=== PATIENT | male | born 1980 | race Caucasian/White ===

== ENCOUNTER 2023-05-06 22:25 | Emergency (ER) | payer MEDICARE, SELFPAY ==
[2023-05-06] VITALS (12 sets, daily range): BP systolic 159–179; BP diastolic 100–115; PULSE 75–89; RESP 16–22; TEMP 36.8; O2SAT 95–98
--- NOTE | 2023-05-06 23:06 | ED.RECABL1 ---
HPI - Recheck/Abnormal Lab/Rx General Chief Complaint: Recheck/Abnormal Lab/Rx Stated Complaint: ABNORMAL LAB Time Seen by Provider: 05/06/23 22:50 Source: patient Mode of arrival: walk-in Limitations: no limitations History of Present Illness HPI narrative: past history of bipolar. Is on several mental health medications including lithium 1800mg per day. For the past month has been experiencing tremors and feeling off balance. also blurred vision. blurred vision for 2 weeeks. no headache, near syncope, abdominal pain or vomiting. Has had diarrhea Related Data Home Medications Medication Instructions Recorded Confirmed clonazepam 1 mg tablet mg 05/06/23 clonidine HCl 0.2 mg tablet mg 05/06/23 gabapentin 600 mg tablet mg 05/06/23 hydroxyzine pamoate 50 mg capsule mg 05/06/23 lamotrigine 150 mg tablet mg 05/06/23 lithium carbonate 450 mg mg PO 05/06/23 tablet,extended release mirtazapine 15 mg tablet mg 05/06/23 risperidone 2 mg tablet mg 05/06/23 venlafaxine 150 mg mg PO 05/06/23 capsule,extended release 24 hr Allergies Allergy/AdvReac Type Severity Reaction Status Date / Time No Known Drug Allergies Allergy Verified 05/06/23 22:45 Review of Systems ROS Status of ROS 10 or more systems reviewed and unremarkable except as noted in history and below [facility] Social History Smoking status: Never smoker Exam Constitutional Vital Signs, click to edit/add: Last Vital Signs Temp 98.2 F 05/06/23 22:36 Pulse 71 05/07/23 02:11 Resp 14 05/07/23 01:05 BP 156/106 H 05/07/23 02:10 Pulse Ox 96 05/07/23 02:11 Common normals: no apparent distress, average body habitus, oriented x3, no limitations, healthy appearing, alert and well nourished Eye Common normals: EOMs intact bilaterally and conjunctivae normal Respiratory Common normals: normal respiratory effort, no retractions, no use of accessory muscles and clear to auscultation bilaterally Cardio Common normals: regular rate, regular rhythm, S1 normal heart sound and S2 normal heart sound GI Common normals: Normal to inspection, nondistended, normoactive bowel sounds present, soft to palpation and non-tender Extremity Common normals: normal to inspection and full ROM Neuro Common normals: oriented x3, CN's II-XII intact bilaterally and moves all extremities Other: fine tremor of his hands Psych Appearance: grossly normal Course Vital Signs Vital signs: Vital Signs Temperature 98.2 F 05/06/23 22:36 Pulse Rate 89 05/06/23 22:36 Respiratory Rate 16 05/06/23 22:36 Blood Pressure 170/104 H 05/06/23 22:36 Pulse Oximetry 96 05/06/23 22:36 Temperature 98.2 F 05/06/23 22:36 Pulse Rate 71 05/07/23 02:11 Respiratory Rate 14 05/07/23 01:05 Blood Pressure 156/106 H 05/07/23 02:10 Pulse Oximetry 96 05/07/23 02:11 MDM - Recheck/Abnormal Lab/Rx MDM Narrative Medical decision making narrative: patient presents with lithium toxicity . tremor and sensation of off balance for past month. blurred vision for past 2 weeks. Labs tonight returned with lithium toxicity. He takes 1800 mg once per day and did take his dose last night. . Advised to come to the ER tonight. has fine tremor of both hands. States he feels off balance when walking but is able to walk. vision is blurry and he has diarrhea. discussed with poison who recommends q4 hr monitoring of his lithium level. [facility] is a send out here and we are not able to monitor his levels. Discussed with hospitalist at [facility] and patient accepted for admission Lab Data Labs: Lab Results 05/06/23 Range/Units 22:43 WBC 9.4 (4.0-11.0) 10^3/uL RBC 4.91 (4.70-6.10) 10^6/uL Hgb 14.7 (14.0-18.0) g/dL Hct 43.6 (42.0-54.0) % MCV 88.8 (80.0-94.0) fL MCH 29.9 (25.9-34.0) pg MCHC 33.7 (29.9-35.2) g/dL RDW 12.5 (11.0-15.0) % Plt Count 224 (150-450) 10^3/uL MPV 11.4 (9.5-13.5) fL Neut % (Auto) 73.3 (43.0-75.0) % Lymph % (Auto) 15.4 L (20.5-60.0) % [place] % (Auto) 7.5 (1.7-12.0) % Eos % (Auto) 3.0 (0.9-7.0) % Baso % (Auto) 0.6 (0.2-2.0) % Neut # (Auto) 6.9 H (1.4-6.5) 10^3/uL Lymph # (Auto) 1.5 (1.2-3.8) 10^3/uL [place] # (Auto) 0.7 (0.3-0.8) 10^3/uL Eos # (Auto) 0.3 (0.0-0.7) 10^3/uL Baso # (Auto) 0.1 (0.0-0.1) 10^3/uL Abs Immat Gran (auto) 0.02 (0.00-0.03) 10^3/uL Imm/Tot Granulo (auto) 0.2 (0.0-0.5) % Sodium 138 (136-145) mmol/L Potassium 3.0 L (3.5-5.1) mmol/L Chloride 101 (98-107) mmol/L Carbon Dioxide 25.6 (21.0-32.0) mmol/L Anion Gap 14.4 BUN 3.0 L (7.0-18.0) mg/dL Creatinine 0.88 (0.70-1.30) mg/dL Est GFR ( Amer) >60 (>=60) Est GFR (Non-Af Amer) >60 (>=60) BUN/Creatinine Ratio 3.4 Glucose 134 H (74-106) mg/dL Calcium 9.0 (8.5-10.1) mg/dL Discharge Plan Discharge Chief Complaint: Recheck/Abnormal Lab/Rx Clinical Impression: [facility] toxicity Patient Disposition: Xfer Acute Care Hospital Prescriptions / Home Meds: No Action lamotrigine 150 mg tablet gabapentin 600 mg tablet clonazepam 1 mg tablet venlafaxine 150 mg capsule,extended release 24hr PO hydroxyzine pamoate 50 mg capsule lithium carbonate 450 mg tablet extended release PO risperidone 2 mg tablet clonidine HCl 0.2 mg tablet mirtazapine 15 mg tablet Referrals: Rizwan Bautista DO [Primary Care Provider] - 1 week
[2023-05-06] MEDS: 0.9 % SODIUM CHLORIDE 1,000 ML 999 ML IV (23:15)
[2023-05-06 23:18] LABS: Basophils Absolute Auto 0.1 10^3/uL (0.0-0.1); Basophils Percent Auto 0.6 % (0.2-2.0); Eosinophils Absolute Auto 0.3 10^3/uL (0.0-0.7); Hematocrit 43.6 % (42.0-54.0); Hemoglobin 14.7 g/dL (14.0-18.0); Immature Granulocytes Abs Auto 0.02 10^3/uL (0.00-0.03); Immature Granulocytes Pct Auto 0.2 % (0.0-0.5); Lymphocytes Absolute Auto 1.5 10^3/uL (1.2-3.8); Lymphocytes Percent Auto 15.4 % (20.5-60.0); Mean Corpuscular HGB Conc 33.7 g/dL (29.9-35.2); Mean Corpuscular Hemoglobin 29.9 pg (25.9-34.0); Mean Corpuscular Volume 88.8 fL (80.0-94.0); Mean Platelet Volume 11.4 fL (9.5-13.5); Monocytes Absolute Auto 0.7 10^3/uL (0.3-0.8); Monocytes Percent Auto 7.5 % (1.7-12.0); Neutrophils Absolute Auto 6.9 10^3/uL (1.4-6.5); Neutrophils Percent Auto 73.3 % (43.0-75.0); Platelet Count 224 10^3/uL (150-450); Red Blood Count 4.91 10^6/uL (4.70-6.10); Red Cell Distribution Width 12.5 % (11.0-15.0); White Blood Count 9.4 10^3/uL (4.0-11.0)
[2023-05-06 23:30] LABS: Anion Gap 14.4; BUN Creatinine Ratio 3.4; Carbon Dioxide 25.6 mmol/L (21.0-32.0); Chloride 101 mmol/L (98-107); Estimated GFR (African America >60 (>=60); Estimated GFR (Non-African Ame >60 (>=60); Glucose 134 mg/dL (74-106); Sodium 138 mmol/L (136-145)
[2023-05-06] MEDS: LABETALOL HCL 20 MG/4 ML SYRINGE 10 MG IVP (23:58)
[2023-05-07] VITALS (37 sets, daily range): BP systolic 140–178; BP diastolic 97–117; PULSE 68–77; RESP 14–24; O2SAT 95–98
[2023-05-07] MEDS: 0.9 % SODIUM CHLORIDE 1,000 ML 999 ML IV (00:53)
[2023-05-07] MEDS: POTASSIUM CHLORIDE IN WATER 10 MEQ/100 ML PIGGYBACK 100 MEQ IV (01:04)
--- NOTE | 2023-05-07 01:53 | ECG_ITS ---
[facility] Test Date: 2023-05-06 Pat Name: DALJIT NAPOLES Department: Room: - Gender: Male [employer]: : [id number] Requested By: [id number] Order Number: [id number] Reading MD: MELCHOR POWERS Measurements Intervals [place] Rate: 81 P: 30 UT: 178 QRS: 93 QRSD: 126 T: 43 QT: 392 QTc: 430 Interpretive Statements 1100 Sinus rhythm 2320 Nonspecific intraventricular conduction delay 7102 Moderate right axis deviation 9130 borderline ECG Compared to ECG 03/07/2020 16:44:04 No significant changes Electronically Signed On 05-07-2023 6:55:41 EST by MELCHOR POWERS
[2023-05-07] MEDS: POTASSIUM CHLORIDE 10 MEQ ER TABLET PO (02:51)
--- NOTE | 2023-05-07 08:06 | PC.NURSE ---
Update provided to Poison control that patient was transferred to [facility].
[2023-05-19 14:40] LABS: Lithium (Eskalith(R)), Serum 1.9 mmol/L (0.5-1.2)
== END 2023-05-07 03:03 | disposition short-term general hospital (02) ==
PROVIDERS: Emergency Provider Internal Medicine; PCP Internal Medicine
DX: R25.1 Tremor, unspecified (principal); H53.8 Other visual disturbances; R26.89 Other abnormalities of gait and mobility; T43.595A Adverse effect of other antipsychotics and neuroleptics, initial encounter; F31.9 Bipolar disorder, unspecified; Z79.899 Other long term (current) drug therapy
CPT/HCPCS: 36415; 80048; 80178; 85025; 93005; 96361; 96365; 96375; 99284; J1290; J3480

== ENCOUNTER 2024-01-01 15:04 | Outpatient (OUT) | payer MEDICARE, SELFPAY ==
--- OUTSIDE RECORDS SUMMARY | 2024-01-01 15:14 | XMS_ITS | CCD ---
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 Name Role Phone Unavailable Primary Care Provider Unavailabl e Unknown, Unknown Unavailable Unavailable Unavailable Unavailable Unavailable Primary Care Provider Unavailsylwia e RIZWAN POWERS Primary Care Physician Coleman CARMICHAEL Attending Unavailable CARMICHAEL, Coleman Simons Attending Unavailable CARMICHAEL, Coleman Simons Attending Unavailable CARMICHAEL, Coleman Simons Referring Unavailable AMOL, Coleman Simons Admitting Unavailable BALL, DR ROCHE Admitting Unavailable BALL, DR ROCHE Attending Unavailable BALL, DR ROCHE Consulting Unavailable BALL, DR ROCHE Primary Care Unavailable BALL, DR ROCHE Admitting Unavailable BALL, DR ROCHE Attending Unavailable BALL, DR ROCHE Consulting Unavailable BALL, DR ROCHE Primary Care Unavailable BALL, DR ROCHE Admitting Unavailable BALL, DR ROCHE Attending Unavailable BALL, DR ROCHE Consulting Unavailable BALL, DR ROCHE Primary Care Unavailable CARLENE, DR GUSTAVO Monge Consulting Unavailable BALL, DR ROCHE Admitting Unavailable BALL, DR ROCHE Attending Unavailable BALL, DR ROCHE Consulting Unavailable BALL, DR ROCHE Primary Care Unavailable ZiJesi alston Consulting Unavailable BALL, DR ROCHE Admitting Unavailable BALL, DR ROCHE Primary Care Unavailable BALL, DR ROCHE Attending Unavailable BALL, DR ROCHE Consulting Unavailable BALL, DR ROCHE Admitting Unavailable BALL, DR ROCHE Attending Unavailable BALL, DR ROCHE Primary Care Unavailable ANNAMARIA ., DR KALEIGH Mohan Admitting Unavailable YIN ., DR KALEIGH Mohan Attending Unavailable YIN ., DR KALEIGH Mohan Consulting Unavailable PRIYA, DR ROCHE Primary Care Unavailable PRIYA, DR ROCHE Primary Care Unavailable LAKSHMIPATHY ., NARENDMUKESH Admitting Lauren vailable LISBET .SUNNI Consulting Unavailable ALLI ., NIKI Attending Lauern vailable Mora Hendrickson Unavailable Riz[place] [id number], Number Primary Care Provide r Unavailable Bill 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-RN 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, 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 MACHINE TENDER-VARIOUS EXCEPTIONALITIES TEACHERShireen Unavailable Rizwan Powers Primary [facility] Unavailable rSinivas Botello Admitting Unavailab Srinivas Cervantes Attending Unavailab Jeremías Lugo Admitting Unavailable Zoya Castro Attending Unavailable Rizwan Powers Primary Care Unavailable Srinivas Botello Consulting Unavailab SHIREEN Mills Attending Unavailable SHIREEN KHAN Referring Unavailable SHIREEN KHAN Attending Unavailable SHIREEN KHAN Referring Unavailable SHIREEN KAHN Attending Unavailable SHIREEN KHAN Referring Unavailable SHIREEN KHAN Attending Unavailable SHIREEN KHAN Attending Unavailable SHIREEN KHAN Attending Unavailable SHIREEN KHAN Referring Unavailable SHIREEN KHAN Attending Unavailable SHIREEN KHAN Referring Unavailable SHIREEN KHAN Attending Unavailable SHIREEN KHAN Attending Unavailable SHIREEN KHAN Referring Unavailable CHANCE BRAVO Primary Care Unavailable SHIREEN KHAN Attending Unavailable CHANCE BRAVO Primary Care Unavailable Allergies Allergy Classification Reported Allergen(s) Allergy Type Date of Onset Reaction(s) Facility (1 source) No Known Medication Allergies; Translations: [No Known Medication Allergies] Propensity to adverse reactions (disorder) [facility] Repository (7 sources) Other; Translations: [OTHER] Propensity to adverse reactions 7 Other [facility] Work Phone: Medications Current Medications Medication Drug Class(es) Dates Sig (Normalized) Sig (Original) 24 hr alfuzosin hydrochloride 10 mg extended release oral tablet (20 sources) alpha-Adrenergic Daren Start: 03-31-2022 End: 06-22-2023 alfuzosin 10mg alfuzosin( 10mg oral 1 daily ) Active -Hx Entry oral daily for 0 *Reorder from [facility] for eRx and Interaction Alerts* Mar, Active amLODIPine (14 sources) Dihydropyridine Calcium Channel Daren Start: 11-11-2023 take 1 tablet by mouth once daily Amlodipine Active 0 .ROUTE .COMPLEX November 11, 2023 5:56pm TAKE ONE TABLET BY MOUTH ONCE DAILY Start: 06-02-2023 End: 11-11-2023 take 10 mg by mouth once daily Amlodipine Discontinued 10 MG PO Daily June 02, 2023 5:50pm November 11, 2023 5:56pm Start: 06-02-2023 End: 06-02-2023 take 20 mg by mouth once daily Amlodipine Discontinued 20 MG PO Daily June 02, 2023 1:00am June 02, 2023 5:44pm Start: 05-14-2023 take 1 tablet by beth th once daily amLODIPine (Norvasc) 5 mg tablet Take 1 tablet (5 mg) by mouth once daily. 05/14/2023 Active benazepril hydrochloride 10 mg oral tablet (12 sources) Angiotensin Converting Enzyme Inhibitor take 1 tablet by mouth every twenty-four hours Benazepril HCl 10 MG 1 tablet Orally Once a day for 30 days Active End: 05-18-2023 take 1 tablet by mouth once daily benazepril (Lotensin) 5 mg tablet Take 1 tablet (5 mg) by mouth once daily. 0 05/18/2023 Discontinued (Med List Cleanup) carvedilol 6.25 mg oral tablet (14 sources) alpha-Adrenergic Daren, beta-Adrenergic Daren Start: 11-11-2023 take 1 tablet by mouth twice daily at mealtime Carvedilol Active 0 .ROUTE .COMPLEX 60 November 11, 2023 5:55pm TAKE ONE TABLET BY MOUTH TWICE A DAY WITH FOOD Start: 05-26-2023 End: 11-11-2023 take 6.25 mg by mouth twice daily Carvedilol Discontinued 6.25 MG PO Twice daily June 02, 2023 1:00am November 11, 2023 5:56pm Start: 10-07-2017 End: 05-18-2023 take 1 tablet by mouth every twelve hours carvedilol (Coreg) 12.5 mg tablet Take 1 tablet (12.5 mg) by mouth every 12 hours. 0 10/07/2017 05/18/2023 Discontinued (Med List Cleanup) celecoxib 200 mg oral capsule (2 sources) Nonsteroidal Anti-inflammatory Drug take 1 capsule by mouth every twenty-four hours CeleBREX 200 MG 1 capsule with food Orally Once a day Active clonazePAM 1 mg oral tablet (20 sources) Benzodiazepine Start: End: take 1 mg by mouth twice daily Clonazepam Active 1 MG PO Twice daily May 07, 2023 1:00am take 1 tablet by beth every twenty-four hours KlonoPIN 1 MG 1 tablet Orally Once a day Active Comment on above: Take 1 tablet by beth twice daily as needed for up to 30 days. TAKE 1 TABLET BY BETH TWICE DAILY NEEDED UP TO 30 DAYS cloNIDine hydrochloride 0.2 mg oral tablet (20 sources) Central alpha-2 Adrenergic Agonist Start: 07-28-2023 take 0.2 mg by mouth twice daily Clonidine Hcl Active 0.2 MG PO Twice daily July 28, 2023 5:29pm Start: 05-07-2023 End: 07-28-2023 take 1 tablet by mouth three times daily as needed for anxiety Clonidine Hcl Discontinued 0.2 MG PO Daily at bedtime June 05, 2023 10:39am July 28, 2023 5:29pm 1 tab p.o. TID PRN anxiety Start: 05-05-2023 End: 08-24-2023 take 1 tablet by mouth once daily at bedtime cloNIDine (Catapres) 0.2 mg tablet Indications: Generalized anxiety disorder Take 1 tablet (0.2 mg) by mouth once daily at bedtime. 30 tablet 2 05/05/2023 08/24/2023 Discontinued (Reorder) Start: 02-03-2022 take 1 tablet by beth once daily at bedtime cloNIDine (Catapres) 0.2 mg tablet Take 1 tablet (0.2 mg) by mouth once daily at bedtime. 0 02/03/2022 Active Start: 02-03-2022 take 1 tablet by beth three times daily as needed for anxiety cloNIDine HCl - 0.2 MG Oral Tablet Take 1 tablet up to 3 times daily as needed for anxiety. Quantity: 90 Refills: 2 Ordered: 07-Aug-2022 Shireen Higuera Start : 03-Feb-2022 Active Start: 01-31-2022 take 0.1 tablet by out three times daily as needed cloNIDine HCl - 0.2 MG Oral Tablet Take 1 tablet up to 3 times daily as needed for anxiety. Quantity: 90 Refills: 0 Ordered: 31-Jan-2022 Shireen Higuera Start : 31-Jan-2022 Active Increasing dose from 0.1--> 0.2 mg Start: 01-07-2022 take 1 tablet by beth th three times daily as needed for anxiety cloNIDine HCl - 0.1 MG Oral Tablet TAKE 1 TABLET 3 times daily PRN anxiety/panic attacks Quantity: 90 Refills: 0 Ordered: 07-Jan-2022 Shireen Higuera Start : 07-Jan-2022 Active gabapentin 600 mg oral tablet (20 sources) Anti-epileptic Agent Start: 06-05-2023 take 1200 mg by mouth three times daily Gabapentin Active 1200 MG PO Three times daily June 05, 2023 10:13am Start: 05-07-2023 End: 06-05-2023 take 1200 mg by mouth every eight hours Gabapentin Discontinued 1200 MG PO Q8H May 07, 2023 1:00am June 05, 2023 10:17am Start: 05-05-2023 End: 08-24-2023 take 2 tablets by mouth three times daily gabapentin (Neurontin) 600 mg tablet Indications: Generalized anxiety disorder , Other bipolar disorder (Multi) Take 2 tablets (1,200 mg) by mouth 3 times a day. 180 tablet 1 06/22/2023 08/24/2023 Discontinued (Reorder) Start: 03-03-2023 End: 05-02-2023 take 2 tablets by mouth three times daily gabapentin (Neurontin) 600 mg tablet Indications: Generalized anxiety disorder , Other bipolar disorder (CMS/HCC) Take 2 tablets (1,200 mg) by mouth 3 times a day. 180 tablet 1 03/03/2023 05/02/2023 Active Start: 12-24-2022 take 1 capsule by mouth once G abapentin 300 MG Oral Capsule Take 1 capsule by mouth in the afternoon. (Take with 600 mg for a total of 900 mg in the afternoon). Quantity: 30 Refills: 0 Ordered: 24-Dec-2022 Shireen Higuera Start : 24-Dec-2022 Active Increasing mid-day dose from 600--> 900 mg. Start: 12-08-2022 End: 04-17-2023 take 1 tablet by mouth three times daily gabapentin (Neurontin) 600 mg tablet Indications: Generalized anxiety disorder , Other bipolar disorder (CMS/HCC) Take 1 tablet (600 mg) by mouth 3 times a day. Take with 300 mg for a total of 900mg 90 tablet 1 02/16/2023 04/17/2023 Active Start: 11-20-2022 Gabapentin 300 MG Oral Capsule take 1 capsule in the morning, 1 capsule in the afternoon, and 2 capsules at bedtime. Quantity: 120 Refills: 1 Ordered: 20-Nov-2022 Bill LORA Shireen Start : 20-Nov-2022 Active Increasing total daily dose from 600--> 1200 mg Start: 08-28-2021 End: 04-17-2023 take 1 capsule by mouth three times daily gabapentin (Neurontin) 300 mg capsule Indications: Generalized anxiety disorder , Other bipolar disorder (CMS/HCC) Take 1 capsule (300 mg) by mouth 3 times a day. Take with 600 mg for a total of 900 mg by mouth 3 times a day. 90 capsule 1 02/16/2023 04/17/2023 Active Start: 02-14-2020 End: 09-04-2021 take 1 capsule by mouth twice daily Gabapentin 300MG Gabapentin 300MG, 1 (one) Capsule Capsule Capsule two times daily # 180, 02/14/2020, Ref. x1. Active Oral two times daily for 0 *Pick strength-form from [facility] for eRX* Jan, Active Start: 04-04-2019 take 1 capsule by [facility] once daily gabapentin 400 mg Cap 400 mg = 1 cap(s), Oral, Daily, Refills(s) 0 Start Date: 04/04/19 Status: Ordered Comment on above: Take 1 capsule by [facility] twice daily for 30 days. hydrALAZINE hydrochloride 10 mg oral tablet (1 source) Arteriolar Vasodilator Start: 07-29-19 24 take 10 mg by mouth three times daily Hydralazine Active 10 MG PO Three times daily 90 30 July 29, 2023 12:00am hydrOXYzine pamoate 50 mg oral capsule (20 sources) Antihistamine Start: 05-07-19 End: 07-20-19 24 take 1-2 capsules by mouth once daily as needed for anxiety Hydroxyzine Pamoate Active 50 MG PO Daily June 05, 2023 10:14am TAKE 1-2 CAPSULE BY MOUTH ONCE DAILY NEEDED FOR ANXIETY Start: 04-15-2022 hydrOXYzine HC l 50MG hydrOXYzine HCl( 50MG Oral 2 three times daily as needed ) Active -Hx Entry Oral three times daily as needed for 0 *Pick strength-form from [facility] for eRX* Mar, Active Start: 12-02-2021 End: 02-16-2023 hydrOXYzine HCL (Atarax) 50 mg tablet TAKE 1.5-2 TABLETS UP TO 3 TIMES DAILY NEEDED FOR ANXIETY. 0 12/02/2021 02/16/2023 Discontinued (Med List Cleanup) Start: 11-22-2021 take 1 tablet by beth th three times daily as needed for anxiety hydrOXYzine HCl - 50 MG Oral Tablet TAKE 1 TABLET BY MOUTH 3 TIMES A DAY NEEDED FOR ANXIETY Quantity: 90 Refills: 1 Ordered: 22-Nov-2021 Shireen Higuera Start : 22-Nov-2021 Active Increasing from 25--> 50 mg PRN Start: 11-18-2021 take 0.5-1 tablets b y mouth three times daily as needed for anxiety hydrOXYzine HCl - 25 MG Oral Tablet Take 0.5-1 tablet by mouth up to 3 times daily as needed for anxiety. Quantity: 90 Refills: 1 Ordered: 18-Nov-2021 Shireen Higuera Start : 18-Nov-2021 Active mirtazapine 15 mg oral tablet (20 sources) Start: 05-05-2023 End: 08-10-2023 take 1 tablet by mouth once daily at bedtime Mirtazapine Active 15 MG PO Daily at bedtime May 07, 2023 1:00am 1 tab PO daily at bedtime with 30mg dose to total 45mg Start: 05-05-2023 End: 08-10-2023 take 30 mg by mouth once daily at bedtime Mirtazapine Active 30 MG PO Daily at bedtime May 07, 2023 1:00am Start: 09-18-2022 End: 04-17-2023 take 1 tablet by mouth once daily at bedtime mirtazapine (Remeron) 30 mg tablet Indications: Severe episode of recurrent major depressive disorder, without psychotic features (CMS/HCC) , Generalized anxiety disorder Take 1 tablet (30 mg) by mouth once daily at bedtime. 30 tablet 1 02/16/2023 04/17/2023 Active Start: 03-18-2022 End: 04-17-2023 take 1 tablet by mouth once daily at bedtime mirtazapine (Remeron) 15 mg tablet Indications: Severe episode of recurrent major depressive disorder, without psychotic features (CMS/HCC) , Generalized anxiety disorder Take 1 tablet (15 mg) by mouth once daily at bedtime. 30 tablet 1 02/16/2023 04/17/2023 Active Start: 09-25-2021 End: 02-16-2023 take 1 tablet by mouth at bedtime Mirtazapine 7.5 MG Oral Tablet TAKE 1 TABLET AT BEDTIME WITH 15 MG FOR A TOTAL OF 22.5 MG. Quantity: 30 Refills: 0 Ordered: 10-Sep-2022 Shireen Higuera Start : 10-Sep-2022 Active Increasing dose from 15 mg--> 22.5 mg One Touch Glucometer (6 sources) Start: 05-26-2023 One Touch Glucometer to test blood sugar daily for 365 days May, Active QUEtiapine 50 mg oral tablet (1 source) Atypical Antipsychotic Start: 12-02-2023 take 1 tablet by mouth three times daily Quetiapine (Seroquel) 50 mg tablet Active 50 MG PO Three times daily December 02, 2023 12:00am tadalafil 10 mg oral tablet (4 sources) Phosphodiesterase 5 Inhibitor Start: 02-12-2022 Cialis 10mg Cialis 10mg, 1 (one) Tablet Tablet PRN ED # 6, 02/12/2022, Ref. x2. Active oral PRN ED for 0 *Pick strength-form from [facility] for eRX* Jan, Active True Metrix Meter w/Device (2 sources) Start: 05-27-2023 True Metrix Meter w/Device as directed to test blood sugar for 365 days Test Strips as well - dispense 100 strips with 5 refills May, Active 24 hr venlafaxine 150 mg extended release oral capsule (20 sources) Serotonin and Norepinephrine Reuptake Inhibitor Start: 05-07-2023 take 300 mg by mouth once daily at bedtime Venlafaxine Active 300 MG PO Daily at bedtime May 07, 2023 1:00am Start: 04-15-2022 Venlafaxine HC l ER 150MG Venlafaxine HCl ER( 150MG Oral 1 two times daily ) Active -Hx Entry Oral two times daily *Pick strength-form from [employer] for eRX* Mar, Active Start: 08-28-2021 End: 09-12-2023 take 2 capsules by mouth once daily venlafaxine XR (Effexor-XR) 150 mg 24 hr capsule Indications: Severe episode of recurrent major depressive disorder, without psychotic features (Multi) , Generalized anxiety disorder , Other bipolar disorder (Multi) Take 2 capsules (300 mg) by mouth once daily. 180 capsule 1 03/16/2023 08/24/2023 Discontinued (Reorder) Start: 08-28-2021 take 2 capsules by m outh once daily Venlafaxine HCl ER 150 MG Oral Capsule Extended Release 24 Hour TAKE 2 CAPSULES DAILY. Quantity: 60 Refills: 2 Ordered: 16-Oct-2022 Shireen Higuera Start : 28-Aug-2021 Active Start: 08-28-2021 take 1 capsule by mo uth at bedtime Venlafaxine HCl ER 75 MG Oral Capsule Extended Release 24 Hour TAKE 1 CAPSULE Bedtime Take with 37.5 mg for a total of 112.5 mg Quantity: 30 Refills: 0 Ordered: 28-Aug-2021 Shireen Higuera Start : 28-Aug-2021 Active Start: 08-28-2021 take 1 capsule by mo uth at bedtime Venlafaxine HCl ER 37.5 MG Oral Capsule Extended Release 24 Hour TAKE 1 CAPSULE Bedtime Take with 75 mg for a total of 112.5 mg Quantity: 30 Refills: 0 Ordered: 28-Aug-2021 Shireen Higuera Start : 28-Aug-2021 Active Start: 2021 take 2 capsules by m outh once daily venlafaxine ER (EFFEXOR XR) 37.5 mg 24 hr capsule Take 2 pills po daily. 120 capsule 0 2021 Active Start: 04-15-2021 take 1 capsule by mo uth twice daily venlafaxine ER (EFFEXOR XR) 150 mg 24 hr capsule Take one po bid. 60 capsule 5 04/15/2021 Active Start: 03-08-2021 End: 09-04-2021 take 1 capsule by mouth once daily venlafaxine ER (EFFEXOR XR) 75 mg 24 hr capsule Take 1 capsule by mouth once daily. 30 capsule 5 03/08/2021 Active Start: 04-04-2019 Effexor XR 150 mg Cap-ER Refills(s) 0 Start Date: 04/04/19 Status: Ordered Start: 01-22-2009 take 1 capsule by mo uth once daily Effexor XR 150 MG take 1 capsule (150MG) by ORAL route every day Oral *please review for potential _update for e-prescription and drug interaction check* (Juve-) Jan, Active Comment on above: Take 1 capsule by mo ut once daily. Take one po bid. Take 2 pills po myrna y. Completed/Discontinued Medications Medication Drug Class(es) Dates Sig (Normalized) Sig (Original) allopurinol 100 mg oral tablet (4 sources) Xanthine Oxidase Inhibitor Start: 10-07-2017 End: 06-22-2023 take 1 tablet by mouth once daily allopurinol (Zyloprim) 100 mg tablet Take 1 tablet (100 mg) by mouth once daily. 0 10/07/2017 06/22/2023 Discontinued (Med List Cleanup) amoxicillin 875 mg oral tablet (5 sources) Penicillin-class Antibacterial Start: 11-10-2022 End: 11-17-2022 take 1 tablet by mouth twice daily amoxicillin (Amoxil) 875 mg tablet Take 1 tablet (875 mg) by mouth 2 times a day. 0 11/10/2022 11/17/2022 Start: 11-03-2021 Amoxicillin 87 5 MG Oral Tablet Quantity: 20 Refills: 0 Ordered: 03-Nov-2021 DO Start : 03-Nov-2021 Complete Start: 10-16-2021 Amoxicillin 50 0 MG Oral Capsule Quantity: 21 Refills: 0 Ordered: 16-Oct-2021 DO Start : 16-Oct-2021 Complete atenolol 50 mg oral tablet (6 sources) beta-Adrenergic Daren Start: 12-30-2018 End: 05-18-2023 atenolol (Tenormin) 50 mg tablet End: 05-18-2023 ATENOLOL ORAL Take by mouth once daily. 0 05/18/2023 Discontinued (Med List Cleanup) ATENOLOL ORAL Ta ke by mouth once daily. 0 Active baclofen 20 mg oral tablet (20 sources) gamma-Aminobutyric Acid-ergic Agonist Start: 02-20-2022 Baclofen 20 MG Oral Tablet Quantity: 30 Refills: 0 Ordered: 20-Feb-2022 DO Start : 20-Feb-2022 Active baclofen (Liores al) 20 mg tablet Active benztropine mesylate 0.5 mg oral tablet (7 sources) Anticholinergic, Antihistamine Start: 08-01-2022 take 1 tablet by mouth twice daily as needed Benztropine Mesylate 0.5 MG Oral Tablet TAKE 1 TABLET BY MOUTH TWICE A DAY NEEDED FOR SIDE EFFECTS Quantity: 60 Refills: 0 Ordered: 01-Aug-2022 Shireen Ruiz Start : 01-Aug-2022 Active BinaxNOW COVID-19 Ag Self Test kit (4 sources) Start: 04-12-2022 End: 06-22-2023 BinaxNOW COVID-19 Ag Self Test kit Use as Directed on the Package 0 04/12/2022 06/22/2023 Discontinued (Med List Cleanup) Start: 04-12-2022 BinaxNOW COVID -19 Ag Self Test kit Use as Directed on the Package 0 04/12/2022 Active busPIRone hydrochloride 10 m g oral tablet (20 sources) Start: 11-18-2021 End: 02-16-2023 busPIRone (Buspar) 10 mg tab let TAKE 2 TABLET 3 times daily 0 11/18/2021 02/16/2023 Discontinued (Med List Cleanup) Start: 11-18-2021 busPIRone HCl - 15 MG Oral Tablet Quantity: 90 Refills: 0 Ordered: 18-Nov-2021 DO Start : 18-Nov-2021 Complete Start: 10-29-2021 take 1 tablet by beth once daily, then take 1 tablet by mouth twice daily, then take 1 tablet by mouth three times daily busPIRone HCl - 10 MG Oral Tablet Take 1 tablet by mouth daily x 1 week, then increase to 1 tablet by mouth twice daily x 1 week, then increase to 1 tablet by mouth three times daily. Quantity: 90 Refills: 1 Ordered: 29-Oct-2021 Shireen Higuera Start : 29-Oct-2021 Active Start: 03-03-2021 End: 09-19-2021 take 1 tablet by mouth twice daily busPIRone (BUSPAR) 10 mg tablet Take 1 tablet by mouth twice daily 60 tablet 0 09/19/2021 Active Comment on above: Take one tab po bid. Take 1 tablet by beth th twice daily cefdinir 300 mg oral capsule (2 sources) Cephalosporin Antibacterial Start: 11-21-19 Cefdinir 300 MG Oral Capsule Quantity: 42 Refills: 0 Ordered: 20-Nov-2021 DO Start : 20-Nov-2021 Complete diclofenac sodium 75 mg delayed release oral tablet (2 sources) Nonsteroidal Anti-inflammatory Drug Start: 10-06-19 19 End: 05-18-19 24 take 1 tablet by mouth twice daily at mealtime diclofenac (Voltaren) 75 mg EC tablet Take 1 tablet (75 mg) by mouth 2 times a day with meals. 0 10/05/2018 05/18/2023 Discontinued (Med List Cleanup) doxepin hydrochloride 10 mg oral capsule (1 source) Tricyclic Antidepressant Start: 09-06-19 take 1 capsule by mouth at bedtime as needed for sleep Doxepin HCl - 10 MG Oral Capsule TAKE 1 CAPSULE BY MOUTH AT BEDTIME NEEDED FOR SLEEP Quantity: 30 Refills: 1 Ordered: 05-Sep-2021 Shireen Higuera Start : 05-Sep-2021 Active etodolac 400 mg oral tablet (6 sources) Nonsteroidal Anti-inflammatory Drug Start: 05-13-19 23 End: 05-18-19 24 etodolac (Lodine) 400 mg tablet Start: 04-08-2022 take 1 tablet by beth th twice daily Etodolac 400mg etodolac 400mg, 1 (one) tablet two times daily # 30, 04/08/2022, Ref. x1. Active oral two times daily for 15 *Pick strength-form from [facility] for eRX* 20 Mar, 2022 Active lamoTRIgine 100 mg oral tablet (20 sources) Mood Stabilizer, Anti-epileptic Agent Start: 06-11-2023 End: 08-24-2023 take 1 tablet by mouth twice daily lamoTRIgine (LaMICtal) 100 mg tablet Indications: Other bipolar disorder (Multi) , Severe episode of recurrent major depressive disorder, without psychotic features (Multi) Take 1 tablet (100 mg) by mouth 2 times a day. 60 tablet 1 06/11/2023 08/24/2023 Discontinued (Reorder) Start: 10-29-2021 End: 09-12-2023 take 1 tablet by mouth once daily at bedtime Lamotrigine Active 150 MG PO Daily at bedtime May 07, 2023 1:00am TAKE 1 TABLET BY MOUTH AT BEDTIME Start: 08-28-2021 take 1 tablet by beth th twice daily lamoTRIgine 100 MG Oral Tablet TAKE 1 TABLET TWICE DAILY. Quantity: 60 Refills: 0 Ordered: 25-Sep-2021 Shireen Higuera Start : 28-Aug-2021 Active Start: 08-28-2021 take 2 tablets by mo uth at bedtime lamoTRIgine 25 MG Oral Tablet TAKE 2 TABLET Bedtime Take with 100 mg for a total of 150 mg Quantity: 60 Refills: 0 Ordered: 25-Sep-2021 Shireen Higuera Start : 28-Aug-2021 Active Start: 04-15-2021 End: 09-12-2023 take 1 tablet by mouth once daily Lamotrigine Active 100 MG PO Daily May 07, 2023 1:00am TAKE 1 TABLET BY MOUTH ONCE DAILY Start: 04-15-2021 End: 10-15-2021 take 1 tablet by mouth at bedtime lamoTRIgine 150 MG Oral Tablet TAKE 1 TABLET Bedtime Quantity: 30 Refills: 1 Ordered: 12-Feb-2022 Shireen Higuera Start : 29-Oct-2021 Active Comment on above: Take 1 tablet by beth th once daily. In the AM. Take 1 tablet by beth th once daily. At bedtime. lithium carbonate 300 mg extended release oral tablet (20 sources) Start: 07-09-2023 End: 07-20-2023 take 2 tablets by mouth once daily at bedtime lithium ER (Lithobid) 300 mg 12 hr tablet Indications: Other bipolar disorder (Multi) Take 2 tablets (600 mg) by mouth once daily at bedtime. Do not crush, chew, or split. 20 tablet 07/09/2023 07/20/2023 Discontinued (Reorder) Start: 05-07-2023 End: 05-08-2023 take 4 tablets by mouth once daily at bedtime [place] Carbonate Discontinued 450 MG PO Daily at bedtime May 07, 2023 1:00am May 08, 2023 3:54pm TAKE 4 TABLETS BY MOUTH ONCE DAILY AT BEDTIME Start: 05-05-2023 End: 05-18-2023 take 4 tablets by mouth once daily at bedtime lithium ER (Eskalith) 450 mg 12 hr tablet Indications: Other bipolar disorder (CMS/HCC) , Severe episode of recurrent major depressive disorder, without psychotic features (CMS/HCC) Take 4 tablets (1,800 mg) by mouth once daily at bedtime. 120 tablet 1 05/05/2023 05/18/2023 Discontinued (Side effects) Start: 02-13-2023 End: 04-17-2023 take 4 tablets by mouth once daily at bedtime lithium ER (Eskalith) 450 mg 12 hr tablet Indications: Severe episode of recurrent major depressive disorder, without psychotic features (CMS/HCC) , Other bipolar disorder (CMS/HCC) Take 4 tablets (1,800 mg) by mouth once daily at bedtime. 120 tablet 1 02/16/2023 04/17/2023 Active Start: 08-18-2022 take 4 tablets by mo uth at bedtime [place] Carbonate ER 450 MG Oral Tablet Extended Release TAKE 4 TABLET Bedtime Quantity: 120 Refills: 1 Ordered: 20-Nov-2022 Shireen Higuera Start : 18-Aug-2022 Active Start: 04-15-2022 [place] [place] ate 150MG [place] Carbonate( 150MG Oral 1200 daily ) Active -Hx Entry Oral daily for 0 *Pick strength-form from [employer] for eRX* Mar, Active Start: 03-25-2022 lithium carbon ate Oral, TID, Refills(s) 0 Start Date: 03/25/22 Status: Ordered Start: 09-30-2021 End: 02-16-2023 lithium 300 mg tablet TAKE 4 TABLETS AT BEDTIME 0 09/30/2021 02/16/2023 Discontinued (Med List Cleanup) Start: 09-30-2021 take 1 tablet by beth th at bedtime [place] Carbonate 300 MG Oral Tablet TAKE 1 TABLET Bedtime Take with 900 mg for a total of 1200 mg Quantity: 30 Refills: 0 Ordered: 30-Sep-2021 Shireen Higuera Start : 30-Sep-2021 Active Start: 08-28-2021 take 3 tablets by mo uth at bedtime [place] Carbonate 300 MG Oral Tablet TAKE 3 TABLETS AT BEDTIME. Quantity: 90 Refills: 0 Ordered: 25-Sep-2021 Bill WELDONRACHELLEShireen Start : 28-Aug-2021 Active Start: 08-28-2021 take 2 tablets by mo uth at bedtime [place] Carbonate 300 MG Oral Tablet TAKE 2 TABLETS AT BEDTIME. Quantity: 60 Refills: 0 Ordered: 28-Aug-2021 Bill WELDONDenisseShireen IRELAND Start : 28-Aug-2021 Active Start: 03-28-2021 take 2 capsules by m outh in the morning, then take 3 capsules by mouth at bedtime lithium carbonate (ESKALITH) 300 mg capsule Take two capsules po am and 3 capsules po hs. 150 capsule 5 03/28/2021 Active Comment on above: Take two capsules po am and 3 capsules po hs. losartan potassium 25 mg oral tablet (5 sources) Angiotensin 2 Receptor Daren Start: 06-05-19 End: 07-29-19 take 25 mg by mouth once daily Losartan Discontinued 25 MG PO daily June 05, 2023 1:00am July 28, 2023 5:29pm lurasidone hydrochloride 20 mg oral tablet (12 sources) Atypical Antipsychotic Start: 06-22-19 End: 07-22-19 take 1 tablet by mouth once daily at mealtime lurasidone (Latuda) 20 mg tablet Indications: Other bipolar disorder (Multi) Take 1 tablet (20 mg) by mouth once daily in the evening. Take with meals. 30 tablet 06/22/2023 07/15/2023 Discontinued (Side effects) take 1 tablet by beth every twenty-four hours Latuda 80 MG 1 tablet with food Orally Once a day Active methocarbamol 500 mg oral tablet (6 sources) Muscle Relaxant Start: 04-25-2022 End: 05-18-2023 take 1 tablet by mouth every eight hours as needed methocarbamol (Robaxin) 500 mg tablet TAKE 1 TABLET BY MOUTH EVERY 8 HOURS NEEDED FOR 30 DAYS 0 04/26/2022 05/18/2023 Discontinued (Med List Cleanup) nabumetone 500 mg oral tablet (2 sources) Nonsteroidal Anti-inflammatory Drug Start: 11-22-2018 End: 05-18-2023 take 1 tablet by mouth twice daily at mealtime nabumetone (Relafen) 500 mg tablet Take 1 tablet (500 mg) by mouth 2 times a day with meals. 0 11/22/2018 05/18/2023 Discontinued (Med List Cleanup) polyethylene glycol 3350 [id number] mg powder for oral solution (3 sources) Osmotic Laxative Start: 06-05-2023 End: 09-03-2023 polyethylene glycol (Glycolax, Miralax) 17 gram/dose powder Indications: Drug-induced constipation Take 17 g by mouth once daily. 510 g 2 06/05/2023 09/03/2023 polymyxin b 88907 unt/ml / trimethoprim 1 mg/ml ophthalmic solution (15 sources) Dihydrofolate Reductase Inhibitor Antibacterial, Polymyxin-class Antibacterial Start: 01-16-2023 End: 07-20-2023 take 1 drop(s) into the eye(s) four times daily polymyxin B sulf-trimethoprim (Polytrim) ophthalmic solution INSTILL 1 DROP INTO AFFECTED EYE(S) 4 TIMES DAILY FOR 5 DAYS 01/16/2023 07/20/2023 Discontinued (Med List Cleanup) prednisoLONE acetate 10 mg/ml ophthalmic suspension (5 sources) Corticosteroid Start: 02-03-2023 End: 07-20-2023 prednisoLONE acetate (Pred-Forte) 1 % ophthalmic suspension 02/03/2023 07/20/2023 Discontinued (Med List Cleanup) predniSONE 20 mg oral tablet (4 sources) Start: 04-02-2022 End: 05-18-2023 predniSONE (Deltasone) 20 mg tablet Start: 04-02-2022 predniSONE 20 MG Oral Tablet Quantity: 15 Refills: 0 Ordered: 02-Apr-2022 DO Start : 02-Apr-2022 Complete risperiDONE 0.25 mg oral tablet (20 sources) Atypical Antipsychotic Start: 07-15-2023 End: 07-20-2023 take 1-2 tablets by mouth once daily as needed for anxiety risperiDONE (RisperDAL) 0.25 mg tablet Indications: Other bipolar disorder (Multi) Take 1-2 tablets (0.25-0.5 mg) by mouth once daily as needed (anxiety/agitation). 30 tablet 07/15/2023 07/20/2023 Discontinued (Alternate therapy) Start: 06-22-2023 End: 07-22-2023 take 1.5 tablets by mouth once daily risperiDONE (RisperDAL) 1 mg tablet Indications: Other bipolar disorder (CMS/HCC) Take 1.5 tablets (1.5 mg) by mouth once daily. 45 tablet 0 06/22/2023 07/22/2023 Active Start: 05-07-2023 End: 07-20-2023 take 1 mg by mouth once daily at bedtime Risperidone Active 1 MG PO Daily at bedtime June 05, 2023 10:17am Start: 05-05-2023 End: 08-10-2023 take 2 mg by mouth once daily at bedtime Risperidone Active 2 MG PO Daily at bedtime May 07, 2023 1:00am Start: 02-23-2023 End: 04-24-2023 take 1 tablet by mouth once daily risperiDONE (RisperDAL) 2 mg tablet Indications: Other bipolar disorder (CMS/HCC) Take 1 tablet (2 mg) by mouth once daily. 30 tablet 1 02/23/2023 04/24/2023 Active Start: 02-16-2023 End: 03-02-2023 risperiDONE (RisperDAL) 0.5 mg tablet Indications: Severe episode of recurrent major depressive disorder, without psychotic features (CMS/HCC) , Other bipolar disorder (CMS/HCC) Take 1 tablet (0.5 mg) by mouth once daily for 14 days. Then discontinue. 14 tablet 0 02/16/2023 03/02/2023 Active Start: 08-07-2021 End: 02-16-2023 take 1 tablet by mouth once daily at bedtime risperiDONE (RisperDAL) 2 mg tablet Take 1 tablet (2 mg) by mouth once daily at bedtime. 0 08/28/2021 02/16/2023 Discontinued (Med List Cleanup) Start: 08-05-2021 End: 04-17-2023 take 1 tablet by mouth once daily at bedtime risperiDONE (RisperDAL) 1 mg tablet Indications: Severe episode of recurrent major depressive disorder, without psychotic features (CMS/HCC) , Other bipolar disorder (CMS/HCC) Take 1 tablet (1 mg) by mouth once daily at bedtime. 30 tablet 1 02/16/2023 04/17/2023 Active Start: 07-22-2021 End: 08-05-2021 take 1 tablet by mouth in the morning, then take 2 tablets by mouth at bedtime risperiDONE (RISPERDAL) 1 mg tablet Take one po am and 2 at hs 90 tablet 5 08/05/2021 Active Comment on above: Take 1 tablet by beth th twice daily. Take one po am and 2 at hs Take 1 tablet by beth th daily with breakfast. Take 1 tablet by beth th daily at bedtime. sulfamethoxazole 800 mg / trimethoprim 160 mg oral tablet (5 sources) Dihydrofolate Reductase Inhibitor Antibacterial, Sulfonamide Antimicrobial Start: 04-29-19 End: 05-18-19 24 take 1 tablet by mouth twice daily sulfamethoxazole-tr imethoprim (Bactrim DS) 800-160 mg tablet Take 1 tablet by mouth 2 times a day. 0 04/29/2022 05/18/2023 Discontinued (Med List Cleanup) Start: 03-31-2022 take 1 tablet by beth th twice daily Bactrim D.S. 800 mg-160 mg Tab 160 mg, Oral, BID, 60 caplet(s), Refill(s) 1, [facility] [id number], 176, cm, 03/31/22 12:37:00 EST, Height/Length Dosing, 100, kg, 03/31/22 12:37:00 EST, Weight Dosing Start Date: 03/31/22 Status: Ordered Start: 12-21-2021 Sulfamethoxazo le-Trimethoprim 800-160 MG Oral Tablet Quantity: 20 Refills: 0 Ordered: 21-Dec-2021 DO Start : 21-Dec-2021 Complete tamsulosin hydrochloride 0.4 mg oral capsule (2 sources) alpha-Adrenergic Daren Start: 12-13-2021 Tamsulosin HCl - 0.4 MG Oral Capsule Quantity: 30 Refills: 0 Ordered: 13-Dec-2021 DO Start : 13-Dec-2021 Complete 24 hr divalproex sodium 500 mg extended release oral tablet (4 sources) Mood Stabilizer, Anti-epileptic Agent Start: 06-11-2023 End: 08-10-2023 take 1 tablet by mouth once daily divalproex (Depakote ER) 500 mg 24 hr tablet Indications: Other bipolar disorder (CMS/HCC) Take 1 tablet (500 mg) by mouth once daily. Do not crush, chew, or split. 30 tablet 1 06/11/2023 06/22/2023 Discontinued (Side effects) Start: 05-18-2023 End: 07-17-2023 take 1 tablet by mouth once daily at bedtime divalproex (Depakote ER) 250 mg 24 hr tablet Indications: Other bipolar disorder (CMS/HCC) Take 1 tablet (250 mg) by mouth once daily at bedtime. Do not crush, chew, or split. 30 tablet 1 05/18/2023 06/11/2023 Discontinued (Dose adjustment) vortioxetine 20 mg oral tablet (5 sources) Start: 09-19-2021 take 1 tablet by mouth once daily Trintellix 20 MG Oral Tablet Take 1 tablet daily Quantity: 30 Refills: 1 Ordered: 19-Sep-2021 Shireen Higuera Start : 19-Sep-2021 Active Increasing dose from 10--> 20 mg Start: 08-28-2021 take 0.5 tablet by m outh once daily, then take 1 tablet by mouth once daily Trintellix 10 MG Oral Tablet Take 1/2 tablet by mouth daily x 2 weeks, then increase to 1 tablet by mouth daily. Quantity: 30 Refills: 0 Ordered: 28-Aug-2021 Shireen Higuera Start : 28-Aug-2021 Active ziprasidone 20 mg oral capsule (4 sources) Atypical Antipsychotic Start: 12-12-2020 End: 08-05-2021 take 1 capsule by mouth twice daily at mealtime ziprasidone (GEODON) 20 mg capsule Take 1 capsule by mouth twice daily with meals. 60 capsule 4 12/12/2020 08/05/2021 Discontinued Comment on above: Take 1 capsule by mo uth twice daily with meals. Problems Active Problems Problem Classification Problem Date Documented Da te Episodic/Chronic Abdominal pain (10 sources) Abdominal pain; Translations: [Abdominal pain] Episodic Acute bronchitis (20 sources) Acute bronchitis; Translations: [Acute bronchitis due to other specified organisms] Onset: 09-05-2013 Episodic Anxiety disorders (20 sources) Generalized anxiety disorder; Translations: [Generalized anxiety disorder] Onset: 02-15-2023 Chronic Cardiac dysrhythmias (12 sources) Palpitations; Translations: [Palpitations] 06-05-2023 Episodic Diabetes mellitus without complication (20 sources) Impaired fasting glycemia; Translations: [Impaired fasting glucose] Episodic Disorders of lipid metabolism (11 sources) Familial hypercholesterolemia ; Translations: [Familial hypercholesterolemia ] 12-02-2023 Chronic Disorders of teeth and jaw (10 sources) Periapical abscess without sinus tract; Translations: [Periapical abscess without sinus] Episodic Esophageal disorders (13 sources) Gastro-esophageal reflux disease with esophagitis; Translations: [Gastro-esophageal reflux disease with esophagitis, without bleeding] 06-04-2023 Chronic Essential hypertension (20 sources) Hypertensive disorder; Translations: [Essential hypertension] 04-04-2019 Chronic Fluid and electrolyte disorders (6 sources) Hypokalemia; Translations: [Hypokalemia] Onset: 05-07-2023 05-07-2023 Episodic Gastrointestinal hemorrhage (10 sources) Hemorrhage of rectum and anus; Translations: [Rectal bleed] Episodic Genitourinary symptoms and ill-defined conditions (20 sources) Dysuria; Translations: [Polyuria] Onset: 11-01-2021 03-25-2022 Episodic Gout and other crystal arthropathies (10 sources) Primary gout; Translations: [Idiopathic gout, right ankle and foot] Chronic Hyperplasia of prostate (4 sources) Benign prostatic hypertrophy with outflow obstruction; Translations: [Benign prostatic hyperplasia with lower urinary tract symptoms] Onset: 03-31-2022 Chronic Immunizations and screening for infectious disease (10 sources) Vaccination given; Translations: [Encounter for immunization] Episodic Inflammation; infection of eye (except that caused by tuberculosis or sexually transmitteddisease) (1 source) Other mucopurulent conjunctivitis, bilateral Episodic Inflammatory conditions of male genital organs (4 sources) Chronic prostatitis; Translations: [Chronic prostatitis] Onset: 03-31-2022 Chronic Inflammatory conditions of male genital organs (20 sources) Prostatitis; Translations: [Inflammatory disease of prostate, unspecified] Onset: 01-02-2022 03-25-2022 Episodic Miscellaneous mental health disorders (20 sources) Somatoform disorder; Translations: [Other somatoform disorders] Onset: 12-14-2012 Chronic Mood disorders (20 sources) Bipolar disorder in full remission; Translations: [Bipolar disorder, currently in remission, most recent episode unspecified] Onset: 09-05-2013 Chronic Other aftercare (19 sources) Patient encounter status; Translations: [Long-term (current) use of other medications] Episodic Other aftercare (10 sources) Therapeutic drug level - finding; Translations: [Encounter for therapeutic drug level monitoring] Episodic Other aftercare (10 sources) Long-term current use of drug therapy; 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] Episodic Other circulatory disease (10 sources) Elevated blood-pressure reading without diagnosis of hypertension; Translations: [Elevated blood-pressure reading, without diagnosis of hypertension] Episodic Other connective tissue disease (12 sources) Extrapyramidal sign; Translations: [Other symptoms and signs involving the nervous system] Onset: 02-16-2023 02-16-2023 Episodic Other diseases of kidney and ureters (2 sources) Acquired renal cyst without neoplastic change; Translations: [Cyst of kidney, acquired] Onset: 03-31-2022 Episodic Other diseases of kidney and ureters (2 sources) Cyst of kidney 03-31-2022 Episodic Other ear and sense organ disorders (10 sources) Sensorineural hearing loss; Translations: [Unspecified sensorineural hearing loss] Chronic Other ear and sense organ disorders (10 sources) Sensorineural hearing loss, bilateral; Translations: [Sensorineural hearing loss, bilateral] Chronic Other ear and sense organ disorders (10 sources) Tinnitus; Translations: [Tinnitus, unspecified ear] Episodic Other male genital disorders (4 sources) Male erectile dysfunction, unspecified; Translations: [Erectile dysfunction] Onset: 03-31-2022 Chronic Other nutritional; endocrine; and metabolic disorders (20 sources) Body mass index 30+ - obesity; Translations: [Body mass index 36.0-36.9, adult] Onset: 12-28-2015 Chronic Other nutritional; endocrine; and metabolic disorders (20 sources) Obese class I; Translations: [Body mass index (BMI) 33.0-33.9, adult] Onset: 02-04-2018 Chronic Other nutritional; endocrine; and metabolic disorders (11 sources) Obesity; Translations: [Obesity, unspecified] 06-05-2023 Chronic Other nutritional; endocrine; and metabolic disorders (10 sources) Obese class II; Translations: [Body mass index 35.0-35.9, adult] Onset: 09-05-2013 Chronic Other nutritional; endocrine; and metabolic disorders (10 sources) Morbid obesity; Translations: [Morbid (severe) obesity due to excess calories] Onset: 09-05-2013 Chronic Other nutritional; endocrine; and metabolic disorders (10 sources) Simple obesity ; Translations: [Other obesity due to excess calories] Chronic Other nutritional; endocrine; and metabolic disorders (1 source) Morbid (severe) obesity due to excess calories Chronic Other nutritional; endocrine; and metabolic disorders (1 source) Body mass index (BMI) 37.0-37.9, adult Chronic Other nutritional; endocrine; and metabolic disorders (2 sources) Obesity caused by energy imbalance; Translations: [Morbid (severe) obesity due to excess calories] Onset: 09-05-2013 06-04-2023 Chronic Other nutritional; endocrine; and metabolic disorders (1 source) Obesity, unspecified; Translations: [Obesity, unspecified] 12-02-2023 Chronic Other nutritional; endocrine; and metabolic disorders (10 sources) Excessive thirst; Translations: [Polydipsia] Episodic Other skin disorders (10 sources) Hair follicle disorder; Translations: [Other specified follicular disorders] Episodic Other upper respiratory disease (10 sources) Allergic rhinitis; Translations: [Allergic rhinitis, unspecified] Chronic Poisoning by nonmedicinal substances (5 sources) [place] poisoning; Translations: [Toxic effect of other metals, accidental (unintentional), initial encounter] 05-07-2023 Chronic Residual codes; unclassified (12 sources) Obstructive sleep apnea syndrome; Translations: [Obstructive sleep apnea (adult) (pediatric)] Onset: 05-20-2021 03-25-2022 Chronic Residual codes; unclassified (10 sources) Tobacco user; Translations: [Tobacco use] Episodic Rheumatoid arthritis and related disease (10 sources) Inflammatory polyarthropathy; Translations: [Unspecified inflammatory polyarthropathy] Onset: 12-28-2015 Chronic Spondylosis; intervertebral disc disorders; other back problems (20 sources) Other cervical disc displacement, mid-cervical region, unspecified level; Translations: [Spondylosis without myelopathy or radiculopathy, cervical region] Onset: 02-04-2018 Chronic Spondylosis; intervertebral disc disorders; other back problems (11 sources) Cervicalgia; Translations: [Low back pain] Onset: 05-15-2022 Episodic Substance-related disorders (10 sources) Sedative, hypnotic or anxiolytic use, unspecified with sedative, hypnotic or anxiolytic-induced sexual dysfunction; Translations: [Sedative, hypnotic or anxiolytic use, unspecified with sedative, hypnotic or anxiolytic-induced sexual dysfunction] Episodic Unclassified (1 source) Adverse effect of other antipsychotics and neuroleptics, initial encounter; Translations: [Adverse effect of other antipsychotics and neuroleptics, initial encounter] Onset: 05-07-2023 Viral infection (10 sources) Verruca vulgaris; Translations: [Viral wart, unspecified] Episodic Past or Other Problems Problem Classification Problem Date Documented Date Episodic/Chronic Allergic reactions (10 sources) Inflammatory dermatosis; Translations: [Dermatitis, unspecified] Onset: 3 Episodic Bacterial infection; unspecified site (10 sources) Bacterial infectious disease; Translations: [Bacterial infection, unspecified, in conditions classified elsewhere and of unspecified site] Onset: 8 Episodic Blindness and vision defects (10 sources) Visual disturbance; Translations: [Other visual disturbances] Onset: 6 Episodic Esophageal disorders (1 source) Esophageal disorders Malaise and fatigue (10 sources) Malaise and fatigue; Translations: [Other malaise and fatigue] Onset: 8 Episodic Open wounds of extremities (10 sources) Open wound of finger without complication; Translations: [Open wound of finger(s), without mention of complication] Onset: 3 Episodic Other aftercare (6 sources) 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; Translations: [OTH SNF CURRENT DRUG THERAPY] Onset: 2 Episodic Other aftercare (1 source) Encounter for therapeutic drug level monitoring; Translations: [ENC THERAPEUTC DRUG LEVL MONITORING] Onset: 2 Episodic Other circulatory disease (10 sources) Cardiovascular symptoms; Translations: [Other specified symptoms and signs involving the circulatory and respiratory systems] Onset: 6 Episodic Other connective tissue disease (4 sources) Other muscle spasm; Translations: [OTHER MUSCLE SPASM] Onset: 3 Episodic Other connective tissue disease (10 sources) Pain in limb; Translations: [Pain in unspecified foot] Onset: 6 Episodic Other connective tissue disease (10 sources) Musculoskeletal symptom; Translations: [Other musculoskeletal symptoms referable to limbs] Onset: 8 Episodic Other connective tissue disease (4 sources) Other symptoms and signs involving the nervous system; Translations: [Other symptoms and signs involving the nervous system] Onset: 3 Episodic Other gastrointestinal disorders (10 sources) Pharyngeal dysphagia; Translations: [Dysphagia, pharyngoesophageal phase] Onset: 6 Episodic Other skin disorders (10 sources) Localized superficial swelling of skin; Translations: [Localized superficial swelling, mass, or lump] Onset: 6 Episodic Other upper respiratory disease (10 sources) Pain in throat; Translations: [Pain in throat] Onset: 3 Episodic Other upper respiratory infections (20 sources) Acute pharyngitis; Translations: [Acute pharyngitis due to other specified organisms] Onset: 4 Episodic Residual codes; unclassified (20 sources) Insomnia; Translations: [Insomnia, unspecified] Onset: 3 02-15-2023 Episodic Residual codes; unclassified (10 sources) Requires influenza virus vaccination; Translations: [Need for prophylactic vaccination and inoculation, Influenza] Onset: 8 Episodic Skin and subcutaneous tissue infections (10 sources) Cellulitis and abscess of hand excluding digits; Translations: [Cellulitis and abscess of hand, except fingers and thumb] Onset: 3 Episodic Sprains and strains (10 sources) Neck sprain; Translations: [Strain of muscle, fascia and tendon at neck level, initial encounter] Onset: 8 Episodic Unclassified (10 sources) Long-term current use of drug therapy; Translations: [Long-term (current) use of other medications] Onset: 6 Results Test Name Value Interpretation Reference Range Facility Basic metabolic 2000 panelon 08-03-2023 Anion gap [Moles/Vol] 10 mmol/L Normal - [facility] Comment on above: Performed By: #### 2 4321-2 #### KATARZYNA COLLAZO ([id number]) [facility] ([facility]) [address] [place] [address] Calcium [Mass/Vol] 9.3 mg/dL Normal 8.6-10.3 [facility] Comment on above: Performed By: #### 2 4321-2 #### KATARZYNA COLLAZO ([id number]) [facility] ([facility]) [address] [place] [address] Chloride [Moles/Vol] 106 mmol/L Normal 98-107 [facility] Comment on above: Performed By: #### 2 4321-2 #### KATARZYNA COLLAZO ([id number]) [facility] ([facility]) [address] [place] [address] 41100 CO2 [Moles/Vol] 27 mmol/L Normal 21-32 [facility] Comment on above: Performed By: #### 2 4321-2 #### KATARZYNA COLLAZO ([id number]) [facility] ([facility]) [address] [place] [address] [id number] Creatinine [Mass/Vol] 0.71 mg/dL Normal 0.50-1.30 [facility] Comment on above: Performed By: #### 2 4321-2 #### KATARZYNA COLLAZO ([id number]) [facility] ([facility]) [address] [place] [address] 48024 GFR/1.73 sq M.predicted MDRD (S/P/Bld) [Vol rate/Area] mL/min/{1.73_m2} Normal >60 [facility] Comment on above: Result Comment: Calc ulations of estimated GFR are performed using the 2020 CKD-EPI Study Refit equation without the race variable for the IDMS-Traceable creatinine methods. https://jasn.asnjournals.org/content///ASN.92950996 88 Performed By: #### 2 4321-2 #### KATARZYNA COLLAZO ([id number]) [facility] ([facility]) [address] [place] [address] [id number] Glucose [Mass/Vol] 98 mg/dL Normal 74-99 [facility] Comment on above: Performed By: #### 2 4321-2 #### KATARZYNA COLLAZO ([id number]) [facility] ([facility]) [address] [place] [address] [id number] Potassium [Moles/Vol] 4.0 mmol/L Normal 3.5-5.3 [facility] Comment on above: Performed By: #### 2 4321-2 #### KATARZYNA COLLAZO ([id number]) [facility] ([facility]) [address] [place] [address] 21426 Sodium [Moles/Vol] 139 mmol/L Normal 136-145 [facility] Comment on above: Performed By: #### 2 4321-2 #### KATARZYNA COLLAZO ([id number]) [facility] ([facility]) [address] [place] [address] 13904 Urea nitrogen [Mass/Vol] 10 mg/dL Normal 6- [facility] Comment on above: Performed By: #### 2 4321-2 #### KATARZYNA COLLAZO ([id number]) [facility] ([facility]) [address] [place] [address] [id number] Lithiumon 08-03-2023 [place] [Moles/Vol] 0.64 mmol/L Normal 0.60-1.20 [facility] Comment on above: Performed By: #### 2 4321-2 #### KATARZYNA COLLAZO ([id number]) [facility] ([facility]) [address] [place] [address] 82217 Basic metabolic 2000 panelon 07-10-2023 Anion gap [Moles/Vol] 10 mmol/L Normal 10- [facility] Comment on above: Performed By: #### 2 4321-2 #### KATARZYNA COLLAZO ([id number]) [facility] ([facility]) [address] [place] [address] 77412 Calcium [Mass/Vol] 9.6 mg/dL Normal 8.6-10.3 [facility] Comment on above: Performed By: #### 2 4321-2 #### KATARZYNA COLLAZO ([id number]) [facility] ([facility]) [address] [place] [address] [id number] Chloride [Moles/Vol] 103 mmol/L Normal 98-107 [facility] Comment on above: Performed By: #### 2 4321-2 #### KATARZYNA COLLAZO ([id number]) [facility] [facility] [address] [place] [address] 40289 CO2 [Moles/Vol] 30 mmol/L Normal 21-32 [facility] Comment on above: Performed By: #### 2 4321-2 #### KATARZYNA COLLAZO ([id number]) [facility] ([facility]) [address] [place] [address] Creatinine [Mass/Vol] 0.78 mg/dL Normal 0.50-1.30 [facility] Comment on above: Performed By: #### 2 4321-2 #### KATARZYNA COLLAZO ([id number]) [facility] ([facility]) [address] [place] [address] GFR/1.73 sq M.predicted MDRD (S/P/Bld) [Vol rate/Area] mL/min/{1.73_m2} Normal >60 [facility] Comment on above: Result Comment: Calc ulations of estimated GFR are performed using the 2020 CKD-EPI Study Refit equation without the race variable for the IDMS-Traceable creatinine methods. https://jasn.asnjournals.org/content/early//ASN.41451867 88 Performed By: #### 2 4321-2 #### KATARZYNA COLLAZO ([id number]) [facility] ([facility]) [address] [place] [address] 57310 Glucose [Mass/Vol] 104 mg/dL High 74-99 [facility] Comment on above: Performed By: #### 2 4321-2 #### KATARZYNA COLLAZO ([id number]) [facility] ([facility]) [address] [place] [address] Potassium [Moles/Vol] 4.1 mmol/L Normal 3.5-5.3 [facility] Comment on above: Performed By: #### 2 4321-2 #### KATARZYNA COLLAZO ([id number]) [facility] ([facility]) [address] [place] [address] 38273 Sodium [Moles/Vol] 139 mmol/L Normal 136-145 [facility] Comment on above: Performed By: #### 2 4321-2 #### KATARZYNA COLLAZO ([id number]) [facility] ([facility]) [address] [place] [address] Urea nitrogen [Mass/Vol] 13 mg/dL Normal 6-23 [facility] Comment on above: Performed By: #### 2 4321-2 #### KATARZYNA COLLAZO ([id number]) [facility] ([facility]) [address] [place] [address] Lithiumon 07-10-2023 [place] [Moles/Vol] 0.50 mmol/L Low 0.60-1.20 [facility] Comment on above: Performed By: #### 1 4334-7 #### KATARZYNA COLLAZO ([id number]) [facility] ([facility] [address] [place] [address] TSH WITH REFLEX TO FREE T4 I F ABNORMALon 07-10-2023 TSH Qn 1.17 m[IU]/L Normal 0.44-3.98 [facility] Comment on above: Order Comment: TSH t esting is performed using different testing methodology at [facility] than at other [facility]. Direct result comparisons should only be made within the same method. Performed By: #### 2 4321-2 #### KATARZYNA COLLAZO ([id number]) [facility] ([facility]) [address] [place] [address] CBC W Auto Differential pane l (Bld)on 06-05-2023 Basophils (Bld) [#/Vol] 0.05 x10*3/uL Normal 0.00-0.10 [facility] Comment on above: Performed By: #### 5 7021-8 #### KATARZYNA COLLAZO ([id number]) [facility] ([facility]) [address] [place] [address] Basophils/100 WBC (Bld) 1.0 % Normal 0.0-2.0 [facility] Comment on above: Performed By: #### 5 7021-8 #### KATARZYNA COLLAZO ([id number]) [facility] ([facility]) [address] [place] [address] Eosinophils (Bld) [#/Vol] 0.19 x10*3/uL Normal 0.00-0.70 [facility] Comment on above: Performed By: #### 5 7021-8 #### KATARZYNA COLLAZO ([id number]) [facility] ([facility]) [address] [place] [address] Eosinophils/100 WBC (Bld) 3.9 % Normal 0.0-6.0 [facility] Comment on above: Performed By: #### 5 7021-8 #### KATARZYNA COLLAZO ([id number]) [facility] ([facility]) [address] [place] [address] Erythrocyte distribution width (RBC) [Ratio] 11.9 % Normal 11.5-14.5 [facility] Comment on above: Performed By: #### 5 7021-8 #### KATARZYNA COLLAZO ([id number]) [facility] ([facility]) [address] [place] [address] Hematocrit (Bld) [Volume fraction] 44.9 % Normal 41.0-52.0 [facility] Comment on above: Performed By: #### 5 7021-8 #### KATARZYNA COLLAZO ([id number]) [facility] (C) [address] [place] [address] Hemoglobin (Bld) [Mass/Vol] 15.6 g/dL Normal 13.5-17.5 [facility] Comment on above: Performed By: #### 5 7021-8 #### KATARZYNA COLLAZO ([id number]) [facility] ([facility]) [address] [place] [address] Immature granulocytes (Bld) [#/Vol] 0.01 x10*3/uL Normal 0.00-0.70 [facility] Comment on above: Performed By: #### 5 7021-8 #### KATARZYNA COLLAZO ([id number]) [facility] ([facility]) [address] [place] [address] 42858 Immature granulocytes/100 WBC (Bld) 0.2 % Normal 0.0-0.9 [facility] Comment on above: Result Comment: Monique ture Granulocyte Count (IG) includes promyelocytes, myelocytes and metamyelocytes but does not include bands. Percent differential counts (%) should be interpreted in the context of the absolute cell counts (cells/UL). Performed By: #### 5 7021-8 #### KATARZYNA COLLAZO ([id number]) [facility] ([facility]) [address] [place] [address] 34605 Lymphocytes (Bld) [#/Vol] 1.71 x10*3/uL Normal 1.20-4.80 [facility] Comment on above: Performed By: #### 5 7021-8 #### KATARZYNA COLLAZO ([id number]) [facility] ([facility]) [address] [place] [address] 54347 Lymphocytes/100 WBC (Bld) 35.0 % Normal 13.0-44.0 [facility] Comment on above: Performed By: #### 5 7021-8 #### KATARZYNA COLLAZO ([id number]) [facility] (C) [address] [place] [address] 01798 MCH (RBC) [Entitic mass] 30.4 pg Normal 26.0-34.0 [facility] Comment on above: Performed By: #### 5 7021-8 #### KATARZYNA COLLAZO ([id number]) [facility] ([facility]) [address] [place] [address] 48374 MCHC (RBC) [Mass/Vol] 34.7 g/dL Normal 32.0-36.0 [facility] Comment on above: Performed By: #### 5 7021-8 #### KATARZYNA COLLAZO ([id number]) [facility] ([facility]) [address] [place] [address] 20934 MCV (RBC) [Entitic vol] 87 fL Normal 80-100 [facility] Comment on above: Performed By: #### 5 7021-8 #### KATARZYNA COLLAZO ([id number]) [facility] ([facility]) [address] [place] [address] 86460 Monocytes (Bld) [#/Vol] 0.46 x10*3/uL Normal 0.10-1.00 [facility] Comment on above: Performed By: #### 5 7021-8 #### KATARZYNA COLLAZO ([id number]) [facility] ([facility]) [address] [place] [address] 71358 Monocytes/100 WBC (Bld) 9.4 % Normal 2.0-10.0 [facility] Comment on above: Performed By: #### 5 7021-8 #### KATARZYNA COLLAZO ([id number]) [facility] ([facility]) [address] [place] [address] 74437 Neutrophils (Bld) [#/Vol] 2.46 x10*3/uL Normal 1.20-7.70 [facility] Comment on above: Result Comment: Perc ent differential counts (%) should be interpreted in the context of the absolute cell counts (cells/uL). Performed By: #### 5 7021-8 #### KATARZYNA COLLAZO ([id number]) [facility] ([facility]) [address] [place] [address] 40167 Neutrophils/100 WBC (Bld) 50.5 % Normal 40.0-80.0 [facility] Comment on above: Performed By: #### 5 7021-8 #### KATARZYNA COLLAZO ([id number]) [facility] ([facility]) [address] [place] [address] 56373 Nucleated RBC/100 WBC (Bld) [Ratio] 0.0 /100 WBCs Normal 0.0-0.0 [facility] Comment on above: Performed By: #### 5 7021-8 #### KATARZYNA COLLAZO ([id number]) [facility] ([facility]) [address] [place] [address] 30348 Platelets (Bld) [#/Vol] 213 x10*3/uL Normal 150-450 [facility] Comment on above: Performed By: #### 5 7021-8 #### KATARZYNA COLLAZO ([id number]) [facility] ([facility]) [address] [place] [address] RBC (Bld) [#/Vol] 5.14 x10*6/uL Normal 4.50-5.90 [facility] Comment on above: Performed By: #### 5 7021-8 #### KATARZYNA COLLAZO ([id number]) [facility] ([facility]) [address] [place] [address] WBC (Bld) [#/Vol] 4.9 x10*3/uL Normal 4.4-11.3 [facility] Comment on above: Performed By: #### 5 7021-8 #### KATARZYNA COLLAZO ([id number]) [facility] ([facility]) [address] [place] [address] Comprehensive metabolic 2000 panelon 06-05-2023 Albumin BCP dye [Mass/Vol] 4.5 g/dL Normal 3.4-5.0 [facility] Comment on above: Performed By: #### 2 4323-8 #### KATARZYNA COLLAZO ([id number]) [facility] ([facility]) [address] [place] [address] ALP [Catalytic activity/Vol] 69 U/L Normal 33-120 [facility] Comment on above: Performed By: #### 2 4323-8 #### KATARZYNA COLLAZO ([id number]) [facility] ([facility]) [address] [place] [address] 94744 ALT With P-5'-P [Catalytic activity/Vol] 29 U/L Normal 10-52 [facility] Comment on above: Result Comment: Viola ents treated with Sulfasalazine may generate falsely decreased results for ALT. Performed By: #### 2 4323-8 #### KATARZYNA COLLAZO ([id number]) [facility] ([facility]) [address] [place] [address] 72313 Anion gap [Moles/Vol] 13 mmol/L Normal 10-20 [facility] Comment on above: Performed By: #### 2 4323-8 #### KATARZYNA COLLAZO ([id number]) [facility] ([facility]) [address] [place] [address] 89361 AST With P-5'-P [Catalytic activity/Vol] 21 U/L Normal 9-39 [facility] Comment on above: Performed By: #### 2 4323-8 #### KATARZYNA COLLAZO ([id number]) [facility] ([facility]) [address] [place] [address] 64291 Bilirubin [Mass/Vol] 0.6 mg/dL Normal 0.0-1.2 [facility] Comment on above: Performed By: #### 2 4323-8 #### KATARZYNA COLLAZO ([id number]) [facility] ([facility]) [address] [place] [address] 30014 Calcium [Mass/Vol] 9.5 mg/dL Normal 8.6-10.3 [facility] Comment on above: Performed By: #### 2 4323-8 #### KATARZYNA COLLAZO ([id number]) [facility] ([facility]) [address] [place] [address] 55179 Chloride [Moles/Vol] 105 mmol/L Normal 98-107 [facility] Comment on above: Performed By: #### 2 4323-8 #### KATARZYNA COLLAZO ([id number]) [facility] ([facility]) [address] [place] [address] 63237 CO2 [Moles/Vol] 28 mmol/L Normal 21-32 [facility] Comment on above: Performed By: #### 2 4323-8 #### KATARZYNA COLLAZO ([id number]) [facility] ([facility]) [address] [place] [address] 50442 Creatinine [Mass/Vol] 0.67 mg/dL Normal 0.50-1.30 [facility] Comment on above: Performed By: #### 2 4323-8 #### KATARZYNA COLLAZO ([id number]) [facility] ([facility]) [address] [place] [address] 55941 GFR/1.73 sq M.predicted MDRD (S/P/Bld) [Vol rate/Area] mL/min/{1.73_m2} Normal >60 [facility] Comment on above: Result Comment: Calc ulations of estimated GFR are performed using the 2020 CKD-EPI Study Refit equation without the race variable for the IDMS-Traceable creatinine methods. https://jasn.asnjournals.org/content/early/ASN.96415336 88 Performed By: #### 2 4323-8 #### KATARZYNA COLLAZO ([id number]) [facility] ([facility]) [address] [place] [address] 33963 Glucose [Mass/Vol] 104 mg/dL High 74-99 [facility] Comment on above: Performed By: #### 2 4323-8 #### KATARZYNA COLLAZO ([id number]) [facility] ([facility]) [address] [place] [address] 27183 Potassium [Moles/Vol] 3.7 mmol/L Normal 3.5-5.3 [facility] Comment on above: Performed By: #### 2 4323-8 #### KATARZYNA COLLAZO ([id number]) [facility] ([facility]) [address] [place] [address] 52216 Protein [Mass/Vol] 7.1 g/dL Normal 6.4-8.2 [facility] Comment on above: Performed By: #### 2 4323-8 #### KATARZYNA COLLAZO ([id number]) [facility] ([facility]) [address] [place] [address] 58350 Sodium [Moles/Vol] 142 mmol/L Normal 136-145 [facility] Comment on above: Performed By: #### 2 4323-8 #### KATARZYNA COLLAZO ([id number]) [facility] ([facility]) [address] [place] [address] Urea nitrogen [Mass/Vol] 9 mg/dL Normal 6-23 [facility] Comment on above: Performed By: #### 2 4323-8 #### KATARZYNA COLLAZO ([id number]) [facility] ([facility]) [address] [place] [address] 78234 HbA1c (Bld) [Mass fraction]o n 06-05-2023 Average glucose Estimated from glycated hemoglobin (Bld) [Mass/Vol] 97 mg/dL Normal Not Established [facility] Comment on above: Order Comment: Diagn osis of Diabetes-Adults Non-Diabetic: < or = 5.6% Increased risk for developing diabetes: 5.7-6.4% Diagnostic of diabetes: > or = 6.5% Monitoring of Diabetes Age (y)....................... Therapeutic Goal (%) Adults: >18.........................<7.0 Pediatrics: 13-18...................<7.5 Pediatrics: 7-12....................<8.0 Pediatrics: 0-6..................... 7.5-8.5 [place] [employer]. Diabetes Care 33(S1)Apr 2009 Performed By: #### 4 548-4 #### MALLY Jeronimo ([id number]) [facility] ([facility]) [id number] [place] [address] 89473 Hemoglobin A1c/Hemoglobin.to venita 06-05-2023 HbA1c (Bld) [Mass fraction] 5.0 % Normal see below [facility] Comment on above: Order Comment: Diagn osis of Diabetes-Adults Non-Diabetic: < or = 5.6% Increased risk for developing diabetes: 5.7-6.4% Diagnostic of diabetes: > or = 6.5% Monitoring of Diabetes Age (y)....................... Therapeutic Goal (%) Adults: >18.........................<7.0 Pediatrics: 13-18...................<7.5 Pediatrics: 7-12....................<8.0 Pediatrics: 0-6..................... 7.5-8.5 [place] [employer]. Diabetes Care 33(S1), Apr 2009 Performed By: #### 4 548-4 #### MALLY Jeronimo ([id number]) [facility] ([facility]) [id number] [place], [place] [id number] Lipid 1996 panelon 4 Cholesterol [Mass/Vol] 239 mg/dL High 0-199 [facility] Comment on above: Result Comment: Age Desirable Borderline High High 0-19 Y 0 - 169 170 - 199 >/= 200 20-24 Y 0 - 189 190 - 224 >/= 225 >24 Y 0 - 199 200 - 239 >/= 240 All ranges are based on fasting samples. Specific therapeutic targets will vary based on patient-specific cardiac risk. Pediatric guidelines reference:Pediatrics 2011, 128(S5).Adult guidelines reference: NCEP ATPIII Guidelines,LACI 2001, 258:2486-97 Venipuncture immediately after or during the administration of Metamizole may lead to falsely low results. Testing should be performed immediately prior to Metamizole dosing. Performed By: #### 2 4331-1 #### KATARZYNA COLLAZO ([id number]) [facility] ([facility]) [address] [place] [address] Cholesterol in HDL [Mass/Vol] 38.4 mg/dL Normal [facility] Comment on above: Result Comment: Age Very Low Low Normal High 0-19 Y < 35 < 40 40-45 ---- 20-24 Y ---- < 40 >45 ---- >24 Y ---- < 40 40-60 >60 Performed By: #### 2 4331-1 #### KATARZYNA COLLAZO ([id number]) [facility] ([facility]) [address] [place] [address] 74223 Cholesterol in LDL [Mass/Vol] [facility] Comment on above: Result Comment: The calculation of LDL and VLDL are inaccurate when the Triglycerides are greater than 400 mg/dL or when the patient is non-fasting. If LDL measurement is necessary contact the testing laboratory for an alternative LDL assay. Near Borderline AGE Desirable Optimal High High Very High 0-19 Y 0 - 109 --- 110-129 >/= 130 ---- 20-24 Y 0 - 119 --- 120-159 >/= 160 ---- >24 Y 0 - 99 100-129 130-159 160-189 >/=190 Performed By: #### 2 4331-1 #### KATARZYNA COLLAZO ([id number]) [facility] ([facility]) [address] [place] [address] 60681 CHOLESTEROL/HDL RATIO 6.2 [facility] Comment on above: Result Comment: Ref Values Desirable < 3.4 High Risk > 5.0 Performed By: #### 2 4331-1 #### KATARZYNA COLLAZO ([id number]) [facility] ([facility]) [address] [place] [address] 38882 NON HDL CHOLESTEROL 201 mg/dL High 0-149 [facility] Comment on above: Result Comment: Age Desirable Borderline High High Very High 0-19 Y 0 - 119 120 - 144 >/= 145 >/= 160 20-24 Y 0 - 149 150 - 189 >/= 190 ---- >24 Y 30 mg/dL above LDL Cholesterol goal Performed By: #### 2 4331-1 #### KATARZYNA COLLAZO ([id number]) [facility] ([facility]) [address] [place] [address] 78893 Triglyceride [Mass/Vol] 404 mg/dL High 0-149 [facility] Comment on above: Result Comment: Age Desirable Borderline High High Very High 0 D-90 D 19 - 174 ---- ---- ---- 91 D- 9 Y 0 - 74 75 - 99 >/= 100 ---- 10-19 Y 0 - 89 90 - 129 >/= 130 ---- 20-24 Y 0 - 114 115 - 149 >/= 150 ---- >24 Y 0 - 149 150 - 199 200- 499 >/= 500 Venipuncture immediately after or during the administration of Metamizole may lead to falsely low results. Testing should be performed immediately prior to Metamizole dosing. Performed By: #### 2 4331-1 #### KATARZYNA COLLAZO ([id number]) [facility] ([facility]) [address] [place] [address] 95512 VLDL Normal [facility] Comment on above: Result Comment: Unab le to calculate VLDL. Performed By: #### 2 4331-1 #### KATARZYNA COLLAZO ([id number]) [facility] ([facility]) [address] [place] [address] 19032 Valproateon 06-05-2023 Valproate [Mass/Vol] 17 ug/mL Low 50-100 [facility] Comment on above: Performed By: #### 4 086-5 #### KATARZYNA COLLAZO ([id number]) [facility] ([facility]) [address] [place] [address] 91037 lamoTRIgineon 06-05-2023 lamoTRIgine [Mass/Vol] 7.6 ug/mL Normal 2.5-15.0 [facility] Comment on above: Performed By: #### 6 948-4 #### MALLY Jeronimo ([id number]) [facility] ([facility]) [id number] [place] [address] 39474 Basic Metabolic Panelon 04-20 Anion gap [Moles/Vol] 12.9 mmol/L Normal 6.0-15.0 [facility] Comment on above: Performed By: #### C BC, MG, PHOS, CMP #### [facility] [address] [place] [address] [facility] CO2 [Moles/Vol] 23.7 mmol/L Normal 21.0-31.0 [facility] Comment on above: Performed By: #### C BC, MG, PHOS, CMP #### [facility] [address] Creatinine [Mass/Vol] 0.68 mg/dL Low 0.70-1.30 [facility] Comment on above: Performed By: #### C BC, MG, PHOS, CMP #### [facility] [address] [place] [address] [place] Creatinine Clr Calc Pharmacy 174.23 [facility] Comment on above: Performed By: #### C BC, MG, PHOS, CMP #### [facility] [address] Glucose [Mass/Vol] 107 mg/dL High 70-100 [facility] Comment on above: Result Comment: [place] Glucose Reference Range is dependent on time and content of last meal. Glucose of more than 200 mg/dL in a nonstressed, ambulatory subject supports the diagnosis of Diabetes Mellitus. ADA recommended reference range Performed By: #### C BC, MG, PHOS, CMP #### [facility] [address] Urea nitrogen [Mass/Vol] 5 mg/dL Low 7-25 [facility] Comment on above: Performed By: #### C BC, MG, PHOS, CMP #### [facility] [address] Comprehensive Metabolic Pane elli 05-08-2023 Albumin [Mass/Vol] 4.3 g/dL Normal 3.5-5.7 [facility] Comment on above: Performed By: #### C MP #### [facility] [address] Albumin/Globulin [Mass ratio] 1.5 {ratio} [facility] Comment on above: Performed By: #### C MP #### [facility] [address] ALP [Catalytic activity/Vol] 122 U/L High 34-104 [facility] Comment on above: Performed By: #### C MP #### [facility] [address] ALT [Catalytic activity/Vol] 19 U/L Normal 7-52 [facility] Comment on above: Performed By: #### C MP #### [address] Anion gap [Moles/Vol] 13.3 mmol/L Normal 6.0-15.0 [facility] Comment on above: Performed By: #### C MP #### [address] AST [Catalytic activity/Vol] 15 U/L Normal 13-39 [facility] Comment on above: Performed By: #### C MP #### [facility] [address] [place] [address] Bilirubin [Mass/Vol] 0.8 mg/dL Normal 0.3-1.0 [facility] Comment on above: Performed By: #### C MP #### [address] Calcium [Mass/Vol] 9.3 mg/dL Normal 8.6-10.3 [facility] Comment on above: Performed By: #### C MP #### [facility] [address] [place] [address] Performed By: #### C BC, MG, PHOS, CMP #### [address] Chloride [Moles/Vol] 107 mmol/L Normal 98-107 [facility] Comment on above: Performed By: #### C MP #### [address] Performed By: #### C BC, MG, PHOS, CMP #### [address] CO2 [Moles/Vol] 23.3 mmol/L Normal 21.0-31.0 [facility] Comment on above: Performed By: #### C MP #### [facility] [address] [place] [address] Creatinine [Mass/Vol] 0.65 mg/dL Low 0.70-1.30 [facility] Comment on above: Performed By: #### C MP #### [address] Creatinine Clr Calc Pharmacy 182.27 [facility] Comment on above: Result Comment: PERF ORMED BY: [place] [address] PATHOLOGIST NUCLEAR CONTROL ROOM OPERATOR EDMOND LUND M.D. Performed By: #### C MP #### [address] GFR/1.73 sq M.predicted MDRD (S/P/Bld) [Vol rate/Area] mL/min/{1.73_m2} [facility] Comment on above: Performed By: #### C MP #### [address] Performed By: #### C BC, MG, PHOS, CMP #### [address] Globulin (S) [Mass/Vol] 2.8 g/dL [facility] Comment on above: Performed By: #### C MP #### [address] Glucose [Mass/Vol] 108 mg/dL High 70-100 [facility] Comment on above: Result Comment: [place] Glucose Reference Range is dependent on time and content of last meal. Glucose of more than 200 mg/dL in a nonstressed, ambulatory subject supports the diagnosis of Diabetes Mellitus. ADA recommended reference range Performed By: #### C MP #### [address] Potassium [Moles/Vol] 3.6 mmol/L Normal 3.5-5.1 [facility] Comment on above: Performed By: #### C MP #### [address] Performed By: #### C BC, MG, PHOS, CMP #### [address] Protein [Mass/Vol] 7.1 g/dL Normal 6.4-8.9 [facility] Comment on above: Performed By: #### C MP #### [address] Sodium [Moles/Vol] 140 mmol/L Normal 136-145 [facility] [facility] Comment on above: Performed By: #### C MP #### [address] Performed By: #### C BC, MG, PHOS, CMP #### [address] Urea nitrogen [Mass/Vol] 6 mg/dL Low 7-25 [facility] Comment on above: Performed By: #### C MP #### [address] Magnesiumon 05-08-2023 Magnesium [Mass/Vol] 1.9 mg/dL Normal 1.9-2.7 [facility] Comment on above: Result Comment: PERF ORMED BY: [place] [address] PATHOLOGIST NUCLEAR CONTROL ROOM OPERATOR EDMOND LUND M.D. Performed By: #### C BC, MG, PHOS, CMP #### [address] Complete Blood Count Auto Di ffon 05-07-2023 Basophils (Bld) [#/Vol] 0.1 10*3/uL Normal 0.0-0.2 [facility] Comment on above: Result Comment: PERF ORMED BY: [place] [address] PATHOLOGIST NUCLEAR CONTROL ROOM OPERATOR EDMOND LUND M.D. Performed By: #### C BC, MG, PHOS, CMP #### [address] Basophils/100 WBC (Bld) 0.9 % Normal . [facility] Comment on above: Performed By: #### C BC, MG, PHOS, CMP #### [address] [place] [address] [place] Eosinophils (Bld) [#/Vol] 0.3 10*3/uL Normal 0.0-0.45 [facility] Comment on above: Performed By: #### C BC, MG, PHOS, CMP #### [address] Eosinophils/100 WBC (Bld) 3.1 % Normal . [facility] Comment on above: Performed By: #### C BC, MG, PHOS, CMP #### [address] Erythrocyte distribution width (RBC) [Ratio] 12.9 % Normal 12.0-14.8 [facility] Comment on above: Performed By: #### C BC, MG, PHOS, CMP #### [address] Hematocrit (Bld) [Volume fraction] 37.9 % Low 38.8-50.0 [facility] Comment on above: Performed By: #### C BC, MG, PHOS, CMP #### [address] Hemoglobin (Bld) [Mass/Vol] 13.4 g/dL Normal 13.0-17.0 [facility] Comment on above: Performed By: #### C BC, MG, PHOS, CMP #### [address] Lymphocytes (Bld) [#/Vol] 2.1 10*3/uL Normal 1.00-4.8 [facility] Comment on above: Performed By: #### C BC, MG, PHOS, CMP #### [place] [address] [place] Lymphocytes/100 WBC (Bld) 24.8 % Normal . [facility] Comment on above: Performed By: #### C BC, MG, PHOS, CMP #### [address] MCH (RBC) [Entitic mass] 30.4 pg Normal 27.5-35.2 [facility] Comment on above: Performed By: #### C BC, MG, PHOS, CMP #### [address] MCV (RBC) [Entitic vol] 86.1 fL Normal 83.5-101 [facility] Comment on above: Performed By: #### C BC, MG, PHOS, CMP #### [address] Mean Corpuscular HGB Conc 35.3 g/dL Normal 32.5-35.6 [facility] Comment on above: Performed By: #### C BC, MG, PHOS, CMP #### [address] Monocytes (Bld) [#/Vol] 0.8 10*3/uL Normal 0.0-0.8 [facility] Comment on above: Performed By: #### C BC, MG, PHOS, CMP #### [address] Monocytes/100 WBC (Bld) 9.4 % Normal . [facility] Comment on above: Performed By: #### C BC, MG, PHOS, CMP #### [address] Neutrophils (Bld) [#/Vol] 5.1 10*3/uL Normal 1.8-7.7 [facility] Comment on above: Performed By: #### C BC, MG, PHOS, CMP #### [address] Neutrophils/100 WBC (Bld) 61.8 % Normal . [facility] Comment on above: Performed By: #### C BC, MG, PHOS, CMP #### [address] NRBC% 0.0 /100{WBC} Normal 0-0.5 [facility] Comment on above: Performed By: #### C BC, MG, PHOS, CMP #### [address] [place] [address] [place] Platelet mean volume (Bld) [Entitic vol] 10.1 fL Normal 6.6-10.1 [facility] Comment on above: Performed By: #### C BC, MG, PHOS, CMP #### [address] Platelets (Bld) [#/Vol] 203 10*3/uL Normal 150-450 [facility] Comment on above: Performed By: #### C BC, MG, PHOS, CMP #### [address] RBC (Bld) [#/Vol] 4.40 10*6/uL Normal 3.90-5.60 [facility] Comment on above: Performed By: #### C BC, MG, PHOS, CMP #### [address] WBC (Bld) [#/Vol] 8.3 10*3/uL Normal 4.1-10.5 [facility] Comment on above: Performed By: #### C BC, MG, PHOS, CMP #### [address] Comprehensive Metabolic Pane elli 05-07-2023 Albumin [Mass/Vol] 4.0 g/dL Normal 3.5-5.7 [facility] Comment on above: Performed By: #### C BC, MG, PHOS, CMP #### [address] Albumin/Globulin [Mass ratio] 1.8 {ratio} Normal [facility] Comment on above: Performed By: #### C BC, MG, PHOS, CMP #### [address] ALP [Catalytic activity/Vol] 116 U/L High 34-104 [facility] Comment on above: Performed By: #### C BC, MG, PHOS, CMP #### [address] ALT [Catalytic activity/Vol] 19 U/L Normal 7-52 [facility] Comment on above: Performed By: #### C BC, MG, PHOS, CMP #### [address] Anion gap [Moles/Vol] 7.0 mmol/L Normal 6.0-15.0 [facility] Comment on above: Performed By: #### C BC, MG, PHOS, CMP #### [address] AST [Catalytic activity/Vol] 15 U/L Normal 13-39 [facility] Comment on above: Performed By: #### C BC, MG, PHOS, CMP #### [address] Bilirubin [Mass/Vol] 0.6 mg/dL Normal 0.3-1.0 [facility] Comment on above: Performed By: #### C BC, MG, PHOS, CMP #### [address] Calcium [Mass/Vol] 9.0 mg/dL Normal 8.6-10.3 [facility] Comment on above: Performed By: #### C BC, MG, PHOS, CMP #### [address] Chloride [Moles/Vol] 110 mmol/L High 98-107 [facility] Comment on above: Performed By: #### C BC, MG, PHOS, CMP #### [address] CO2 [Moles/Vol] 29.1 mmol/L Normal 21.0-31.0 [facility] Comment on above: Performed By: #### C BC, MG, PHOS, CMP #### [address] Creatinine [Mass/Vol] 0.98 mg/dL Normal 0.70-1.30 [facility] Comment on above: Performed By: #### C BC, MG, PHOS, CMP #### [address] Creatinine Clr Calc Pharmacy 120.89 [facility] Comment on above: Result Comment: PERF ORMED BY: [place] [address] PATHOLOGIST NUCLEAR CONTROL ROOM OPERATOR EDMOND LUND M.D. Performed By: #### C BC, MG, PHOS, CMP #### [address] GFR/1.73 sq M.predicted MDRD (S/P/Bld) [Vol rate/Area] mL/min/{1.73_m2} [facility] Comment on above: Performed By: #### C BC, MG, PHOS, CMP #### [address] Globulin (S) [Mass/Vol] 2.2 g/dL Normal [facility] Comment on above: Performed By: #### C BC, MG, PHOS, CMP #### [address] Glucose [Mass/Vol] 114 mg/dL High 70-100 [facility] Comment on above: Result Comment: [place] Glucose Reference Range is dependent on time and content of last meal. Glucose of more than 200 mg/dL in a nonstressed, ambulatory subject supports the diagnosis of Diabetes Mellitus. ADA recommended reference range Performed By: #### C BC, MG, PHOS, CMP #### [address] Potassium [Moles/Vol] 4.1 mmol/L Normal 3.5-5.1 [facility] Comment on above: Performed By: #### C BC, MG, PHOS, CMP #### [address] Protein [Mass/Vol] 6.2 g/dL Low 6.4-8.9 [facility] Comment on above: Performed By: #### C BC, MG, PHOS, CMP #### [place] [address] [place] Sodium [Moles/Vol] 142 mmol/L Normal 136-145 [facility] Comment on above: Performed By: #### C BC, MG, PHOS, CMP #### [address] Urea nitrogen [Mass/Vol] 4 mg/dL Low 7-25 [facility] Comment on above: Performed By: #### C BC, MG, PHOS, CMP #### [address] Albumin [Mass/Vol] 3.8 g/dL Normal 3.5-5.7 [facility] Comment on above: Performed By: #### C BC, MG, PHOS, CMP #### [address] Albumin/Globulin [Mass ratio] 1.6 {ratio} Normal [facility] Comment on above: Performed By: #### C BC, MG, PHOS, CMP #### [address] ALP [Catalytic activity/Vol] 107 U/L High 34-104 [facility] Comment on above: Performed By: #### C BC, MG, PHOS, CMP #### [address] ALT [Catalytic activity/Vol] 17 U/L Normal 7-52 [facility] Comment on above: Performed By: #### C BC, MG, PHOS, CMP #### [address] Anion gap [Moles/Vol] 7.7 mmol/L Normal 6.0-15.0 [facility] Comment on above: Performed By: #### C BC, MG, PHOS, CMP #### [address] AST [Catalytic activity/Vol] 12 U/L Low 13-39 [facility] Comment on above: Performed By: #### C BC, MG, PHOS, CMP #### [address] Bilirubin [Mass/Vol] 0.4 mg/dL Normal 0.3-1.0 [facility] Comment on above: Performed By: #### C BC, MG, PHOS, CMP #### [address] Calcium [Mass/Vol] 8.4 mg/dL Low 8.6-10.3 [facility] Comment on above: Performed By: #### C BC, MG, PHOS, CMP #### [address] Chloride [Moles/Vol] 107 mmol/L Normal 98-107 [facility] Comment on above: Performed By: #### C BC, MG, PHOS, CMP #### [address] CO2 [Moles/Vol] 26.5 mmol/L Normal 21.0-31.0 [facility] Comment on above: Performed By: #### C BC, MG, PHOS, CMP #### [address] Creatinine [Mass/Vol] 0.72 mg/dL Normal 0.70-1.30 [facility] Comment on above: Performed By: #### C BC, MG, PHOS, CMP #### [address] Creatinine Clr Calc Pharmacy 164.55 [facility] Comment on above: Performed By: #### C BC, MG, PHOS, CMP #### [place] [address] [place] GFR/1.73 sq M.predicted MDRD (S/P/Bld) [Vol rate/Area] mL/min/{1.73_m2} [facility] Comment on above: Performed By: #### C BC, MG, PHOS, CMP #### [address] Globulin (S) [Mass/Vol] 2.4 g/dL [facility] Comment on above: Performed By: #### C BC, MG, PHOS, CMP #### [address] Glucose [Mass/Vol] 91 mg/dL Normal 70-100 [facility] Comment on above: Result Comment: [place] Glucose Reference Range is dependent on time and content of last meal. Glucose of more than 200 mg/dL in a nonstressed, ambulatory subject supports the diagnosis of Diabetes Mellitus. ADA recommended reference range Performed By: #### C BC, MG, PHOS, CMP #### [address] Potassium [Moles/Vol] 3.2 mmol/L Low 3.5-5.1 [facility] Comment on above: Performed By: #### C BC, MG, PHOS, CMP #### [address] Protein [Mass/Vol] 6.2 g/dL Low 6.4-8.9 [facility] Comment on above: Performed By: #### C BC, MG, PHOS, CMP #### [address] Sodium [Moles/Vol] 138 mmol/L Normal 136-145 [facility] Comment on above: Performed By: #### C BC, MG, PHOS, CMP #### [address] Urea nitrogen [Mass/Vol] 4 mg/dL Low 7-25 [facility] Comment on above: Performed By: #### C BC, MG, PHOS, CMP #### [place] [address] [place] Dipstick and Microscopicon 0 05-07-2023 Appearance (U) Slightly Cloudy Critically abnormal Clear [facility] Comment on above: Order Comment: Name Collection Type:: Clean-Voided Midstream Performed By: #### C BC, MG, PHOS, CMP #### [place] [address] [place] Bacteria,Urine None Seen Normal None Seen [facility] Comment on above: Order Comment: Name Collection Type:: Clean-Voided Midstream Performed By: #### C BC, MG, PHOS, CMP #### [address] Bilirubin,Urine Negative Normal Negative [facility] Comment on above: Order Comment: Name Collection Type:: Clean-Voided Midstream Performed By: #### C BC, MG, PHOS, CMP #### [address] Color (U) Yellow Normal Yellow [facility] Comment on above: Order Comment: Name Collection Type:: Clean-Voided Midstream Performed By: #### C BC, MG, PHOS, CMP #### [address] Glucose Ql (U) Normal Normal Normal [facility] Comment on above: Order Comment: Name Collection Type:: Clean-Voided Midstream Performed By: #### C BC, MG, PHOS, CMP #### [address] Hyaline Casts,Urine None Seen Normal 0-8 [facility] Comment on above: Order Comment: Name Collection Type:: Clean-Voided Midstream Result Comment: PERF ORMED BY: [place] [address] PATHOLOGIST NUCLEAR CONTROL ROOM OPERATOR EDMOND LUND M.D. Performed By: #### C BC, MG, PHOS, CMP #### [facility] [address] [place] [address] Ketones Ql (U) Negative Normal Negative [facility] Comment on above: Order Comment: Name Collection Type:: Clean-Voided Midstream Performed By: #### C BC, MG, PHOS, CMP #### [address] Leukocyte esterase Test strip Ql (U) 4+ High Negative [facility] Comment on above: Order Comment: Name Collection Type:: Clean-Voided Midstream Performed By: #### C BC, MG, PHOS, CMP #### [place] [address] [place] Nitrite,Urine Negative Normal Negative [facility] Comment on above: Order Comment: Name Collection Type:: Clean-Voided Midstream Performed By: #### C BC, MG, PHOS, CMP #### [address] Occult Blood,Urine Trace High Negative [facility] Comment on above: Order Comment: Name Collection Type:: Clean-Voided Midstream Result Comment: PERF ORMED BY: [place] [address] PATHOLOGIST NUCLEAR CONTROL ROOM OPERATOR EDMOND LUND M.D. Performed By: #### C BC, MG, PHOS, CMP #### [address] pH (U) 7.0 [pH] Normal 5.0-9.0 [facility] Comment on above: Order Comment: Name Collection Type:: Clean-Voided Midstream Performed By: #### C BC, MG, PHOS, CMP #### [facility] [address] [place] [address] Protein,Urine Negative Normal Negative [facility] Comment on above: Order Comment: Name Collection Type:: Clean-Voided Midstream Performed By: #### C BC, MG, PHOS, CMP #### [address] RBC,Urine 1-2 Normal 0-4 [facility] Comment on above: Order Comment: Name Collection Type:: Clean-Voided Midstream Performed By: #### C BC, MG, PHOS, CMP #### [facility] [address] [place] [address] Specificy [place],Urine 1.005 Normal 1.001-1.030 [facility] Comment on above: Order Comment: Name Collection Type:: Clean-Voided Midstream Performed By: #### C BC, MG, PHOS, CMP #### [facility] [address] [place] [address] Squamous Epithelial Cell,Urine None Seen Normal 0-2 [facility] Comment on above: Order Comment: Name Collection Type:: Clean-Voided Midstream Performed By: #### C BC, MG, PHOS, CMP #### [address] Urobilinogen,Urine Normal Normal Normal [facility] Comment on above: Order Comment: Name Collection Type:: Clean-Voided Midstream Performed By: #### C BC, MG, PHOS, CMP #### [address] WBC,Urine 50-100 High 0-4 [facility] Comment on above: Order Comment: Name Collection Type:: Clean-Voided Midstream Performed By: #### C BC, MG, PHOS, CMP #### [address] Drug Screen,Urineon 05-07-19 24 Amphetamine Screen,Urine Negative Normal Negative [facility] Comment on above: Performed By: #### C BC, MG, PHOS, CMP #### [address] Barbiturate Screen,Urine Negative Normal Negative [facility] Comment on above: Performed By: #### C BC, MG, PHOS, CMP #### [address] Benzodiazepines Screen,Urine Negative Normal Negative [facility] Comment on above: Performed By: #### C BC, MG, PHOS, CMP #### [address] Cannabinoid Screen,Urine Negative Normal Negative [facility] Comment on above: Result Comment: Thes e are unconfirmed results and should not be used for legal purposes. Drug Cut-Off Concentration: AMPH 1000 ng/mL JESSICA 200 ng/mL PAPI 200 ng/mL COCM 300 ng/mL OP 300 ng/mL PCP 25 ng/mL THC 20 ng/mL PERFORMED BY: [place] [address] PATHOLOGIST NUCLEAR CONTROL ROOM OPERATOR EDMOND LUND M.D. Performed By: #### C BC, MG, PHOS, CMP #### [address] [place] [address] [place] Cocaine Screen,Urine Negative Normal Negative [facility] Comment on above: Performed By: #### C BC, MG, PHOS, CMP #### [facility] [address] Opiate Screen,Urine Negative Normal Negative [facility] Comment on above: Performed By: #### C BC, MG, PHOS, CMP #### [facility] [address] Phencyclidine Screen,Urine Negative Normal Negative [facility] Comment on above: Performed By: #### C BC, MG, PHOS, CMP #### [facility] [address] [place] [address] ECG 12 lead ECGon 05-07-2023 ECG 12 lead ECG [facility] [place] [address] [place] [address] Electrocardiograph Report Signed Patient: Daljit Napoles MR#: [id number] : 1980 Acct:[id number] Age/Sex: 42 / M ADM Date: 05/07/23 Loc: Room: [address] [place] [address] Type: ADM IN Attending Dr: Zoya Castro DO Ordering Provider: Jeremías Ocampo MD Date of Service: 05/07/23 ECG/ECG 12 lead ECG: lithium toxicity Copies to: Test Reason : Blood Pressure : / mmHG Vent. Rate : 072 BPM Atrial Rate : 535 BPM P-R Int : 000 ms QRS Dur : 112 ms QT Int : 438 ms P-R-T Axes : 000 081 066 degrees QTc Int : 479 ms Atrial fibrillation with a competing junctional pacemaker Cannot rule out Anterior infarct (Unconfirmed) Atrial fibrillation has replaced Junctional rhythm Confirmed by KYA BYERS MD ([id number]) on 05/07/2023 10:56:40 AM Referred By: Electronically Signed By:KYA BYERS MD Transcribed By: MUS Signed By Kya Byers MD 0 05/07/23 1056 Normal [facility] Lithiumon 05-07-2023 [place] [Moles/Vol] 1.20 mmol/L Normal 0.60-1.20 [facility] Comment on above: Order Comment: Date of last dose?: 20230506 Time of last dose?: 2199 Result Comment: PERF ORMED BY: [place] [address] PATHOLOGIST NUCLEAR CONTROL ROOM OPERATOR EDMOND LUND M.D. Performed By: #### L ITH #### [facility] [address] [place] [address] [place] [Moles/Vol] 1.30 mmol/L High 0.60-1.20 [facility] Comment on above: Order Comment: Date of last dose?: 20230506 Time of last dose?: 2199 Result Comment: PERF ORMED BY: [place] [address] PATHOLOGIST NUCLEAR CONTROL ROOM OPERATOR EDMOND LUND M.D. Performed By: #### L ITH #### [address] [place] [Moles/Vol] 1.60 mmol/L High 0.60-1.20 [facility] Comment on above: Order Comment: Date of last dose?: 20230506 Time of last dose?: 2199 Result Comment: PERF ORMED BY: [place] [address] PATHOLOGIST NUCLEAR CONTROL ROOM OPERATOR EDMOND LUND M.D. Performed By: #### C BC, MG, PHOS, CMP #### [address] [place] [Moles/Vol] 1.70 mmol/L High 0.60-1.20 [facility] Comment on above: Order Comment: Date of last dose?: 20230506 Time of last dose?: 2199 Result Comment: PERF ORMED BY: [place] [address] PATHOLOGIST NUCLEAR CONTROL ROOM OPERATOR EDMOND LUND M.D. Performed By: #### L ITH #### [facility] [address] [place] [address] [place] [Moles/Vol] 1.90 mmol/L High 0.60-1.20 [facility] Comment on above: Result Comment: PERF ORMED BY: [facility] [address] [place] [address] PATHOLOGIST NUCLEAR CONTROL ROOM OPERATOR EDMOND LUND M.D. Performed By: #### L ITH #### [facility] [address] [place] [address] Magnesiumon 05-07-2023 Magnesium [Mass/Vol] 2.0 mg/dL Normal 1.9-2.7 [facility] Comment on above: Result Comment: PERF ORMED BY: [place] [address] PATHOLOGIST NUCLEAR CONTROL ROOM OPERATOR EDMOND LUND M.D. Performed By: #### C BC, MG, PHOS, CMP #### [facility] [address] [place] [address] Phosphoruson 05-07-2023 Phosphate [Mass/Vol] 2.8 mg/dL Normal 2.5-4.5 [facility] Comment on above: Performed By: #### C BC, MG, PHOS, CMP #### [facility] [address] [place] [address] Urine Cultureon 05-07-2023 Bacteria identified Cx Nom (U) <9,000 colonies/ml mixed bacterial skin contaminants 2 Days PERFORMED BY: [place] [address] PATHOLOGIST NUCLEAR CONTROL ROOM OPERATOR EDMOND LUND M.D. Normal [facility] Comment on above: Performed By: #### C BC, MG, PHOS, CMP #### [facility] [address] [place] [address] Basic metabolic 2000 panelon 05-06-2023 Anion gap [Moles/Vol] 14 mmol/L Normal 10-20 [facility] Comment on above: Performed By: #### 2 4321-2 #### KATARZYNA COLLAZO ([id number]) [facility] ([facility]) [address] [place] [address] Calcium [Mass/Vol] 9.2 mg/dL Normal 8.6-10.3 [facility] Comment on above: Performed By: #### 2 4321-2 #### KATARZYNA COLLAZO ([id number]) [facility] ([facility]) [address] [place] [address] Chloride [Moles/Vol] 100 mmol/L Normal 98-107 [facility] Comment on above: Performed By: #### 2 4321-2 #### KATARZYNA COLLAZO ([id number]) [facility] ([facility]) [address] [place] [address] CO2 [Moles/Vol] 27 mmol/L Normal 21-32 [facility] Comment on above: Performed By: #### 2 4321-2 #### KATARZYNA COLLAZO ([id number]) [facility] ([facility]) [address] [place] [address] Creatinine [Mass/Vol] 0.82 mg/dL Normal 0.50-1.30 [facility] Comment on above: Performed By: #### 2 4321-2 #### KATARZYNA COLLAZO ([id number]) [facility] ([facility]) [address] [place] [address] GFR/1.73 sq M.predicted MDRD (S/P/Bld) [Vol rate/Area] mL/min/{1.73_m2} Normal >60 [facility] Comment on above: Result Comment: Calc ulations of estimated GFR are performed using the 2020 CKD-EPI Study Refit equation without the race variable for the IDMS-Traceable creatinine methods. https://jasn.asnjournals.org/content//ASN.34936513 88 Performed By: #### 2 4321-2 #### KATARZYNA COLLAZO ([id number]) [facility] ([facility]) [address] [place] [address] Glucose [Mass/Vol] 98 mg/dL Normal 74-99 [facility] Comment on above: Performed By: #### 2 4321-2 #### KATARZYNA COLLAZO ([id number]) [facility] ([facility]) [address] [place] [address] Potassium [Moles/Vol] 3.3 mmol/L Low 3.5-5.3 [facility] Comment on above: Performed By: #### 2 4321-2 #### KATARZYNA COLLAZO ([id number]) [facility] ([facility]) [address] [place] [address] Sodium [Moles/Vol] 138 mmol/L Normal 136-145 [facility] Comment on above: Performed By: #### 2 4321-2 #### KATARZYNA COLLAZO ([id number]) [facility] ([facility]) [address] [place] [address] Urea nitrogen [Mass/Vol] 5 mg/dL Low 6-23 [facility] Comment on above: Performed By: #### 2 4321-2 #### KATARZYNA COLLAZO ([id number]) [facility]) [address] [place] [address] Lithiumon 05-06-2023 [place] [Moles/Vol] 2.03 mmol/L Critically high 0.60-1.20 [facility] Comment on above: Performed By: #### 1 4334-7 #### KATARZYNA COLLAZO ([id number]) [facility]) [address] [place] [address] TSH WITH REFLEX TO FREE T4 I F ABNORMALon 05-06-2023 TSH Qn 1.17 m[IU]/L Normal 0.44-3.98 [facility] Comment on above: Order Comment: TSH t esting is performed using different testing methodology at [facility] than at other [facility]. Direct result comparisons should only be made within the same method. Performed By: #### T HYDS #### KATARZYNA COLLAZO ([id number]) [facility] ([facility]) [address] [place] [address] Psychiatry Adulton 3 Psychiatry Adult No report was sent Normal Codacy Chart Updateon 12-08-2022 Chart Update Diagnoses/Problems Generalized anxiety disorder (300.02) (F41.1) Orders Generalized anxiety disorder Start: Gabapentin 600 MG Oral Tablet; TAKE 1 TABLET 3 TIMES DAILY NEEDED FOR ANXIETY Rx By: Shireen Holly; Dispense: 30 Days ; #:90 Tablet; Refill: 0;For: Generalized anxiety disorder; MONAE = N; Sent To: [facility]; Msg to Pharmacy: cross covering for Shireen Khan CNP. please discontinue any other gabapentin rx. this is an increase Chart Update Cross covering for Shireen Khan CNP. Patient messaged requesting an increased dose of gabapentin as he reports taking 2-300mg caps of gabapentin TID. Per Shireen Khan's chart update on 11/28/22 patient was supposed to take 1 cap gabapentin 300mg in the am, 2 caps in the afternoon and 2 caps at bedtime. Patient's next appointment with Shireen Khan noted on 01/01/23. Will temporarily increase dose of gabapentin to 600mg TID #60/30 day supply no refill and patient will be encouraged to not take more than prescribed medication without discussing with his prescriber first. Staff made aware refill sent. OARRS checked, last fill noted below 11/25/2022 Clonazepam 1 Mg Tablet #60/30 11/21/2022 Gabapentin 300 Mg Capsule #120/30 10/25/2022 Clonazepam 1 Mg Tablet #60/30 10/25/2022 Gabapentin 300 Mg Capsule #60/30 Message Recorded as Task Date: 12/08/2022 01:32 PM, Created By: System Task Name: [facility] Patient Message Assigned To: Shireen Holly Regarding Patient: YESIKA DALJIT MohanBrian, Status: Active Comment: System - 08 Dec 2022 1:32 PM Message from patient using iiko. Heather Bermudez - 08 Dec 2022 1:57 PM UNDELEGATED TASK Shruti Rust - 08 Dec 2022 2:27 PM TASK REASSIGNED: Previously Assigned To Shireen Khan Signatures Electronically signed by : LIZZIE Wilson; Dec 08 2022 2:44PM EST (Author) Normal [facility] Chart Updateon 11-28-2022 Chart Update Chart Update Received [facility] message from patient requesting to increase mid-day dose of gabapentin from 300--> 600 mg for anxiety. Advised to proceed with dose increase using current rx of 300 mg caps with change in instructions: take 1 cap in AM, 2 caps mid-day and 2 caps at bedtime and to notify me 1 week prior to finishing out the prescription as he will need a sooner refill based on titration. 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) Bipolar 2 disorder, major depressive episode (296.89) (F31.81) Generalized anxiety disorder (300.02) (F41.1) Insomnia, unspecified type (780.52) (G47.00) Orders Bipolar 2 disorder, major depressive episode, Generalized anxiety disorder Start: Gabapentin 300 MG Oral Capsule; take 1 capsule in the morning, 1 capsule in the afternoon, and 2 capsules at bedtime Generalized anxiety disorder Continue: clonazePAM 1 MG Oral Tablet; Take 1 tablet twice daily Continue: cloNIDine HCl - 0.2 MG Oral Tablet; Take 1 tablet up to 3 times daily as needed for anxiety Continue: Venlafaxine HCl ER 150 MG Oral Capsule Extended Release 24 Hour; TAKE 2 CAPSULES DAILY Other and unspecified bipolar disorders Renew: lamoTRIgine 100 MG Oral Tablet; TAKE 1 TABLET DAILY Renew: [place] Carbonate ER 450 MG Oral Tablet Extended Release; TAKE 4 TABLET Bedtime Renew: risperiDONE 2 MG Oral Tablet; TAKE 1 TABLET AT BEDTIME Continue: hydrOXYzine HCl - 50 MG Oral Tablet; TAKE 1.5-2 TABLETS UP TO 3 TIMES DAILY NEEDED FOR ANXIETY Continue: lamoTRIgine 150 MG Oral Tablet; take 1 tablet by mouth at bedtime Continue: risperiDONE 1 MG Oral Tablet; Take 1 tablet daily Severe episode of recurrent major depressive disorder, without psychotic features Renew: Mirtazapine 15 MG Oral Tablet; TAKE 1 TABLET AT BEDTIME Renew: Mirtazapine 30 MG Oral Tablet; take 1 tablet by mouth daily at bedtime Patient Discussion/Summary -For now, continue risperidone by 1 mg PO daily and 2 mg PO QHS, with plan to re-attempt taper as mood sx stabilize (r/o EPS vs TD)- renewal sent to pharmacy today. -Increase mirtazapine to 45 mg PO QHS. -Continue hydroxyzine PRN for anxiety. - no refill needed today. -Ok to take clonidine 0.2 mg PO QHS PRN for anxiety/sleep- no refills needed today. -Continue venlafaxine ER 300 mg PO daily. -renewal sent to pharmacy today. -Continue lithium ER 1800 mg PO QHS. -renewal sent to pharmacy today. -Continue lamotrigine 100 mg PO daily and 150 mg PO QHS. -no refill needed today. -Continue clonazepam 1 mg PO BID. -no refill needed today. -Continue gabapentin 300 mg PO BID. --no refill needed today. -Provided with referrals for esketamine providers in his area- he does not currently want to pursue this. -Follow-up in 4-6 weeks. Provider Impressions 42 y/o M with bipolar disorder (suspect bipolar 2 disorder) and LIN by history. Since titration of mirtazapine 1 month ago, notes modest improvement in depressive symptoms, and more significant improvement in anxious symptoms. Requesting to further titrate mirtazapine. We have discussed potential synergistic benefit from combination of venlafaxine + mirtazapine at length, and have additionally reviewed potential side effects, including but not limited to activating side effects and serotonin syndrome. Will increase mirtazapine to 45 mg PO QHS. Discussed indication(s), reviewed risks/benefits/alterna tives. Provided with referrals for esketamine providers in his area-- he is not currently interested in pursuing this treatment. Endorsing involuntary dyskinesia of tongue intermittently- has lessened over the past several months. Unclear whether this may reflect EPS or early indication of TD. Partial response to benztropine PRN. Among medications in current regimen, risperidone is most likely offending agent. He was unable to tolerate attempt to taper and discontinue risperidone prior to recent adjustments to antidepressant medications. Will reattempt when mood/anxious symptoms are more stable. Goal remains to reduce polypharmacy over time. Will likely consider taper of gabapentin and/or lamotrigine, given questionable benefit since even prior to my working with him. Will defer any of these changes for now, given worsening mood and anxious symptoms recently. Reviewed [place], no discrepancies or concerns. Discussed risk of motor/cognitive impairment, sedation, dependence, tolerance, abuse, withdrawal sequelae, accidental overdose, life-threatening respiratory depression (especially in combination with alcohol and/or opioids), excess sedation in combination with other sedating medicines. He is not interested in individual psychotherapy. Engagement in IOP is not possible right now d/t co-pay required by his insurance company. Acute risk for suicide is low based on: Male sex Diagnosis of depression/current depressive symptoms Marital status Access to firearms Isolation/lives alone- son lives with him part-time Protective Factors No history of suicide attempt or self harm No current suicidality/plan/inten t No substance use Denies hopelessness Adherent to treatment Child Chief Complaint An interactive audio and video telecommunication system which permits real time communications between the patient (at the originating site) and provider (at the distant site) was (more content not included)... 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) Bipolar 2 disorder, major depressive episode (296.89) (F31.81) Generalized anxiety disorder (300.02) (F41.1) Insomnia, unspecified type (780.52) (G47.00) Orders Generalized anxiety disorder Renew: Venlafaxine HCl ER 150 MG Oral Capsule Extended Release 24 Hour; TAKE 2 CAPSULES DAILY Continue: clonazePAM 1 MG Oral Tablet; Take 1 tablet twice daily Continue: cloNIDine HCl - 0.2 MG Oral Tablet; Take 1 tablet up to 3 times daily as needed for anxiety Generalized anxiety disorder, Other and unspecified bipolar disorders Continue: Gabapentin 300 MG Oral Capsule; TAKE 1 CAPSULE TWICE DAILY Other and unspecified bipolar disorders Renew: [place] Carbonate ER 450 MG Oral Tablet Extended Release; TAKE 4 TABLET Bedtime Renew: risperiDONE 2 MG Oral Tablet; TAKE 1 TABLET AT BEDTIME Continue: hydrOXYzine HCl - 50 MG Oral Tablet; TAKE 1.5-2 TABLETS UP TO 3 TIMES DAILY NEEDED FOR ANXIETY Continue: lamoTRIgine 100 MG Oral Tablet; TAKE 1 TABLET DAILY Continue: lamoTRIgine 150 MG Oral Tablet; TAKE 1 TABLET Bedtime Continue: risperiDONE 1 MG Oral Tablet; Take 1 tablet daily Severe episode of recurrent major depressive disorder, without psychotic features Start: Mirtazapine 15 MG Oral Tablet; TAKE 1 TABLET AT BEDTIME Renew: Mirtazapine 30 MG Oral Tablet; take 1 tablet by mouth daily at bedtime Patient Discussion/Summary -For now, continue risperidone by 1 mg PO daily and 2 mg PO QHS, with plan to re-attempt taper as mood sx stabilize (r/o EPS vs TD)- renewal sent to pharmacy today. -Increase mirtazapine to 45 mg PO QHS. -Continue hydroxyzine PRN for anxiety. - no refill needed today. -Ok to take clonidine 0.2 mg PO QHS PRN for anxiety/sleep- no refills needed today. -Continue venlafaxine ER 300 mg PO daily. -renewal sent to pharmacy today. -Continue lithium ER 1800 mg PO QHS. -renewal sent to pharmacy today. -Continue lamotrigine 100 mg PO daily and 150 mg PO QHS. -no refill needed today. -Continue clonazepam 1 mg PO BID. -no refill needed today. -Continue gabapentin 300 mg PO BID. --no refill needed today. -Provided with referrals for esketamine providers in his area- he does not currently want to pursue this. -Follow-up in 4-6 weeks. Provider Impressions 42 y/o M with bipolar disorder (suspect bipolar 2 disorder) and LIN by history. Since titration of mirtazapine 1 month ago, notes modest improvement in depressive symptoms, and more significant improvement in anxious symptoms. Requesting to further titrate mirtazapine. We have discussed potential synergistic benefit from combination of venlafaxine + mirtazapine at length, and have additionally reviewed potential side effects, including but not limited to activating side effects and serotonin syndrome. Will increase mirtazapine to 45 mg PO QHS. Discussed indication(s), reviewed risks/benefits/alterna tives. Provided with referrals for esketamine providers in his area-- he is not currently interested in pursuing this treatment. Endorsing involuntary dyskinesia of tongue intermittently- has lessened over the past several months. Unclear whether this may reflect EPS or early indication of TD. Partial response to benztropine PRN. Among medications in current regimen, risperidone is most likely offending agent. He was unable to tolerate attempt to taper and discontinue risperidone prior to recent adjustments to antidepressant medications. Will reattempt when mood/anxious symptoms are more stable. Goal remains to reduce polypharmacy over time. Will likely consider taper of gabapentin and/or lamotrigine, given questionable benefit since even prior to my working with him. Will defer any of these changes for now, given worsening mood and anxious symptoms recently. Reviewed [place], no discrepancies or concerns. Discussed risk of motor/cognitive impairment, sedation, dependence, tolerance, abuse, withdrawal sequelae, accidental overdose, life-threatening respiratory depression (especially in combination with alcohol and/or opioids), excess sedation in combination with other sedating medicines. He is not interested in individual psychotherapy. Engagement in IOP is not possible right now d/t co-pay required by his insurance company. Acute risk for suicide is low based on: Male sex Diagnosis of depression/current depressive symptoms Marital status Access to firearms Isolation/lives alone- son lives with him part-time Protective Factors No history of suicide attempt or self harm No current suicidality/plan/inten t No substance use Denies hopelessness Adherent to treatment Child Chief Complaint An interactive audio and video telecommunication system which permits real time communications between the patient (at the originating site) and provider (at the distant site) was utilized to provide this telehealth service. Verbal consent was request (more content not included)... 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) Generalized anxiety disorder (300.02) (F41.1) Insomnia, unspecified type (780.52) (G47.00) Orders Generalized anxiety disorder Renew: clonazePAM 1 MG Oral Tablet; Take 1 tablet twice daily Continue: cloNIDine HCl - 0.2 MG Oral Tablet; Take 1 tablet up to 3 times daily as needed for anxiety Continue: Venlafaxine HCl ER 150 MG Oral Capsule Extended Release 24 Hour; TAKE 2 CAPSULES DAILY Generalized anxiety disorder, Other and unspecified bipolar disorders Continue: Gabapentin 300 MG Oral Capsule; TAKE 1 CAPSULE TWICE DAILY Other and unspecified bipolar disorders Renew: hydrOXYzine HCl - 50 MG Oral Tablet; TAKE 1.5-2 TABLETS UP TO 3 TIMES DAILY NEEDED FOR ANXIETY Renew: lamoTRIgine 150 MG Oral Tablet; TAKE 1 TABLET Bedtime Renew: [place] Carbonate ER 450 MG Oral Tablet Extended Release; TAKE 4 TABLET Bedtime Continue: lamoTRIgine 100 MG Oral Tablet; TAKE 1 TABLET DAILY Continue: risperiDONE 1 MG Oral Tablet; Take 1 tablet daily Continue: risperiDONE 2 MG Oral Tablet; TAKE 1 TABLET AT BEDTIME Severe episode of recurrent major depressive disorder, without psychotic features Start: Mirtazapine 30 MG Oral Tablet; take 1 tablet by mouth daily at bedtime Patient Discussion/Summary -Discontinued benztropine. -For now, continue risperidone by 1 mg PO daily and 2 mg PO QHS, with plan to re-attempt taper as mood sx stabilize (r/o EPS vs TD)- no refills needed today -Increase mirtazapine to 30 mg PO QHS. -Continue hydroxyzine PRN for anxiety. - renewals sent to pharmacy today. -Hold clonidine 0.2 mg PO TID PRN for anxiety d/t sedation- no refills needed today. -Self-discontinued buspirone. -Continue venlafaxine ER 300 mg PO daily. -no refill needed today. -Continue lithium ER 1800 mg PO QHS. -renewal sent to pharmacy today. -Continue lamotrigine 100 mg PO daily and 150 mg PO QHS. -renewal sent to pharmacy today. -Continue clonazepam 1 mg PO BID. -renewal sent to pharmacy today. -Continue gabapentin 300 mg PO BID. --no refill needed today. -Provided with referrals for esketamine providers in his area- he does not currently want to pursue this. -Follow-up in 4-6 weeks. Provider Impressions 42 y/o M with bipolar disorder (suspect bipolar 2 disorder) and LIN by history. Reports worsening depressive and anxious symptoms over the past month. Advised that it would be prudent to check labs prior to making any medication changes- including any consideration for titration of lithium. No labs nearby to him, so requests that he be able to have labs drawn at PCP's office. Will check lithium level, CMP, CBC w/diff and thyroid panel. He will have PCP's office fax results. Provided with referrals for esketamine providers in his area, and he plans to schedule a consultation, given refractory nature of depressive symptoms. Endorsing involuntary dyskinesia of tongue intermittently. Unclear whether this may reflect EPS or early indication of TD. Partial response to benztropine PRN. Among medications in current regimen, risperidone is most likely offending agent, so will taper and discontinue. Goal remains to reduce polypharmacy over time. Will likely consider taper of gabapentin and/or lamotrigine, given questionable benefit since even prior to my working with him. Will defer any of these changes for now, given worsening mood and anxious symptoms recently. Reviewed [place], no discrepancies or concerns. Discussed risk of motor/cognitive impairment, sedation, dependence, tolerance, abuse, withdrawal sequelae, accidental overdose, life-threatening respiratory depression (especially in combination with alcohol and/or opioids), excess sedation in combination with other sedating medicines. He is not interested in individual psychotherapy. Engagement in IOP is not possible right now d/t co-pay required by his insurance company. Acute risk for suicide is low based on: Male sex Diagnosis of depression/current depressive symptoms Marital status Access to firearms Isolation/lives alone- son lives with him part-time Protective Factors No history of suicide attempt or self harm No current suicidality/plan/inten t No substance use Denies hopelessness Adherent to treatment Child Chief Complaint An interactive audio and video telecommunication system which permits real time communications between the patient (at the originating site) and provider (at the distant site) was utilized to provide this telehealth service. Verbal consent was requested and obtained from DALJIT NAPOLES on this date, 09/18/2022 11:00 AM , for a telehealth visit. Bipolar disorder, anxiety History of Present Illness Mr. Napoles is a 42 y/o M, seen in follow-up for bipolar disorder and LIN. See chart updates from 08/14 and 09/10. Since his last appointment, -things seem to have gotten somewhat better with increase i (more content not included)... 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) Bipolar 2 disorder, major depressive episode (296.89) (F31.81) Orders Bipolar 2 disorder, major depressive episode Start: Mirtazapine 7.5 MG Oral Tablet; TAKE 1 TABLET AT BEDTIME WITH 15 MG FOR A TOTAL OF 22.5 MG Rx By: Shireen Khan; Dispense: 30 Days ; #:30 Tablet; Refill: 0;For: Bipolar 2 disorder, major depressive episode; MONAE = N; [id number]; Msg to Pharmacy: Increasing dose from 15 mg--> 22.5 mg Other and unspecified bipolar disorders Stop: [place] Carbonate ER 300 MG Oral Tablet Extended Release Rx By: Shireen Khan; Dispense: 30 Days ; #:60 Tablet; Refill: 1;For: Other and unspecified bipolar disorders; MONAE = N; Transmitted To: [facility] Changed: From [place] Carbonate ER 450 MG Oral Tablet Extended Release TAKE 2 TABLET Bedtime Take with 2 lithium ER 300 mg tabs for a total of 1500 mg To [place] Carbonate ER 450 MG Oral Tablet Extended Release TAKE 4 TABLET Bedtime Rx By: Shireen Khan; Dispense: 30 Days ; #:120 Tablet; Refill: 1;For: Other and unspecified bipolar disorders; MONAE = N; Sent To: [facility]; Msg to Pharmacy: Increasing from 1500--> 1800 mg Chart Update Spoke with Mr. Napoles via phone this afternoon. Clarified that he had unintentionally been taking (3) 300 mg tabs of lithium + (2) 450 mg tabs for a total of 1800 mg PO QHS, and had therefore run out of the 300 mg tabs sooner than expected. [place] level of 1.04 drawn on 09/05 reflects dose of 1800 mg. He's continued to struggle with worsening depressive symptoms. Stopped taking buspirone 6 weeks ago because he felt it was making him more fatigued and for a while after he stopped it he felt a bit better. Has continued risperidone 1 mg PO daily and 2 mg PO QHS. No longer taking benztropine. Still occasionally notes involuntary movement of tongue, but less often. Unclear whether this is an extrapyramidal side effect, though this is my concern. We have an appointment scheduled next week and will assess further at that time. In the meantime, will begin titration of mirtazapine in an effort to achieve synergistic benefit in combination with SNRI. Increase from 15--> 22.5 mg today, and anticipate further titration at follow-up next week if well-tolerated. Target dose between 30- 45 mg based on response. Discussed indication(s), reviewed risks/benefits/alterna tives. Message Recorded as Task Date: 09/09/2022 01:05 PM, Created By: System Task Name: [facility] Patient Message Assigned To: Shireen Khan Regarding Patient: YESIKADALJIT, Status: Active Comment: System - 09 Sep 2022 1:05 PM Message from patient using iiko. Shruti Rust - 09 Sep 2022 1:11 PM UNDELEGATED TASK Signatures Electronically signed by : GUIDO Calabrese; Sep 10 2022 4:48PM EST (Author) Normal [facility] [place] Level, Serumon 09-05 [place] [Moles/Vol] 1.04 mmol/L See Below [place] [id number] [employer] Work Phone: Comment on above: Reference Range: 0.6 0 - 1.20 Chart Updateon 08-14-2022 Chart Update Chart Update Received [facility] message from Mr. Napoles indicating that he was having a difficult time with the plan for tapering risperidone, and that depressive sx were continuing to worsen. We spoke via phone this afternoon. He attempted to taper risperidone and depression seemed to get worse within a few days. Thoughts started to race. Also noted some lightheadedness and fogginess, kind of like a withdrawal. He resumed the full dose. He was willing to have labs drawn at a facility to expedite possibility of titrating lithium dose. CMP, CBC, lipid panel, TSH and lithium level drawn this afternoon. Once results are available, will consider titration of lithium. Signatures Electronically signed by : GUIDO Calabrese; Aug 14 2022 1:25PM EST (Author) Normal [facility] Complete Blood Count + Diffe rentialon 08-14-2022 Basophils/100 WBC (Bld) 0.9 % 0.0 - 2.0 [place] [address] [employer] Work Phone: Erythrocyte distribution width (RBC) [Ratio] 12.2 % See Below [place] [address] [employer] Work Phone: Comment on above: Reference Range: 11. 5 - 14.5 Hematocrit (Bld) [Volume fraction] 46.2 % See Below [place] [address] [employer] Work Phone: Comment on above: Reference Range: 41. 0 - 52.0 Hemoglobin (Bld) [Mass/Vol] 15.4 g/dL See Below [place] [address] [place] Work Phone: Comment on above: Reference Range: 13. 5 - 17.5 Lymphocytes/100 WBC (Bld) 24.2 % See Below [place] [address] [place] Work Phone: [phone] Comment on above: Reference Range: 13. 0 - 44.0 MCHC (RBC) [Mass/Vol] 33.3 g/dL See Below [place] [address] [place] Work Phone: [phone] Comment on above: Reference Range: 32. 0 - 36.0 MCV (RBC) [Entitic vol] 91 fL 80 - 100 [place] [address] [place] Work Phone: [phone] Monocytes/100 WBC (Bld) 7.8 % 2.0 - 10.0 [place] [address] [place] Work Phone: [phone] Neutrophils/100 WBC (Bld) 64.2 % See Below [place] [address] [place] Work Phone: [phone] Comment on above: Reference Range: 40. 0 - 80.0 Platelets (Bld) [#/Vol] 242 10*3/uL 150 - 450 [place] [address] [place] Work Phone: [phone] RBC (Bld) [#/Vol] 5.10 {x10E12/L} See Below [place] [address] [place] Work Phone: [phone] Comment on above: Reference Range: 4.5 0 - 5.90 WBC (Bld) [#/Vol] 6.6 10*3/uL 4.4 - 11.3 [place] [address] [place] Work Phone: [phone] Complete Blood Count + Differential 0.06 {x10E9/L} See Below [place] [address] [place] Work Phone: [phone] Comment on above: Reference Range: 0.0 0 - 0.10 Complete Blood Count + Differential 0.17 {x10E9/L} See Below [place] [address] [place] Work Phone: [phone] Comment on above: Reference Range: 0.0 0 - 0.70 Complete Blood Count + Differential 0.51 {x10E9/L} See Below [place] [address] [employer] Work Phone: Comment on above: Reference Range: 0.1 0 - 1.00 Complete Blood Count + Differential 1.59 {x10E9/L} See Below [place] [address] [employer] Work Phone: Comment on above: Reference Range: 1.2 0 - 4.80 Complete Blood Count + Differential 4.23 {x10E9/L} See Below [place] [address] [employer] Work Phone: Comment on above: Reference Range: 1.2 0 - 7.70 Complete Blood Count + Differential 2.6 % 0.0 - 6.0 [place] [address] [employer] Work Phone: Complete Blood Count + Differential 0.3 % 0.0 - 0.9 [place] [address] [employer] Work Phone: Comment on above: Immature Granulocyte Count (IG) includes promyelocytes, myelocytes and metamyelocytes but does not include bands. Percent differential counts (%) should be interpreted in the context of the absolute cell counts (cells/L). Laboratory - Chemistry and C hemistry - challengeon 08-14-2022 Albumin BCP dye [Mass/Vol] 4.8 g/dL 3.4 - 5.0 [place] [address] [employer] Work Phone: ALP [Catalytic activity/Vol] 52 U/L 33 - [address] Work Phone: ALT With P-5'-P [Catalytic activity/Vol] 26 U/L 10 - 52 [place] [address] [employer] Work Phone: Comment on above: Patients treated wit h Sulfasalazine may generate falsely decreased results for ALT. Anion gap [Moles/Vol] 12 mmol/L 10 - 20 [place] [address] [employer] Work Phone: AST With P-5'-P [Catalytic activity/Vol] 24 U/L 9 - 39 [place] [address] [place] Work Phone: [phone] Bilirubin [Mass/Vol] 1.0 mg/dL 0.0 - 1.2 [place] [address] [place] Work Phone: [phone] Calcium [Mass/Vol] 10.1 mg/dL 8.6 - 10.3 [place] [address] [place] Work Phone: [phone] Chloride [Moles/Vol] 104 mmol/L 98 - 107 [place] [address] [place] Work Phone: [phone] CO2 [Moles/Vol] 25 mmol/L 21 - 32 [place] [address] [place] Work Phone: [phone] Creatinine [Mass/Vol] 0.69 mg/dL See Below [place] [address] [place] Work Phone: [phone] Comment on above: Reference Range: 0.5 0 - 1.30 Glucose [Mass/Vol] 79 mg/dL 74 - 99 [place] [address] [place] Work Phone: Potassium [Moles/Vol] 3.7 mmol/L 3.5 - 5.3 [place] [address] [place] Work Phone: [phone] Protein [Mass/Vol] 7.7 g/dL 6.4 - 8.2 [place] [address] [place] Work Phone: Sodium [Moles/Vol] 137 mmol/L 136 - 145 [place] [address] [place] Work Phone: TSH Qn 1.03 m[IU]/L See Below [place] [address] [place] Work Phone: Comment on above: Reference Range: 0.4 4 - 3.98 TSH testing is performed using different testing methodology at [facility] than at other [facility]. Direct result comparisons should only be made within the same method. Urea nitrogen [Mass/Vol] 13 mg/dL 6 - 23 [place] [address] [employer] Work Phone: Lipid Panelon 08-14-2022 Cholesterol [Mass/Vol] 204 mg/dL above high threshold 0 - 199 [place] [address] [employer] Work Phone: Comment on above: . AGE DESIRABLE BORD ANISA HIGH HIGH 0-19 Y 0 - 169 170 - 199 >/= 200 20-24 Y 0 - 189 190 - 224 >/= 225 >24 Y 0 - 199 200 - 239 >/= 240 All ranges are based on fasting samples. Specific therapeutic targets will vary based on patient-specific cardiac risk.. Pediatric guidelines reference:Pediatrics 2011, 128(S5). Adult guidelines reference: NCEP ATPIII Guidelines, LACI 2001, 258:5376-97. Venipuncture immediately after or during the administration of Metamizole may lead to falsely low results. Testing should be performed immediately prior to Metamizole dosing. Cholesterol in HDL [Mass/Vol] 52.2 mg/dL [place] [address] [employer] Work Phone: Comment on above: . AGE VERY LOW LOW N ORMAL HIGH 0-19 Y < 35 < 40 40-45 ---- 20- 24 Y ---- < 40 >45 ---- >24 Y ---- < 40 40-60 >60. Cholesterol in LDL [Mass/Vol] 125 mg/dL above high threshold 0 - 99 [place] [address] [employer] Work Phone: Comment on above: . NEAR BORD AGE LASHAWN RABLE OPTIMAL HIGH HIGH VERY HIGH 0-19 Y 0 - 109 --- 110-129 >/= 130 ---- 20-24 Y 0 - 119 --- 120-159 >/= 160 ---- >24 Y 0 - 99 100-129 130-159 160-189 >/=190. Cholesterol.total/C holesterol in HDL [Mass ratio] 3.9 {ratio} [place] [address] [employer] Work Phone: Comment on above: REF VALUESDESIRABLE < 3.4HIGH RISK > 5.0 Triglyceride [Mass/Vol] 132 mg/dL 0 - 149 [place] [address] [employer] Work Phone: Comment on above: . AGE DESIRABLE BORD ANISA HIGH HIGH VERY HIGH 0 D-90 D 19 - 174 ---- ---- ----91 D- 9 Y 0 - 74 75 - 99 >/= 100 ---- 10-19 Y 0 - 89 90 - 129 >/= 130 ---- 20-24 Y 0 - 114 115 - 149 >/= 150 ---- >24 Y 0 - 149 150 - 199 200- 499 >/= 500. Venipuncture immediately after or during the administration of Metamizole may lead to falsely low results. Testing should be performed immediately prior to Metamizole dosing. Lipid Panel 26 mg/dL 0 - 40 [place] [address] [employer] Work Phone: [place] Level, Serumon 08-14 [place] [Moles/Vol] 0.59 mmol/L below low threshold See Below [place] [address] [employer] Work Phone: Comment on above: Reference Range: 0.6 0 - 1.20 No Panel Informationon 08-14 >90 >90 [place] [address] [employer] Work Phone: Comment on above: CALCULATIONS OF OMKAR MATED GFR ARE PERFORMED USING THE 2020 CKD-EPI STUDY REFIT EQUATION WITHOUT THE RACE VARIABLE FOR THE IDMS-TRACEABLE CREATININE METHODS.https://jasn.asnjournals.org/content//ASN. 2737677477 Psychiatry Adulton 3 Psychiatry Adult Diagnoses/Problems Assessed Other and unspecified bipolar disorders (296.80) (F31.9) Generalized anxiety disorder (300.02) (F41.1) Insomnia, unspecified type (780.52) (G47.00) Orders Generalized anxiety disorder Continue: busPIRone HCl - 10 MG Oral Tablet; TAKE 2 TABLET 3 times daily Continue: clonazePAM 1 MG Oral Tablet; Take 1 tablet twice daily Continue: cloNIDine HCl - 0.2 MG Oral Tablet; Take 1 tablet up to 3 times daily as needed for anxiety Continue: Venlafaxine HCl ER 150 MG Oral Capsule Extended Release 24 Hour; TAKE 2 CAPSULES DAILY Generalized anxiety disorder, Insomnia, unspecified type, Other and unspecified bipolar disorders Continue: Mirtazapine 15 MG Oral Tablet; TAKE 1 TABLET AT BEDTIME Generalized anxiety disorder, Other and unspecified bipolar disorders Continue: Gabapentin 300 MG Oral Capsule; TAKE 1 CAPSULE TWICE DAILY Other and unspecified bipolar disorders Continue: Benztropine Mesylate 0.5 MG Oral Tablet; TAKE 1 TABLET BY MOUTH TWICE A DAY NEEDED FOR SIDE EFFECTS Continue: lamoTRIgine 100 MG Oral Tablet; TAKE 1 TABLET DAILY Continue: lamoTRIgine 150 MG Oral Tablet; TAKE 1 TABLET Bedtime Continue: [place] Carbonate 300 MG Oral Tablet; TAKE 4 TABLETS AT BEDTIME Patient Discussion/Summary -Hold hydroxyzine for now. -Continue benztropine 0.5 mg PO BID PRN for EPS. -Decrease risperidone by 1 mg Q3 days until discontinued (r/o EPS vs TD) -Continue mirtazapine 15 mg PO QHS. -no refill needed today. -Continue hydroxyzine PRN for breakthrough anxiety. --no refill needed today. -Continue clonidine 0.2 mg PO TID PRN for anxiety. --no refill needed today. -Continue buspirone 20 mg PO TID. -no refill needed today. -Continue venlafaxine ER 300 mg PO daily. -no refill needed today. -Continue lithium 1200 mg PO QHS. -no refill needed today. -Continue lamotrigine 100 mg PO daily and 150 mg PO QHS. -no refill needed today. -Continue clonazepam 1 mg PO BID. -no refill needed today. -Continue gabapentin 300 mg PO BID. --no refill needed today. -Will check CMP, lipid panel, A1c and lithium level prior to next appointment- will have drawn at PCP's office and fax results. -Provided with referrals for esketamine providers in his area. -Follow-up in 4-6 weeks. Provider Impressions 41 y/o M with bipolar disorder (suspect bipolar 2 disorder) and LIN by history. Reports worsening depressive and anxious symptoms over the past month. Advised that it would be prudent to check labs prior to making any medication changes- including any consideration for titration of lithium. No labs nearby to him, so requests that he be able to have labs drawn at PCP's office. Will check lithium level, CMP, CBC w/diff and thyroid panel. He will have PCP's office fax results. Provided with referrals for esketamine providers in his area, and he plans to schedule a consultation, given refractory nature of depressive symptoms. Endorsing involuntary dyskinesia of tongue intermittently. Unclear whether this may reflect EPS or early indication of TD. Partial response to benztropine PRN. Among medications in current regimen, risperidone is most likely offending agent, so will taper and discontinue. Goal remains to reduce polypharmacy over time. Will likely consider taper of gabapentin and/or lamotrigine, given questionable benefit since even prior to my working with him. Will defer any of these changes for now, given worsening mood and anxious symptoms recently. Reviewed OARRS, no discrepancies or concerns. Discussed risk of motor/cognitive impairment, sedation, dependence, tolerance, abuse, withdrawal sequelae, accidental overdose, life-threatening respiratory depression (especially in combination with alcohol and/or opioids), excess sedation in combination with other sedating medicines. He is not interested in individual psychotherapy. Engagement in IOP is not possible right now d/t co-pay required by his insurance company. Acute risk for suicide is low based on: Male sex Diagnosis of depression/current depressive symptoms Marital status Access to firearms Isolation/lives alone- son lives with him part-time Protective Factors No history of suicide attempt or self harm No current suicidality/plan/inten t No substance use Denies hopelessness Adherent to treatment Child Chief Complaint An interactive audio and video telecommunication system which permits real time communications between the patient (at the originating site) and provider (at the distant site) was utilized to provide this telehealth service. Verbal consent was requested and obtained from DALJIT NAPOLES on this date, 08/07/2022 01:30 PM , for a telehealth visit. Bipolar disorder, anxiety History of Present Illness Mr. Napoles is a 41 y/o M, seen in follow-up for bipolar disorder and LIN. See chart update from MEEK Holly 08/01/2022. Since his last appointment, - I keep having a problem with depression. -has moments things seem (more content not included)... Normal [facility] Chart Updateon 08-01-2022 Chart Update Diagnoses/Problems Other and unspecified bipolar disorders (296.80) (F31.9) Orders Other and unspecified bipolar disorders Start: Benztropine Mesylate 0.5 MG Oral Tablet; TAKE 1 TABLET BY MOUTH TWICE A DAY NEEDED FOR SIDE EFFECTS Rx By: Shireen Holly; Dispense: 30 Days ; #:60 Tablet; Refill: 0;For: Other and unspecified bipolar disorders; MONAE = N; Verified Transmission to [facility]; Last Updated By: System, Triblio; 08/01/2022 9:23:42 AM Chart Update Received a task message that the patient is reports abnormal tongue movements that started 3 weeks ago and is not affecting his ability to swallow, but may affect his speech at times. This residential mortgage underwriter is cross covering for his primary provider, Shireen Khan CNP. This residential mortgage underwriter sent in a rx for benztropine 0.5mg 1 tab PO BID PRN side effects that the patient may try. Message returned to patient notifying him of the medication that was sent in, reviewed possible side effects, and he is asked to stop the hydroxyzine if he is using it. He is encouraged to follow up with his provider as previously scheduled on 08/07/22 and if symptoms become worse/affect ability to swallow he is encouraged to follow up at the ER. Message sent to Shireen Khan to make her aware. Signatures Electronically signed by : LIZZIE Wilson; Aug 01 2022 9:31AM EST (Author) Normal [facility] Patient Educationon 07-15-19 Patient Education Urology Benign Prostatic Hyperplasia Benign prostatic hyperplasia (BPH) is an enlarged prostate gland that is caused by the normal aging process and not by cancer. The prostate is a walnut-sized gland that is involved in the production of semen. It is located in front of the rectum and below the bladder. The bladder stores urine and the urethra is the tube that carries the urine out of the body. The prostate may get bigger as a man gets older. An enlarged prostate can press on the urethra. This can make it harder to pass urine. The build-up of urine in the bladder can cause infection. Back pressure and infection may progress to bladder damage and kidney (renal) failure. What are the causes? This condition is part of a normal aging process. However, not all men develop problems from this condition. If the prostate enlarges away from the urethra, urine flow will not be blocked. If it enlarges toward the urethra and compresses it, there will be problems passing urine. What increases the risk? This condition is more likely to develop in men over the age of 50 years. What are the signs or symptoms? Symptoms of this condition include: ? Getting up often during the night to urinate. ? Needing to urinate frequently during the day. ? Difficulty starting urine flow. ? Decrease in size and strength of your urine stream. ? Leaking (dribbling) after urinating. ? Inability to pass urine. This needs immediate treatment. ? Inability to completely empty your bladder. ? Pain when you pass urine. This is more common if there is also an infection. ? Urinary tract infection (UTI). How is this diagnosed? This condition is diagnosed based on your medical history, a physical exam, and your symptoms. Tests will also be done, such as: ? A post-void bladder scan. This measures any amount of urine that may remain in your bladder after you finish urinating. ? A digital rectal exam. In a rectal exam, your health care provider checks your prostate by putting a lubricated, gloved finger into your rectum to feel the back of your prostate gland. This exam detects the size of your gland and any abnormal lumps or growths. ? An exam of your urine (urinalysis). ? A prostate specific antigen (PSA) screening. This is a blood test used to screen for prostate cancer. ? An ultrasound. This test uses sound waves to electronically produce a picture of your prostate gland. Your health care provider may refer you to a specialist in kidney and prostate diseases (urologist). How is this treated? Once symptoms begin, your health care provider will monitor your condition (active surveillance or watchful waiting). Treatment for this condition will depend on the severity of your condition. Treatment may include: ? Observation and yearly exams. This may be the only treatment needed if your condition and symptoms are mild. ? Medicines to relieve your symptoms, including: ? Medicines to shrink the prostate. ? Medicines to relax the muscle of the prostate. ? Surgery in severe cases. Surgery may include: ? Prostatectomy. In this procedure, the prostate tissue is removed completely through an open incision or with a laparoscope or robotics. ? Transurethral resection of the prostate (TURP). In this procedure, a tool is inserted through the opening at the tip of the penis (urethra). It is used to cut away tissue of the inner core of the prostate. The pieces are removed through the same opening of the penis. This removes the blockage. ? Transurethral incision (TUIP). In this procedure, small cuts are made in the prostate. This lessens the prostate's pressure on the urethra. ? Transurethral microwave thermotherapy (TUMT). This procedure uses microwaves to create heat. The heat destroys and removes a small amount of prostate tissue. ? Transurethral needle ablation (TUNA). This procedure uses radio frequencies to destroy and remove a small amount of prostate tissue. ? Interstitial laser coagulation (ILC). This procedure uses a laser to destroy and remove a small amount of prostate tissue. ? Transurethral electrovaporization (TUVP). This procedure uses electrodes to destroy and remove a small amount of prostate tissue. ? Prostatic urethral lift. This procedure inserts an implant to push the lobes of the prostate away from the urethra. Follow these instructions at home: ? Take oqjl-wda-pazsdty and prescription medicines only as told by your health care provider. ? Monitor your symptoms for any changes. Contact your health care provider with any changes. ? Avoid drinking large amounts of liquid before going to bed or out in public. ? Avoid or reduce how much caffeine or alcohol you drink. ? Give yourself time when you urinate. ? Keep all follow-up visits as told by your health care provider. This is important. Contact a health care provider if: ? You have unexplained back pain. ? Your symptoms do not get better with treatment. ? You d (more content not included)... Normal [facility] Psychiatry Adulton 3 Psychiatry Adult No report was sent Normal [facility] Psychiatry Adulton 3 Psychiatry Adult Diagnoses/Problems Health Maintenance/Risks Encounter for preventive health examination (V70.0) (Z00.00) Assessed Other and unspecified bipolar disorders (296.80) (F31.9) Insomnia, unspecified type (780.52) (G47.00) Generalized anxiety disorder (300.02) (F41.1) Medication management (V58.69) (Z79.899) Orders Generalized anxiety disorder Renew: busPIRone HCl - 10 MG Oral Tablet; TAKE 2 TABLET 3 times daily Renew: cloNIDine HCl - 0.2 MG Oral Tablet; Take 1 tablet up to 3 times daily as needed for anxiety Renew: Venlafaxine HCl ER 150 MG Oral Capsule Extended Release 24 Hour; TAKE 2 CAPSULES DAILY Continue: clonazePAM 1 MG Oral Tablet; Take 1 tablet twice daily Generalized anxiety disorder, Insomnia, unspecified type, Other and unspecified bipolar disorders Renew: Mirtazapine 15 MG Oral Tablet; TAKE 1 TABLET AT BEDTIME Generalized anxiety disorder, Other and unspecified bipolar disorders Renew: Gabapentin 300 MG Oral Capsule; TAKE 1 CAPSULE TWICE DAILY Health Maintenance, Generalized anxiety disorder, Medication management Hemoglobin A1C; Status:Hold For - Exact Date; Requested for:Before next appointment; Health Maintenance, Medication management Comprehensive Metabolic Panel; Status:Hold For - Exact Date; Requested for:Before next appointment; Lipid Panel; Status:Hold For - Exact Date; Requested for:Before next appointment; Medication management [place] Level, Serum; Status:Hold For - Exact Date; Requested for:Before next appointment; Other and unspecified bipolar disorders Renew: hydrOXYzine HCl - 50 MG Oral Tablet; TAKE 1.5-2 TABLETS UP TO 3 TIMES DAILY NEEDED FOR ANXIETY Renew: lamoTRIgine 150 MG Oral Tablet; TAKE 1 TABLET Bedtime Renew: [place] Carbonate 300 MG Oral Tablet; TAKE 4 TABLETS AT BEDTIME Renew: risperiDONE 2 MG Oral Tablet; TAKE 1 TABLET AT BEDTIME Continue: lamoTRIgine 100 MG Oral Tablet; TAKE 1 TABLET DAILY Continue: risperiDONE 1 MG Oral Tablet; Take 1 tablet daily Patient Discussion/Summary -Continue mirtazapine 15 mg PO QHS. -renewal sent to pharmacy today. -Continue hydroxyzine PRN for breakthrough anxiety. -renewal sent to pharmacy today. -Continue clonidine 0.2 mg PO TID PRN for anxiety. -renewal sent to pharmacy today. -Continue buspirone 20 mg PO TID. -renewal sent to pharmacy today. -Continue venlafaxine ER 300 mg PO daily. -renewal sent to pharmacy today. -Continue lithium 1200 mg PO QHS. -renewal sent to pharmacy today. -Continue lamotrigine 100 mg PO daily and 150 mg PO QHS. -renewal sent to pharmacy today. -Continue clonazepam 1 mg PO BID. -no refill needed today. -Continue gabapentin 300 mg PO BID. -renewal sent to pharmacy today. -Continue risperidone 1 mg PO daily and 2 mg PO QHS- renewal sent to pharmacy today. -Will check CMP, lipid panel, A1c and lithium level prior to next appointment. Orders placed today. -Follow-up in 4-6 weeks. Provider Impressions 41 y/o M with bipolar disorder (suspect bipolar 2 disorder) and LIN by history. Tolerated titration of mirtazapine from 7.5 mg--> 15 mg with good benefit for depressive symptoms. Anxious symptoms have been manageable. No indication for medication changes today. Goal remains to reduce polypharmacy over time. Will likely consider taper of gabapentin and/or lamotrigine, given questionable benefit since even prior to my working with him. Will defer changes for now, as symptoms have only very recently stabilized. Reviewed OARRS, no discrepancies or concerns. Discussed risk of motor/cognitive impairment, sedation, dependence, tolerance, abuse, withdrawal sequelae, accidental overdose, life-threatening respiratory depression (especially in combination with alcohol and/or opioids), excess sedation in combination with other sedating medicines. He is not interested in individual psychotherapy. Engagement in IOP is not possible right now d/t co-pay required by his insurance company. Need to check lipid panel, CMP, lithium level, and A1c prior to next visit (chronic use of SGA and lithium). Acute risk for suicide is low based on: Male sex Diagnosis of depression/current depressive symptoms Marital status Access to firearms Isolation/lives alone- son lives with him part-time Protective Factors No history of suicide attempt or self harm No current suicidality/plan/inten t No substance use Denies hopelessness Adherent to treatment Child Chief Complaint An interactive audio and video telecommunication system which permits real time communications between the patient (at the originating site) and provider (at the distant site) was utilized to provide this telehealth service. Verbal consent was requested and obtained from DALJIT NAPOLES on this date, 05/27/2022 10:00 AM , for a telehealth visit. Bipolar disorder, anxiety History of Present Illness Mr. Napoles is a 41 y/o M, seen in follow-up for bipolar disorder and LIN. Since our last appointment, he tells me things have been going (more content not included)... Normal [facility] Coding Summary.on 05-01-2022 Coding Summary. [id number] Gh 0bWw+PGhlYWQ+AE4LHENdR 09vwDVgfQ5KI0oGYO3YJGE LBFAKGW3GIF7hiGA9IFknL 2VybiAv BnfjqFLoXI28TVz2JZK9sK knEWoglU8nnZYqJ7h8PlKp JH65zK70XCbkIPDyLqB2Zq ZpbjsgbWFy T8nfGpVylYQtOwy+PHRhYm xlIHdpZHRoPScxMDAlJyBz tYlaEI1yPa6eRTVaBLAszL xhcHNlOiBj o9pfAFQzJLlkZX1lvXczB0 AakCV3XLXtm3j6Os41cJR+ QASoRFT1nKevLPubv837Ot Itu5jwTBM9 tWBrEXziHRH9R83rd1E0RN OyOAVaZOP8uCW7eF9dwKzp dwnoH1KipAVhGgK8USF8nZ LkfC9nlJbf bscalT3yWho+F96SUX1NYV XEBQ7AUjc3M0ViBsomzHG+ FL66GINmUT97jPXisXAet3 zdyYi3NsHr XRXoVQL9eBkxCVtyc1JhWZ EzW45jfJAog1N5BMEfhDoz dMWcScPszDN2mH4qRRyaah uby1jqrfsp Ohywy0qjyk39tO99H96yXE ieDSCkUYH0FQElDDJubZkv iw7rfF0xYc6+LUxti7vet9 wgyPc8MtWz YZVdxuQkrPqlAWY5b0GsSa 71Z7FeiJtgy5AqXuq0np47 cCMps3D1bRY4MBpoQHIwcT 7qYFnmGzA1 TKQcFzTitB06gFHiNQthVl 2grAsttGdsUW0fVBUatcex FCOykT3oFSAycJEctRvoHD 4wNTBpbjtm h520OnLaWMI0RNSbbHHjX4 EgvM3qSvFaWWIaVCXpI4Jo vTKuLFewD951VMbsSkF8ZV WufgWhO6Hg MUShzElpTeD0l2N1Dx5Ro2 NgiqybAVT3LHpwHGOiJdOa ZxNrHnE0F2AuNrl5FAWyvQ ddIO8hO8Sr WPZigdgresnrdKW0UFRySU YydX47sEXgYIywKj8gd6A6 w939ZBEaCPNyeR74Ff0vhK ogMTBwdCBU zY1uamvks0kjnhrvKxJkZT WdDCk6JCp6HCArqTslQrPs DOQ0UcA0DTH7gADppH1caD oojpajfV9t Oyc+O79bpN1rBCV2JCO8kl utMDSjsmFvGE20LW33M7Fi PjwvdGFibGU+PGRpdiBzdH bfZX9sRfAf o9sbw2XkPYycG9TuPBAbMI qaZmr7FOQwRUB2aQH8xD5d HUOwFAgus5R6kFR1F7Oxyp Easp7fe0ng QNJxUSotB34oiCGta9K6BZ HmgFP5JVWvjBzhNmGivW75 Oyc+RVAapZttl5MfEvgro1 spd0izvAh0 DaNvLGOqjfZhsNooZHT0q3 GcMi71D61lOYctUGApNPAz TDIyKFGnaEwizc5zjF8zNq 8+PGNvbCB3 xSR9iC3sAUCyCgP6JEskM7 32GcEasXXuIoagj9efk3mo zHz3WiKhEYKgxyNjzDnoSQ B7o9HbZn29 I74iFXjtOEAyVTRxPCVpFS HwdMmfnk5pvB8lCs6+PC9j q9sovm04dA26xUY+PHRkIH Q6uDlfPGbr PLBjqB6jUGbnOwG2RWYqSk IpdO32nQMyCVhsVc7pwZgz kMbaSK2cDQIcvwdox906Ri Con6usLZBt dSQdMJmlJCG8H30mt5Y4OV CrJLIuHRT2qKT4hF2ldEac bjogbGVmdDsgdmVydGljYW dySNcbH371 IHRvcDsnPlBhdGllbnQgTm PyUNk5A3WtKjb5IXMhoHwh BN9gnEVeYAmhMf1xcGvufK xtXD8yBUQj hrcyo981ThLay2fgMMXxlB SsOBsxUUK2D55yd4P3UAFv LCJzWFS6jYP7qG8knOzxda ogbGVmdDsg zgVfwTbwLYyqOIwsR499TX RvcDsnPkJpcnRoIERhdGU6 ER30TB49pMXsv0V1eFF9Y5 BhZGRpbmct frdqoVM5XVReQWCelC31Hp 3woBxxBw9nXSJiAFF7QSPb zFEwB2ZafW5qGgCnINMzPB MbJ7HteZAm WGwgN849NVsfVrF1RYSqyr MnZ0XiZJOtqOqxYcI6a3A4 Td9WT2Y9KQ26KH23qMGwd8 G5bEF2N0Sa UJVcnuhjosewfMC0WZOlZH LfbJ37Ts4bvMinQk6mITOi ZDZ1KKTsqPQcO2KqwE9pPm AjMDAwMDAw M7LhgKVcACmsJ723IHvyAw A6HPLchsPlV5PeXPBpsHrj CrC6t4I6Ep9VDCx6WV43TE 57tFVak2P6 lJI3I7WnJIUmohadwdoegQ G2NJXaJEWjeH13Ok2kqQon Qp2lZRQpETM4VROdpVMjT7 OciD4uOoYk FEQoSCQiS8JwjSUlIHluJ9 07YYsrEqW8QZUlbvEuL7Vn DGLuuCozKbH2x3C0Wb2UMR HiGA88YKA8 qHJ2GT42ME25S4VdOgkqgK FibGU+PHRhYmxlIHdpZHRo JOqiDIGcSePotNmiXF2dIt 9yZGVyLWNv mWkvnYWnXeMry3trMWYfCQ csNR0wsXsgR6WkwQN8YLAo n9k0Wp47T32lL0DoiRR+PG HgrNL5zYJ8 wY7lAuOtEaK5HKzvW524Bt GkyTFrFkjjz6dgv1rgdQk7 YpI4OJJoisPwjZkcJAZ8r3 VkFr49Y93n IHdpZHRoPSIxNSUiIHZhbG fhse7yoT1jSq8+PGNvbCB3 pVS1dQ5jIgGiPtW7WYpeJ1 49InRvcCIv Tsysg9scx8vmjHm8CsXfGZ XrmoXosFttOQO9o8KdXl46 X8EzfLlpf3LmFwb3wr17fV Tgs9X3oPJ9 C8QcTCEhbutqzUIvuDscRC 0cSEUagehdTSLuwE8jCJYy Y9h2FuKzQwF7TXglP6Cptg S8QLYhtAOh IOhaZQP2L29qr8B2VDBoTA NhVEP0fUH1iC3qmEftovpx bGVmdDsgdmVydGljYWwtYW xbA264XIIl pIrqNBMvqM5bUBVtrMZikC lwJX0dDXSybhpwEnbQJBKL W1VVESuoQdzEDdWLHR16KJ 66iYWqk4H2 aNB7W6YuZHFxeojelyvsnE H3FTNtJIWacW63rLGeBStg Xe0yv9Y1x964TKErQENfxQ 04Nw0qdCya PBIxcVXQeK5fqkjbt2zpok yiVyCsDZKuZDf1KNb4QYMf jQsbYdQjSOJ7StW6GCS2wN FulF8dzZae yoabvK7rCgc+MDQvMjUvMT k1FQcpxJO+GHUyOQC8bDra OHxqDIUcfG2wNKGzG3m7Uq MhVkV9STrb Q0BeELVmnaqeMd53qQ8aIw JcDqM6PHdnR1RcykZ5QERi yCYwZAhmTWH0U56hf9R7GA MwMDAwMDA7 rQV0pG2suVclkveacBCjuN okvgDyqBwlNDkcQFimF787 IHRvcDsnPjQyIFllYXJzPC 33XC62eQKe u8B8jXF9A8EoVWYonuiopq jlfFV2BXSeVQKxdU66kQVy SKjlSp8hv0H9p717URBgBT XkgX22Fp1i sHhnHSXlyXEBqM0jzxtba9 sdkynrJlRmBSMxNGy9QNj1 VCBcgIcbZeScKTB8WxO4DX C8uNCznC6c wFiczwkeiV0zBzo+TWFsZT wvdGQ+QLWqTWA4oVflLWpo FSBelX0oUUOtN6l8SwNyRl Q0ZGzaZ5Ur VXMadcsjXa73eK6sSnQpYe W6ZZnuI8FwxnC9EADgeDBp VBfmGVR7M02gh6P0RXHnJD ObVTN1kYP6 jU0zvMucrnjpfMWfnUpupt OmmBduIOdhJEwmJ694AFZh yTcvTw45aUMyaXjzwdI2K9 RkPjwvdHI+ GX56WANnLX94tFFzoGUsx6 ixeWk3XxPjUZEnYIQ4hNth MTlch7UbPSEdI09krTNyk6 X0RENxcRjb rDPxWqJozPV9mT7uQPlruv uty1jslpuzWatwl3hyec52 xN61C94bHEnvCBVjRJAzIZ UiIHZhbGln af2ehR9vFm8+YHCbdIT2jY X0zS1mRmCjShI5QVjmT350 OpVqqTOcZhacf8vct5wahN h4CgAkUEDl hqQidUjgLNV6r0LiXu76B4 9sIHdpZHRoPSIyMCUiIHZh cNyypt8uxU2qSt9+PC9jb2 nrsc34xE01 dHI+MLZgJQO2vKghECogPP LuhV2pCQhaQmE8ADPoBwTi aB26hEMjUVymKw4muFgcpE uvUG0wHZGj wssml694LmJao2roKMTnvD TqDAdiPJD9Y01vh0R3SNEl VYEcSXL4zTB4nG0vbPkruf ogbGVmdDsg gePekFwmZWdwLVkbH905ME NksAwjEwMjhILbZ4xrhaHF XR7oVflewTO+CXBlGRQ4dX xlPSdwYWRk oD4zNUOxH2o2IxVeCkU7FA vkB7SlcbF8BPEiiXVjUHMw rYEIlB4hhgldg2kojqyaQa AwMDAwMDt0 UEo6WGDyxBvbAqPoASC4Kc W1FSE1lQFivN5loQeznfkm wK2pQfg+RklOOjwvdGQ+PH RvZVO8kWit PBnsOEAybW0xPRQyM8c8Hg GeNlW1ZWehH8KiknN7EKQb gJVyTPXwlUZMnL3mwzxzv0 xvcjogIzAw AESqVGh8HHp2LSZruEepYx AtESH7MjW0MUT6tYJluE9y dRrfogrhnN4hXgb+TVJOOj wvdGQ+PHRk PRJ9mNwtRSejIGMirX4bDF XlO4b2XqLbPiW2HMydS1Sl gzM1FMWncVRqOZFilTLTzK 6mxtdsb1ga efvcZiFcHFGbSJq1UWx2HC XozLfeCbWyKBI9DtH2SSI6 fYIxiT8fwQwheksapW0mZv c+ANS2CMU5 HK83XQ96C9PdSxmhaYHjuC U+PHRhYmxlIHdpZHRoPScx QRTuJlQmhNfcJC6ySi0mTR VyLWNvbGxh cHNl (more content not included)... Normal [facility] Consent for Procedure/Surger yon 04-30-2022 Consent for Procedure/Surgery [id number]. 00CD:[address] [facility] IntraOperative Documentson 0 04-30-2022 IntraOperative Documents [id number]. 00CD:127 [facility] Consent for Treatmenton 04-20 Consent for Treatment [id number] 0CD:127 [facility] Main OR Intraoperative Recor don 04-29-2022 Main OR Intraoperative Record IntraOp Document Type FTURO Summary Primary Physician: Coleman CARMICHAEL MD Finalized Date/Time: 04/29/22 11:38:38 Pt. Name: DALJIT NAPOLES/Sex: 1980 Male Med Rec #: [id number] Physician: Coleman CARMICHAEL MD Financial #: [id number] Pt. Type: O Room/Bed: / Admit/Disch: 04/29/22 10:13:41 - Institution: Case Times FTURO Entry 1 Patient Times In Room 04/29/22 11:30:00 Out Room 04/29/22 11:38:00 Procedure Times Start 04/29/22 11:32:00 Stop 04/29/22 11:36:00 Anesthesia Times Last Modified By: Alea Ramirez RN 04/29/22 11:38:34 Case Attendance FTURO Entry 1 Entry 2 Entry 3 Case Attendee Coleman CARMICHAEL MD SPARERIBS TRIMMER, Alea Haile RN Role Performed Surgeon - Primary Scrub - Primary Check And Transfer Beader - Primary Time In 04/29/22 11:30:00 04/29/22 11:30:00 04/29/22 11:30:00 Time Out 04/29/22 11:38:00 04/29/22 11:38:00 04/29/22 11:38:00 Procedure CYSTOSCOPY LOCAL(.) CYSTOSCOPY LOCAL(.) CYSTOSCOPY LOCAL(.) Comments Last Modified By: Alea Ramirez RN, RN, Alea Rothman RN 04/29/22 11:38:35 04/29/22 11:38:35 04/29/22 11:38:35 Surgical Procedures FTURO Entry 1 Procedure Description Procedure CYSTOSCOPY LOCAL Modifiers . Surgeon Description CYSTOSCOPY LOCAL Primary Procedure Yes Primary Surgeon Coleman CARMICHAEL MD Start 04/29/22 11:32:00 Stop 04/29/22 11:36:00 Anesthesia Type Local Surgical Service Urology Wound Class 2 - Clean-Contaminated Last Modified By: Alea Ramirez RN 04/29/22 11:38:01 General Case Data FTURO Pre-Care Text: Classifies surgical wound, implements aseptic technique, initiates traffic control Entry 1 Case Information OR URO 1 FT Case Level None Wound Class 2 - Clean-Contaminated Specialty Urology Preop Diagnosis BPH W IBSTRUCTION Postop Same As Preop Yes CHRONIC PROSTATITIS Postop Diagnosis BPH W IBSTRUCTION Outcomes Met? Yes CHRONIC PROSTATITIS Last Modified By: Alea Ramirez RN 04/29/22 11:29:14 Post-Care Text: The patient is free from signs and symptoms of infection EU IntraOp - FTURO Pre-Care Text: Implements protective measures prior to operative or invasive procedure, confirms identity before the operative or invasive procedure, verifies operative procedure, surgical site, and laterality Entry 1 EU Perioperative Protocols Procedure(s) CYSTOSCOPY LOCAL(.) Patient Identity Birthday, ID Band Verified (select at Check, Patient least 2): Participation Consents / H and P HandP, Surgery/Procedure Operative Site N/A Verified Consent Marking Verified Surgical Site Yes Laterality Verified Yes Verified Procedure Verified Yes Correct Patient Yes Position Verified Availability Equipment, Medication Time Out Coleman CARMICHAEL MD, Verified (If Participants Alea Zacarias CST Applicable) James Mckeon RN, Kimberly Y Time Out Complete 04/29/22 11:31:00 Allergies Reviewed? Yes Allergies Reviewed Self/Patient With Body Position Supine Prep Area PENIS Prep Agents Betadine Solution Skin. Condition Dry, Warm, Unable to Description UNABLE TO VISUALIZE DUE Visualize TO PATIENT PARTIALLY CLOTHED Additional None Specimens Collected Vitals - EU Blood Pressure Pulse Respirations SPO2 EBL 0 IandO - EU Total Intake 0 Total Output 0 Outcomes Met? Yes Last Modified By: Alea Ramirez RN 04/29/22 11:32:40 Post-Care Text: The patient is free from signs and symptoms of injury caused by extraneous objects Sign Out FTURO Entry 1 Before Patient Leaves OR Nurse verbally Yes Nurse verbally Yes confirms with the confirms with the team the name of team that the procedure(s) instrument, sponge, recorded and needle counts are correct (or N/A) Nurse verbally n/a Nurse verbally Yes confirms with the confirms with the team how the team whether there specimen is labeled are any equipment (including patient problems to be name), if applicable addressed Sign Out Complete 04/29/22 11:36:00 Last Modified By: Alea Ramirez RN 04/29/22 11:36:52 Case Comments Finalized By: Alea Ramirez RN Document Signatures Signed By: Alea Ramirez RN 04/29/22 11:[address] [facility] Main OR Preoperative Recordo n 04-29-2022 Main OR Preoperative Record Holding Area Document Type FTURO Summary Primary Physician: Coleman CARMICHAEL MD Finalized Date/Time: 04/29/22 11:28:39 Pt. Name: YESIKADALJIT/Sex: 1980 Male Med Rec #: [id number] Physician: Coleman CARMICHAEL MD Financial #: [id number] Pt. Type: O Room/Bed: / Admit/Disch: 04/29/22 10:13:41 - Institution: Case Times Holding FTURO Pre-Care Text: Verifies consent for planned procedure, identifies individual values and wishes concerning care, includes family members in perioperative teaching Secures patient's records' belongings, and valuables, maintains patient's dignity and privacy, and maintains patient confidentiality Entry 1 In Holding 04/29/22 10:39:00 Outcomes Met? Yes Last Modified By: Annika Woods LPN 04/29/22 10:39:31 Post-Care Text: The patient participates in decisions affecting his or her perioperative plan of care The patient's right to privacy is maintained Surgery Checklist FTURO Entry 1 Patient Birthday, Patient Procedure History and Physical, Identification: Participation Verification: Surgical Consent, With Patient NPO after Midnight: No Date/Time: 04/29/22 10:39:00 Personal Items: Glasses Personal Items clothes Comment: Limitations: na Complaints of Pain: No Pain Comment: na Skin Integrity Intact, [place], Warm, & Dry Vitals - EU Blood Pressure 114/71 Pulse 81 bpm Respirations 18 br/min SPO2 96 % RN Reviewed Yes Last Modified By: Alea Ramirez RN 04/29/22 11:28:37 General Comments: temp:36.8 Finalized By: Alea Ramirez RN Document Signatures Signed By: Annika Woods LPN 04/29/22 10:40 Alea Ramirez RN 04/29/22 11:[address] [facility] Operative Reporton Operative Report Patient: DALJIT NAPOLES Age: 41 years Sex: Male : 1980 Associated Diagnoses: None Author: Coleman CARMICHAEL MD Procedure Operative Information Details: Date/ Time: 04/29/2022 11:38:00. Pre-Op Dx: BPH w/ LUTS - N40.1, Nocturia - R35.1. Post-Op Dx: Same. Anesthesia Type: Local. Procedure: Local Cystoscopy. Complications: None. Risks/Benefits/Informe d Consent: Surgical risks, benefits, details of the procedure have been explained to the patient, Full informed consent has been obtained. Intraoperative Information Prepped: Patient is brought back to the endoscopy suite, Patient is placed in supine position, Patient prepped in the usual fashion with Betadine solution, 2% Xylocaine Jelly is placed per Urethra, After waiting several minutes the Cystoscope is introduced. The Urethra is: Mild bulbar urethral stricture. The Prostatic Urethra is: Obstructed, Bilobar obstruction.. The Bladder is: Trabeculated (Mild (1), No bladder tumors.). The ureteral orifices: Show efflux of clear urine. Devices Implanted: None. Removal: Cystoscope is removed, The patient tolerated it well. Postoperative Information Discharge: Patient is discharged home with antibiotic coverage, Follow up arranged. Normal [facility] Comment on above: Result Comment: Elec tronically Signed By: AMOL EBRTRAND, Coleman Riley\Date and Time Signed: 04/29/22 11:39 EST MRI [facility] CONon 04-14-20 MRI [facility] CON EXAMINATION: MRI [facility] CON HISTORY: Cervical spondylosis without myelopathy , chronic neck pain COMPARISON: MRI C-spine 02/16/2018 TECHNIQUE: A variety of imaging planes and parameters were utilized for visualization of suspected pathology. FINDINGS: CRANIOCERVICAL AREA: Normal foramen magnum with no Chiari malformation. PARASPINAL AREA: Normal with no visible mass. BONES: Straightening of the normal lordotic curvature. No fracture, spondylolisthesis, bone lesion. CORD: Normal caliber, contour, and signal intensity. CERVICAL DISC LEVELS: C2-C3: No significant disc/facet abnormality, spinal stenosis, or foraminal stenosis. C3-C4: Mild left foramen narrowing secondary to mild uncovertebral joint spurring and mild degenerative facet arthropathy. C4-C5: Mild central canal and right foramen narrowing; moderate left foramen narrowing. Mild diffuse disc bulging, uncovertebral joint spurring, and mild left facet arthropathy. Minimal disc height reduction. C5-C6: Mild central canal and moderate bilateral foramen narrowing. Mild-moderate diffuse disc bulging, moderate disc height reduction, and mild degenerative facet arthropathy bilaterally. C6-C7: Mild/moderate central canal and bilateral foramen narrowing. Moderate diffuse disc bulging and moderate disc height reduction. Mild degenerative facet arthropathy. C7-T1:. No significant disc/facet abnormality, spinal stenosis, or foraminal stenosis. IMPRESSION: 1. Multilevel mild-moderate central canal and foramen narrowing; improved at C5-C6; progressed at C6-C7. Electronically authenticated by: JESI PEREZ Date: 2022-04-14 16:29 Normal [facility] Lab Reportson 04-04-2022 Lab Reports [id number] 0CD:[address] [facility] RAD - Ultrasound Reporton RAD - Ultrasound Report [id number] 0CD:[address] [facility] Physician Referralon 022 Physician Referral [id number] 0CD:[address] [facility] Ambulatory Visit Summaryon 1 06-01-2021 Ambulatory Visit Summary DALJIT NAPOLES :1980 Visit Date:03/31/2022 Ambulatory Visit Instructions Your Diagnosis Polyuria Erectile dysfunction Renal cyst Tests Performed Urnls Dip Stick Auto w/o Microscopy POC 43892 Your Care Team Attending Physician - Coleman CARMICHAEL MD Primary Care Physician - RIZWAN POWERS DO This Is Your Medications List Contact prescribing physician if questions or concerns clonazepam (clonazepam 1 mg Tab) clonidine (cloNIDine 0.2 mg Tab) gabapentin (gabapentin 400 mg Cap) hydrOXYzine (hydrOXYzine hydrochloride 50 mg oral tablet) lamotrigine (lamotrigine 150 mg Tab) lithium (lithium carbonate) mirtazapine (mirtazapine 15 mg Tab) tadalafil (Cialis 10 mg Tab) venlafaxine (Effexor XR 150 mg Cap-ER) Procedures Performed None. Discharge Vitals Height 176 cm Height 69 in Weight 100 kg Weight 220 lb BMI 32.28 What to do next You Need to Schedule the Following Appointments Follow Up with AMOL BERTRAND, Coleman Simons, TERESA When: Where: [facility] [address], [place] [address]- Medications What How Much When Instructions Unchanged clonazepam (clonazepam 1 mg Tab) 60 EA, TAKE 1 TABLET BY MOUTH TWICE DAILY Contact prescribing physician if questions or concerns Unchanged clonidine (cloNIDine 0.2 mg Tab) 90 EA, TAKE 1 TABLET BY MOUTH UP TO THREE TIMES DAILY NEEDED FOR ANXIETY Contact prescribing physician if questions or concerns Unchanged gabapentin (gabapentin 400 mg Cap) 1 Capsules By Mouth Every day Contact prescribing physician if questions or concerns Unchanged hydrOXYzine (hydrOXYzine hydrochloride 50 mg oral tablet) Oral Contact prescribing physician if questions or concerns Unchanged lamotrigine (lamotrigine 150 mg Tab) 30 EA, TAKE 1 TABLET BY MOUTH AT BEDTIME Contact prescribing physician if questions or concerns Unchanged lithium (lithium carbonate) By Mouth 3 times a day Contact prescribing physician if questions or concerns Unchanged mirtazapine (mirtazapine 15 mg Tab) 30 EA, TAKE 1 TABLET BY MOUTH AT BEDTIME Contact prescribing physician if questions or concerns Unchanged tadalafil (Cialis 10 mg Tab) 1 Tablets By Mouth Every day as needed for for erectile dysfunction Contact prescribing physician if questions or concerns Unchanged venlafaxine (Effexor XR 150 mg Cap-ER) Contact prescribing physician if questions or concerns Test Results Urnls Dip Stick Auto w/o Microscopy POC 80430 (03/31/2022) Bilirubin Urine Dipstick - 2+ Moderate Blood Urine Dipstick - Negative Glucose Urine Dipstick - Negative Ketones Urine Dipstick - Negative Leukocytes Urine Dipstick - Trace Nitrite Urine Dipstick - Negative Protein Urine Dipstick - Negative Specific [place] Urine Dipstick - 1.010 Urine Appearance Urine Dipstick - Clear Urine Color Urine Dipstick - Yellow Urobilinogen Urine Dipstick - Normal 0.2-1 EU/dl pH Urine Dipstick - 7 Allergies No Known Medication Allergies Problems Ongoing - Any problem that you are currently receiving treatment for. Bipolar disease, chronic Dysuria Erectile dysfunction Generalized anxiety disorder Hypertension Obstructive sleep apnea Polyuria Prostatitis Renal cyst [employer] Urodynamic Testing What is urodynamic testing? Urodynamic tests are done to determine how well your lower urinary tract is working. The lower urinary tract includes your bladder and the part of your body that drains urine from the bladder (urethra). When your kidneys filter your blood, urine is stored in your bladder until you feel the urge to urinate. Urination requires coordination between the nerves and muscles of your bladder and urethra. When your lower urinary tract is working well, you should be able to: ? Start urinating when your bladder is full. ? Empty your bladder completely. ? Control the flow of your urine. Why do I need urodynamic testing? You may need urodynamic testing to help find the cause of any of these problems: ? Leaking urine (incontinence). ? Problems starting or stopping your urine flow. ? Frequent or painful urination. ? Frequent urinary tract infections. ? Being unable to empty your bladder completely. ? Having strong urges to pass urine (urgency). ? Having a weak flow of urine. How do I prepare for the tests? ? Ask your health care provider about changing or stopping your regular medicines. This is especially important if you are taking diabetes medicines or blood thinners. ? You may be asked to avoid urinating before coming to the test so that you arrive with a full bladder. ? Tell a health care provider about: ? Any allergies you have. ? All medicines you are taking, including vitamins, herbs, eye drops, creams, and dplu-kah-fkqzcpo medicines. ? Whether you are or may be . What are the risks of this testing? Generally, these tests are safe. However (more content not included)... Normal [facility] Patient Educationon 03-31-20 Patient Education Urology Urodynamic Testing What is urodynamic testing? Urodynamic tests are done to determine how well your lower urinary tract is working. The lower urinary tract includes your bladder and the part of your body that drains urine from the bladder (urethra). When your kidneys filter your blood, urine is stored in your bladder until you feel the urge to urinate. Urination requires coordination between the nerves and muscles of your bladder and urethra. When your lower urinary tract is working well, you should be able to: ? Start urinating when your bladder is full. ? Empty your bladder completely. ? Control the flow of your urine. Why do I need urodynamic testing? You may need urodynamic testing to help find the cause of any of these problems: ? Leaking urine (incontinence). ? Problems starting or stopping your urine flow. ? Frequent or painful urination. ? Frequent urinary tract infections. ? Being unable to empty your bladder completely. ? Having strong urges to pass urine (urgency). ? Having a weak flow of urine. How do I prepare for the tests? ? Ask your health care provider about changing or stopping your regular medicines. This is especially important if you are taking diabetes medicines or blood thinners. ? You may be asked to avoid urinating before coming to the test so that you arrive with a full bladder. ? Tell a health care provider about: ? Any allergies you have. ? All medicines you are taking, including vitamins, herbs, eye drops, creams, and oxmn-fla-xfvaikp medicines. ? Whether you are or may be . What are the risks of this testing? Generally, these tests are safe. However, some of the tests have risks, including: ? Discomfort. ? Frequent urge to urinate. ? Bleeding. ? Infection. ? Allergic reactions to medicines or dyes (contrast material). How is urodynamic testing done? You may have various urodynamic tests. The tests may be done separately or may all be done during one testing visit. You may be given an antibiotic medicine before or after testing to help prevent infection. The types of tests that may be done include: Uroflowmetry This test measures how much urine you pass and how long it takes to pass. ? You will urinate into a certain type of toilet or device (flowmeter). ? The device will measure the volume and the time of your urine flow. ? These measurements will be sent to a computer that creates a graph of your urine flow. Postvoid residual measurement This test measures how much urine is left in your bladder after you urinate. ? The test may be done with ultrasound. In this method, sound waves and a computer will be used to create an image of your bladder. ? The test can also be done by inserting a thin, flexible tube (catheter) into your bladder after you urinate. The remaining urine will be removed through the catheter so it can be measured. ? Remaining urine will be measured in milliliters (mL). If you have more than 100 mL left in your bladder after you urinate, your bladder is not emptying as it should. Cystometric testing This test uses a type of bladder catheter that can measure pressure. ? You may be given a medicine to numb the area (local anesthetic). ? The area around the opening of your urethra will be cleaned. ? A urinary catheter will be passed through your urethra into your bladder and used to empty your bladder completely. ? Then a measuring catheter will be placed, and your bladder will be filled with warm, germ-free (sterile) water. ? Pressure measurements will be taken: ? As your bladder fills. ? When you feel the need to urinate. ? As your bladder is emptied. ? You may be asked to cough or bear down to check for leakage. ? In some cases, your bladder may be filled with a material that shows up on X-rays (contrast material) so that X-ray pictures can be taken during the test. Electromyogram This test measures the electrical activity of the nerves and muscles of your bladder and the opening of your urethra. ? Sticky patches (electrodes) will be placed near your rectum and urethra to measure electrical activity. ? The measurements will show how well your nerves are communicating with your muscles. What happens after the testing? ? You should be able to go home right away and do your usual activities. ? You may be told to drink a glass of water every 30 minutes for the first 2 hours after testing. ? Taking a warm bath or using warm, wet cloths (warm compresses) may relieve any discomfort near your urethra. ? Contact your health care provider if you have: ? Pain. ? Blood in your urine. ? Chills. ? Fever. What do the results mean? Talk with your health care provider about what your results mean. Some common causes for abnormal results from urodynamic tests include: ? Enlarged prostate in men. ? Overactive bladder. ? Urinary tract infection. ? Nervous system diseases. (more content not included)... Normal [facility] Psychiatry Adulton 2 Psychiatry Adult Diagnoses/Problems Assessed Generalized anxiety disorder (300.02) (F41.1) Insomnia, unspecified type (780.52) (G47.00) Other and unspecified bipolar disorders (296.80) (F31.9) Orders Generalized anxiety disorder Renew: busPIRone HCl - 10 MG Oral Tablet; TAKE 2 TABLET 3 times daily Renew: clonazePAM 1 MG Oral Tablet; Take 1 tablet twice daily Renew: cloNIDine HCl - 0.2 MG Oral Tablet; Take 1 tablet up to 3 times daily as needed for anxiety Continue: Venlafaxine HCl ER 150 MG Oral Capsule Extended Release 24 Hour; TAKE 2 CAPSULES DAILY Generalized anxiety disorder, Insomnia, unspecified type, Other and unspecified bipolar disorders Start: Mirtazapine 15 MG Oral Tablet; TAKE 1 TABLET AT BEDTIME Generalized anxiety disorder, Other and unspecified bipolar disorders Renew: Gabapentin 300 MG Oral Capsule; TAKE 1 CAPSULE TWICE DAILY Other and unspecified bipolar disorders Renew: hydrOXYzine HCl - 50 MG Oral Tablet; TAKE 1.5-2 TABLETS UP TO 3 TIMES DAILY NEEDED FOR ANXIETY Renew: lamoTRIgine 100 MG Oral Tablet; TAKE 1 TABLET DAILY Renew: lamoTRIgine 150 MG Oral Tablet; TAKE 1 TABLET Bedtime Renew: [place] Carbonate 300 MG Oral Tablet; TAKE 4 TABLETS AT BEDTIME Continue: risperiDONE 1 MG Oral Tablet; Take 1 tablet daily Continue: risperiDONE 2 MG Oral Tablet; TAKE 1 TABLET AT BEDTIME Patient Discussion/Summary -Increase mirtazapine to 15 mg PO QHS. -Ok to continue hydroxyzine PRN for breakthrough anxiety. -renewal sent to pharmacy today. -Continue clonidine 0.2 mg PO TID PRN for anxiety. -renewal sent to pharmacy today. -Continue buspirone 20 mg PO TID. -renewal sent to pharmacy today. -Continue venlafaxine ER 300 mg PO daily. -renewal sent to pharmacy today. -Continue lithium 1200 mg PO QHS. -renewal sent to pharmacy today. -Continue lamotrigine 100 mg PO daily and 150 mg PO QHS. -renewal sent to pharmacy today. -Continue clonazepam 1 mg PO BID. -renewal sent to pharmacy today. -Continue gabapentin 300 mg PO BID. -renewal sent to pharmacy today. -Continue risperidone 1 mg PO daily and 2 mg PO QHS- no refills needed today. -Not currently receptive to engagement in individual psychotherapy or IOP. -Follow-up in 4-6 weeks. Provider Impressions 41 y/o M with bipolar disorder (suspect bipolar 2 disorder) and ILN by history. Discussed avoiding further contribution to polypharmacy by optimizing current regimen to target depressive symptoms. WIll increase mirtazapine to 15 mg PO QHS. There is a potential synergistic benefit with venlafaxine as dose is titration. Discussed indication(s), reviewed risks/benefits/alterna tives, and he is agreeable. Will otherwise continue current regimen without dose changes. Plan will be to gradually taper gabapentin and lamotrigine after assessing benefit/tolerance of medication changes noted above, and as mood and anxious symptoms have stabilized. Overall goal is to mitigate polypharmacy, and regimen is fairly complicated, so will take time to do so. Will continue current dose of clonazepam. Reviewed OARRS, no discrepancies or concerns. Discussed risk of motor/cognitive impairment, sedation, dependence, tolerance, abuse, withdrawal sequelae, accidental overdose, life-threatening respiratory depression (especially in combination with alcohol and/or opioids), excess sedation in combination with other sedating medicines. He is not interested in individual psychotherapy or IOP at this time. Acute risk for suicide is low based on: Male sex Diagnosis of depression/current depressive symptoms Acute stressors- ongoing custody vazquez with son's mother Marital status Access to firearms Isolation/lives alone- son lives with him part-time Protective Factors No history of suicide attempt or self harm No current suicidality/plan/inten t No substance use Denies hopelessness Adherent to treatment Child Chief Complaint An interactive audio and video telecommunication system which permits real time communications between the patient (at the originating site) and provider (at the distant site) was utilized to provide this telehealth service. Verbal consent was requested and obtained from DALJIT NAPOLES on this date, 03/18/2022 03:00 PM , for a telehealth visit. Bipolar disorder, anxiety History of Present Illness Mr. Napoles is a 41 y/o M, seen in follow-up for bipolar disorder and LIN. Since his last appointment, he tells me he's been feeling increasingly depressed over the past several weeks. It's kind of gotten gradually worse. Struggling with inability to get things done that he normally can, very low energy, tearfulness. No obvious precipitating factor(s). Sleeping ok, If anything I tend to sleep more than normal lately. No appetite changes. Energy has been low. Endorses anhedonia, guilt. Anxiety, hasn't changed much... seems to be overshadowed by the depression right now. Not interested in individual or group therapy, but would like to consider changes to m (more content not included)... Normal [facility] US KIDNEYS BLADDERon 022 US KIDNEYS BLADDER EXAMINATION: US KIDNEYS BLADDER HISTORY: Polyuria COMPARISON: No relevant comparison available. TECHNIQUE: Ultrasound examination was performed of the bladder. FINDINGS: Right Kidney: Normal in size, contour and echotexture with no solid mass, hydronephrosis or obstructing nephrolithiasis. Areas of subcentimeter anechoic echogenicity measuring up to 8 mm, simple cyst. The cortex measures 1.8 cm. Height: 5.7 cm Length: 12.5 cm Width: 6.4 cm Left Kidney: Normal in size, contour and echotexture with no solid mass, hydronephrosis or obstructing nephrolithiasis. Areas of subcentimeter anechoic echogenicity measuring up to 1.2 cm, simple cyst. The cortex measures 1.5 cm Height: 6.4 cm Length: 11.5 cm Width: 5.7 cm The urinary bladder is mildly thickened measuring 3.2 mm Prevoid volume 359 mL Post void volume 12 mL Ureteral jets: Visualized bilaterally IMPRESSION: Small bilateral simple cortical cysts Borderline thickening of the urinary bladder wall Electronically authenticated by: GUSTAVO CONCEPCION Date: 2022-02-27 16:13 Normal [facility] 2 Psychiatry Adult Diagnoses/Problems Assessed Generalized anxiety disorder (300.02) (F41.1) Insomnia, unspecified type (780.52) (G47.00) Other and unspecified bipolar disorders (296.80) (F31.9) Orders Generalized anxiety disorder Renew: busPIRone HCl - 10 MG Oral Tablet; TAKE 2 TABLET 3 times daily Renew: clonazePAM 1 MG Oral Tablet; Take 1 tablet twice daily Renew: cloNIDine HCl - 0.2 MG Oral Tablet; Take 1 tablet up to 3 times daily as needed for anxiety Renew: Venlafaxine HCl ER 150 MG Oral Capsule Extended Release 24 Hour; TAKE 2 CAPSULES DAILY Generalized anxiety disorder, Other and unspecified bipolar disorders Renew: Gabapentin 300 MG Oral Capsule; TAKE 1 CAPSULE TWICE DAILY Insomnia, unspecified type Renew: Mirtazapine 7.5 MG Oral Tablet; TAKE 1 TABLET BY MOUTH AT BEDTIME FOR SLEEP Other and unspecified bipolar disorders Renew: hydrOXYzine HCl - 50 MG Oral Tablet; TAKE 1.5-2 TABLETS UP TO 3 TIMES DAILY NEEDED FOR ANXIETY Renew: lamoTRIgine 100 MG Oral Tablet; TAKE 1 TABLET DAILY Renew: lamoTRIgine 150 MG Oral Tablet; TAKE 1 TABLET Bedtime Renew: [place] Carbonate 300 MG Oral Tablet; TAKE 4 TABLETS AT BEDTIME Renew: risperiDONE 1 MG Oral Tablet; Take 1 tablet daily Renew: risperiDONE 2 MG Oral Tablet; TAKE 1 TABLET AT BEDTIME Patient Discussion/Summary -Ok to continue hydroxyzine PRN for breakthrough anxiety. -renewal sent to pharmacy today. -Continue clonidine 0.2 mg PO TID PRN for anxiety. -renewal sent to pharmacy today. -Continue buspirone 20 mg PO TID. -renewal sent to pharmacy today. -Continue mirtazapine 7.5 mg PO QHS. -renewal sent to pharmacy today. -Continue venlafaxine ER 300 mg PO daily. -renewal sent to pharmacy today. -Continue lithium 1200 mg PO QHS. -renewal sent to pharmacy today. -Continue lamotrigine 100 mg PO daily and 150 mg PO QHS. -renewal sent to pharmacy today. -Continue clonazepam 1 mg PO BID. -no refill needed today. -Continue gabapentin 300 mg PO BID. -renewal sent to pharmacy today. -Not currently receptive to engagement in individual psychotherapy. -Follow-up in 4-6 weeks. Provider Impressions 41 y/o M with bipolar disorder (suspect bipolar 2 disorder) and LIN by history. Clonidine has been titrated to 0.2 mg PO TID PRN with fair benefit for anxiety. He would like to continue hydroxyzine PRN for breakthrough anxiety. Otherwise will continue current regimen without changes. Plan will be to gradually taper gabapentin and lamotrigine after assessing benefit/tolerance of medication changes noted above, and as mood and anxious symptoms have stabilized. Overall goal is to mitigate polypharmacy, and regimen is fairly complicated, so will take time to do so. Will continue current dose of clonazepam. Reviewed OARRS, no discrepancies or concerns. Discussed risk of motor/cognitive impairment, sedation, dependence, tolerance, abuse, withdrawal sequelae, accidental overdose, life-threatening respiratory depression (especially in combination with alcohol and/or opioids), excess sedation in combination with other sedating medicines. He is not interested in individual psychotherapy. Acute risk for suicide is low based on: Male sex Diagnosis of depression/current depressive symptoms Acute stressors- ongoing custody vazquez with son's mother Marital status Access to firearms Isolation/lives alone- son lives with him part-time Protective Factors No history of suicide attempt or self harm No current suicidality/plan/inten t No substance use Denies hopelessness Adherent to treatment Child Chief Complaint An interactive audio and video telecommunication system which permits real time communications between the patient (at the originating site) and provider (at the distant site) was utilized to provide this telehealth service. Verbal consent was requested and obtained from DALJIT NAPOLES on this date, 02/12/2022 02:30 PM , for a telehealth visit. Bipolar disorder, anxiety History of Present Illness Mr. Napoles is a 41 y/o M, seen in follow-up for bipolar disorder and LIN. Since his last appointment, he tells me things are, not too bad. He's found clonidine beneficial at 0.2 mg dose (see chart update from 01/31). Not having panic attacks, but, I have the building up to it rickey thing, not a full on panic attack. Also experiencing a general feeling of anxiety the majority of the day every day. Cannot identify any aggravating or alleviating factors. Inquires about continuing to have the option to take hydroxyzine PRN for breakthrough anxiety. Sleep has recently been, a little worse for some reason, but not terrible. Nothing that he is especially concerned about. Energy level has been, pretty good. Appetite has been lower over the past month or so, but nothing drastic. No significant mood changes. In discussing the option to engage in psychotherapy, he shares that he doesn't think it would be helpful. Doesn't recall ever seeing therapy as a benefit. Has seen quite (more content not included)... Normal [facility] Chart Updateon 01-31-2022 Chart Update Chart Update Received [facility] message from Mr. Napoles requesting to discuss titration of clonidine dose. We spoke over the phone this afternoon. He has tolerated current dose with modest benefit, no side effects. Discussed titration to 0.2 mg up to 3 times daily as needed for anxiety. Discussed indication(s), reviewed risks/benefits/alterna tives, and he is agreeable. Signatures Electronically signed by : GUIDO Calabrese; Jan 31 2022 12:44PM EST (Author) Normal [facility] Psychiatry Adult Diagnoses/Problems Assessed Generalized anxiety disorder (300.02) (F41.1) Insomnia, unspecified type (780.52) (G47.00) Other and unspecified bipolar disorders (296.80) (F31.9) Orders Generalized anxiety disorder Start: cloNIDine HCl - 0.1 MG Oral Tablet; TAKE 1 TABLET 3 times daily PRN anxiety/panic attacks Renew: busPIRone HCl - 10 MG Oral Tablet; TAKE 2 TABLET 3 times daily Renew: Venlafaxine HCl ER 150 MG Oral Capsule Extended Release 24 Hour; TAKE 2 CAPSULES DAILY Continue: clonazePAM 1 MG Oral Tablet; Take 1 tablet twice daily Generalized anxiety disorder, Other and unspecified bipolar disorders Renew: Gabapentin 300 MG Oral Capsule; TAKE 1 CAPSULE TWICE DAILY Insomnia, unspecified type Renew: Mirtazapine 7.5 MG Oral Tablet; TAKE 1 TABLET BY MOUTH AT BEDTIME FOR SLEEP Other and unspecified bipolar disorders Renew: lamoTRIgine 100 MG Oral Tablet; TAKE 1 TABLET DAILY Renew: lamoTRIgine 150 MG Oral Tablet; TAKE 1 TABLET Bedtime Renew: [place] Carbonate 300 MG Oral Tablet; TAKE 4 TABLETS AT BEDTIME Renew: risperiDONE 1 MG Oral Tablet; Take 1 tablet daily Renew: risperiDONE 2 MG Oral Tablet; TAKE 1 TABLET AT BEDTIME Patient Discussion/Summary -Discontinue hydroxyzine PRN. -Start clonidine 0.1 mg PO TID PRN for anxiety. -Continue buspirone 20 mg PO TID. -renewal sent to pharmacy today. -Continue mirtazapine 7.5 mg PO QHS. -renewal sent to pharmacy today. -Continue venlafaxine ER 300 mg PO daily. -renewal sent to pharmacy today. -Continue lithium 1200 mg PO QHS. -renewal sent to pharmacy today. -Continue lamotrigine 100 mg PO daily and 150 mg PO QHS. -renewal sent to pharmacy today. -Continue clonazepam 1 mg PO BID. -no refill needed today. -Continue gabapentin 300 mg PO BID. -renewal sent to pharmacy today. -Had labs drawn 3 months ago at PCP appointment- have not yet received results. -Follow-up in 4-6 weeks. Provider Impressions 41 y/o M with bipolar disorder (suspect bipolar 2 disorder) and LIN by history. Finds higher dose of hydroxyzine very sedating with modest improvement in anxiolytic benefit but difficult to tolerate side effect. Receptive to trialing clonidine PRN as an alternative for anxiety. Discussed indication(s), reviewed risks/benefits/alterna tives, and he is agreeable. Tolerated titration of buspirone to 20 mg PO TID without side effects and perhaps modest improvement in anxious symptoms overall. Continues to report benefit from venlafaxine ER 300 mg PO daily for depression. Benefitting from mirtazapine for sleep. May also have some synergistic benefit for depression and anxiety in combination with SNRI. Continue lithium and risperidone for mood. Plan will be to gradually taper gabapentin and lamotrigine after assessing benefit/tolerance of medication changes noted above, and as mood and anxious symptoms have stabilized. Overall goal is to mitigate polypharmacy, and regimen is fairly complicated, so will take time to do so. Will continue current dose of clonazepam. Reviewed OARRS, no discrepancies or concerns. Discussed risk of motor/cognitive impairment, sedation, dependence, tolerance, abuse, withdrawal sequelae, accidental overdose, life-threatening respiratory depression (especially in combination with alcohol and/or opioids), excess sedation in combination with other sedating medicines. Acute risk for suicide is low based on: Male sex Diagnosis of depression/current depressive symptoms Acute stressors- ongoing custody vazquez with son's mother Marital status Access to firearms Isolation/lives alone- son lives with him part-time Protective Factors No history of suicide attempt or self harm No current suicidality/plan/inten t No substance use Denies hopelessness Adherent to treatment Child Chief Complaint An interactive audio and video telecommunication system which permits real time communications between the patient (at the originating site) and provider (at the distant site) was utilized to provide this telehealth service. Verbal consent was requested and obtained from DALJIT NAPOLES on this date, 01/07/2022 02:30 PM , for a telehealth visit. Bipolar disorder, anxiety History of Present Illness Mr. Napoles is a 41 y/o M, seen in follow-up for bipolar disorder and LIN. Since his last appointment, he tells me things have been ok. I'm still having some issues with anxiety. There have been situations during which he's felt close to a panic attack- heart races, feels shaky. Seems to be at random, unable to identify any precipitating factors. Estimates this occurs 6 times/week. Hydroxyzine PRN is modestly beneficial, not as helpful as I'd like. Finds that it's calming, but also pretty sedating. Other than clonazepam and gabapentin, recalls being prescribed propranolol in the past, but for tremor, not anxiety. No past trial of clonidine. Otherwise reports, everything else is going pretty well. Mood symptoms have been well-controlled. No concerns with (more content not included)... Normal [facility] CULTURE URINEon 01-02-2022 CULTURE URINE Culture Observations : NO GROWTH. Normal The Comment on above: Performed By: #### U RCX #### Laboratory [address] [place] [address] Dr. Dahlia Huang UA RANDOM W/MICROSCOPICon BACTERIA NONE SEEN Normal NONE SEEN The Comment on above: Performed By: #### U AMIC #### Laboratory [address] [address] [address] Dahlia Huang Bilirubin Ql (U) Negative Normal NEGATIVE [facility] Comment on above: Performed By: #### U AMIC #### Laboratory [address] [place] [address] Dr. Dahlia Huang CAST NONE SEEN Normal NONE SEEN The Comment on above: Performed By: #### U AMIC #### Laboratory [address] [place] [address] Dr. Dahlia Huang Clarity (U) CLEAR Normal CLEAR The Comment on above: Performed By: #### U AMIC #### Laboratory [address] [place] [address] Dr. Dahlia Huang Color (U) YELLOW Normal YELLOW [facility] Comment on above: Performed By: #### U AMIC #### Laboratory [address] [address] [address] Dahlia Huang Crystals LM Nom (Urine sed) NONE SEEN Normal NONE SEEN [facility] Comment on above: Performed By: #### U AMIC #### Laboratory [address] [address] [address] Dahlia Huang Epithelial cells LM Ql (Urine sed) FEW Abnormal NONE SEEN /RARE [facility] Comment on above: Performed By: #### U AMIC #### Laboratory [address] [place] [address] Dr. Dahlia Huang Glucose Ql (U) Negative Normal NEGATIVE [facility] Comment on above: Performed By: #### U AMIC #### Laboratory [address] [place] [address] Dr. Dahlia Huang Hemoglobin Ql (U) Negative Normal NEGATIVE [facility] Comment on above: Performed By: #### U AMIC #### Laboratory [address] [place] [address] Dr. Dahlia Huang Ketones Ql (U) Negative Normal NEGATIVE [facility] Comment on above: Performed By: #### U AMIC #### Laboratory [address] [place] [address] Dr. Dahlia Huang LEUKOCYTES Negative Normal NEGATIVE [facility] Comment on above: Performed By: #### U AMIC #### Laboratory [address] [address] [address] Dahlia Huang MUCOUS NONE SEEN Normal NONE SEEN [facility] Comment on above: Performed By: #### U AMIC #### Laboratory [address] [place] [address] Dr. Dahlia Huang Nitrite Ql (U) Negative Normal NEGATIVE [facility] Comment on above: Performed By: #### U AMIC #### Laboratory [address] [address] [address] Dahlia Huang pH (U) 6.5 [pH] Normal 5-9 The Comment on above: Performed By: #### U AMIC #### Laboratory [address] [place] [address] Dr. Dahlia Huang RBC 0-2 Normal 0-2 The Comment on above: Performed By: #### U AMIC #### Laboratory [address] [place] [address] Dr. Dahlia Huang SPEC GRAVITY 1.010 Normal 1.005-<=1.025 [facility] Comment on above: Performed By: #### U AMIC #### Laboratory [address] [place] [address] Dr. Dahlia Huang UA PROTEIN Negative Normal NEGATIVE/ TRACE The Comment on above: Performed By: #### U AMIC #### Laboratory [address] [place] [address] Dr. Dahlia Huang Urobilinogen Qn (U) 0.2 {Carolyn'U}/dL Normal 0.2 - 1. 0 The Comment on above: Performed By: #### U AMIC #### Laboratory [address] [place] [address] Dr. Dahlia Huang WBC NONE SEEN Normal NONE SEEN The Comment on above: Performed By: #### U AMIC #### Laboratory [address] [place] [address] Dr. Dahlia Huang CULTURE URINEon 11-03-2021 CULTURE URINE Isolate 1 Streptococcus agalactiae 10,000 cfu/mL of ORGANISM 1 Streptococcus agalactiae ANTIBIOTIC M.I.C RX STATUS Benzylpenicillin <=0.06 S F Ampicillin <=0.25 S F Cefotaxime <=0.12 S F Ceftriaxone <=0.12 S F Levofloxacin 0.5 S F Inducible Clindamycin Resistance Neg NEG F Erythromycin <=0.12 S F Clindamycin <=0.25 S F Linezolid <=2 S F Vancomycin 0.5 S F Tetracycline >=16 R F Normal The Comment on above: Performed By: #### C BC #### Laboratory [address] [place] [address] Dr. Dahlia Huang UA RANDOM W/MICROSCOPICon BACTERIA TRACE Abnormal NONE SEEN The Comment on above: Performed By: #### U AMIC #### Laboratory [address] [place] [address] Dr. Dahlia Huang Bilirubin Ql (U) Negative Normal NEGATIVE [facility] Comment on above: Performed By: #### U AMIC #### Laboratory [address] [place] [address] Dr. Dahlia Huang CAST NONE SEEN Normal NONE SEEN The Comment on above: Performed By: #### U AMIC #### Laboratory [address] [place] [address] Dr. Dahlia Huang Clarity (U) SL CLOUDY Abnormal CLEAR The Comment on above: Performed By: #### U AMIC #### Laboratory [address] [place] [address] Dr. Dahlia Huang Color (U) LT. YELLOW Normal YELLOW The Comment on above: Performed By: #### U AMIC #### Laboratory [address] [place] [address] Dr. Dahlia Huang Crystals LM Nom (Urine sed) NONE SEEN Normal NONE SEEN The Comment on above: Performed By: #### U AMIC #### Laboratory [address] [place] [address] Dr. Dahlia Huang Epithelial cells LM Ql (Urine sed) RARE Normal NONE SEEN /RARE The Comment on above: Performed By: #### U AMIC #### Laboratory [address] [place] [address] Dr. Dahlia Huang Glucose Ql (U) Negative Normal NEGATIVE [facility] Comment on above: Performed By: #### U AMIC #### Laboratory [address] [place] [address] Dr. Dahlia Huang Hemoglobin Ql (U) Negative Normal NEGATIVE [facility] Comment on above: Performed By: #### U AMIC #### Laboratory [address] [address] [address] Dahlia Huang Ketones Ql (U) Negative Normal NEGATIVE [facility] Comment on above: Performed By: #### U AMIC #### Laboratory [address] [address] [address] Dahlia Huang LEUKOCYTES TRACE Abnormal NEGATIVE [facility] Comment on above: Performed By: #### U AMIC #### Laboratory [address] [address] [address] Dahlia Huang MUCOUS NONE SEEN Normal NONE SEEN [facility] Comment on above: Performed By: #### U AMIC #### Laboratory [address] [address] [address] Dahlia Huang Nitrite Ql (U) Negative Normal NEGATIVE [facility] Comment on above: Performed By: #### U AMIC #### Laboratory [address] [address] [address] Dahlia Huang pH (U) 7.0 [pH] Normal 5-9 The Comment on above: Performed By: #### U AMIC #### Laboratory [address] [address] [address] Dahlia Huang RBC NONE SEEN Abnormal 0-2 The Comment on above: Performed By: #### U AMIC #### Laboratory [address] [address] [address] Dahlia Huang SPEC GRAVITY 1.010 Normal 1.005-<=1.025 [facility] Comment on above: Performed By: #### U AMIC #### Laboratory [address] [address] [address] Dahlia Huang UA PROTEIN Negative Normal NEGATIVE/ TRACE The Comment on above: Performed By: #### U AMIC #### Laboratory [address] [place] [address] Dr. Dahlia Huang Urobilinogen Qn (U) 0.2 {Carolyn'U}/dL Normal 0.2 - 1. 0 [facility] Comment on above: Performed By: #### U AMIC #### Laboratory [address] [place] [address] Dr. Dahlia Huang WBC 0-2 Abnormal NONE SEEN The Comment on above: Performed By: #### U AMIC #### Laboratory [address] [place] [address] Dr. Dahlia Huang LITHIUMon 09-24-2021 [place] (Eskalith(R)), Serum 0.6 mmol/L Normal 0.5-1.2 [facility] Comment on above: Result Comment: Plas ma concentration of 0.5 - 0.8 mmol/L are advised for long-term use; concentrations of up to 1.2 mmol/L may be necessary during acute treatment. Detection Limit = 0.1 <0.1 indicates None Detected Performed By: #### L ITHIUM #### Laboratory [address] [place] [address] Dr. Dahlia Huang CBC AUTO DIFFon 09-23-2021 BASO # 0.1 103/ul Normal 0.0-0.1 [facility] Comment on above: Performed By: #### C BC #### Laboratory [address] [place] [address] Dr. Dahlia Huang Basophils/100 WBC (Bld) 0.9 % Normal 0.2-2.0 [facility] Comment on above: Performed By: #### C BC #### Laboratory [address] [place] [address] Dr. Dahlia Huang EO # 0.3 103/ul Normal 0.0-0.7 The Comment on above: Performed By: #### C BC #### Laboratory [address] [place] [address] Dr. Dahlia Huang Eosinophils/100 WBC (Bld) 4.2 % Normal 0.9-7.0 The Comment on above: Performed By: #### C BC #### Laboratory [address] [place] [address] Dr. Dahlia Huang Erythrocyte distribution width (RBC) [Ratio] 12.8 % Normal 11.0-15.0 [facility] Comment on above: Performed By: #### C BC #### Laboratory [address] [address] [address] Dahlia Huang Hematocrit (Bld) [Volume fraction] 44.6 % Normal 42.0-54.0 [facility] Comment on above: Performed By: #### C BC #### Laboratory [address] [address] [address] Dahlia Huang Hemoglobin (Bld) [Mass/Vol] 14.9 g/dL Normal 14.0-18.0 [facility] Comment on above: Performed By: #### C BC #### Laboratory [address] [place] [address] Dr. Dahlia Huang IG # 0.04 10e3/ul Critically high 0.00-0.03 [facility] Comment on above: Performed By: #### C BC #### Laboratory [address] [place] [address] Dr. Dahlia Huang IG % 0.5 % Normal 0.0-0.5 [facility] Comment on above: Performed By: #### C BC #### Laboratory [address] [address] [address] Dahlia Huang LYMPH # 1.6 103/ul Normal 1.2-3.8 [facility] Comment on above: Performed By: #### C BC #### Laboratory [address] [place] [address] Dr. Dahlia Huang Lymphocytes/100 WBC (Bld) 19.4 % Critically low 20.5-60.0 [facility] Comment on above: Performed By: #### C BC #### Laboratory [address] [place] [address] Dr. Dahlia Huang MANUAL DIFF REQ NO Normal [facility] Comment on above: Performed By: #### C BC #### Laboratory [address] [place] [address] Dr. Dahlia Huang MCH (RBC) [Entitic mass] 29.9 pg Normal 25.9-34.0 [facility] Comment on above: Performed By: #### C BC #### Laboratory [address] [address] [address] Dahlia Huang MCHC (RBC) [Mass/Vol] 33.4 g/dL Normal 29.9-35.2 The Comment on above: Performed By: #### C BC #### Laboratory [address] [address] [address] Dahlia Huang MCV (RBC) [Entitic vol] 89.6 fL Normal 80.0-94.0 [facility] Comment on above: Performed By: #### C BC #### Laboratory [address] [address] [address] Dahlia Huang MONO # 0.5 103/ul Normal 0.3-0.8 [facility] Comment on above: Performed By: #### C BC #### Laboratory [address] [place] [address] Dr. Dahlia Huang Monocytes/100 WBC (Bld) 6.5 % Normal 1.7-12.0 [facility] Comment on above: Performed By: #### C BC #### Laboratory [address] [place] [address] Dr. Dahlia Huang NEUT # 5.5 103/ul Normal 1.4-6.5 [facility] Comment on above: Performed By: #### C BC #### Laboratory [address] [address] [address] Dahlia Huang Neutrophils/100 WBC (Bld) 68.5 % Normal 43.0-75.0 The Comment on above: Performed By: #### C BC #### Laboratory [address] [address] [address] Dahlia Huang Platelet mean volume (Bld) [Entitic vol] 10.4 fL Normal 9.5-13.5 The Comment on above: Performed By: #### C BC #### Laboratory [address] [address] [address] Dahlia Huang PLT 217 103/ul Normal 150-450 The Comment on above: Performed By: #### C BC #### Laboratory [address] [place] [address] Dr. Dahlia Huang RBC 4.98 106/ul Normal 4.70-6.10 [facility] Comment on above: Performed By: #### C BC #### Laboratory [address] [place] [address] Dr. Dahlia Huang WBC 8.0 103/ul Normal 4.0-11.0 [facility] Comment on above: Performed By: #### C BC #### Laboratory [address] [place] [address] Dr. Dahlia Huang PROF CHEM 8 (BAS METB)on Anion gap [Moles/Vol] 13.6 mmol/L Normal [facility] Comment on above: Performed By: #### B MP, TSH #### Laboratory [address] [place] [address] Dr. Dahlia Huang Calcium [Mass/Vol] 9.0 mg/dL Normal 8.5-10.1 [facility] Comment on above: Performed By: #### B MP, TSH #### Laboratory [address] [place] [address] Dr. Dahlia Huang Chloride [Moles/Vol] 103 mmol/L Normal 98-107 The Comment on above: Performed By: #### B MP, TSH #### Laboratory [address] [place] [address] Dr. Dahlia Huang CO2 [Moles/Vol] 28.1 mmol/L Normal 21.0-32.0 [facility] Comment on above: Performed By: #### B MP, TSH #### Laboratory [address] [place] [address] Dr. Dahlia Huang Creatinine [Mass/Vol] 0.78 mg/dL Normal 0.70-1.30 The Comment on above: Performed By: #### B MP, TSH #### Laboratory [address] [place] [address] Dr. Dahlia Huang EGFR-AF NIGERIEN >60 Normal >=60 [facility] Comment on above: Performed By: #### B MP, TSH #### Laboratory [address] [address] [address] Dahlia Huang EGFR-NON AF NIGERIEN >60 Normal >=60 The Comment on above: Performed By: #### B MP, TSH #### Laboratory [address] [address] [address] Dahlia Huang Glucose [Mass/Vol] 91 mg/dL Normal 74-106 [facility] Comment on above: Performed By: #### B MP, TSH #### Laboratory [address] [address] [address] Dahlia Huang Potassium [Moles/Vol] 3.7 mmol/L Normal 3.5-5.1 [facility] Comment on above: Performed By: #### B MP, TSH #### Laboratory [address] [address] [address] Dahlia Huang Sodium [Moles/Vol] 141 mmol/L Normal 136-145 [facility] Comment on above: Performed By: #### B MP, TSH #### Laboratory [address] [address] [address] Dahlia Huang Urea nitrogen [Mass/Vol] 13.0 mg/dL Normal 7.0-18.0 [facility] Comment on above: Performed By: #### B MP, TSH #### Laboratory [address] [address] [address] Dahlia Huang Urea nitrogen/Creatinine [Mass ratio] 16.7 mg/mg Normal [facility] Comment on above: Performed By: #### B MP, TSH #### Laboratory [address] [address] [address] Dahlia Huang TSHon 09-23-2021 TSH 0.919 uIU/mL Normal 0.358-3.740 [facility] Comment on above: Performed By: #### B MP, TSH #### Laboratory [address] [place] [address] Dr. Dahlia Huang TSH RANGE SEE BELOW Normal The Comment on above: Result Comment: <0.3 4 UIU/ml HYPERTHYROID 0.34-5.60 UIU/ml EUTHYROID >5.60 UIU/ml HYPOTHYROID Performed By: #### B MP, TSH #### Laboratory [address] [place] [address] Dr. Dahlia Bashir 2021 KAYCEE Telephone (MMPRAD) DALJIT NAPOLES ([id number]) 1980 M Date Time Provider Department 08/13/21 LANI REYES During your visit today, we recorded the following information about you: Lani Reyes MD 2021 4:14 PM Signed Returned phone call to patient. Patient is doing much better but he wants to get off the Effexor because of the sexual side effects. Patient have chronic psychiatric problems and was tried on multiple different medications. Discouraged her from going off of the Effexor, however he wants to try and see how it goes. Recommendation decrease Effexor 37.5 mg every 3 days gradually and then stop. Informed him about the discontinuation Symptoms. If the anxiety get worse when he had to go back on the Effexor. The plan is to start him on Lexapro once he is completely off the Effexor.Lani Reyes MD Allergies As of Date: 2021 (Not on File) Date Reviewed: 08/05/2021 Reviewed by: Lani Reyes MD - Fully Assessed Reason for Visit: Medication Problem [65] Order(s):venlafaxine ER (EFFEXOR XR) 37.5 mg 24 hr capsuleTake 2 pills po daily.Disp: 120 capsuleRfl: 0 Prescriptions as of 2021 - venlafaxine ER (EFFEXOR XR) 37.5 mg 24 hr capsule Take 2 pills po daily. - risperiDONE (RISPERDAL) 1 mg tablet Take 1 tablet by mouth daily with breakfast. - risperiDONE (RISPERDAL) 2 mg tablet Take 1 tablet by mouth daily at bedtime. - clonazePAM (KLONOPIN) 1 mg tablet Take 1 tablet by mouth twice daily as needed for up to 30 days. - gabapentin (NEURONTIN) 300 mg capsule Take 1 capsule by mouth twice daily for 30 days. - lamoTRIgine (LAMICTAL) 100 mg tablet Take 1 tablet by mouth once daily. In the AM. - lamoTRIgine (LAMICTAL) 150 mg tablet Take 1 tablet by mouth once daily. At bedtime. - venlafaxine ER (EFFEXOR XR) 150 mg 24 hr capsule Take one po bid. - lithium carbonate (ESKALITH) 300 mg capsule Take two capsules po am and 3 capsules po hs. - venlafaxine ER (EFFEXOR XR) 75 mg 24 hr capsule Take 1 capsule by mouth once daily. - busPIRone (BUSPAR) 10 mg tablet Take one tab po bid. Problem List As Of Date: 2021 (None) Prescriptions ordered this encounter Disp Refills Start End VENLAFAXINE ER 37.5 MG CAPSULE,EXTEN* 120 * 0 2021 Sig: Take 2 pills po daily. Encounter Status:[facility] Office Visit (PSMMMR ) DALJIT NAPOLES ([id number]) 1980 M Date Time Provider Department 08/05/21 2:30 PM [facility] During your visit today, we recorded the following information about you: Lani Reyes MD 08/06/2021 11:37 AM Signed Progress note. Office visit. August 06, 2021 AGE: [age] year old RACE: White MARITAL STATUS: Single (never ) OCCUPATION: Disabled since early 1999 Current psychiatric medications:-- 1-Lamictal 100 mg po AM and 150 mg po hs. . 2-Effexor 150 mg po bid. 3-Buspar 10 mg po TID--pt is taking only bid. 4-Gabapentin 300 mg one po am and 2 at hs -pt stopped the medicine on his own 2 months ago. 5-Klonopin 1 mg po BID( changed from the ativan. ) 6- lithium 300 mg 2 po am and 3 at hs 7--Risperidone 1 mg po bid. Side effects. Hand tremors. CHIEF COMPLAINT: My anxiety has been really bad HPI: this is the first meeting with the pt in person. Pt with long history of anxiety, as well as mood syms. Pt stated that his anxiety is still the main issue. He recalled that he was anxious even when he was in grade school and it never completely went away with any medications. While on Xanax he hd more relief but we do not know how high a dose he took. After a while it was not helpful for him at all. His mood is stable. No mood swings. Anxiety. He wakes up in the morning without any anxiety syms. As the day progrss starts to get more and more anxious. He is not able to identify any precipitants. Towards night , he starts to gets more racing thoughts even thought he has some racy thoughts during the day time also. He denies any stressors in his life. He denied suicidal thoughts or plans. We discussed increasing the dose of Risperidone and also to restart the gabapentin. VITAL SIGNS: There were no vitals filed for this visit. ROS: GENERAL: Negative for malaise, significant weight loss and fever HEENT: No changes in hearing or vision, no nose bleeds or other nasal problems NECK: Negative for lumps, goiter, pain and significant neck swelling RESPIRATORY: Negative for cough, wheezing and shortness of breath CARDIOVASCULAR: Negative for chest pain, leg swelling and palpitations GI: Negative for abdominal discomfort, blood in stools or black stools : Negative for dysuria, frequency and incontinence CLINICAL PROGRAM COORDINATOR: N/A MUSCULOSKELETAL: Negative for joint pain or swelling, back pain, and muscle pain. SKIN: Negative for lesions, rash, and itching. PSYCH: See HPI HEMATOLOGY/LYMPHOLOGY Negative for prolonged bleeding, bruising easily, and swollen nodes. ENDOCRINE: Negative for cold or heat intolerance, polyuria, polydipsia and goiter. NEURO: Negative SINGLE ORGAN PSYCH EXAM: Constitutional: Well groomed, Well developed, Well nourished Musculoskeletal: Gait: Normal Pain: 0 PSYCHIATRIC HISTORY: Prior Diagnosis: Bipolar Affective Disorder Prior Provider: DR DALJIT Aguirre Therapist: No prior therapist Current Senior Trial Attorney: None Last Hospitalization: Denies hospitalization. and about a year ago. ECT: none Previous Discontinued Psychiatric Med Trials: Paxil,Prozaac, Zoloft, Wellbutrin,Celexa, Seroquel, [place] ,Latuda, Depakote, Imipramine etc. SUBSTANCE USE HISTORY: Nicotine: None Caffeine: None, he drinks 2 to 3 diet pop Alcohol: No history of use or dependence Marijuana: No history of use or dependence Cocaine: No history of use or dependence Opiods: No history of use or dependence SPIRITUALITY: none to speak off. PFSH: Daljit Napoles is one of 3 children to his parents. Born and raised in [place], [place].. Both parents were there when he was growing up. His father was killed in a car accident when he was 19 . 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 He has been on disability for years. He lives with his fiance and their 5 year old son. Pt denied smoking or alcohol abuse. He denied having guns . Service: None Legal: Pt. denied any past legal history FAMILY PSYCHIATRIC HISTORY: On the paternal side --one uncle has bipolar illness. Cousin is schizophrenic No alcoholism or suicides in the family. PATIENT DATA: PHQ completed. MENTAL STATUS EXAMINATION: Appearance: Casually dressed Behavior: Behaves appropriately during the encounter Social relatedness: Euthymic Speech/Language: The patient demonstrates appropriate tone, prosody, shala, phonetics, and syntax Mood: stable.some racy thoughts. Affect: Anxiety orientation: Person, Place, Time and Situation Associations: Intact and linear Hallucinations: None Delusions: None Suicidal Ideation: No suicidal ideation, intent or plan. Homicidal Ideation: No homicidal ideation, intent or plan. Insight: Fair Judgment: Fair IMPRESSION: This is a pt with bipolar illness. Pt is stable. . DIAGNOSIS: PRIMARY: bipolar affective disorder ,full remission. (more content not included)... [facility] 07-22-[address] [facility] Telephone (PSMMMR) DALJIT NAPOLES ([id number]) 1980 M Date Time Provider Department 07/22/21 [facility] During your visit today, we recorded the following information about you: Allergies As of Date: 07/22/2021 (Not on File) Date Reviewed: 12/12/2020 Reviewed by: Lani Reyes MD - Fully Assessed Reason for Visit: Rx Refills [128] Order(s):risperiDONE (RISPERDAL) 1 mg tabletTake 1 tablet by mouth twice daily.Disp: 60 tabletRfl: 4 Prescriptions as of 07/22/2021 - risperiDONE (RISPERDAL) 1 mg tablet Take 1 tablet by mouth twice daily. - lamoTRIgine (LAMICTAL) 100 mg tablet Take 1 tablet by mouth once daily. In the AM. - lamoTRIgine (LAMICTAL) 150 mg tablet Take 1 tablet by mouth once daily. At bedtime. - clonazePAM (KLONOPIN) 1 mg tablet Take 1 tablet by mouth twice daily as needed for up to 30 days. - venlafaxine ER (EFFEXOR XR) 150 mg 24 hr capsule Take one po bid. - lithium carbonate (ESKALITH) 300 mg capsule Take two capsules po am and 3 capsules po hs. - venlafaxine ER (EFFEXOR XR) 75 mg 24 hr capsule Take 1 capsule by mouth once daily. - gabapentin (NEURONTIN) 300 mg capsule Take 1 capsule by mouth twice daily for 30 days. - busPIRone (BUSPAR) 10 mg tablet Take one tab po bid. - ziprasidone (GEODON) 20 mg capsule Take 1 capsule by mouth twice daily with meals. Problem List As Of Date: 07/22/2021 (None) Prescriptions ordered this encounter Disp Refills Start End RISPERIDONE 1 MG TABLET 60 t* 4 07/22/2021 Route: ORAL Sig: Take 1 tablet by mouth twice daily. Encounter Status:Closed by LANI REYES on 07/22/21 [facility] OBSOLETEon 04-02-2021 OBSOLETE Refill (PSMMMR) DALJIT NAPOLES ([id number]) 1980 M Date Time Provider Department 04/02/[address] [facility] During your visit today, we recorded the following information about you: Allergies As of Date: 04/02/2021 (Not on File) Date Reviewed: 12/12/2020 Reviewed by: Lani Reyes MD - Fully Assessed Reason for Visit: Refill Request [94] Visit Diagnosis:LIN (generalized anxiety disorder) [F41.1] Order(s):clonazePAM (KLONOPIN) 1 mg tabletTake 1 tablet by mouth twice daily as needed for up to 30 days.Disp: 60 tabletRfl: 0 Prescriptions as of 04/02/2021 - clonazePAM (KLONOPIN) 1 mg tablet Take 1 tablet by mouth twice daily as needed for up to 30 days. - lithium carbonate (ESKALITH) 300 mg capsule Take two capsules po am and 3 capsules po hs. - venlafaxine ER (EFFEXOR XR) 75 mg 24 hr capsule Take 1 capsule by mouth once daily. - gabapentin (NEURONTIN) 300 mg capsule Take 1 capsule by mouth twice daily for 30 days. - busPIRone (BUSPAR) 10 mg tablet Take one tab po bid. - lamoTRIgine (LAMICTAL) 100 mg tablet Take 1 tablet by mouth once daily. In the AM. - lamoTRIgine (LAMICTAL) 150 mg tablet Take 1 tablet by mouth once daily. At bedtime. - ziprasidone (GEODON) 20 mg capsule Take 1 capsule by mouth twice daily with meals. - LORazepam (ATIVAN) 1 mg tablet Take one po tid. - LORazepam (ATIVAN) 1 mg tablet Take one po tid. - venlafaxine ER (EFFEXOR XR) 150 mg 24 hr capsule Take one po bid. Problem List As Of Date: 04/02/2021 (None) Prescriptions ordered this encounter Disp Refills Start End CLONAZEPAM 1 MG TABLET 60 t* 0 04/02/2021 05/02/2021 Route: ORAL Sig: Take 1 tablet by mouth twice daily as needed for up to 30 days. Medications Discontinued During This Encounter Prescriptions - clonazePAM (KLONOPIN) 1 mg tablet (Discontinued) Take one tab po bid. Please cancel the prescription for the Ativan. Encounter Status:Closed by LANI REYES on 04/02/21 [facility] OBSOLETEon 03-08-2021 OBSOLETE Refill (PSMMMR) DALJIT NAPOLES ([id number]) 1980 M Date Time Provider Department 03/08/21 LANI REYES P[facility] During your visit today, we recorded the following information about you: Charlottesaravanan Cee 03/08/2021 2:[address] Reyes- Per My Chart message of 03.08.21, patient is willing to lower the dosage. Please review and send. Thanks, Charlottesaravanan Cee March 08, 2021 2:46 PM Allergies As of Date: 03/08/2021 (Not on File) Date Reviewed: 12/12/2020 Reviewed by: Lani Reyes MD - Fully Assessed Reason for Visit: Refill Request [94] Order(s):venlafaxine ER (EFFEXOR XR) 75 mg 24 hr capsuleTake 1 capsule by mouth once daily.Disp: 30 capsuleRfl: 5 Prescriptions as of 03/08/2021 - venlafaxine ER (EFFEXOR XR) 75 mg 24 hr capsule Take 1 capsule by mouth once daily. - gabapentin (NEURONTIN) 300 mg capsule Take 1 capsule by mouth twice daily for 30 days. - busPIRone (BUSPAR) 10 mg tablet Take one tab po bid. - clonazePAM (KLONOPIN) 1 mg tablet Take one tab po bid. Please cancel the prescription for the Ativan. - lamoTRIgine (LAMICTAL) 100 mg tablet Take 1 tablet by mouth once daily. In the AM. - lamoTRIgine (LAMICTAL) 150 mg tablet Take 1 tablet by mouth once daily. At bedtime. - ziprasidone (GEODON) 20 mg capsule Take 1 capsule by mouth twice daily with meals. - lithium carbonate (ESKALITH) 300 mg capsule Take two capsules po am and two capsules po hs. - LORazepam (ATIVAN) 1 mg tablet Take one po tid. - LORazepam (ATIVAN) 1 mg tablet Take one po tid. - venlafaxine ER (EFFEXOR XR) 150 mg 24 hr capsule Take one po bid. Problem List As Of Date: 03/08/2021 (None) Prescriptions ordered this encounter Disp Refills Start End VENLAFAXINE ER 75 MG CAPSULE,EXTENDE* 30 c* 5 03/08/2021 09/04/2021 Route: ORAL Sig: Take 1 capsule by mouth once daily. Encounter Status:Closed by LANI REYES on 03/08/21 [facility] OBSOLETEon 03-01-2021 OBSOLETE Refill (PSMMMR) DALJIT NAPOLES ([id number]) 1980 M Date Time Provider Department 03/01/21 LANI REYES [facility] During your visit today, we recorded the following information about you: August Sanders 03/01/2021 1:09 PM Signed Please review and send. Thanks, August Sanders Allergies As of Date: 03/01/2021 (Not on File) Date Reviewed: 12/12/2020 Reviewed by: Lani Reyes MD - Fully Assessed Reason for Visit: Refill Request [94] Order(s):gabapentin (NEURONTIN) 300 mg capsuleTake 1 capsule by mouth twice daily for 30 days.Disp: 60 capsuleRfl: 5 Prescriptions as of 03/03/2021 - gabapentin (NEURONTIN) 300 mg capsule Take 1 capsule by mouth twice daily for 30 days. - busPIRone (BUSPAR) 10 mg tablet Take one tab po bid. - clonazePAM (KLONOPIN) 1 mg tablet Take one tab po bid. Please cancel the prescription for the Ativan. - lamoTRIgine (LAMICTAL) 100 mg tablet Take 1 tablet by mouth once daily. In the AM. - lamoTRIgine (LAMICTAL) 150 mg tablet Take 1 tablet by mouth once daily. At bedtime. - ziprasidone (GEODON) 20 mg capsule Take 1 capsule by mouth twice daily with meals. - lithium carbonate (ESKALITH) 300 mg capsule Take two capsules po am and two capsules po hs. - LORazepam (ATIVAN) 1 mg tablet Take one po tid. - LORazepam (ATIVAN) 1 mg tablet Take one po tid. - venlafaxine ER (EFFEXOR XR) 150 mg 24 hr capsule Take one po bid. Problem List As Of Date: 03/01/2021 (None) Prescriptions ordered this encounter Disp Refills Start End GABAPENTIN 300 MG CAPSULE 60 c* 5 03/03/2021 04/02/2021 Route: ORAL Sig: Take 1 capsule by mouth twice daily for 30 days. Medications Discontinued During This Encounter Prescriptions - gabapentin (NEURONTIN) 300 mg capsule (Discontinued) Take 1 capsule by mouth twice daily for 30 days. Encounter Status:Closed by LANI REYES on 03/03/21 [facility] OBSOLETE Refill (PSMMMR) DALJIT NAPOLES ([id number]) 1980 M Date Time Provider Department 03/01/21 LANI REYES PSM[facility]MR During your visit today, we recorded the following information about you: Allergies As of Date: 03/01/2021 (Not on File) Date Reviewed: 12/12/2020 Reviewed by: Lani Reyes MD - Fully Assessed Reason for Visit: Refill Request [94] Visit Diagnosis:LIN (generalized anxiety disorder) [F41.1] Order(s):busPIRone (BUSPAR) 10 mg tabletTake one tab po bid.Disp: 60 tabletRfl: 5 clonazePAM (KLONOPIN) 1 mg tabletTake one tab po bid. Please cancel the prescription for the Ativan.Disp: 60 tabletRfl: 0 Prescriptions as of 03/03/2021 - busPIRone (BUSPAR) 10 mg tablet Take one tab po bid. - clonazePAM (KLONOPIN) 1 mg tablet Take one tab po bid. Please cancel the prescription for the Ativan. - lamoTRIgine (LAMICTAL) 100 mg tablet Take 1 tablet by mouth once daily. In the AM. - lamoTRIgine (LAMICTAL) 150 mg tablet Take 1 tablet by mouth once daily. At bedtime. - ziprasidone (GEODON) 20 mg capsule Take 1 capsule by mouth twice daily with meals. - lithium carbonate (ESKALITH) 300 mg capsule Take two capsules po am and two capsules po hs. - LORazepam (ATIVAN) 1 mg tablet Take one po tid. - LORazepam (ATIVAN) 1 mg tablet Take one po tid. - venlafaxine ER (EFFEXOR XR) 150 mg 24 hr capsule Take one po bid. - gabapentin (NEURONTIN) 300 mg capsule Take 1 capsule by mouth twice daily for 30 days. Problem List As Of Date: 03/01/2021 (None) Prescriptions ordered this encounter Disp Refills Start End BUSPIRONE 10 MG TABLET 60 t* 5 03/03/2021 Sig: Take one tab po bid. CLONAZEPAM 1 MG TABLET 60 t* 0 03/03/2021 03/30/2021 Sig: Take one tab po bid. Please cancel the prescription for the Ativan. Medications Discontinued During This Encounter Prescriptions - busPIRone (BUSPAR) 10 mg tablet (Discontinued) Take one tab po bid. - clonazePAM (KLONOPIN) 1 mg tablet (Discontinued) Take one tab po bid. Please cancel the prescription for the Ativan. Encounter Status:Closed by LANI REYES on 03/03/21 [facility] 01-20-2021 OBSOLETE Refill (PSMMMR) YESIKA,DALJIT ([id number]) 1980 M Date Time Provider Department 01/20/21 [facility] During your visit today, we recorded the following information about you: Allergies As of Date: 01/20/2021 (Not on File) Date Reviewed: 12/12/2020 Reviewed by: Lani Reyes MD - Fully Assessed Reason for Visit: Refill Request [94] Visit Diagnosis:LIN (generalized anxiety disorder) [F41.1] Order(s):clonazePAM (KLONOPIN) 1 mg tabletTake one tab po bid. Please cancel the prescription for the Ativan.Disp: 60 tabletRfl: 0 Prescriptions as of 01/21/2021 - clonazePAM (KLONOPIN) 1 mg tablet Take one tab po bid. Please cancel the prescription for the Ativan. - lamoTRIgine (LAMICTAL) 100 mg tablet Take 1 tablet by mouth once daily. In the AM. - lamoTRIgine (LAMICTAL) 150 mg tablet Take 1 tablet by mouth once daily. At bedtime. - ziprasidone (GEODON) 20 mg capsule Take 1 capsule by mouth twice daily with meals. - lithium carbonate (ESKALITH) 300 mg capsule Take two capsules po am and two capsules po hs. - LORazepam (ATIVAN) 1 mg tablet Take one po tid. - LORazepam (ATIVAN) 1 mg tablet Take one po tid. - venlafaxine ER (EFFEXOR XR) 150 mg 24 hr capsule Take one po bid. - gabapentin (NEURONTIN) 300 mg capsule Take 1 capsule by mouth twice daily for 30 days. - busPIRone (BUSPAR) 10 mg tablet Take one tab po bid. Problem List As Of Date: 01/20/2021 (None) Prescriptions ordered this encounter Disp Refills Start End CLONAZEPAM 1 MG TABLET 60 t* 0 01/21/2021 02/19/2021 Sig: Take one tab po bid. Please cancel the prescription for the Ativan. Medications Discontinued During This Encounter Prescriptions - clonazePAM (KLONOPIN) 1 mg tablet (Discontinued) Take one tab po bid. Please cancel the prescription for the Ativan. Encounter Status:Closed by LANI REYES on 01/21/21 [facility] OBSOLETEon 01-14-2021 OBSOLETE Refill (PSMMMR) DALJIT NAPOLES ([id number]) 1980 M Date Time Provider Department 01/14/21 [facility] During your visit today, we recorded the following information about you: August Sanders 01/14/2021 8:45 AM Signed Please review and send. Thanks, August Sanders Allergies As of Date: 01/14/2021 (Not on File) Date Reviewed: 12/12/2020 Reviewed by: Lani Reyes MD - Fully Assessed Reason for Visit: Refill Request [94] Order(s):lamoTRIgine (LAMICTAL) 100 mg tabletTake 1 tablet by mouth once daily. In the AM.Disp: 30 tabletRfl: 2 lamoTRIgine (LAMICTAL) 150 mg tabletTake 1 tablet by mouth once daily. At bedtime.Disp: 30 tabletRfl: 2 Prescriptions as of 01/14/2021 - lamoTRIgine (LAMICTAL) 100 mg tablet Take 1 tablet by mouth once daily. In the AM. - lamoTRIgine (LAMICTAL) 150 mg tablet Take 1 tablet by mouth once daily. At bedtime. - clonazePAM (KLONOPIN) 1 mg tablet Take one tab po bid. Please cancel the prescription for the Ativan. - ziprasidone (GEODON) 20 mg capsule Take 1 capsule by mouth twice daily with meals. - lithium carbonate (ESKALITH) 300 mg capsule Take two capsules po am and two capsules po hs. - LORazepam (ATIVAN) 1 mg tablet Take one po tid. - LORazepam (ATIVAN) 1 mg tablet Take one po tid. - venlafaxine ER (EFFEXOR XR) 150 mg 24 hr capsule Take one po bid. - gabapentin (NEURONTIN) 300 mg capsule Take 1 capsule by mouth twice daily for 30 days. - busPIRone (BUSPAR) 10 mg tablet Take one tab po bid. Problem List As Of Date: 01/14/2021 (None) Prescriptions ordered this encounter Disp Refills Start End LAMOTRIGINE 100 MG TABLET 30 t* 2 01/14/2021 04/14/2021 Route: ORAL Sig: Take 1 tablet by mouth once daily. In the AM. LAMOTRIGINE 150 MG TABLET 30 t* 2 01/14/2021 04/14/2021 Route: ORAL Sig: Take 1 tablet by mouth once daily. At bedtime. Medications Discontinued During This Encounter Prescriptions - lamoTRIgine (LAMICTAL) 100 mg tablet (Discontinued) Take 1 tablet by mouth once daily. In the AM. - lamoTRIgine (LAMICTAL) 150 mg tablet (Discontinued) Take 1 tablet by mouth once daily. At bedtime. Encounter Status:Closed by LANI REYES on 01/14/21 [facility] 12-18-[address] [facility] DALJIT NAPOLES ([id number]) 1980 M Date Time Provider Department 12/18/[address] [facility] During your visit today, we recorded the following information about you: Lani Reyes MD 12/18/2020 4:16 PM Signed Allergies As of Date: 12/18/2020 (Not on File) Date Reviewed: 12/12/2020 Reviewed by: Lani Reyes MD - Fully Assessed Reason for Visit: Refill Request [94] Primary Visit Diagnosis:LIN (generalized anxiety disorder) [F41.1] Order(s):clonazePAM (KLONOPIN) 1 mg tabletTake one tab po bid. Please cancel the prescription for the Ativan.Disp: 60 tabletRfl: 0 Prescriptions as of 12/18/2020 - clonazePAM (KLONOPIN) 1 mg tablet Take one tab po bid. Please cancel the prescription for the Ativan. - ziprasidone (GEODON) 20 mg capsule Take 1 capsule by mouth twice daily with meals. - lithium carbonate (ESKALITH) 300 mg capsule Take two capsules po am and two capsules po hs. - LORazepam (ATIVAN) 1 mg tablet Take one po tid. - LORazepam (ATIVAN) 1 mg tablet Take one po tid. - lamoTRIgine (LAMICTAL) 100 mg tablet Take 1 tablet by mouth once daily. In the AM. - lamoTRIgine (LAMICTAL) 150 mg tablet Take 1 tablet by mouth once daily. At bedtime. - venlafaxine ER (EFFEXOR XR) 150 mg 24 hr capsule Take one po bid. - gabapentin (NEURONTIN) 300 mg capsule Take 1 capsule by mouth twice daily for 30 days. - busPIRone (BUSPAR) 10 mg tablet Take one tab po bid. Problem List As Of Date: 12/18/2020 (None) Prescriptions ordered this encounter Disp Refills Start End CLONAZEPAM 1 MG TABLET 60 t* 0 12/18/2020 01/17/2021 Sig: Take one tab po bid. Please cancel the prescription for the Ativan. Encounter Status:Closed by LANI REYES on 12/18/20 [facility] OBSOLETEon 11-07-2020 OBSOLETE Refill (PSMMMR) DALJIT NAPOLES ([id number]) 1980 M Date Time Provider Department 11/07/20 [facility] During your visit today, we recorded the following information about you: Jose Fritz MD 11/08/2020 9:28 AM Signed Rx done Allergies As of Date: 11/07/2020 (Not on File) Date Reviewed: 08/09/2020 Reviewed by: Lani Reyes - Fully Assessed Reason for Visit: Refill Request [94] Visit Diagnosis:Generalized anxiety disorder [F41.1] Order(s):LORazepam (ATIVAN) 1 mg tabletTake one po tid.Disp: 90 tabletRfl: 5 Prescriptions as of 11/08/2020 - LORazepam (ATIVAN) 1 mg tablet Take one po tid. - lamoTRIgine (LAMICTAL) 100 mg tablet Take 1 tablet by mouth once daily. In the AM. - lamoTRIgine (LAMICTAL) 150 mg tablet Take 1 tablet by mouth once daily. At bedtime. - venlafaxine ER (EFFEXOR XR) 150 mg 24 hr capsule Take one po bid. - gabapentin (NEURONTIN) 300 mg capsule Take 1 capsule by mouth twice daily for 30 days. - busPIRone (BUSPAR) 10 mg tablet Take one tab po bid. - lithium carbonate (ESKALITH) 300 mg capsule Take two capsules po am and two capsules po hs. - QUEtiapine (SEROQUEL) 100 mg tablet Take one at hs for 2 days. Then take 2 at hs for 2 days and then take 3 at hs thereafter. Stop the Latuda. Problem List As Of Date: 11/07/2020 (None) Prescriptions ordered this encounter Disp Refills Start End LORAZEPAM 1 MG TABLET 90 t* 5 11/08/2020 05/07/2021 Sig: Take one po tid. Medications Discontinued During This Encounter Prescriptions - LORazepam (ATIVAN) 1 mg tablet (Discontinued) Take one po tid. Encounter Status:Closed by JOSE FRITZ on 11/08/20 [facility] OBSOLETEon 11-06-2020 OBSOLETE Refill (PSMMMR) DALJIT NAPOLES ([id number]) 1980 M Date Time Provider Department 11/06/20 [facility] REYES [facility] During your visit today, we recorded the following information about you: Allergies As of Date: 11/06/2020 (Not on File) Date Reviewed: 08/09/2020 Reviewed by: Lani Reyes - Fully Assessed Reason for Visit: Refill Request [94] Visit Diagnosis:Generalized anxiety disorder [F41.1] Prescriptions as of 11/06/2020 - lamoTRIgine (LAMICTAL) 100 mg tablet Take 1 tablet by mouth once daily. In the AM. - lamoTRIgine (LAMICTAL) 150 mg tablet Take 1 tablet by mouth once daily. At bedtime. - venlafaxine ER (EFFEXOR XR) 150 mg 24 hr capsule Take one po bid. - gabapentin (NEURONTIN) 300 mg capsule Take 1 capsule by mouth twice daily for 30 days. - busPIRone (BUSPAR) 10 mg tablet Take one tab po bid. - lithium carbonate (ESKALITH) 300 mg capsule Take two capsules po am and two capsules po hs. - QUEtiapine (SEROQUEL) 100 mg tablet Take one at hs for 2 days. Then take 2 at hs for 2 days and then take 3 at hs thereafter. Stop the Latuda. Problem List As Of Date: 11/06/2020 (None) Encounter Status:Closed by JOSE FRITZ on 11/06/20 [facility] OBSOLETEon 10-09-2020 OBSOLETE Refill (PSMMMR) DALJIT NAPOLES ([id number]) 1980 M Date Time Provider Department 10/09/20 [facility] REYES [facility] During your visit today, we recorded the following information about you: Allergies As of Date: 10/09/2020 (Not on File) Date Reviewed: 08/09/2020 Reviewed by: Lani Reyes - Fully Assessed Reason for Visit: Refill Request [94] Order(s):lamoTRIgine (LAMICTAL) 100 mg tabletTake 1 tablet by mouth once daily. In the AM.Disp: 30 tabletRfl: 2 lamoTRIgine (LAMICTAL) 150 mg tabletTake 1 tablet by mouth once daily. At bedtime.Disp: 30 tabletRfl: 2 Prescriptions as of 10/09/2020 Sig: LAMOTRIGINE 100 MG TABLET Take 1 tablet by mouth once d* LAMOTRIGINE 150 MG TABLET Take 1 tablet by mouth once d* VENLAFAXINE ER 150 MG CAPSULE* Take one po bid. GABAPENTIN 300 MG CAPSULE Take 1 capsule by mouth twice* BUSPIRONE 10 MG TABLET Take one tab po bid. LITHIUM CARBONATE 300 MG CAPS* Take two capsules po am and t* LORAZEPAM 1 MG TABLET Take one po tid. QUETIAPINE 100 MG TABLET Take one at hs for 2 days. Th* Problem List As Of Date: 10/09/2020 (None) Prescriptions ordered this encounter Disp Refills Start End LAMOTRIGINE 100 MG TABLET 30 t* 2 10/10/2020 01/08/2021 Route: ORAL Sig: Take 1 tablet by mouth once daily. In the AM. LAMOTRIGINE 150 MG TABLET 30 t* 2 10/10/2020 01/08/2021 Route: ORAL Sig: Take 1 tablet by mouth once daily. At bedtime. Medications Discontinued During This Encounter Prescriptions - lamoTRIgine (LAMICTAL) 100 mg tablet (Discontinued) Take 1 tablet by mouth once daily. In the AM. - lamoTRIgine (LAMICTAL) 150 mg tablet (Discontinued) Take 1 tablet by mouth once daily. At bedtime. Encounter Status:Closed by LANI REYES on 10/10/20 [facility] OBSOLETEon 09-26-2020 OBSOLETE Refill (PSMR) DALJIT NAPOLES ([id number]) 1980 M Date Time Provider Department 09/26/[address] [facility] During your visit today, we recorded the following information about you: Allergies As of Date: 09/26/2020 (Not on File) Date Reviewed: 08/09/2020 Reviewed by: Lani Reyes - Fully Assessed Reason for Visit: Refill Request [94] Order(s):venlafaxine ER (EFFEXOR XR) 150 mg 24 hr capsuleTake one po bid.Disp: 60 capsuleRfl: 5 Prescriptions as of 09/26/2020 Sig: VENLAFAXINE ER 150 MG CAPSULE* Take one po bid. GABAPENTIN 300 MG CAPSULE Take 1 capsule by mouth twice* BUSPIRONE 10 MG TABLET Take one tab po bid. LAMOTRIGINE 100 MG TABLET Take 1 tablet by mouth once d* LAMOTRIGINE 150 MG TABLET Take 1 tablet by mouth once d* LITHIUM CARBONATE 300 MG CAPS* Take two capsules po am and t* LORAZEPAM 1 MG TABLET Take one po tid. QUETIAPINE 100 MG TABLET Take one at hs for 2 days. Th* Problem List As Of Date: 09/26/2020 (None) Prescriptions ordered this encounter Disp Refills Start End VENLAFAXINE ER 150 MG CAPSULE,EXTEND* 60 c* 5 09/26/2020 Sig: Take one po bid. Medications Discontinued During This Encounter Prescriptions - venlafaxine ER (EFFEXOR XR) 150 mg 24 hr capsule (Discontinued) Take one po bid. Encounter Status:Closed by LANI REYES on 09/26/20 [facility] 08-22-[address] [facility] Telephone ([facility]) DALJIT NAPOLES ([id number]) 1980 M Date Time Provider Department 08/22/20 [facility] REYES [facility] During your visit today, we recorded the following information about you: Lani Reyes MD 08/22/2020 12:03 PM Signed Received lab results. BUN 13 Creatinine 0.85 [place] level 0.9 Hb A1c --normal. Lani Reyes MD Allergies As of Date: 08/22/2020 (Not on File) Date Reviewed: 08/09/2020 Reviewed by: Lani Reyes - Fully Assessed Reason for Visit: Results, Lab [1201] Prescriptions as of 08/22/2020 Sig: GABAPENTIN 300 MG CAPSULE Take 1 capsule by mouth twice* BUSPIRONE 10 MG TABLET Take one tab po bid. LAMOTRIGINE 100 MG TABLET Take 1 tablet by mouth once d* LAMOTRIGINE 150 MG TABLET Take 1 tablet by mouth once d* LITHIUM CARBONATE 300 MG CAPS* Take two capsules po am and t* LORAZEPAM 1 MG TABLET Take one po tid. VENLAFAXINE ER 150 MG CAPSULE* Take one po bid. QUETIAPINE 100 MG TABLET Take one at hs for 2 days. Th* Problem List As Of Date: 08/22/2020 (None) Encounter Status:Closed by LANI REYES on 08/22/20 [facility] 03-07-[address] [facility] Telephone (PSYRL) DALJIT NAPOLES ([id number]) 1980 M Date Time Provider Department 03/07/20 LANI REYES [facility] During your visit today, we recorded the following information about you: Allergies As of Date: 03/07/2020 (Not on File) Date Reviewed: 01/31/2020 Reviewed by: Lani Reyes - Fully Assessed Reason for Visit: Refill Request [94] Prescriptions as of 03/07/2020 Sig: X LITHIUM CARBONATE 300 MG CAPS* Take 1 capsule by mouth once * QUETIAPINE 100 MG TABLET Take one at hs for 2 days. Th* BUSPIRONE 10 MG TABLET Take one tab po bid. X GABAPENTIN 300 MG CAPSULE Take 1 capsule by mouth twice* Problem List As Of Date: 03/07/2020 (None) Encounter Status:Closed by HARVINDER DAWSON on 03/09/20 [facility] OBSOLETEon 03-07-2020 OBSOLETE Refill (PSYRL) DALJIT NAPOLES ([id number]) 1980 M Date Time Provider Department 03/07/20 LANI REYES PSY[facility] During your visit today, we recorded the following information about you: Charlotte Cee 03/07/2020 2:[address] Reyes- Per your note of 01-31-20, patient was to continue this medication. Please review and send. Thanks, Charlotte Cee March 07, 2020 2:16 PM Allergies As of Date: 03/07/2020 (Not on File) Date Reviewed: 01/31/2020 Reviewed by: Lani Reyes - Fully Assessed Reason for Visit: Refill Request [94] Primary Visit Diagnosis:Generalized anxiety disorder [F41.1] Order(s):LORazepam (ATIVAN) 1 mg tabletTake 1 tablet by mouth three times daily as needed for up to 30 days.Disp: 90 tabletRfl: 0 Prescriptions as of 03/07/2020 Sig: LORAZEPAM 1 MG TABLET Take 1 tablet by mouth three * LITHIUM CARBONATE 300 MG CAPS* Take 1 capsule by mouth once * QUETIAPINE 100 MG TABLET Take one at hs for 2 days. Th* BUSPIRONE 10 MG TABLET Take one tab po bid. GABAPENTIN 300 MG CAPSULE Take 1 capsule by mouth twice* Problem List As Of Date: 03/07/2020 (None) Prescriptions ordered this encounter Disp Refills Start End LORAZEPAM 1 MG TABLET 90 t* 0 03/07/2020 04/06/2020 Route: ORAL Sig: Take 1 tablet by mouth three times daily as needed for up to 30 days. Encounter Status:Closed by LANI REYES MD on 03/07/20 [facility] Vital Signs Date Time Vital Sign Value Performing Clinician Facility 12-02-2023 14:29-0400 Body height 175.26 cm [facility] 12-02-2023 14:29-0400 Body mass index (BMI) [Ratio] 38 kg/m2 [facility] 12-02-2023 14:29-0400 Body weight 116.74 kg [facility] 12-02-2023 14:29-0400 Diastolic blood pressure 87 mm[Hg] [facility] 12-02-2023 14:29-0400 Heart rate 91 /min [facility] 12-02-2023 14:29-0400 Respiratory rate 12 /min [facility] 12-02-2023 14:29-0400 Systolic blood pressure 119 mm[Hg] [facility] 06-05-2023 09:09-0500 Body height 175.26 cm [facility] 06-05-2023 09:09-0500 Body mass index (BMI) [Ratio] 36.6 kg/m2 [facility] 06-05-2023 09:09-0500 Body weight 112.49 kg [facility] 06-05-2023 09:09-0500 Diastolic blood pressure 76 mm[Hg] [facility] 06-05-2023 09:09-0500 Heart rate 72 /min [facility] 06-05-2023 09:09-0500 Respiratory rate 16 /min [facility] 06-05-2023 09:09-0500 Systolic blood pressure 111 mm[Hg] [facility] 05-08-2023 12:00-0500 Diastolic blood pressure 99 mm[Hg] [facility] 05-08-2023 12:00-0500 Heart rate 82 /min [facility] 05-08-2023 12:00-0500 Respiratory rate 18 /min [facility] 05-08-2023 12:00-0500 SaO2% (BldA) [Mass fraction] 97 % [facility] 05-08-2023 12:00-0500 Systolic blood pressure 164 mm[Hg] [facility] 05-08-2023 08:00-0500 Body temperature 98.4 [degF] [facility] 05-08-2023 06:00-0500 Body weight 113.8 kg [facility] 05-07-2023 03:48-0500 Body height 175.26 cm [facility] 01-16-2023 11:45-0400 Body height 175.26 cm Mora Hendrickson Other [facility] Other 01-16-2023 11:45-0400 Body mass index (BMI) [Ratio] 37.06 kg/m2 Mora Hendrickson Other [facility] Other 01-16-2023 11:45-0400 Body weight 113.85 kg Mora Hendrickson Other [facility] Other 01-16-2023 11:45-0400 Diastolic blood pressure 80 mm[Hg] Mora Hendrickson Other [facility] Other 01-16-2023 11:45-0400 SaO2% (BldA) [Mass fraction] 96 % Mora Hendrickson Other [facility] Other 01-16-2023 11:45-0400 Systolic blood pressure 126 mm[Hg] Mora Hendrickson Other [facility] Other Encounters Encounter Date Encounter Type Care Provider Facility Start: 12-24-2023 End: 12-24-2023 ambulatory [facility] Ambulatory Start: 12-09-2023 End: 12-09-2023 ambulatory [facility] Start: 12-02-2023 End: 12-02-2023 ambulatory [facility] Work Phone: Start: 12-02-2023 End: 12-02-2023 Encounter for general adult medical examination without abnormal findings [facility] Start: 12-02-2023 End: 12-02-2023 Patient encounter procedure [facility] Work Phone: Start: 09-24-2023 End: 09-24-2023 ambulatory [facility] Start: 08-24-2023 End: 08-24-2023 ambulatory [facility] Start: 08-03-2023 End: 08-03-2023 ambulatory [facility] Start: 07-15-2023 End: 07-15-2023 Office outpatient visit 25 minutes Shireen M Bill 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 MACHINE TENDER-RN ANGIOGRAPHY, 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 MACHINE TENDER-VARIOUS EXCEPTIONALITIES TEACHER Work Phone: [facility] Comment on above: Other bipolar disord er (Multi); Severe episode of recurrent major depressive disorder, without psychotic features (Multi); Generalized anxiety disorder; Extrapyramidal symptom Start: 07-15-2023 End: 07-15-2023 ambulatory [facility] Start: 07-10-2023 End: 07-10-2023 ambulatory [facility] Start: 06-22-2023 End: 06-22-2023 Office outpatient visit 40 minutes Shireen Hays Bill 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 MACHINE TENDER-RN ANGIOGRAPHY, 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 MACHINE TENDER-VARIOUS EXCEPTIONALITIES TEACHER Work Phone: [facility] Comment on above: Generalized anxiety disorder; Other bipolar disorder (CMS/HCC); Severe episode of recurrent major depressive disorder, without psychotic features (CMS/HCC); Extrapyramidal symptom Start: 06-22-2023 End: 06-22-2023 ambulatory [facility] Start: 06-11-2023 End: 06-11-2023 Office outpatient visit 40 minutes Shireen Lis Khan 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 MACHINE TENDER-RN ANGIOGRAPHY, 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 MACHINE TENDER-VARIOUS EXCEPTIONALITIES TEACHER Work Phone: [facility] Comment on above: Other bipolar disord er (CMS/HCC); Severe episode of recurrent major depressive disorder, without psychotic features (CMS/HCC); Generalized anxiety disorder; Extrapyramidal symptom Start: 06-11-2023 End: 06-11-2023 ambulatory SHIREEN [facility] Amb[facility] Start: 06-05-2023 End: 06-05-2023 ambulatory [facility] Start: 06-05-2023 End: 06-05-2023 ambulatory [facility] Work Phone: Start: 06-05-2023 End: 06-05-2023 Patient encounter procedure [facility] Work Phone: Start: 06-02-2023 Non-patient / Non-visit [facility] Work Phone: Start: 06-02-2023 End: 06-02-2023 ambulatory Rizwan Powers Other [facility] Other Start: 06-02-2023 Telephone encounter Rizwan Priya [facility] Start: 06-01-2023 End: 06-01-2023 ambulatory Rizwan Ball Other [facility] Other Start: 06-01-2023 Telephone encounter Rizwan Ball [facility] Start: 05-26-2023 End: 05-26-2023 ambulatory Rizwan Ball Other [facility] Other Start: 05-26-2023 Telephone encounter Rizwan Ball [facility] Start: 05-20-2023 End: 05-20-2023 ambulatory Rizwan Ball Other [facility] Other Start: 05-20-2023 Telephone encounter Rizwan Ball [facility] Start: 05-18-2023 End: 05-18-2023 Office outpatient visit 40 minutes Shireen Khan 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 MACHINE TENDER-RN ANGIOGRAPHY, 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 MACHINE TENDER-VARIOUS EXCEPTIONALITIES TEACHER Work Phone: [facility] Comment on above: Other bipolar disord er (CMS/HCC); Severe episode of recurrent major depressive disorder, without psychotic features (CMS/HCC); Generalized anxiety disorder; Extrapyramidal symptom Start: 05-18-2023 End: 05-18-2023 ambulatory SHIREEN Hays [facility] Start: 05-15-2023 ambulatory Rizwan Powers Facility: [facility] Start: 05-14-2023 End: 05-14-2023 ambulatory Rizwan Priya Other [facility] Other Start: 05-14-2023 Office outpatient vi sit 25 minutes Rizwan Powers [facility] Start: 05-11-2023 End: 05-11-2023 ambulatory Not Available Start: 05-07-2023 End: 05-08-2023 ambulatory Jeremías Ocampo Facility:[facility] Start: 05-07-2023 Non-patient / Non-visit [facility] Work Phone: Start: 05-06-2023 End: 05-06-2023 ambulatory SHIREEN [facility] Start: 05-06-2023 End: 05-06-2023 Encounter for general adult medical examination without abnormal findings SHIREEN [facility] Start: 04-27-2023 End: 04-27-2023 ambulatory Not Available Start: 03-16-2023 End: 03-16-2023 ambulatory SHIREEN M [facility] Start: 03-16-2023 End: 03-16-2023 Office outpatient visit 25 minutes Shireen Khan 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 MACHINE TENDER-RN ANGIOGRAPHY, 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 MACHINE TENDER-VARIOUS EXCEPTIONALITIES TEACHER Work Phone: [facility] Comment on above: Severe episode of re current major depressive disorder, without psychotic features (CMS/HCC); Generalized anxiety disorder; Other bipolar disorder (CMS/HCC); Extrapyramidal symptom Start: 02-16-2023 End: 02-16-2023 ambulatory SHIREEN Hays [facility] Start: 02-16-2023 End: 02-16-2023 Office outpatient visit 40 minutes Shireen Khan 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 MACHINE TENDER-RN ANGIOGRAPHY, 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 MACHINE TENDER-VARIOUS EXCEPTIONALITIES TEACHER Work Phone: [facility] Comment on above: Severe episode of re current major depressive disorder, without psychotic features (CMS/HCC); Generalized anxiety disorder; Other bipolar disorder (CMS/HCC); Extrapyramidal symptom Start: 01-23-2023 End: 01-23-2023 ambulatory Rizwan Powers Other [facility] Other Start: 01-23-2023 Telephone encounter Rizwan Powers [facility] Start: 01-16-2023 End: 01-16-2023 ambulatory Mora Hendrickson Other [facility] Other Start: 01-16-2023 Office outpatient vi sit 15 minutes Mora Hendrickson [facility] Start: 01-05-2023 AUDIT Unknown Unknown Communi ty [facility] [address] [place] Work Phone: Start: 01-01-2023 Patient encounter procedure Unknown Unknown WI-Ahjfzagjbi-Cpyobr [address] [place] DO Work Phone: Start: 12-24-2022 AUDIT Unknown Unknown Communi ty [facility] [address] [place] Work Phone: Start: 12-08-2022 Chart Update Unknown Unknown Communi ty [facility] [address] [place] Work Phone: Start: 11-28-2022 Chart Update Unknown Unknown Communi ty [facility] [address] [place] Work Phone: Start: 11-20-2022 Patient encounter procedure Unknown Unknown RL-Bppwowvynn-Ywtrxw [address] [place] DO Work Phone: Start: 11-04-2022 AUDIT Unknown Unknown MP-Psyc hiatry-[place] [address] [place] DO Work Phone: Start: 10-22-2022 Rx Renewal Unknown Unknown Communi ty [facility] [address] [place] Work Phone: Start: 09-25-[address] RIZWAN POWERS Facili ty:[facility] Start: 09-18-2022 Office outpatient vi sit 25 minutes Unknown Unknown [facility] [address] [place] Work Phone: Start: 09-18-2022 Patient encounter procedure Unknown Unknown UA-Efqxflpmnx-Gmskoc [address] [place] DO Work Phone: Start: 09-17-2022 AUDIT Unknown Unknown Communi ty [facility] [address] [place] Work Phone: Start: 08-15-2022 Chart Update Unknown Unknown Communi ty [facility] [address] [place] Work Phone: Start: 08-14-2022 Chart Update Unknown Unknown MP-Psyc hiatry-[place] [address] [place] DO Work Phone: Start: 2022 AUDIT Unknown Unknown Communi [facility] [address] [place] Work Phone: Start: 08-07-2022 Office outpatient vi sit 40 minutes Unknown Unknown [facility] [address] [place] Work Phone: Start: 08-07-2022 Patient encounter procedure Unknown Unknown YO-Kqsjeviuug-Mlpfqc [address] [place] DO Work Phone: Start: 08-01-2022 AUDIT Unknown Unknown MG-Psyc hiatry-[place] [address] [place] Work Phone: Start: 07-14-2022 End: 07-15-2022 ambulatory Coleman CARMICHAEL Facility:[facility] Start: 07-14-2022 End: 07-14-2022 Patient encounter procedure Coleman CARMICHAEL [facility] Start: 07-01-2022 Patient encounter procedure Unknown Unknown FT-Dmxdtpwdke-Tnfkgc [address] [place] DO Work Phone: Start: 05-27-2022 Office outpatient vi sit 40 minutes Unknown Unknown YC-Qlrpsfvssa-Okcihp [address] [place] DO Work Phone: Start: 05-22-2022 AUDIT Unknown Unknown MP-Psyc hiatry-[place] [address] [place] DO Work Phone: Start: 05-13-2022 End: 05-14-[address] KALEIGH YIN . Facility:[facility] Start: 05-05-[address] [facility] [address] [place] Work Phone: Start: 04-29-2022 End: 04-30-2022 ambulatory Coleman CARMICHAEL Facility[facility] Start: 04-15-2022 Adult health examination Aide rajwinder Hendrickson Other [facility] Other Start: 04-14-2022 End: 04-15-[address] RIZWAN POWERS Facility: Start: 03-31-2022 End: 04-01-2022 ambulatory Coleman CARMICHAEL Facility:[facility] Start: 03-31-2022 End: 03-31-2022 Patient encounter procedure Coleman CARMICHAEL [facility] Start: 03-27-2022 End: 04-02-[address] RIZWAN POWERS Facility:[facility] Start: 03-18-2022 Office outpatient vi sit 25 minutes Unknown Unknown OP-Bexzxlnkix-Tykciw [address] [place] DO Work Phone: Start: 03-10-2022 ambulatory Coleman CARMICHAEL Facility :[facility] Start: 02-27-2022 End: 02-28-[address] RIZWAN POWERS Facility:[facility] Start: 02-13-2022 AUDIT Unknown Unknown MP-Psyc hiatry-[place] [address] [place] DO Work Phone: Start: 02-13-2022 Refill Lani Reyes MD Work Phone: Psychiatry Comment on above: Refill Request Start: 02-12-2022 Office outpatient vi sit 25 minutes Unknown Unknown [facility] [address] [place] Work Phone: Start: 01-31-2022 [facility] [address] [place] Work Phone: Start: 01-07-2022 Office outpatient vi sit 25 minutes Unknown Unknown [facility] [address] [place] Work Phone: Start: 01-07-2022 Patient encounter procedure Unknown Unknown HP-Xwvephoukb-Wfqrzk [address] [place] DO Work Phone: Start: 01-02-2022 End: 01-03-[address] RIZWAN POWERS Facility:[facility] Start: 12-02-2021 Office outpatient vi sit 25 minutes Unknown Unknown [facility] [address] [place] Work Phone: Start: 11-29-2021 AUDIT Unknown Unknown [facility] [address] [place] Work Phone: Start: 11-22-2021 AUDIT Unknown [facility] [address] [place] Work Phone: Start: 11-18-2021 AUDIT Unknown Unknown [facility] [address] [place] Work Phone: Start: 11-01-2021 End: 11-02-[address] RIZWAN POWERS Facility:[facility] Start: 10-29-2021 Office outpatient vi sit 25 minutes Unknown Unknown YU-Ddktlgelth-Ncenrc 7th Fl[place] DO Work Phone: Start: 09-30-2021 AUDIT Unknown Unknown Communi [facility] [address] [place] Work Phone: Start: 09-25-2021 Office outpatient vi sit 25 minutes Unknown Unknown EV-Xytzrkkzit-Djgcxl 7th Flr DO Work Phone: Start: 09-25-2021 Patient encounter procedure Unknown Unknown [facility] [address] [place] Work Phone: Start: 09-23-2021 End: 09-24-[address] RIZWAN POWERS Facility:[facility] Start: 09-19-2021 Refill Lani Reyes MD Work Phone: Psychiatry Comment on above: Refill Request Start: 09-05-2021 AUDIT Unknown Unknown [facility] DO Work Phone: Start: 08-28-2021 Office outpatient ne w 60 minutes Unknown Unknown [place] [address] [place] Work Phone: Start: 2021 Telephone encounter Lani pepe MD Work Phone: MM Provider Adult Comment on above: Medication Problem Start: 08-12-2021 ambulatory Lani Reyes MD Work Phone: Psychiatry Comment on above: Antidepressant huang e Start: 08-07-2021 Refill Lani Reyes MD Work Phone: Psychiatry Comment on above: Refill Request Start: 08-05-2021 End: 08-05-2021 Patient encounter procedure Lani Reyes MD Work Phone: Psychiatry Comment on above: LIN (generalized anx iety disorder); Bipolar disorder in full remission, most recent episode unspecified type (HCC) Start: 07-22-2021 Telephone encounter Lani pepe MD Work Phone: Psychiatry Comment on above: Rx Refills Start: 07-19-2021 ambulatory Lani Reyes MD Work Phone: Psychiatry Comment on above: Medication Start: 07-17-2021 Refill Lani Reyes MD Work Phone: Psychiatry Comment on above: Refill Request Procedures Date Procedure Procedure Detail Performing Clinician Start: 08-03-2023 Basic metabolic 1999 panel - Serum or Plasma SHIREEN KHAN Start: 08-03-2023 [place] [Moles/volum e] in Serum or Plasma SHIREEN KHAN Start: 07-15-2023 FOLLOW UP IN PSYCHIATRY SHIREEN KHAN Start: 07-10-2023 Basic metabolic 1999 panel - Serum or Plasma SHIREEN KHAN Start: 07-10-2023 [place] [Moles/volum e] in Serum or Plasma SHIREEN KHAN Start: 07-10-2023 TSH WITH REFLEX TO F REE T4 IF ABNORMAL SHIREEN KHAN Start: 07-10-2023 Thyrotropin [Units/v olume] in Serum or Plasma Shireen Khan 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 MACHINE TENDER-RN ANGIOGRAPHY, 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 MACHINE TENDER-VARIOUS EXCEPTIONALITIES TEACHER Work Phone: Start: 06-05-2023 CBC W Auto Different ial panel - Blood SHIREEN ARGUETAWIN Start: 06-05-2023 Comprehensive metabo lic 2000 panel - Serum or Plasma SHIREEN KHAN Start: 06-05-2023 Hemoglobin A1c/Hemoglobin.total in Blood SHIREEN ARGUETAWIN Start: 06-05-2023 LAMOTRIGINE SHIREEN ARGUETA AARON Start: 06-05-2023 Lipid panel SHIREEN WALKER Start: 06-05-2023 VALPROIC ACID SHIREEN MERAZ Start: 06-05-2023 Lipid 1996 panel - S ignacia or Plasma Shireenbijal Khan 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 MACHINE TENDER-RN ANGIOGRAPHY, 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 MACHINE TENDER-VARIOUS EXCEPTIONALITIES TEACHER Work Phone: Start: 05-06-2023 Basic metabolic 2000 panel - Serum or Plasma SHIREEN BILL Start: 05-06-2023 [place] [Moles/volum e] in Serum or Plasma SHIREEN KHAN Start: 05-06-2023 TSH WITH REFLEX TO F REE T4 IF ABNORMAL SHIREEN KHAN Start: 08-14-2022 Lipid 1996 panel - S ignacia or Plasma Shireenbijal Khan 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 MACHINE TENDER-RN ANGIOGRAPHY, 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 MACHINE TENDER-VARIOUS EXCEPTIONALITIES TEACHER Work Phone: Start: 08-14-2022 Thyrotropin [Units/v olume] in Serum or Plasma Shireenbijal Khan 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 MACHINE TENDER-RN ANGIOGRAPHY, 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 MACHINE TENDER-VARIOUS EXCEPTIONALITIES TEACHER Work Phone: Start: 04-29-2022 Cystoscopy Coleman HANKS Start: 01-31-2020 Adult depression scr eening assessment Lani Reyes MD Work Phone: None (qualifier value) Antoine CARMICHAEL Plan of Treatment Date Care Activity Detail Author Start: 08-12-2029 Zoster Vaccines (1 of 2) Zoster Vaccines (1 of 2) [facility] Start: 06-05-2028 Lipid panel Lipid Panel [facility] Start: 08-15-2027 Lipid panel Lipid Panel [facility] Start: 06-05-2026 Diabetes mellitus screening Diabetes Screening [facility] Start: 07-09-2024 Thyroid stimulating hormone measurement TSH Level [facility] Start: 12-20-2023 Influenza vaccination Influenza Vaccine (Season Ended) [facility] Start: 09-24-2023 End: 09-24-2023 Telemedicine consultation with patient 09/24/2023 2:30 PM EDT [facility] [address] [place] [phone] Shireen Khan, 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 MACHINE TENDER-RN ANGIOGRAPHY, 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 MACHINE TENDER-VARIOUS EXCEPTIONALITIES TEACHER [address] [facility] [place] [address] [facility] Start: 08-15-2023 Thyroid stimulating hormone measurement TSH Level [facility] Start: 07-15-2023 End: 07-15-2023 Telemedicine consultation with patient [facility] Start: 06-11-2023 End: 06-11-2023 Telemedicine consultation with patient 06/11/2023 10:30 AM EST Telemedicine [facility] [address] [place] [phone] Shireen Khan, 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 MACHINE TENDER-RN ANGIOGRAPHY, 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 MACHINE TENDER-VARIOUS EXCEPTIONALITIES TEACHER [address] [facility] [place] [address] [facility] Start: 05-08-2023 [facility] Start: 05-08-2023 Referral to psychiatrist [facility] Start: 05-07-2023 Hospital admission [facility] Start: 05-07-2023 [facility] Start: 04-30-2023 End: 04-30-2023 Telemedicine consultation with patient 04/30/2023 9:30 AM EST Telemedicine [facility] [address] [place] [phone] Shireen Khna, 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 MACHINE TENDER-RN ANGIOGRAPHY, 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 MACHINE TENDER-VARIOUS EXCEPTIONALITIES TEACHER [address] [facility] [place] [address] [facility] Start: 03-16-2023 End: 03-16-2023 Telemedicine consultation with patient 03/16/2023 10:00 AM EST Telemedicine [facility] [place] [address] [place] [address] Shireen Khan, 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 MACHINE TENDER-RN ANGIOGRAPHY, 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 MACHINE TENDER-VARIOUS EXCEPTIONALITIES TEACHER [address] [address] [place] [address] [facility] [place] Start: 12-19-2022 COVID-19 Vaccine ( season) COVID-19 Vaccine ( season) [facility] Start: 12-19-2022 Influenza vaccination Influenza Vaccine (#1) [facility] Start: 12-19-2021 Influenza vaccination [facility] Start: 06-18-2021 COVID-19 VACCINE (4 - Booster for Pfizer series) COVID-19 VACCINE (4 - Booster for Pfizer series) [facility] Start: 06-18-2021 COVID-19 Vaccine (4 - Pfizer risk series) COVID-19 Vaccine (4 - Pfizer risk series) [facility] Start: 06-18-2021 COVID-19 Vaccine (4 - Pfizer series) COVID-19 Vaccine (4 - Pfizer series) [facility] Start: 04-20-2021 DEPRESSION ASSESSMENT DEPRESSION ASSESSMENT [facility] Start: 01-30-2021 Adult depression screening assessment DEPRESSION SCREENING [facility] Start: 01-02-2021 COVID-19 VACCINE (3 - Booster for Pfizer series) COVID-19 VACCINE (3 - Booster for Pfizer series) [facility] Start: 12-19-2020 Influenza vaccination INFLUENZA (#1) [facility] Start: 08-12-2014 LIPID SCREEN LIPID SCREEN [facility] Start: 08-12-2001 DTaP/Tdap/Td Vaccines (1 - Tdap) DTaP/Tdap/Td Vaccines (1 - Tdap) [facility] Start: 08-12-1998 Hepatitis B Vaccines (1 of 3 - 19+ 3-dose series) Hepatitis B Vaccines (1 of 3 - 19+ 3-dose series) [facility] Start: 08-12-1998 Urine microalbumin profile DTAP,TDAP,TD (1 - Tdap) [facility] Start: 08-12-1997 Diabetes mellitus screening Diabetes Screening [facility] Start: 08-12-1997 HEPATITIS C SCREENING HEPATITIS C SCREENING [facility] Start: 08-12-1997 Hepatitis C screening Hepatitis C Screening [facility] Start: 08-12-1997 HIV SCREENING HIV SCREENING [facility] Start: 08-12-1980 MMR Vaccines (1 of 1 - Standard series) MMR Vaccines (1 of 1 - Standard series) [facility] Start: 1979 HEPATITIS B (1 of 3 - 3-dose series) HEPATITIS B (1 of 3 - 3-dose series) [facility] Start: 1979 Hepatitis B Vaccines (1 of 3 - 3-dose series) Hepatitis B Vaccines (1 of 3 - 3-dose series) [facility] Start: 1979 HIV screening HIV Screening [facility] Start: 1979 Medicare Annual Wellness Visit Medicare Annual Wellness Visit (AWV) [facility] Comprehensive metabo lic 2000 panel - Serum or Plasma [facility] Patient referral [facility] Work Phone: [facility] Immunizations Immunization Date Immunization Notes Care Provider Dat lyons 01-13-2022 influenza virus vaccine, split virus (incl. purified surface antigen) Mora Hendrickson Other [facility] Other 01-13-2022 influenza virus vaccine, unspecified formulation Coleman CARMICHAEL [facility] 01-13-2022 Influenza, injectable, Madin Kim Canine Kidney, preservative free, quadrivalent Shireen Khan 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 MACHINE TENDER-RN ANGIOGRAPHY, 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 MACHINE TENDER-VARIOUS EXCEPTIONALITIES TEACHER Work Phone: [facility] Work Phone: 04-23-2021 SARS-CoV-2 (COVID-19 ) mRNA BNT-162b2 vax Coleman CARMICHAEL [facility] Comment on above: Result Comment: 2021: [id number] 01-20-2021 influenza virus vaccine, unspecified formulation Coleman CARMICHAEL [facility] 01-20-2021 influenza, injectable, quadrivalent, preservative free Shireen Khan 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 MACHINE TENDER-RN ANGIOGRAPHY, 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 MACHINE TENDER-VARIOUS EXCEPTIONALITIES TEACHER Work Phone: [facility] Work Phone: 08-02-2020 SARS-CoV-2 (COVID-19 ) mRNA BNT-162b2 vax Coleman CARMICHAEL [facility] 07-11-2020 SARS-CoV-2 (COVID-19 ) mRNA BNT-162b2 vax Coleman CARMICHAEL [facility] 01-30-2020 influenza virus vaccine, unspecified formulation Colemanlenin CARMICHAEL [facility] 01-30-2020 Seasonal, quadrivalent, recombinant, injectable influenza vaccine, preservative free Shireen Khan 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 MACHINE TENDER-RN ANGIOGRAPHY, 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 MACHINE TENDER-VARIOUS EXCEPTIONALITIES TEACHER Work Phone: [facility] Work Phone: 02-04-2018 influenza virus vaccine, split virus (incl. purified surface antigen) Mora Hendrickson Other [facility] Other 02-04-2018 influenza virus vaccine, unspecified formulation Coleman CARMICHAEL [facility] 02-04-2018 Influenza, injectable, Madin [place] Canine Kidney, quadrivalent with preservative Shireen Khan 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 MACHINE TENDER-RN ANGIOGRAPHY, 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 MACHINE TENDER-VARIOUS EXCEPTIONALITIES TEACHER Work Phone: [facility] Work Phone: Payers Date Payer Category Payer Self-pay 2021 Medicare [id number] 2017 Medicare [id number] 1979 Unknown [id number] 2.16.840.1.728043.3.579.2. 727 1979 Unknown [id number] 2.16.840.1.909633.3.579.2. 727 1979 Unknown [id number] 2.16.840.1.606940.3.579.2. 727 1979 Unknown [id number] 2.16.840.1.292441.3.579.2. 727 1979 Unknown [id number] 2.16840.1.419225.3.579.2. 593 1979 Unknown [id number] 2.16.840.1.830808.3.579.2. 593 1979 Unknown [id number] 2.16.840.1.184249.3.579.2. 593 1979 Unknown [id number] 2.16.840.1.150304.3.579.2. 593 1979 Unknown [id number] 2.16.840.1.626381.3.579.2. 593 1979 Unknown [id number] 2.16.840.1.432704.3.579.2. 593 1979 Unknown [id number] 2.16.840.1.336224.3.579.2. 593 1979 Unknown [id number] 2.16.840.1.891294.3.579.2. 593 1979 Unknown [id number] 2.16.840.1.125292.3.579.2. 1259 1979 Unknown [id number] 2.16.840.1.031300.3.579.2. 1258 1979 Unknown [id number] 2.16.840.1.283095.3.579.2. 1244 1979 Unknown [id number] 2.16.840.1.675569.3.579.2. 1244 1979 Unknown [id number] 2.16.840.1.168477.3.579.2. 1244 1979 Unknown [id number] 2.16.840.1.672187.3.579.2. 1244 1979 Unknown [id number] 2.840.1.102895.3.579.2. 1244 1979 Unknown [id number] 2.840.1.703981.3.579.2. 1244 1979 Unknown [id number] 2.840.1.966457.3.579.2. 1244 1979 Unknown [id number] 2.840.1.687208.3.579.2. 1244 1979 Unknown [id number] 2.840.1.514940.3.579.2. 1244 1979 Unknown [id number] 2.16840.1.250192.3.579.2. 1243 1979 Unknown [id number] 2.840.1.579897.3.579.2. 1243 1979 Unknown [id number] 2.840.1.596066.3.579.2. 1243 1979 Unknown [id number] 2.840.1.117989.3.579.2. 1243 1979 Unknown [id number] 2.16840.1.787591.3.579.2. 1243 1959 Private Health Insurance [id number] Medicare [id number] Unknown Unknown [facility] [id number] Unknown [id number] 2.16.840.1.141222.3.579.2. 531 Unknown [id number] 2.16.840.1.913135.3.579.2. 531 Social History Date Type Detail Facility Tobacco smoking status VTIS Tobacco smoking consumption unknown [facility] Start: 1980 Sex Assigned At Not on file [facility] Start: 07-26-2021 End: 05-06-2023 Exposure to SARS-CoV-2 (event) Not sure [facility] Start: 03-31-2022 End: 05-17-2023 Tobacco smoking status Never smoked tobacco (finding) [facility] Tobacco smoking status Never [facility] Start: 02-16-2023 End: 08-24-2023 Sex Assigned At Male [facility] Start: 02-16-2023 Tobacco use and exposure Smokeless tobacco non-user [facility] Work Phone: Start: 02-16-2023 End: 08-24-2023 History of Social function [facility] Work Phone: Start: 1980 Sex Assigned At Male F [facility] Medical Equipment Procedure Code Equipment Code Equipment Origin al Text Equipment Identifier Dates Start: 05-26-2023 Functional Status Date Assessment Result Facility 03-31-2022 Functional Status N/A [facility] Clinical Notes 12-12-2020 to 07-15-2023 LIZZIE Corona APRN-CNS - 07/15/2023 11:30 AM EDTAssessment & Plan Note - LIZZIE Corona APRN-CNS - 06/22/2023 5:19 PM EST Note Date & Type Note Facility 07-15-2023 History of Presen t illness Narrative Outpatient Psychiatry Subjective Daljit Napoles, is a 43 y.o. male, seen in follow-up. 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 Resumed low-dose of lithium with supply he had at home- had been apprehensive re: restarting d/t toxicity at previous dose, believed to be r/t interaction between lithium and losartan started by PCP for HTN. If lithium is to be resumed, will require close monitoring. Discussed continuing at very low dose, and adding low-dose risperidone PRN short term for mood/anxiety while lithium reaches benefit/given need for very gradual titration. Discussed indication(s), reviewed risks/benefits/alternatives. If low dose risperidone is not beneficial, would consider trial of low-dose quetiapine, but as noted in previous visits, polypharmacy is a significant, ongoing concern. Plan: Start risperidone 0.25 mg PO up to daily PRN for mood/anxiety. Ok to continue low-dose lithium ER 300 mg PO at bedtime. Will check lithium level and BMP prior to next appt Continue clonazepam 1 mg PO BID Continue clonidine 0.2 mg PO at bedtime PRN for sleep Continue gabapentin 1200 mg PO TID Continue lamotrigine 100 mg PO BID Continue mirtazapine 45 mg PO at bedtime Continue risperidone 2 mg PO daily and 1 mg PO at bedtime Continue Effexor XR 300 mg PO daily Continue hydroxyzine 50-100 mg PO daily PRN for anxiety Continue engagement in individual therapy. Follow-up in 4-6 weeks. Risk Assessment: Risk Assessment: Daljit Napoles is currently a low acute risk of suicide and self-harm due to no past suicide attempt(s) and not currently endorsing thoughts of suicide. Daljit Napoles is currently a low acute risk of violence and harm to others due to no past history of violence and not currently threatening others. Suicidal Risk Factors: , male, unmarried/single, living alone/lack of social support, and access to weapons Violence Risk Factors: none Protective Factors: sense of responsibility towards family, social support/connectedness, child related concerns/living with child <18 years, positive family relationships, and hopefulness/future orientation. Reason for Visit: Follow-up for medication management. HPI: Since his last visit, Restarted lithium with supply he had at home. Didn't feel right on lurasidone. Having rapid cycling, moods throughout the day from hour to hour. From depressed to kind of elated, doesn't seem to be any middle ground. Started and has gradually worsened since last appointment Seems like since restarting lithium it has been a little bit better. Also reports sporadic auditory hallucinations. Multiple voices, can't make out what they're saying. Happens a couple times/week. Experienced much worse when he was in the hospital and taken off of all his medications. Since then overall has been better, but recently, just rickey picked up a little bit. Sleep has been worse. Wakes up in the middle of the night and anxiety kicks in. Can't get back to sleep after that. Getting ~5 hrs of sleep/night. Energy level has been low. Involuntary, intermittent orofacial movements have seemed more sporadic. Didn't reduce risperidone dose as discussed during last visit d/t concern about making >1 change to medications. Denies suicidal ideation or a passive wish. No new medications or health problems. Current Psychiatric Medications: Clonazepam 1 mg PO BID Clonidine 0.2 mg PO at bedtime PRN for sleep [place] ER 300 mg PO at bedtime- restarted with supply at home from old rx Gabapentin 1200 mg PO TID Lamotrigine 100 mg PO BID Mirtazapine 45 mg PO at bedtime Risperidone 2 mg PO daily and 1 mg PO at bedtime Effexor XR 300 mg PO daily Hydroxyzine 50-100 mg PO daily PRN for anxiety Record Review: moderate Medical Review Of Systems: Pertinent items are noted in HPI. Psychiatric Review Of Systems: As noted in HPI. Objective Mental Status Exam General Appearance: Well groomed, appropriate eye contact Attitude/Behavior: Cooperative Motor: No psychomotor agitation or retardation, no tremor or other abnormal movements, Other: (comment) (subjectively reports ongoing, sporadic orofacial dyskinesia) Speech: Normal rate, volume, prosody Gait/Station: Other:(comment) (not observed- virtual) Mood: A lot of ups and downs. Affect: Constricted, anxious. Congruent with mood and topic of conversation Thought Process: Linear, goal directed Thought Associations: No loosening of associations Thought Content: Other: (comment) (ongoing depressive and anxious themes.) Perception: No perceptual abnormalities noted Sensorium: Alert and oriented to person, place, time and situation Insight: Intact Judgement: Intact Cognition: Cognitively intact to conversational testing with respect to attention, orientation, fund of knowledge, recent and remote memory, and language Vitals: There were no vitals filed for this visit. Labs: not applicable LIZZIE Corona APRN-CNS documented in this encounter [facility] Work Phone: 06-22-2023 Evaluation + Plan note Associated Problem(s): Severe episode of recurrent major depressive disorder, without psychotic features (CMS/HCC) Plan as noted above for 'Other bipolar disorder' [facility] Work Phone: 06-22-2023 Miscellaneous Notes Associated Problem(s): Severe episode of recurrent major depressive disorder, without psychotic features (CMS/HCC) Plan as noted above for 'Other bipolar disorder' Associated Problem(s): Extrapyramidal symptom Suspect r/t risperidone. Attempted to taper gradually in January 2023, but resumed this dose within a few weeks d/t worsening depressive sx. 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 Receptive to re-attempting taper in favor of lurasidone as noted above. If sx persist after risperidone has been discontinued, and tardive dyskinesia is suspected, will discuss treatment options. Associated Problem(s): Generalized anxiety disorder No indication for changes to treatment plan today, while making adjustments to mood stabilizing medications. Continuing efforts at mitigating polypharmacy. 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 Continue gabapentin 1200 mg PO TID- no refill needed today. Continue venlafaxine ER 300 mg PO daily- no refill needed today. Continue mirtazapine 45 mg PO at bedtime- no refill needed today. Continue clonazepam 1 mg PO BID- no refill needed today. Continue clonidine 0.2 mg PO at bedtime PRN for sleep- no refill needed today. Continue hydroxyzine 50-100 mg PO daily PRN for anxiety- no refill needed today. Continue individual therapy. Reviewed OARRS, no discrepancies or concerns. Discussed risk of motor/cognitive impairment, sedation, dependence, tolerance, abuse, withdrawal sequelae, accidental overdose, life-threatening respiratory depression (rashard. in combination with alcohol and/or opioids), excess sedation in combination with other sedating medicines. Associated Problem(s): Other bipolar disorder ([facility]) r/o Bipolar 2 disorder vs MDD [place] discontinued during recent hospitalization for lithium toxicity. No recent dose changes directly to lithium had been made. Suspect level was impacted by addition/titration of gabapentin. He does not feel comfortable restarting lithium at this point. Unable to tolerate titration of Depakote d/t side effects. Has self-discontinued for ~1 week, and noting mood instability/fluctuations since. Discussed alternatives including re-trial of low dose lithium, titration of lamotrigine or cross-titrating risperidone in favor of an alternative with lower risk for EPS and more significant antidepressant benefit (e.g. lurasidone, cariprazine, brexpiprazole). Advised that mitigating further polypharmacy would be the preferred approach if possible, and he is receptive to attempting cross-titration of risperidone in favor of an alternative. Polypharmacy has been an ongoing concern, and remains so. Taper off of risperidone is further indicated d/t concern for EPS (see plan below). Self-discontinued divalproex d/t side effects. Continue lamotrigine 100 mg PO BID. -no refill needed today. Continue venlafaxine ER 300 mg PO daily-no refill needed today. Continue mirtazapine 45 mg PO at bedtime- no refill needed today. Continue gabapentin 1200 mg PO TID- no refill needed today. Decrease risperidone to 1.5 mg PO daily and continue 1 mg PO at bedtime- plan to taper off in favor of lurasidone if well-tolerated. Start lurasidone 20 mg PO QPM with food. Continue engagement in individual therapy. Advised of potentially fatal rash (i.e. Herrera-Rojas Syndrome) in 1:10,000 individuals. Agrees to stop medication and seek medical attention immediately if rash or blistering of the mucosal surfaces develops; also discussed risk for benign drug-induced rash, and advised to cease medication and seek immediate medical attention to r/o SJS given its potential lethality. Further advised that the risk for this reaction increases if proper dose titration is not followed, and that after 2 days of non-adherence, re-titration is necessary. documented in this encounter [facility] Work Phone: 06-22-2023 Evaluation + Plan note Associated Problem(s): Extrapyramidal symptom Suspect r/t risperidone. Attempted to taper gradually in January 2023, but resumed this dose within a few weeks d/t worsening depressive sx. 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 Receptive to re-attempting taper in favor of lurasidone as noted above. If sx persist after risperidone has been discontinued, and tardive dyskinesia is suspected, will discuss treatment options. [facility] Work Phone: 06-22-2023 Evaluation + Plan note Associated Problem(s): Generalized anxiety disorder No indication for changes to treatment plan today, while making adjustments to mood stabilizing medications. Continuing efforts at mitigating polypharmacy. Goal senior care will be to reduce and ideally discontinue clonazepam. Continue gabapentin 1200 mg PO TID- no refill needed today. Continue venlafaxine ER 300 mg PO daily- no refill needed today. Continue mirtazapine 45 mg PO at bedtime- no refill needed today. Continue clonazepam 1 mg PO BID- no refill needed today. Continue clonidine 0.2 mg PO at bedtime PRN for sleep- no refill needed today. Continue hydroxyzine 50-100 mg PO daily PRN for anxiety- no refill needed today. Continue individual therapy. Reviewed OARRS, no discrepancies or concerns. Discussed risk of motor/cognitive impairment, sedation, dependence, tolerance, abuse, withdrawal sequelae, accidental overdose, life-threatening respiratory depression (rashard. in combination with alcohol and/or opioids), excess sedation in combination with other sedating medicines. Electronically signed by Shrieen Khan APRN-RN ANGIOGRAPHY, JANA-VARIOUS EXCEPTIONALITIES TEACHER at 06/22/2023 5:17 PM EST [facility] Work Phone: 06-22-2023 Evaluation + Plan note Associated Problem(s): Other bipolar disorder ([facility]) r/o Bipolar 2 disorder vs MDD [place] discontinued during recent hospitalization for lithium toxicity. No recent dose changes directly to lithium had been made. Suspect level was impacted by addition/titration of gabapentin. He does not feel comfortable restarting lithium at this point. Unable to tolerate titration of Depakote d/t side effects. Has self-discontinued for ~1 week, and noting mood instability/fluctuations since. Discussed alternatives including re-trial of low dose lithium, titration of lamotrigine or cross-titrating risperidone in favor of an alternative with lower risk for EPS and more significant antidepressant benefit (e.g. lurasidone, cariprazine, brexpiprazole). Advised that mitigating further polypharmacy would be the preferred approach if possible, and he is receptive to attempting cross-titration of risperidone in favor of an alternative. Polypharmacy has been an ongoing concern, and remains so. Taper off of risperidone is further indicated d/t concern for EPS (see plan below). Self-discontinued divalproex d/t side effects. Continue lamotrigine 100 mg PO BID. -no refill needed today. Continue venlafaxine ER 300 mg PO daily-no refill needed today. Continue mirtazapine 45 mg PO at bedtime- no refill needed today. Continue gabapentin 1200 mg PO TID- no refill needed today. Decrease risperidone to 1.5 mg PO daily and continue 1 mg PO at bedtime- plan to taper off in favor of lurasidone if well-tolerated. Start lurasidone 20 mg PO QPM with food. Continue engagement in individual therapy. Advised of potentially fatal rash (i.e. Herrera-Rojas Syndrome) in 1:10,000 individuals. Agrees to stop medication and seek medical attention immediately if rash or blistering of the mucosal surfaces develops; also discussed risk for benign drug-induced rash, and advised to cease medication and seek immediate medical attention to r/o SJS given its potential lethality. Further advised that the risk for this reaction increases if proper dose titration is not followed, and that after 2 days of non-adherence, re-titration is necessary. Electronically signed by LAMONTE CoronaRN ANGIOGRAPHY, JANA-VARIOUS EXCEPTIONALITIES TEACHER at 06/22/2023 5:17 PM [facility] Work Phone: 06-22-2023 History of Presen t illness Narrative Outpatient Psychiatry Subjective Daljti Napoles, is a 42 y.o. male, seen in follow-up. Assessment/Plan Problem List Items Addressed This Visit ICD-10-CM Other bipolar disorder (CMS/[facility]) F31.89 r/o Bipolar 2 disorder vs MDD [place] discontinued during recent hospitalization for lithium toxicity. No recent dose changes directly to lithium had been made. Suspect level was impacted by addition/titration of gabapentin. He does not feel comfortable restarting lithium at this point. Unable to tolerate titration of Depakote d/t side effects. Has self-discontinued for ~1 week, and noting mood instability/fluctuations since. Discussed alternatives including re-trial of low dose lithium, titration of lamotrigine or cross-titrating risperidone in favor of an alternative with lower risk for EPS and more significant antidepressant benefit (e.g. lurasidone, cariprazine, brexpiprazole). Advised that mitigating further polypharmacy would be the preferred approach if possible, and he is receptive to attempting cross-titration of risperidone in favor of an alternative. Polypharmacy has been an ongoing concern, and remains so. Taper off of risperidone is further indicated d/t concern for EPS (see plan below). Self-discontinued divalproex d/t side effects. Continue lamotrigine 100 mg PO BID. -no refill needed today. Continue venlafaxine ER 300 mg PO daily-no refill needed today. Continue mirtazapine 45 mg PO at bedtime- no refill needed today. Continue gabapentin 1200 mg PO TID- no refill needed today. Decrease risperidone to 1.5 mg PO daily and continue 1 mg PO at bedtime- plan to taper off in favor of lurasidone if well-tolerated. Start lurasidone 20 mg PO QPM with food. Continue engagement in individual therapy. Advised of potentially fatal rash (i.e. Herrera-Rojas Syndrome) in 1:10,000 individuals. Agrees to stop medication and seek medical attention immediately if rash or blistering of the mucosal surfaces develops; also discussed risk for benign drug-induced rash, and advised to cease medication and seek immediate medical attention to r/o SJS given its potential lethality. Further advised that the risk for this reaction increases if proper dose titration is not followed, and that after 2 days of non-adherence, re-titration is necessary. Relevant Medications lurasidone (Latuda) 20 mg tablet risperiDONE (RisperDAL) 1 mg tablet gabapentin (Neurontin) 600 mg tablet Generalized anxiety disorder F41.1 No indication for changes to treatment plan today, while making adjustments to mood stabilizing medications. Continuing efforts at mitigating polypharmacy. Goal senior care will be to reduce and ideally discontinue clonazepam. Continue gabapentin 1200 mg PO TID- no refill needed today. Continue venlafaxine ER 300 mg PO daily- no refill needed today. Continue mirtazapine 45 mg PO at bedtime- no refill needed today. Continue clonazepam 1 mg PO BID- no refill needed today. Continue clonidine 0.2 mg PO at bedtime PRN for sleep- no refill needed today. Continue hydroxyzine 50-100 mg PO daily PRN for anxiety- no refill needed today. Continue individual therapy. Reviewed OARRS, no discrepancies or concerns. Discussed risk of motor/cognitive impairment, sedation, dependence, tolerance, abuse, withdrawal sequelae, accidental overdose, life-threatening respiratory depression (rashard. in combination with alcohol and/or opioids), excess sedation in combination with other sedating medicines. Relevant Medications gabapentin (Neurontin) 600 mg tablet Severe episode of recurrent major depressive disorder, without psychotic features (CMS/HCC) F33.2 Plan as noted above for 'Other bipolar disorder' Extrapyramidal symptom R29.818 Suspect r/t risperidone. Attempted to taper gradually in January 2023, but resumed this dose within a few weeks d/t worsening depressive sx. 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 Receptive to re-attempting taper in favor of lurasidone as noted above. If sx persist after risperidone has been discontinued, and tardive dyskinesia is suspected, will discuss treatment options. Follow-up in 3 weeks. Risk Assessment: Risk Assessment: Daljit Napoles is currently a low acute risk of suicide and self-harm due to no past suicide attempt(s) and not currently endorsing thoughts of suicide. Daljit Napoles is currently a low acute risk of violence and harm to others due to no past history of violence and not currently threatening others. Suicidal Risk Factors: , male, unmarried/single, living alone/lack of social support, and access to weapons Violence Risk Factors: none Protective Factors: sense of responsibility towards family, social support/connectedness, child related concerns/living with child <18 years, positive family relationships, and hopefulness/future orientation. Reason for Visit: Follow-up for medication management. HPI: Since his last visit, Experienced side effects with increase in Depakote following last visit- waking up completely disoriented, didn't know where he was, also experienced dizziness. Disrupted his sleep- was waking in the middle of the night and would be up for several hours. Tapered dose back down and stopped completely a few days ago. Side effects have resolved. Did seem to level his mood- fewer fluctuations. Mood is, kind of back to the way it was... fluctuating. Did some reading about similar medications to Depakote. Inquired about topiramate. Feels unsure about what to do next with medications, but would like to find more stability in mood, and overall improvement in depressive sx especially. Mentions that he also does have concerns about clonazepam no longer being effective for anxiety, and instead at this point he takes it because he'll feel worse if he doesn't. Does not want to focus on this right now, as we're making changes to other medications, but wanted to share this concern to be addressed in the future. Denies suicidal ideation or a passive wish. No new medications or health problems. Current Psychiatric Medications: Clonazepam 1 mg PO BID Clonidine 0.2 mg PO at bedtime PRN for sleep Depakote ER 500 mg PO at bedtime- tapered off ~1 week ago. Gabapentin 1200 mg PO TID Lamotrigine 100 mg PO BID Mirtazapine 45 mg PO at bedtime Risperidone 2 mg PO daily and 1 mg PO at bedtime Effexor XR 300 mg PO daily Hydroxyzine 50-100 mg PO daily PRN for anxiety Record Review: brief Medical Review Of Systems: Pertinent items are noted in HPI. Psychiatric Review Of Systems: As noted in HPI. Objective Mental Status Exam General Appearance: Well groomed, appropriate eye contact Attitude/Behavior: Cooperative Motor: No psychomotor agitation or retardation, no tremor or other abnormal movements, Other: (comment) (subjectively reports ongoing, sporadic orofacial dyskinesia) Speech: Normal rate, volume, prosody Gait/Station: Other:(comment) (not observed- virtual) Mood: Kind of back to the way it was... fluctuating. Affect: Constricted, Congruent with mood and topic of conversation Thought Process: Linear, goal directed Thought Associations: No loosening of associations Thought Content: Other: (comment) (going depressive and anxious themes.) Perception: No perceptual abnormalities noted Sensorium: Alert and oriented to person, place, time and situation Insight: Intact Judgement: Intact Cognition: Cognitively intact to conversational testing with respect to attention, orientation, fund of knowledge, recent and remote memory, and language Vitals: There were no vitals filed for this visit. Labs: not applicable LIZZIE Corona, JANA-VARIOUS EXCEPTIONALITIES TEACHER documented in this encounter [facility] Work Phone: 06-11-2023 Evaluation + Plan note Associated Problem(s): Extrapyramidal symptom For now, continue risperidone 2 mg PO daily and 1 mg PO at bedtime. Attempted to taper gradually in January 2023, but resumed this dose within a few weeks d/t worsening depressive sx. 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 Advised to contact the office if sx worsen significantly before next visit. If sx persist after risperidone has been discontinued, and tardive dyskinesia is suspected, will discuss treatment options. [facility] Work Phone: 06-11-2023 Evaluation + Plan note Associated Problem(s): Severe episode of recurrent major depressive disorder, without psychotic features (CMS/HCC) Plan as noted above for 'Other bipolar disorder' [facility] Work Phone: 06-11-2023 Evaluation + Plan note Associated Problem(s): Generalized anxiety disorder No indication for changes to treatment plan today, while making adjustments to mood stabilizing medications. Continuing efforts at mitigating polypharmacy. Goal senior care will be to reduce and ideally discontinue clonazepam. Continue gabapentin 1200 mg PO TID- no refill needed today. Continue venlafaxine ER 300 mg PO daily- no refill needed today. Continue mirtazapine 45 mg PO at bedtime- no refill needed today. Continue clonazepam 1 mg PO BID- no refill needed today. Continue clonidine 0.2 mg PO at bedtime PRN for sleep- no refill needed today. Continue hydroxyzine 50-100 mg PO daily PRN for anxiety- no refill needed today. Continue individual therapy. Reviewed OARRS, no discrepancies or concerns. Discussed risk of motor/cognitive impairment, sedation, dependence, tolerance, abuse, withdrawal sequelae, accidental overdose, life-threatening respiratory depression (rashard. in combination with alcohol and/or opioids), excess sedation in combination with other sedating medicines. [facility] Work Phone: 06-11-2023 Miscellaneous Notes Associated Problem(s): Extrapyramidal symptom For now, continue risperidone 2 mg PO daily and 1 mg PO at bedtime. Attempted to taper gradually in January 2023, but resumed this dose within a few weeks d/t worsening depressive sx. 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 Advised to contact the office if sx worsen significantly before next visit. If sx persist after risperidone has been discontinued, and tardive dyskinesia is suspected, will discuss treatment options. Associated Problem(s): Severe episode of recurrent major depressive disorder, without psychotic features (CMS/HCC) Plan as noted above for 'Other bipolar disorder' Associated Problem(s): Generalized anxiety disorder No indication for changes to treatment plan today, while making adjustments to mood stabilizing medications. Continuing efforts at mitigating polypharmacy. Goal senior care will be to reduce and ideally discontinue clonazepam. Continue gabapentin 1200 mg PO TID- no refill needed today. Continue venlafaxine ER 300 mg PO daily- no refill needed today. Continue mirtazapine 45 mg PO at bedtime- no refill needed today. Continue clonazepam 1 mg PO BID- no refill needed today. Continue clonidine 0.2 mg PO at bedtime PRN for sleep- no refill needed today. Continue hydroxyzine 50-100 mg PO daily PRN for anxiety- no refill needed today. Continue individual therapy. Reviewed OARRS, no discrepancies or concerns. Discussed risk of motor/cognitive impairment, sedation, dependence, tolerance, abuse, withdrawal sequelae, accidental overdose, life-threatening respiratory depression (rashard. in combination with alcohol and/or opioids), excess sedation in combination with other sedating medicines. Electronically signed by Shireen Khan, JANA-RN ANGIOGRAPHY, 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 MACHINE TENDER-VARIOUS EXCEPTIONALITIES TEACHER at 06/11/2023 5:11 PM EST Associated Problem(s): Other bipolar disorder ([facility]) r/o Bipolar 2 disorder vs MDD [place] discontinued during recent hospitalization for lithium toxicity. No recent dose changes directly to lithium had been made. Suspect level was impacted by addition/titration of gabapentin. He does not feel comfortable restarting lithium at this point. Tolerated start of low-dose divalproex, without side effects, but minimal benefit. Advised of potential interaction effects between divalproex and lamotrigine, and that we may need to consider reduction of lamotrigine dose as divalproex is titrated. Even with dose adjustments, serum medication levels for both drugs can be unpredictable when they are prescribed in tandem, which we discussed at length today. Plan will be to gently titrate divalproex as tolerated/indicated and gently reduce lamotrigine dose to mitigate interaction risk. Valproic acid (divalproex) level subtherapeutic, which is unsurprising at current dose. Lamotrigine level WNL. Lipid panel was not fasting, so results unreliable. Will need to repeat- plan to recheck VPA and lamotrigine levels, so will re-order at that time. Additionally, polypharmacy has been an ongoing concern, and remains so. May consider attempting taper off of lamotrigine as divalproex is titrated. Will defer taper of risperidone d/t concern for EPS (see plan below) for now, given more urgent need to adjust mood stabilizing medications. Gently titrate divalproex ER to 500 mg PO at bedtime to augment antidepressant medications, and prevent hypomanic sx. Discussed indication(s), reviewed risks/benefits/alternatives. Decrease lamotrigine to 100 mg PO BID. Continue venlafaxine ER 300 mg PO daily-no refill needed today. Continue mirtazapine 45 mg PO at bedtime- no refill needed today. Continue gabapentin 1200 mg PO TID- no refill needed today. Continue engagement in individual therapy. Advised of potentially fatal rash (i.e. Herrera-Rojas Syndrome) in 1:10,000 individuals. Agrees to stop medication and seek medical attention immediately if rash or blistering of the mucosal surfaces develops; also discussed risk for benign drug-induced rash, and advised to cease medication and seek immediate medical attention to r/o SJS given its potential lethality. Further advised that the risk for this reaction increases if proper dose titration is not followed, and that after 2 days of non-adherence, re-titration is necessary. Electronically signed by Shireen Khan, LAMONTERN ANGIOGRAPHY, JANA-VARIOUS EXCEPTIONALITIES TEACHER at 06/11/2023 5:10 PM EST documented in this encounter [facility] Work Phone: 06-11-2023 Evaluation + Plan note Associated Problem(s): Other bipolar disorder ([facility]) r/o Bipolar 2 disorder vs MDD [place] discontinued during recent hospitalization for lithium toxicity. No recent dose changes directly to lithium had been made. Suspect level was impacted by addition/titration of gabapentin. He does not feel comfortable restarting lithium at this point. Tolerated start of low-dose divalproex, without side effects, but minimal benefit. Advised of potential interaction effects between divalproex and lamotrigine, and that we may need to consider reduction of lamotrigine dose as divalproex is titrated. Even with dose adjustments, serum medication levels for both drugs can be unpredictable when they are prescribed in tandem, which we discussed at length today. Plan will be to gently titrate divalproex as tolerated/indicated and gently reduce lamotrigine dose to mitigate interaction risk. Valproic acid (divalproex) level subtherapeutic, which is unsurprising at current dose. Lamotrigine level WNL. Lipid panel was not fasting, so results unreliable. Will need to repeat- plan to recheck VPA and lamotrigine levels, so will re-order at that time. Additionally, polypharmacy has been an ongoing concern, and remains so. May consider attempting taper off of lamotrigine as divalproex is titrated. Will defer taper of risperidone d/t concern for EPS (see plan below) for now, given more urgent need to adjust mood stabilizing medications. Gently titrate divalproex ER to 500 mg PO at bedtime to augment antidepressant medications, and prevent hypomanic sx. Discussed indication(s), reviewed risks/benefits/alternatives. Decrease lamotrigine to 100 mg PO BID. Continue venlafaxine ER 300 mg PO daily-no refill needed today. Continue mirtazapine 45 mg PO at bedtime- no refill needed today. Continue gabapentin 1200 mg PO TID- no refill needed today. Continue engagement in individual therapy. Advised of potentially fatal rash (i.e. Herrera-Rojas Syndrome) in 1:10,000 individuals. Agrees to stop medication and seek medical attention immediately if rash or blistering of the mucosal surfaces develops; also discussed risk for benign drug-induced rash, and advised to cease medication and seek immediate medical attention to r/o SJS given its potential lethality. Further advised that the risk for this reaction increases if proper dose titration is not followed, and that after 2 days of non-adherence, re-titration is necessary. Electronically signed by Shireen Khan, LAMONTERN ANGIOGRAPHY, JANA-VARIOUS EXCEPTIONALITIES TEACHER at 06/11/2023 5:10 PM [facility] Work Phone: 06-11-2023 History of Presen t illness Narrative Outpatient Psychiatry Subjective Daljit Napoles, is a 42 y.o. male, seen in follow-up. Assessment/Plan Problem List Items Addressed This Visit ICD-10-CM Other bipolar disorder (CMS/[facility]) F31.89 r/o Bipolar 2 disorder vs MDD [place] discontinued during recent hospitalization for lithium toxicity. No recent dose changes directly to lithium had been made. Suspect level was impacted by addition/titration of gabapentin. He does not feel comfortable restarting lithium at this point. Tolerated start of low-dose divalproex, without side effects, but minimal benefit. Advised of potential interaction effects between divalproex and lamotrigine, and that we may need to consider reduction of lamotrigine dose as divalproex is titrated. Even with dose adjustments, serum medication levels for both drugs can be unpredictable when they are prescribed in tandem, which we discussed at length today. Plan will be to gently titrate divalproex as tolerated/indicated and gently reduce lamotrigine dose to mitigate interaction risk. Valproic acid (divalproex) level subtherapeutic, which is unsurprising at current dose. Lamotrigine level WNL. Lipid panel was not fasting, so results unreliable. Will need to repeat- plan to recheck VPA and lamotrigine levels, so will re-order at that time. Additionally, polypharmacy has been an ongoing concern, and remains so. May consider attempting taper off of lamotrigine as divalproex is titrated. Will defer taper of risperidone d/t concern for EPS (see plan below) for now, given more urgent need to adjust mood stabilizing medications. Gently titrate divalproex ER to 500 mg PO at bedtime to augment antidepressant medications, and prevent hypomanic sx. Discussed indication(s), reviewed risks/benefits/alternatives. Decrease lamotrigine to 100 mg PO BID. Continue venlafaxine ER 300 mg PO daily-no refill needed today. Continue mirtazapine 45 mg PO at bedtime- no refill needed today. Continue gabapentin 1200 mg PO TID- no refill needed today. Continue engagement in individual therapy. Advised of potentially fatal rash (i.e. Herrera-Rojas Syndrome) in 1:10,000 individuals. Agrees to stop medication and seek medical attention immediately if rash or blistering of the mucosal surfaces develops; also discussed risk for benign drug-induced rash, and advised to cease medication and seek immediate medical attention to r/o SJS given its potential lethality. Further advised that the risk for this reaction increases if proper dose titration is not followed, and that after 2 days of non-adherence, re-titration is necessary. Relevant Medications divalproex (Depakote ER) 500 mg 24 hr tablet lamoTRIgine (LaMICtal) 100 mg tablet risperiDONE (RisperDAL) 2 mg tablet Other Relevant Orders Follow Up In Psychiatry Generalized anxiety disorder F41.1 No indication for changes to treatment plan today, while making adjustments to mood stabilizing medications. Continuing efforts at mitigating polypharmacy. Goal senior care will be to reduce and ideally discontinue clonazepam. Continue gabapentin 1200 mg PO TID- no refill needed today. Continue venlafaxine ER 300 mg PO daily- no refill needed today. Continue mirtazapine 45 mg PO at bedtime- no refill needed today. Continue clonazepam 1 mg PO BID- no refill needed today. Continue clonidine 0.2 mg PO at bedtime PRN for sleep- no refill needed today. Continue hydroxyzine 50-100 mg PO daily PRN for anxiety- no refill needed today. Continue individual therapy. Reviewed OARRS, no discrepancies or concerns. Discussed risk of motor/cognitive impairment, sedation, dependence, tolerance, abuse, withdrawal sequelae, accidental overdose, life-threatening respiratory depression (rashard. in combination with alcohol and/or opioids), excess sedation in combination with other sedating medicines. 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 Attempted to taper gradually in January 2023, but resumed this dose within a few weeks d/t worsening depressive sx. 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 Advised to contact the office if sx worsen significantly before next visit. If sx persist after risperidone has been discontinued, and tardive dyskinesia is suspected, will discuss treatment options. Relevant Orders Follow Up In Psychiatry Follow-up in 3-4 weeks. Risk Assessment: Risk Assessment: Daljit Napoles is currently a low acute risk of suicide and self-harm due to no past suicide attempt(s) and not currently endorsing thoughts of suicide. Daljit Napoles is currently a low acute risk of violence and harm to others due to no past history of violence and not currently threatening others. Suicidal Risk Factors: , male, unmarried/single, living alone/lack of social support, and access to weapons Violence Risk Factors: none Protective Factors: sense of responsibility towards family, social support/connectedness, child related concerns/living with child <18 years, positive family relationships, and hopefulness/future orientation Reason for Visit: Follow-up for medication management. HPI: Since his last visit, Mood has been kind of fluctuating. Goes from fairly depressed to, kind of, I would say, elated. Can fluctuate within a matter of hours (3-4 hours) Seems like this has been going on since around the time he left the hospital, but difficult to pinpoint. Anxiety has improved a lot, but wondering if it could be better. I don't think I'm at a point where I can say I accept where I am and just deal with it. Started Depakote. Hasn't noticed much of anything good or bad since starting it. No obvious side effects. Maybe a little bit of an improvement [in mood], but not sure if it's just d/t him wanting to feel better and having hope that the medication will make a positive impact. Denies suicidal ideation or a passive wish. PCP recently changed BP medications. Was having difficulty getting BP under control, but with current combination of medications has been within the normal range. Current Psychiatric Medications: Clonazepam 1 mg PO BID Clonidine 0.2 mg PO at bedtime PRN for sleep Depakote ER 250 mg PO QHS Gabapentin 1200 mg PO TID Lamotrigine 100 mg PO daily and 150 mg PO at bedtime Mirtazapine 45 mg PO at bedtime Risperidone 2 mg PO daily and 1 mg PO at bedtime Effexor XR 300 mg PO daily Hydroxyzine 50-100 mg PO daily PRN for anxiety Record Review: moderate Medical Review Of Systems: Pertinent items are noted in HPI. Psychiatric Review Of Systems: As noted in HPI. Objective Mental Status Exam General Appearance: Well groomed, appropriate eye contact Attitude/Behavior: Cooperative Motor: No psychomotor agitation or retardation, no tremor or other abnormal movements Speech: Normal rate, volume, prosody Gait/Station: Other:(comment) (not observed- virtual) Mood: Kind of fluctuating. Affect: Constricted, Congruent with mood and topic of conversation Thought Process: Linear, goal directed Thought Associations: No loosening of associations Thought Content: Other: (comment) (some ongoing anxious and depressive themes.) Perception: No perceptual abnormalities noted Sensorium: Alert and oriented to person, place, time and situation Insight: Intact Judgement: Intact Cognition: Cognitively intact to conversational testing with respect to attention, orientation, fund of knowledge, recent and remote memory, and language Vitals: There were no vitals filed for this visit. Labs: Lab on 06/05/2023 Component Date Value WBC 06/05/2023 4.9 nRBC 06/05/2023 0.0 RBC 06/05/2023 5.14 Hemoglobin 06/05/2023 15.6 Hematocrit 06/05/2023 44.9 MCV 06/05/2023 87 MCH 06/05/2023 30.4 MCHC 06/05/2023 34.7 RDW 06/05/2023 11.9 Platelets 06/05/2023 213 Neutrophils % 06/05/2023 50.5 Immature Granulocytes %,* 06/05/2023 0.2 Lymphocytes % 06/05/2023 35.0 Monocytes % 06/05/2023 9.4 Eosinophils % 06/05/2023 3.9 Basophils % 06/05/2023 1.0 Neutrophils Absolute 06/05/2023 2.46 Immature Granulocytes Ab* 06/05/2023 0.01 Lymphocytes Absolute 06/05/2023 1.71 Monocytes Absolute 06/05/2023 0.46 Eosinophils Absolute 06/05/2023 0.19 Basophils Absolute 06/05/2023 0.05 Glucose 06/05/2023 104 (H) Sodium 06/05/2023 142 Potassium 06/05/2023 3.7 Chloride 06/05/2023 105 Bicarbonate 06/05/2023 28 Anion Gap 06/05/2023 13 Urea Nitrogen 06/05/2023 9 Creatinine 06/05/2023 0.67 eGFR 06/05/2023 >90 Calcium 06/05/2023 9.5 Albumin 06/05/2023 4.5 Alkaline Phosphatase 06/05/2023 69 Total Protein 06/05/2023 7.1 AST 06/05/2023 21 Bilirubin, Total 06/05/2023 0.6 ALT 06/05/2023 29 Valproic Acid 06/05/2023 17 (L) Lamotrigine 06/05/2023 7.6 Cholesterol 06/05/2023 239 (H) HDL-Cholesterol 06/05/2023 38.4 Cholesterol/HDL Ratio 06/05/2023 6.2 LDL Calculated 06/05/2023 VLDL 06/05/2023 Triglycerides 06/05/2023 404 (H) Non HDL Cholesterol 06/05/2023 201 (H) Hemoglobin A1C 06/05/2023 5.0 Estimated Average Glucose 06/05/2023 97 Lab on 05/06/2023 Component Date Value [place] 05/06/2023 2.03 (HH) Glucose 05/06/2023 98 Sodium 05/06/2023 138 Potassium 05/06/2023 3.3 (L) Chloride 05/06/2023 100 Bicarbonate 05/06/2023 27 Anion Gap 05/06/2023 14 Urea Nitrogen 05/06/2023 5 (L) Creatinine 05/06/2023 0.82 eGFR 05/06/2023 >90 Calcium 05/06/2023 9.2 Thyroid Stimulating Horm* 05/06/2023 1.17 Shireen Khan, JANA-RN ANGIOGRAPHY, 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 MACHINE TENDER-VARIOUS EXCEPTIONALITIES TEACHER Electronically signed by Shireen Khan APRN-RN ANGIOGRAPHY, 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 MACHINE TENDER-VARIOUS EXCEPTIONALITIES TEACHER at 06/11/2023 5:12 PM EST documented in this encounter [facility] Work Phone: 06-01-2023 Evaluation note Encounter Date Diagnosis Assessment Notes May, Primary hypertension (ICD-10 - I10) [facility] Other 02-06-2024 Evaluation note* Encounter Date Diagnosis Assessment Notes Treatment Notes Treatment Clinical Notes May, Impaired fasting glucose (ICD-10 - R73.01) [facility] Other 02-06-2024 Evaluation note* Encounter Date Diagnosis Assessment Notes Treatment Notes Treatment Clinical Notes May, Primary hypertension (ICD-10 - I10) [facility] Other 02-06-2024 Evaluation note* Encounter Date Diagnosis Assessment Notes Treatment Notes Treatment Clinical Notes May, IFG (impaired fasting glucose) (ICD-10 - R73.01) [facility] Other 01-31-2024 Evaluation note* Encounter Date Diagnosis Assessment Notes Treatment Notes Treatment Clinical Notes Apr, Primary hypertension (ICD-10 - I10) [facility] Other 01-29-2024 Evaluation + Plan note* Assessment & Plan Note - LIZZIE Corona APRN-CNS - 05/18/2023 4:42 PM ESTAssociated Problem(s): Extrapyramidal symptom For now, continue risperidone 2 mg PO daily and 1 mg PO at bedtime. Attempted to taper gradually inOctober 2022, but resumed this dose within a few weeks d/t worsening depressive sx. No significant change in orofacial dyskinesia- not apparent upon interview today, but continues to report intermittently. Advised to contact the office if sx worsen significantly before next visit. If sx persist after risperidone has been discontinued, and tardive dyskinesia is suspected, will discuss treatment options. [facility] Work Phone: 1(325) 772-752101-29-2024 Miscellaneous Notes* Assessment & Plan Note - LIZZIE Corona, GUIDO - 05/18/2023 4:42 PM ESTAssociated Problem(s): Extrapyramidal symptom For now, continue risperidone 2 mg PO daily and 1 mg PO at bedtime. Attempted to taper gradually inOctober 2022, but resumed this dose within a few weeks d/t worsening depressive sx. No significant change in orofacial dyskinesia- not apparent upon interview today, but continues to report intermittently. Advised to contact the office if sx worsen significantly before next visit. If sx persist after risperidone has been discontinued, and tardive dyskinesia is suspected, will discuss treatment options. * Assessment & Plan Note - LIZZIE Corona APRN-CNS - 05/18/2023 4:41 PM ESTAssociated Problem(s): Severe episode of recurrent major depressive disorder, without psychotic features (CMS/HCC) Plan as noted above for 'Other bipolar disorder' * Assessment & Plan Note - LIZZIE Corona APRN-CNS - 05/18/2023 4:41 PM ESTAssociated Problem(s): Generalized anxiety disorder Sx relatively well-controlled with current regimen. No indication for changes to treatment plan today. Continuing efforts at mitigating polypharmacy. Goal senior care will be to reduce and ideally discontinue clonazepam. Continue gabapentin 1200 mg PO TID- no refill needed today. Continue venlafaxine ER 300 mg PO daily- no refill needed today. Continue mirtazapine 45 mg PO at bedtime- no refill needed today. Continue clonazepam 1 mg PO BID- no refill needed today. Continue clonidine 0.2 mg PO at bedtime PRN for sleep- no refill needed today. Continue hydroxyzine 50-100 mg PO daily PRN for anxiety- no refill needed today. Continue individual therapy. Reviewed OARRS, no discrepancies or concerns. Discussed risk of motor/cognitive impairment, sedation, dependence, tolerance, abuse, withdrawal sequelae, accidental overdose, life-threatening respiratory depression (rashard. in combination with alcohol and/or opioids), excess sedation in combination with other sedating medicines. * Assessment & Plan Note - LIZZIE Corona APRN-CNS - 05/18/2023 4:39 PM ESTAssociated Problem(s): Other bipolar disorder ([facility]) r/o Bipolar 2 disorder vs MDD [place] discontinued during recent hospitalization for lithium toxicity. No recent dose changes directly to lithium had been made. Suspect level was impacted by addition/titration of gabapentin. He does not feel comfortable restarting lithium at this point. Discussed divalproex, which he would like to trial. Advised of potential interaction effects between divalproex and lamotrigine, and that we may need to consider reduction of lamotrigine dose as divalproex is titrated. Even with dose adjustments, serum medication levels for both drugs can be unpredictable when they are prescribed in tandem, which we discussed at length today. Additionally, polypharmacy has been an ongoing concern, and remains so. May consider attempting taper off of lamotrigine as divalproex is titrated. Will defer taper of risperidone d/t concern for EPS(see plan below) for now, given more urgent need to adjust mood stabilizing medications. [place] discontinued during recent hospitalization. Will start very low-dose divalproex ER 250 mg PO at bedtime to augment antidepressant medications, and prevent hypomanic sx. Discussed indication(s), reviewed risks/benefits/alternatives. Continue venlafaxine ER 300 mg PO daily-no refill needed today. Continue mirtazapine 45 mg PO at bedtime- no refill needed today. Continue gabapentin 1200 mg PO TID- no refill needed today. Continue lamotrigine 100 mg PO daily and 150 mg PO at bedtime, for now- no refill needed today. Continue engagement in individual therapy. [facility]: 1(876) 555-530801-29-2024 Evaluation + Plan note* Assessment & Plan Note - LIZZIE Corona APRN-CNS - 05/18/2023 4:41 PM ESTAssociated Problem(s): Severe episode of recurrent major depressive disorder, without psychotic features (CMS/HCC) Plan as noted above for 'Other bipolar disorder' [facility] Work Phone: [phone]) 679-663401-29-2024 Evaluation + Plan note* Assessment & Plan Note - LIZZIE Corona APRN-CNS - 05/18/2023 4:41 PM ESTAssociated Problem(s): Generalized anxiety disorder Sx relatively well-controlled with current regimen. No indication for changes to treatment plan today. Continuing efforts at mitigating polypharmacy. 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 Continue gabapentin 1200 mg PO TID- no refill needed today. Continue venlafaxine ER 300 mg PO daily- no refill needed today. Continue mirtazapine 45 mg PO at bedtime- no refill needed today. Continue clonazepam 1 mg PO BID- no refill needed today. Continue clonidine 0.2 mg PO at bedtime PRN for sleep- no refill needed today. Continue hydroxyzine 50-100 mg PO daily PRN for anxiety- no refill needed today. Continue individual therapy. Reviewed OARRS, no discrepancies or concerns. Discussed risk of motor/cognitive impairment, sedation, dependence, tolerance, abuse, withdrawal sequelae, accidental overdose, life-threatening respiratory depression (rashard. in combination with alcohol and/or opioids), excess sedation in combination with other sedating medicines. [facility] Work Phone: [phone]) [phone] Evaluation + Plan note* Assessment & Plan Note - LIZZIE Corona, LAMONTEVARIOUS EXCEPTIONALITIES TEACHER - 05/18/2023 4:39 PM ESTAssociated Problem(s): Other bipolar disorder ([facility]) r/o Bipolar 2 disorder vs MDD [place] discontinued during recent hospitalization for lithium toxicity. No recent dose changes directly to lithium had been made. Suspect level was impacted by addition/titration of gabapentin. He does not feel comfortable restarting lithium at this point. Discussed divalproex, which he would like to trial. Advised of potential interaction effects between divalproex and lamotrigine, and that we may need to consider reduction of lamotrigine dose as divalproex is titrated. Even with dose adjustments, serum medication levels for both drugs can be unpredictable when they are prescribed in tandem, which we discussed at length today. Additionally, polypharmacy has been an ongoing concern, and remains so. May consider attempting taper off of lamotrigine as divalproex is titrated. Will defer taper of risperidone d/t concern for EPS(see plan below) for now, given more urgent need to adjust mood stabilizing medications. [place] discontinued during recent hospitalization. Will start very low-dose divalproex ER 250 mg PO at bedtime to augment antidepressant medications, and prevent hypomanic sx. Discussed indication(s), reviewed risks/benefits/alternatives. Continue venlafaxine ER 300 mg PO daily-no refill needed today. Continue mirtazapine 45 mg PO at bedtime- no refill needed today. Continue gabapentin 1200 mg PO TID- no refill needed today. Continue lamotrigine 100 mg PO daily and 150 mg PO at bedtime, for now- no refill needed today. Continue engagement in individual therapy. [facility] Work Phone: 1(480) 131-660601-29-2024 History of Present illness Narrative* LIZZIE Corona, LAMONTEVARIOUS EXCEPTIONALITIES TEACHER - 05/18/2023 3:30 PM EST Outpatient Psychiatry Subjective Daljit Antonette Yesika, is a 42 y.o. male, seen in follow-up. Assessment/Plan Problem List Items Addressed This Visit ICD-10-CM Other bipolar disorder ([facility]) F31.89 r/o Bipolar 2 disorder vs MDD [place] discontinued during recent hospitalization for lithium toxicity. No recent dose changes directly to lithium had been made. Suspect level was impacted by addition/titration of gabapentin. He does not feel comfortable restarting lithium at this point. Discussed divalproex, which he would like to trial. Advised of potential interaction effects between divalproex and lamotrigine, and that we may need to consider reduction of lamotrigine dose as divalproex is titrated. Even with dose adjustments, serum medication levels for both drugs can be unpredictable when they are prescribed in tandem, which we discussed at length today. Additionally, polypharmacy has been an ongoing concern, and remains so. May consider attempting taper off of lamotrigine as divalproex is titrated. Will defer taper of risperidone d/t concern for EPS(see plan below) for now, given more urgent need to adjust mood stabilizing medications. [place] discontinued during recent hospitalization. Will start very low-dose divalproex ER 250 mg PO at bedtime to augment antidepressant medications, and prevent hypomanic sx. Discussed indication(s), reviewed risks/benefits/alternatives. Continue venlafaxine ER 300 mg PO daily-no refill needed today. Continue mirtazapine 45 mg PO at bedtime- no refill needed today. Continue gabapentin 1200 mg PO TID- no refill needed today. Continue lamotrigine 100 mg PO daily and 150 mg PO at bedtime, for now- no refill needed today. Continue engagement in individual therapy. Relevant Medications divalproex (Depakote ER) 250 mg 24 hr tablet risperiDONE (RisperDAL) 1 mg tablet Generalized anxiety disorder F41.1 Sx relatively well-controlled with current regimen. No indication for changes to treatment plan today. Continuing efforts at mitigating polypharmacy. 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 Continue gabapentin 1200 mg PO TID- no refill needed today. Continue venlafaxine ER 300 mg PO daily- no refill needed today. Continue mirtazapine 45 mg PO at bedtime- no refill needed today. Continue clonazepam 1 mg PO BID- no refill needed today. Continue clonidine 0.2 mg PO at bedtime PRN for sleep- no refill needed today. Continue hydroxyzine 50-100 mg PO daily PRN for anxiety- no refill needed today. Continue individual therapy. Reviewed OARRS, no discrepancies or concerns. Discussed risk of motor/cognitive impairment, sedation, dependence, tolerance, abuse, withdrawal sequelae, accidental overdose, life-threatening respiratory depression (rashard. in combination with alcohol and/or opioids), excess sedation in combination with other sedating medicines. Severe episode of recurrent major depressive disorder, without psychotic features (CMS/HCC) F33.2 Plan as noted above for 'Other bipolar disorder' Relevant Medications risperiDONE (RisperDAL) 1 mg tablet Extrapyramidal symptom R29.818 For now, continue risperidone 2 mg PO daily and 1 mg PO at bedtime. Attempted to taper gradually inOctober 2022, but resumed this dose within a few weeks d/t worsening depressive sx. No significant change in orofacial dyskinesia- not apparent upon interview today, but continues to report intermittently. Advised to contact the office if sx worsen significantly before next visit. If sx persist after risperidone has been discontinued, and tardive dyskinesia is suspected, will discuss treatment options. Follow-up in 3 weeks. Risk Assessment: Risk Assessment: Daljit Napoles is currently a low acute risk of suicide and self-harm due to nopast suicide attempt(s) and not currently endorsing thoughts of suicide. Daljit Napoles is currently a low acute risk of violence and harm to others due to no past history of violence and not currently threatening others. Suicidal Risk Factors: , male, unmarried/single, living alone/lack of social support, and access to weapons Violence Risk Factors: none Protective Factors: sense of responsibility towards family, social support/connectedness, child related concerns/living with child <18 years, positive family relationships, and hopefulness/future orientation Reason for Visit: Follow-up for medication management. HPI: Since his last visit, Was admitted to hospital-- ICU for a little over 2 days-- for lithium toxicity. Had tremors in armsand legs that had been worsening for a few weeks- labs ordered, and he was contacted by on-call psychiatrist with recommendation to seek emergency medical care for lithium level of 2.03. All psychotropics were discontinued while he was there. Had a lot of significant rebound sx, auditory and visual hallucinations that are still very upsetting when he recalls them now. [place] was discontinued and not restarted. All other medications were restarted before discharge. Saw a psychiatrist in consultation before he was discharged from the ICU, and was encouraged to discuss Depakote as an alternative the lithium for mood. Has been back on all medications for almost 1 week. Still experiencing intermittent, involuntary mouth movements that we have discussed are likely r/t risperidone. Yesterday noticed more than today. It seems to come and go like that, but it's not something that I would consider a major concern to me right now. Denies suicidal ideation or a passive wish. PCP recently (~4 days ago) started amlodipine 5 mg PO daily for HTN. Current Psychiatric Medications: Clonazepam 1 mg PO BID Clonidine 0.2 mg PO at bedtime PRN for sleep Gabapentin 1200 mg PO TID Lamotrigine 100 mg PO daily and 150 mg PO at bedtime Mirtazapine 45 mg PO at bedtime Risperidone 2 mg PO daily and 1 mg PO at bedtime Effexor XR 300 mg PO daily Hydroxyzine 50-100 mg PO daily PRN for anxiety Record Review: moderate Medical Review Of Systems: Pertinent items are noted in HPI. Psychiatric Review Of Systems: As noted in HPI. Objective Mental Status Exam General Appearance: Well groomed, appropriate eye contact Attitude/Behavior: Cooperative Motor: No psychomotor agitation or retardation, no tremor or other abnormal movements Speech: Normal rate, volume, prosody Gait/Station: Other:(comment) (not observed- virtual) Mood: Ok. Affect: Constricted, Congruent with mood and topic of conversation Thought Process: Linear, goal directed Thought Associations: No loosening of associations Thought Content: Normal, Other: (comment) (some anxious themes r/t recent hospitalization for lithium toxicity, rebound sx experienced after abrupt cessation of medications.) Perception: No perceptual abnormalities noted Sensorium: Alert and oriented to person, place, time and situation Insight: Intact Judgement: Intact Cognition: Cognitively intact to conversational testing with respect to attention, orientation, fund of knowledge, recent and remote memory, and language Vitals: There were no vitals filed for this visit. Labs: Lab on 05/06/2023 Component Date Value [place] 05/06/2023 2.03 (HH) Glucose 05/06/2023 98 Sodium 05/06/2023 138 Potassium 05/06/2023 3.3 (L) Chloride 05/06/2023 100 Bicarbonate 05/06/2023 27 Anion Gap 05/06/2023 14 Urea Nitrogen 05/06/2023 5 (L) Creatinine 05/06/2023 0.82 eGFR 05/06/2023 >90 Calcium 05/06/2023 9.2 Thyroid Stimulating Horm* 05/06/2023 1.17 LIZZIE Corona, GUIDO [facility]: [phone]) [phone] Evaluation note* Encounter Date Diagnosis Assessment Notes Treatment Notes Treatment Clinical Notes Apr, Primary hypertension (ICD-10 - I10) This patient is instructed to consume a healthy, low-fat, low-salt diet. They are also encouraged to continue exercise to achieve/maintain a normal BMI. Patient is instructed on home BP measurements: - rest for 5 minutes w/o talking.- positioned w/ feet on floor and arm supported.- average best 2/3 readings w/ goal < 135/85.- update office w/ home readings in 2 weeks. Apr, Bipolar affective disorder, currently depressed, moderate (ICD-10 - F31.32) Continue present treatment w/o interruption. Avoid abrupt d/c of medications f/u Psychiatry and counseling Apr, Gastro-esophageal reflux disease with esophagitis, without bleeding (ICD-10 - K21.00) Avoid lying flat after eating. Avoid eating 2 hours prior to bedtime. Smaller, frequent meals may be better tolerated.Weight loss if overweight.PPI with any heartburn.Monitor for dysphagia. Apr, Impaired fasting glucose (ICD-10 - R73.01) Healthy diet and exercise. Reduce calories and weight loss. A1C every 6 mo Apr, Morbid (severe) obesity due to excess calories (ICD-10 - E66.01) This patient has been instructed on a low-fat, high-fiber diet. They are instructed to reduce calories, portion sizes and snacks. It is recommended that they exercise for 30 minutes, 3-5 times weekly. Apr, Body mass index [BMI] 37.0-37.9, adult (ICD-10 - Z68.37) [facility] Other 11-27-2023 Evaluation + Plan note* Assessment & Plan Note - LIZZIE Corona, LAMONTEVARIOUS EXCEPTIONALITIES TEACHER - 03/16/2023 6:14 PM ESTAssociated Problem(s): Extrapyramidal symptom Resumed previously beneficial dose of risperidone 2 mg PO daily and 1 mg PO at bedtime shortly after last visit d/t worsening depressive sx. 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 Goal remains to taper and discontinue risperidone, however, he requests to defer dose changes until after holiday season. Advised to contact the office if sx worsen significantly before next visit. If sx persist after risperidone has been discontinued, and tardive dyskinesia is suspected, will discuss treatment options. [facility] Work Phone: [phone] Miscellaneous Notes* Assessment & Plan Note - LIZZIE Corona APRN-CNS - 03/16/2023 6:14 PM ESTAssociated Problem(s): Extrapyramidal symptom Resumed previously beneficial dose of risperidone 2 mg PO daily and 1 mg PO at bedtime shortly after last visit d/t worsening depressive sx. 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 Goal remains to taper and discontinue risperidone, however, he requests to defer dose changes until after holiday season. Advised to contact the office if sx worsen significantly before next visit. If sx persist after risperidone has been discontinued, and tardive dyskinesia is suspected, will discuss treatment options. * Assessment & Plan Note - LIZZIE Corona APRN-CNS - 03/16/2023 6:12 PM ESTAssociated Problem(s): Severe episode of recurrent major depressive disorder, without psychotic features (CMS/HCC) Plan as noted above for 'Other bipolar disorder' * Assessment & Plan Note - LIZZIE Corona APRN-CNS - 03/16/2023 6:12 PM ESTAssociated Problem(s): Generalized anxiety disorder Significant benefit from titration of gabapentin dose over the past several months. No indication for changes to treatment plan today. Continuing efforts at mitigating polypharmacy- recently has resumed sporadic use of hydroxyzine PRN (<1 tab daily). Goal senior care will be to reduce and ideally discontinue clonazepam. Continue gabapentin 1200 mg PO TID- refill sent to pharmacy today. Continue venlafaxine ER 300 mg PO daily- no refill needed today. Continue mirtazapine 45 mg PO at bedtime- refill sent to pharmacy today. Continue clonazepam 1 mg PO BID- refill sent to pharmacy today. Continue clonidine 0.2 mg PO at bedtime PRN for sleep- no refill needed today. OK to continue hydroxyzine 50 mg PO daily PRN for anxiety- no refill needed today. Continue individual therapy. Reviewed OARRS, no discrepancies or concerns. Discussed risk of motor/cognitive impairment, sedation, dependence, tolerance, abuse, withdrawal sequelae, accidental overdose, life-threatening respiratory depression (rashard. in combination with alcohol and/or opioids), excess sedation in combination with other sedating medicines. * Assessment & Plan Note - LIZZIE Corona APRN-CNS - 03/16/2023 6:10 PM ESTAssociated Problem(s): Other bipolar disorder ([facility]) r/o Bipolar 2 disorder vs MDD Tolerating and benefiting from current medications. Significant improvement in anxious and mood sx since titration of mirtazapine and optimization of lithium and gabapentin doses. Since last visit, gabapentin dose further titration to total of 1200 mg PO TID. Polypharmacy has been an ongoing concern. Will preferentially work to taper and discontinue risperidone d/t concern for EPS (see plan below), and would then consider attempting taper of lamotrigine, given unclear benefit at this point. Continue venlafaxine ER 300 mg PO daily-refill sent to pharmacy today. Continue mirtazapine 45 mg PO at bedtime- no refill needed today. Continue lithium ER 1800 mg PO at bedtime- no refill needed today. Last lithium level, CBC, CMP and TSH drawn in July 2022, all WNL. Continue gabapentin 1200 mg PO TID- no refill needed today. Continue lamotrigine 100 mg PO daily and 150 mg PO at bedtime, for now- refill sent to pharmacy today. Continue engagement in individual therapy. documented in this [facility] Work Phone: [phone] Evaluation + Plan note* Assessment & Plan Note - LIZZIE Corona APRN-CNS - 03/16/2023 6:12 PM ESTAssociated Problem(s): Severe episode of recurrent major depressive disorder, without psychotic features ([facility]/HCC) Plan as noted above for 'Other bipolar disorder' [facility] Work Phone: [phone] Evaluation + Plan note* Assessment & Plan Note - LIZZIE Corona APRN-CNS - 03/16/2023 6:12 PM ESTAssociated Problem(s): Generalized anxiety disorder Significant benefit from titration of gabapentin dose over the past several months. No indication for changes to treatment plan today. Continuing efforts at mitigating polypharmacy- recently has resumed sporadic use of hydroxyzine PRN (<1 tab daily). 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 Continue gabapentin 1200 mg PO TID- refill sent to pharmacy today. Continue venlafaxine ER 300 mg PO daily- no refill needed today. Continue mirtazapine 45 mg PO at bedtime- refill sent to pharmacy today. Continue clonazepam 1 mg PO BID- refill sent to pharmacy today. Continue clonidine 0.2 mg PO at bedtime PRN for sleep- no refill needed today. OK to continue hydroxyzine 50 mg PO daily PRN for anxiety- no refill needed today. Continue individual therapy. Reviewed OARRS, no discrepancies or concerns. Discussed risk of motor/cognitive impairment, sedation, dependence, tolerance, abuse, withdrawal sequelae, accidental overdose, life-threatening respiratory depression (rashard. in combination with alcohol and/or opioids), excess sedation in combination with other sedating medicines. [facility] Work Phone: [phone] Evaluation + Plan note* Assessment & Plan Note - LIZZIE Corona APRN-CNS - 03/16/2023 6:10 PM ESTAssociated Problem(s): Other bipolar disorder (CMS/HCC) r/o Bipolar 2 disorder vs MDD Tolerating and benefiting from current medications. Significant improvement in anxious and mood sx since titration of mirtazapine and optimization of lithium and gabapentin doses. Since last visit, gabapentin dose further titration to total of 1200 mg PO TID. Polypharmacy has been an ongoing concern. Will preferentially work to taper and discontinue risperidone d/t concern for EPS (see plan below), and would then consider attempting taper of lamotrigine, given unclear benefit at this point. Continue venlafaxine ER 300 mg PO daily-refill sent to pharmacy today. Continue mirtazapine 45 mg PO at bedtime- no refill needed today. Continue lithium ER 1800 mg PO at bedtime- no refill needed today. Last lithium level, CBC, CMP and TSH drawn in July 2022, all WNL. Continue gabapentin 1200 mg PO TID- no refill needed today. Continue lamotrigine 100 mg PO daily and 150 mg PO at bedtime, for now- refill sent to pharmacy today. Continue engagement in individual therapy. [facility] Work Phone: [phone] History of Present illness Narrative* LIZZIE Corona, GUIDO - 03/16/2023 10:00 AM EST Outpatient Psychiatry Subjective Daljit Napoles, is a 42 y.o. male, seen in follow-up. Assessment/Plan Problem List Items Addressed This Visit ICD-10-CM Other bipolar disorder (CMS/HCC) F31.89 r/o Bipolar 2 disorder vs MDD Tolerating and benefiting from current medications. Significant improvement in anxious and mood sx since titration of mirtazapine and optimization of lithium and gabapentin doses. Since last visit, gabapentin dose further titration to total of 1200 mg PO TID. Polypharmacy has been an ongoing concern. Will preferentially work to taper and discontinue risperidone d/t concern for EPS (see plan below), and would then consider attempting taper of lamotrigine, given unclear benefit at this point. Continue venlafaxine ER 300 mg PO daily-refill sent to pharmacy today. Continue mirtazapine 45 mg PO at bedtime- no refill needed today. Continue lithium ER 1800 mg PO at bedtime- no refill needed today. Last lithium level, CBC, CMP and TSH drawn in July 2022, all WNL. Continue gabapentin 1200 mg PO TID- no refill needed today. Continue lamotrigine 100 mg PO daily and 150 mg PO at bedtime, for now- refill sent to pharmacy today. Continue engagement in individual therapy. Relevant Medications lamoTRIgine (LaMICtal) 100 mg tablet lamoTRIgine (LaMICtal) 150 mg tablet venlafaxine XR (Effexor-XR) 150 mg 24 hr capsule Other Relevant Orders Follow Up In Psychiatry Generalized anxiety disorder F41.1 Significant benefit from titration of gabapentin dose over the past several months. No indication for changes to treatment plan today. Continuing efforts at mitigating polypharmacy- recently has resumed sporadic use of hydroxyzine PRN (<1 tab daily). 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 Continue gabapentin 1200 mg PO TID- refill sent to pharmacy today. Continue venlafaxine ER 300 mg PO daily- no refill needed today. Continue mirtazapine 45 mg PO at bedtime- refill sent to pharmacy today. Continue clonazepam 1 mg PO BID- refill sent to pharmacy today. Continue clonidine 0.2 mg PO at bedtime PRN for sleep- no refill needed today. OK to continue hydroxyzine 50 mg PO daily PRN for anxiety- no refill needed today. Continue individual therapy. Reviewed OARRS, no discrepancies or concerns. Discussed risk of motor/cognitive impairment, sedation, dependence, tolerance, abuse, withdrawal sequelae, accidental overdose, life-threatening respiratory depression (rashard. in combination with alcohol and/or opioids), excess sedation in combination with other sedating medicines. Relevant Medications venlafaxine XR (Effexor-XR) 150 mg 24 hr capsule Other Relevant Orders Follow Up In Psychiatry Severe episode of recurrent major depressive disorder, without psychotic features (CMS/HCC) F33.2 Plan as noted above for 'Other bipolar disorder' Relevant Medications lamoTRIgine (LaMICtal) 100 mg tablet lamoTRIgine (LaMICtal) 150 mg tablet venlafaxine XR (Effexor-XR) 150 mg 24 hr capsule Other Relevant Orders Follow Up In Psychiatry Extrapyramidal symptom R29.818 Resumed previously beneficial dose of risperidone 2 mg PO daily and 1 mg PO at bedtime shortly after last visit d/t worsening depressive sx. 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 Goal remains to taper and discontinue risperidone, however, he requests to defer dose changes until after holiday season. Advised to contact the office if sx worsen significantly before next visit. If sx persist after risperidone has been discontinued, and tardive dyskinesia is suspected, will discuss treatment options. Relevant Orders Follow Up In Psychiatry Follow-up in 4-6 weeks. Risk Assessment: Risk Assessment: Daljit Napoles is currently a low acute risk of suicide and self-harm due to nopast suicide attempt(s) and not currently endorsing thoughts of suicide. Daljit Napoles is currently a low acute risk of violence and harm to others due to no past history of violence and not currently threatening others. Suicidal Risk Factors: , male, unmarried/single, living alone/lack of social support, and access to weapons Violence Risk Factors: none Protective Factors: sense of responsibility towards family, social support/connectedness, child related concerns/living with child <18 years, positive family relationships, and hopefulness/future orientation Reason for Visit: Follow-up for medication management. HPI: Since his last visit, Things have been pretty good. Increase in gabapentin has been helpful- not experiencing breakthrough sx between doses. Sometimes takes hydroxyzine PRN- maybe 5 times/week. Mood has been good. Hasn't been feeling as depressed. At this point I think things are as good as I could hope for them to be, realistically. Sleep has been pretty good. Has more energy in the morning, feels ready to get up and go. Later in the day, tends to crash a little bit, but has been a noticeable difference. Gained weight- appetite has increased. Diet has also not been as healthy. Needed to go back up on risperidone dose d/t worsening mood sx. Now back to 2 mg daily and 1 mg at bedtime. No change in involuntary mouth movements. Would still like to taper off eventually, but prefers not to change anything just before the holidays. Denies suicidal ideation or a passive wish. No new medications or health problems. Still receiving treatment for bacterial infection in eyes. Current Psychiatric Medications: Clonazepam 1 mg PO BID Clonidine 0.2 mg PO at bedtime PRN for sleep Gabapentin 900 mg PO TID Lamotrigine 100 mg PO daily and 150 mg PO at bedtime Mirtazapine 45 mg PO at bedtime [place] ER 1800 mg PO at bedtime Risperidone 2 mg PO daily and 1 mg PO at bedtime (resumed higher dose d/t worsening depressive sx) Effexor XR 300 mg PO daily Hydroxyzine 50 mg PO daily PRN for anxiety Record Review: brief Medical Review Of Systems: Pertinent items are noted in HPI. Psychiatric Review Of Systems: As noted in HPI. Objective Mental Status Exam General Appearance: Well groomed, appropriate eye contact Attitude/Behavior: Cooperative Motor: No psychomotor agitation or retardation, no tremor or other abnormal movements Speech: Normal rate, volume, prosody Gait/Station: Other:(comment) (not observed- virtual visit.) Mood: Pretty good. Affect: Constricted, Congruent with mood and topic of conversation Thought Process: Linear, goal directed Thought Associations: No loosening of associations Thought Content: Normal Perception: No perceptual abnormalities noted Insight: Intact Judgement: Intact Cognition: Cognitively intact to conversational testing with respect to attention, orientation, fund of knowledge, recent and remote memory, and language Vitals: There were no vitals filed for this visit. Labs: not applicable LIZZIE Corona, JANA-VARIOUS EXCEPTIONALITIES TEACHER documented in this [facility] Work Phone: [phone] Evaluation + Plan note* Assessment & Plan Note - LIZZIE Corona, JANA-VARIOUS EXCEPTIONALITIES TEACHER - 02/16/2023 5:56 PM EDTAssociated Problem(s): Extrapyramidal symptom Tolerated reduction in risperidone dose from total of 3 mg (1 mg PO daily and 2 mg PO at bedtime) to 2 mg (1 mg PO BID) without rebound mood sx. 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 Will continue dose reduction with plan to discontinue. If sx persist and tardive dyskinesia is suspected, will discuss treatment options. Decrease risperidone to 0.5 mg PO daily and 1 mg PO at bedtime x 2 weeks, and if well-tolerated, can stop AM dose and continue only 1 mg PO at bedtime until follow up. [facility] Work Phone: [phone] Miscellaneous Notes* Assessment & Plan Note - LIZZIE Corona APRN-CNS - 02/16/2023 5:56 PM EDTAssociated Problem(s): Extrapyramidal symptom Tolerated reduction in risperidone dose from total of 3 mg (1 mg PO daily and 2 mg PO at bedtime) to 2 mg (1 mg PO BID) without rebound mood sx. 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 Will continue dose reduction with plan to discontinue. If sx persist and tardive dyskinesia is suspected, will discuss treatment options. Decrease risperidone to 0.5 mg PO daily and 1 mg PO at bedtime x 2 weeks, and if well-tolerated, can stop AM dose and continue only 1 mg PO at bedtime until follow up. * Assessment & Plan Note - LIZZIE Corona APRN-CNS - 02/16/2023 5:52 PM EDTAssociated Problem(s): Severe episode of recurrent major depressive disorder, without psychotic features (CMS/HCC) Plan as noted above for 'Other bipolar disorder' * Assessment & Plan Note - LIZZIE Corona APRN-CNS - 02/16/2023 5:52 PM EDTAssociated Problem(s): Generalized anxiety disorder Significant benefit from titration of gabapentin dose over the past several months. No indication for changes to treatment plan today. Continuing efforts at mitigating polypharmacy- he has indicated no longer taking hydroxyzine PRN, so will discontinue. Additionally, only taking clonidine PRN at bedtime for sleep, so will decrease frequency. 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 Continue gabapentin 900 mg PO TID- refill sent to pharmacy today. Continue venlafaxine ER 300 mg PO daily- no refill needed today. Continue mirtazapine 45 mg PO at bedtime- refill sent to pharmacy today. Continue clonazepam 1 mg PO BID- refill sent to pharmacy today. Decrease clonidine 0.2 mg to PO at bedtime only (not taking PRN for anxiety at this point)- no refill needed today. Discontinue hydroxyzine 50 mg PO TID PRN for anxiety (not taking PRN for anxiety at this point) Continue individual therapy. Reviewed OARRS, no discrepancies or concerns. Discussed risk of motor/cognitive impairment, sedation, dependence, tolerance, abuse, withdrawal sequelae, accidental overdose, life-threatening respiratory depression (rashard. in combination with alcohol and/or opioids), excess sedation in combination with other sedating medicines. * Assessment & Plan Note - LIZZIE Corona, JANA-VARIOUS EXCEPTIONALITIES TEACHER - 02/16/2023 5:46 PM EDTAssociated Problem(s): Other bipolar disorder ([facility]) r/o Bipolar 2 disorder vs MDD Tolerating and benefiting from current medications. Significant improvement in anxious and mood sx since titration of mirtazapine and optimization of lithium and gabapentin doses. Polypharmacy has been an ongoing concern. Will preferentially work to taper and discontinue risperidone d/t concern forEPS (see plan below), and would then consider attempting taper of lamotrigine, given unclear benefit at this point. Continue venlafaxine ER 300 mg PO daily-no refill needed today. Continue mirtazapine 45 mg PO at bedtime- refill sent to pharmacy today. Continue lithium ER 1800 mg PO at bedtime- refill sent to pharmacy today. Last lithium level, CBC, CMP and TSH drawn in July 2022, all WNL. Continue gabapentin 900 mg PO TID- refill sent to pharmacy today. Continue lamotrigine 100 mg PO daily and 150 mg PO at bedtime, for now- no refill needed today. Continue engagement in individual therapy. [facility]: [phone] Evaluation + Plan note* Assessment & Plan Note - LIZZIE Corona APRN-CNS - 02/16/2023 5:52 PM EDTAssociated Problem(s): Severe episode of recurrent major depressive disorder, without psychotic features (CMS/HCC) Plan as noted above for 'Other bipolar disorder' [facility] Work Phone: [phone] Evaluation + Plan note* Assessment & Plan Note - LIZZIE Cornoa APRN-CNS - 02/16/2023 5:52 PM EDTAssociated Problem(s): Generalized anxiety disorder Significant benefit from titration of gabapentin dose over the past several months. No indication for changes to treatment plan today. Continuing efforts at mitigating polypharmacy- he has indicated no longer taking hydroxyzine PRN, so will discontinue. Additionally, only taking clonidine PRN at bedtime for sleep, so will decrease frequency. 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 Continue gabapentin 900 mg PO TID- refill sent to pharmacy today. Continue venlafaxine ER 300 mg PO daily- no refill needed today. Continue mirtazapine 45 mg PO at bedtime- refill sent to pharmacy today. Continue clonazepam 1 mg PO BID- refill sent to pharmacy today. Decrease clonidine 0.2 mg to PO at bedtime only (not taking PRN for anxiety at this point)- no refill needed today. Discontinue hydroxyzine 50 mg PO TID PRN for anxiety (not taking PRN for anxiety at this point) Continue individual therapy. Reviewed OARRS, no discrepancies or concerns. Discussed risk of motor/cognitive impairment, sedation, dependence, tolerance, abuse, withdrawal sequelae, accidental overdose, life-threatening respiratory depression (rashard. in combination with alcohol and/or opioids), excess sedation in combination with other sedating medicines. [facility] Work Phone: [phone] Evaluation + Plan note* Assessment & Plan Note - LIZZIE Corona APRN-CNS - 02/16/2023 5:46 PM EDTAssociated Problem(s): Other bipolar disorder (CMS/[facility]) r/o Bipolar 2 disorder vs MDD Tolerating and benefiting from current medications. Significant improvement in anxious and mood sx since titration of mirtazapine and optimization of lithium and gabapentin doses. Polypharmacy has been an ongoing concern. Will preferentially work to taper and discontinue risperidone d/t concern forEPS (see plan below), and would then consider attempting taper of lamotrigine, given unclear benefit at this point. Continue venlafaxine ER 300 mg PO daily-no refill needed today. Continue mirtazapine 45 mg PO at bedtime- refill sent to pharmacy today. Continue lithium ER 1800 mg PO at bedtime- refill sent to pharmacy today. Last lithium level, CBC, CMP and TSH drawn in July 2022, all WNL. Continue gabapentin 900 mg PO TID- refill sent to pharmacy today. Continue lamotrigine 100 mg PO daily and 150 mg PO at bedtime, for now- no refill needed today. Continue engagement in individual therapy. T [facility] Work Phone: [phone] History of Present illness Narrative* LIZZIE Corona APRN-CNS - 02/16/2023 10:00 AM EDT Outpatient Psychiatry Subjective Daljit Napoles, is a 42 y.o. male, seen in follow-up. Assessment/Plan Problem List Items Addressed This Visit ICD-10-CM Other bipolar disorder (CMS/[facility]) F31.89 r/o Bipolar 2 disorder vs MDD Tolerating and benefiting from current medications. Significant improvement in anxious and mood sx since titration of mirtazapine and optimization of lithium and gabapentin doses. Polypharmacy has been an ongoing concern. Will preferentially work to taper and discontinue risperidone d/t concern forEPS (see plan below), and would then consider attempting taper of lamotrigine, given unclear benefit at this point. Continue venlafaxine ER 300 mg PO daily-no refill needed today. Continue mirtazapine 45 mg PO at bedtime- refill sent to pharmacy today. Continue lithium ER 1800 mg PO at bedtime- refill sent to pharmacy today. Last lithium level, CBC, CMP and TSH drawn in July 2022, all WNL. Continue gabapentin 900 mg PO TID- refill sent to pharmacy today. Continue lamotrigine 100 mg PO daily and 150 mg PO at bedtime, for now- no refill needed today. Continue engagement in individual therapy. Relevant Medications clonazePAM (KlonoPIN) 1 mg tablet gabapentin (Neurontin) 300 mg capsule gabapentin (Neurontin) 600 mg tablet lithium ER (Eskalith) 450 mg 12 hr tablet risperiDONE (RisperDAL) 1 mg tablet risperiDONE (RisperDAL) 0.5 mg tablet Other Relevant Orders Follow Up In Psychiatry Generalized anxiety disorder F41.1 Significant benefit from titration of gabapentin dose over the past several months. No indication for changes to treatment plan today. Continuing efforts at mitigating polypharmacy- he has indicated no longer taking hydroxyzine PRN, so will discontinue. Additionally, only taking clonidine PRN at bedtime for sleep, so will decrease frequency. 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 Continue gabapentin 900 mg PO TID- refill sent to pharmacy today. Continue venlafaxine ER 300 mg PO daily- no refill needed today. Continue mirtazapine 45 mg PO at bedtime- refill sent to pharmacy today. Continue clonazepam 1 mg PO BID- refill sent to pharmacy today. Decrease clonidine 0.2 mg to PO at bedtime only (not taking PRN for anxiety at this point)- no refill needed today. Discontinue hydroxyzine 50 mg PO TID PRN for anxiety (not taking PRN for anxiety at this point) Continue individual therapy. Reviewed OARRS, no discrepancies or concerns. Discussed risk of motor/cognitive impairment, sedation, dependence, tolerance, abuse, withdrawal sequelae, accidental overdose, life-threatening respiratory depression (rashard. in combination with alcohol and/or opioids), excess sedation in combination with other sedating medicines. Relevant Medications clonazePAM (KlonoPIN) 1 mg tablet gabapentin (Neurontin) 300 mg capsule gabapentin (Neurontin) 600 mg tablet mirtazapine (Remeron) 15 mg tablet mirtazapine (Remeron) 30 mg tablet Other Relevant Orders Follow Up In Psychiatry Severe episode of recurrent major depressive disorder, without psychotic features (CMS/HCC) F33.2 Plan as noted above for 'Other bipolar disorder' Relevant Medications lithium ER (Eskalith) 450 mg 12 hr tablet mirtazapine (Remeron) 15 mg tablet mirtazapine (Remeron) 30 mg tablet risperiDONE (RisperDAL) 1 mg tablet risperiDONE (RisperDAL) 0.5 mg tablet Other Relevant Orders Follow Up In Psychiatry Extrapyramidal symptom R29.818 Tolerated reduction in risperidone dose from total of 3 mg (1 mg PO daily and 2 mg PO at bedtime) to 2 mg (1 mg PO BID) without rebound mood sx. 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 Will continue dose reduction with plan to discontinue. If sx persist and tardive dyskinesia is suspected, will discuss treatment options. Decrease risperidone to 0.5 mg PO daily and 1 mg PO at bedtime x 2 weeks, and if well-tolerated, can stop AM dose and continue only 1 mg PO at bedtime until follow up. Relevant Orders Follow Up In Psychiatry Follow-up in 4-6 weeks. Risk Assessment: Risk Assessment: Daljit Napoles is currently a low acute risk of suicide and self-harm due to nopast suicide attempt(s) and not currently endorsing thoughts of suicide. Daljit Napoles is currently a low acute risk of violence and harm to others due to no past history of violence and not currently threatening others. Suicidal Risk Factors: , male, unmarried/single, living alone/lack of social support, and access to weapons Violence Risk Factors: none Protective Factors: sense of responsibility towards family, social support/connectedness, child related concerns/living with child <18 years, positive family relationships, and hopefulness/future orientation Reason for Visit: Follow-up for medication management. HPI: Since his last visit, Doing really well- gabapentin has been kind of amazing for me. It's really helped with my anxiety. Overall level of anxiety has decreased significantly. Does notice if he is late taking a dose, or misses a dose he notices. Taking clonidine at HS, but otherwise nothing PRN For anxiety. Mood has been good. Hasn't felt depressed. Denies significant depressive sx. Decreased risperidone to 1 mg PO BID without issue. Almost like there's been no change at all, in anxious or mood sx in contrast to past attempt to reduce dose. Still experiencing abnormal tongue movements- about the same frequency/severity. Doesn't consider severe. When it happens he doesn't always realize it right away. Once he notices it, can stop it, but it may come up again sooner or later. No disruption in speech, eating, swallowing. When he's doing something deliberate (e.g. eating, speaking) sx go away. Denies suicidal ideation or a passive wish. No new medications or health problems. 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 Has follow-up next month. Current Psychiatric Medications: Clonazepam 1 mg PO BID Clonidine 0.2 mg PO at bedtime Gabapentin 900 mg PO TID Lamotrigine 100 mg PO daily and 150 mg PO at bedtime Mirtazapine 45 mg PO at bedtime [place] ER 1800 mg PO at bedtime Risperidone 1 mg PO BID (decreased HS dose from 2--> 1 mg ~one month ago) Effexor XR 300 mg PO daily Record Review: moderate Medical Review Of Systems: Pertinent items are noted in HPI. Psychiatric Review Of Systems: As noted in HPI. Objective Mental Status Exam Vitals: There were no vitals filed for this visit. Labs: not applicable Shireen Khan APRN-RN ANGIOGRAPHY, 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 MACHINE TENDER-VARIOUS EXCEPTIONALITIES TEACHER Electronically signed by LIZZIE Corona, 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 MACHINE TENDER-VARIOUS EXCEPTIONALITIES TEACHER at 02/16/2023 5:56 PM EDT documented in [facility] Work Phone: [phone]) [phone] Evaluation note* Encounter Date Diagnosis Assessment Notes Treatment Notes Treatment Clinical Notes Dec, [place] eye disease of both eyes (ICD-10 - H10.023) Instructed patient to administer eye drops as prescribed, discussed proper administration. Advised patient they are contagious until after 24 hours on antibiotic eye drops. Advised good hand hygiene and infection control, wash linens and bedding, do not touch eye directly with eye drop bottle, wipe off bottle after every use. do not share eye drop bottles. Eye symptoms should improve in 2-3 days with treatment, if no improvement follow up with PCP or UC. Immediate eval if symptoms worsen, eye pain, vision changes, redness and swelling occur around the eye, headache, or any other concerning symptoms. Patient verbalizes understanding and is agreeable to treatment plan. [place] Other 09-14-2023 Chief complaint Narrative - Reported* An interactive audio and video telecommunication system which permits real time communications between the patient (at the originating site) and provider (at the distant site) was utilized to providethis telehealth service. * Verbal consent was requested and obtained from DALJIT NAPOLES on this date, 01/01/2023 03:00 PM , for a telehealth visit. * Bipolar disorder, anxiety XC-Zldbqnymhi-Gzxkma [address] [place] [address] [facility] Work Phone: [phone] Chief complaint Narrative - Reported* An interactive audio and video telecommunication system which permits real time communications between the patient (at the originating site) and provider (at the distant site) was utilized to providethis telehealth service. * Verbal consent was requested and obtained from DALJIT NAPOLES on this date, 11/20/2022 03:00 PM , for a telehealth visit. * Bipolar disorder, anxiety TL-Dduixedxpa-Xnxnzj [address] [place] [address] [facility] [employer] Work Phone: [phone] Chief complaint Narrative - Reported* An interactive audio and video telecommunication system which permits real time communications between the patient (at the originating site) and provider (at the distant site) was utilized to providethis telehealth service. * Verbal consent was requested and obtained from DALJIT NAPOLES on this date, 09/18/2022 11:00 AM , for a telehealth visit. * Bipolar disorder, anxiety QQ-Arzqecifvr[facility] [place] DO Work Phone: [phone] Chief complaint Narrative - Reported* An interactive audio and video telecommunication system which permits real time communications between the patient (at the originating site) and provider (at the distant site) was utilized to providethis telehealth service. * Verbal consent was requested and obtained from DALJIT NAPOLES on this date, 09/18/2022 11:00 AM , for a telehealth visit. * Bipolar disorder, anxiety [facility] [address] [place] Work Phone: [phone] History of Present illness Narrative* Mr. Napoles is a 42 y/o M, seen in follow-up for bipolar disorder and LIN. * See chart updates from 08/14 and 09/10. * Since his last appointment, * -things seem to have gotten somewhat better with increase in mirtazapine * -not a massive difference, but some improvement * -as depression has gotten a little bit better, anxiety has gotten a little bit worse. * -taking hydroxyzine 100 mg PRN up to twice daily, can't take clonidine- causing too much sedation. * -sleep not bad. * -energy level- ability to get up in the AM and get day started has been better since switching to lithium ER. * -still has fatigue, but it has improved. * -no appetite changes * -depression seems to go in cycles * -seems like whenever he's coming out of it the anxiety seems to happen * -tends to eventually even out * -involuntary tongue movement is still there, but not as bad as it used to be * -not sure if he's just gotten used to it * -doesn't interfere with speech, eating, swallowing. * -comes and goes, not constant. * Denies suicidal ideation or a passive wish. * No new medications or health problems. * From my initial assessment on 08/28/2021: * Current rx: * [place] IR 900 mg PO QHS- taking for 2 years- last lithium level was 6 months ago, not sure what itwas. Has been on higher doses (up to 1500 mg) and it caused skin to breakout. Doses lower than 900 mg have not managed his mood symptoms well. * Risperidone 1 mg PO daily and 2 mg PO QHS- started * 2 months ago for racing thoughts * Venlafaxine ER 150 mg PO BID- waning benefit, anorgasmia- has been taking for years. * Lamotrigine 100 mg PO daily and 150 mg PO QHS- has been taking for years, unsure of benefit. * Buspirone 10 mg PO BID- unsure of benefit- has been taking for probably a couple years. * Clonazepam 1 mg PO BID- has been taking for * 8 months; seems to have lost benefit over the past several months * Gabapentin 300 mg PO BID- started * 2 years ago, unsure of benefit. * Past rx: * Lorazepam- benefit waned, so was switched to clonazepam. * Zolpidem- can't recall whether it was beneficial. * Trazodone- helped for sleep, but stimulated appetite. * Tons of 'em. Does not recall any with severe side effects, but cannot recall specific names/doses/duration of treatment. * Psych hx: * Bipolar disorder, LIN * Current psychiatrist Veronica Redmond at [facility]- has been seeing since early 2019. * Hospitalized most recently at [facility] 1.5 years ago for suicidal ideation. Prior to that had not been hospitalized in * 10 years. Estimates 13 lifetime hospitalizations. * First treated at around age 10-11- I had a severe fear of school, dreadful fear. During middle school could only go for 1/2 days. Had fears that his food was being poisoned, so couldn't eat there. Was prescribed medication, but unsure what. It pretty much knocked me out. Was home-schooled briefly for HS, then took [employer] test and graduated early. * No history of suicide attempt or self-harm. * No violence history. * Has done individual therapy off and on over the years with virtually no success. Not currently seeing a therapist. * No history of IOP/PHP. * Family hx: * Uncle- bipolar disorder or schizophrenia * Cousin- schizophrenia * No substance use. * No suicide. * Pertinent medical dx: * Denies current medical issues. * No history of concussion, head injury, seizures. * I have personally reviewed the OARRS report for DALJIT NAPOLES. I have considered the risks of abuse, dependence, addiction and diversion. DR-Fwxvbthivk-Rdwaga [place] DO Work Phone: [phone] History of Present illness Narrative* Mr. Napoles is a 42 y/o M, seen in follow-up for bipolar disorder and LIN. * See chart updates from 08/14 and 09/10. * Since his last appointment, * -things seem to have gotten somewhat better with increase in mirtazapine * -not a massive difference, but some improvement * -as depression has gotten a little bit better, anxiety has gotten a little bit worse. * -taking hydroxyzine 100 mg PRN up to twice daily, can't take clonidine- causing too much sedation. * -sleep not bad. * -energy level- ability to get up in the AM and get day started has been better since switching to lithium ER. * -still has fatigue, but it has improved. * -no appetite changes * -depression seems to go in cycles * -seems like whenever he's coming out of it the anxiety seems to happen * -tends to eventually even out * -involuntary tongue movement is still there, but not as bad as it used to be * -not sure if he's just gotten used to it * -doesn't interfere with speech, eating, swallowing. * -comes and goes, not constant. * Denies suicidal ideation or a passive wish. * No new medications or health problems. * From my initial assessment on 08/28/2021: * Current rx: * [place] IR 900 mg PO QHS- taking for 2 years- last lithium level was 6 months ago, not sure what itwas. Has been on higher doses (up to 1500 mg) and it caused skin to breakout. Doses lower than 900 mg have not managed his mood symptoms well. * Risperidone 1 mg PO daily and 2 mg PO QHS- started * 2 months ago for racing thoughts * Venlafaxine ER 150 mg PO BID- waning benefit, anorgasmia- has been taking for years. * Lamotrigine 100 mg PO daily and 150 mg PO QHS- has been taking for years, unsure of benefit. * Buspirone 10 mg PO BID- unsure of benefit- has been taking for probably a couple years. * Clonazepam 1 mg PO BID- has been taking for * 8 months; seems to have lost benefit over the past several months * Gabapentin 300 mg PO BID- started * 2 years ago, unsure of benefit. * Past rx: * Lorazepam- benefit waned, so was switched to clonazepam. * Zolpidem- can't recall whether it was beneficial. * Trazodone- helped for sleep, but stimulated appetite. * Tons of 'em. Does not recall any with severe side effects, but cannot recall specific names/doses/duration of treatment. * Psych hx: * Bipolar disorder, LIN * Current psychiatrist Veronica Redmond at [facility]- has been seeing since early 2019. * Hospitalized most recently at [facility] 1.5 years ago for suicidal ideation. Prior to that had not been hospitalized in * 10 years. Estimates 13 lifetime hospitalizations. * First treated at around age 10-11- I had a severe fear of school, dreadful fear. During middle school could only go for 1/2 days. Had fears that his food was being poisoned, so couldn't eat there. Was prescribed medication, but unsure what. It pretty much knocked me out. Was home-schooled briefly for HS, then took [employer] test and graduated early. * No history of suicide attempt or self-harm. * No violence history. * Has done individual therapy off and on over the years with virtually no success. Not currently seeing a therapist. * No history of IOP/PHP. * Family hx: * Uncle- bipolar disorder or schizophrenia * Cousin- schizophrenia * No substance use. * No suicide. * Pertinent medical dx: * Denies current medical issues. * No history of concussion, head injury, seizures. * I have personally reviewed the OARRS report for DALJIT NAPOLES. I have considered the risks of abuse, dependence, addiction and diversion. [facility] Work Phone: [phone]) [phone] Chief complaint Narrative - Reported* An interactive audio and video telecommunication system which permits real time communications between the patient (at the originating site) and provider (at the distant site) was utilized to providethis telehealth service. * Verbal consent was requested and obtained from DALJIT NAPOLES on this date, 08/07/2022 01:30 PM , for a telehealth visit. * Bipolar disorder, anxiety OL-[address] [place] DO Work Phone: [phone] Chief complaint Narrative - Reported* An interactive audio and video telecommunication system which permits real time communications between the patient (at the originating site) and provider (at the distant site) was utilized to providethis telehealth service. * Verbal consent was requested and obtained from DALJIT NAPOLES on this date, 08/07/2022 01:30 PM , for a telehealth visit. * Bipolar disorder, anxiety [facility] [address] [place] Work Phone: [phone] History of Present illness Narrative* Mr. Napoles is a 41 y/o M, seen in follow-up for bipolar disorder and LIN. * See chart update from MEEK Holly 08/01/2022. * Since his last appointment, * -keeps having problem with depression. * -has moments things seem they're ok, but not very long. * -sleeping ok. * -requires more sleep than he thinks most people do. Suspects r/t medications to some extent. * -usually gets between 7-10 hours- depends on whether he has his son. * -no roberto changes. * -energy level has been low. * -anxiety has been really bad for the past 6 weeks or so. Maybe a little before depression started to feel worse. * -doesn't seem to have a particular precipitating factor. * -not constant, comes in waves. * -heart races, hands shake, shaky voice. * -had involuntary tongue movement- benztropine helps a lot, but doesn't fully get rid of it- maybe 60% * -seems to be intermittent- times he doesn't realize it's happening. * -has been going on for 4-5 weeks * -thinking about esketamine tx * -looking for somewhere relatively close to him that is in network for his insurance. * Denies suicidal ideation or a passive wish. * No new medications or health problems. * From my initial assessment on 08/28/2021: * Current rx: * [place] IR 900 mg PO QHS- taking for 2 years- last lithium level was 6 months ago, not sure what itwas. Has been on higher doses (up to 1500 mg) and it caused skin to breakout. Doses lower than 900 mg have not managed his mood symptoms well. * Risperidone 1 mg PO daily and 2 mg PO QHS- started * 2 months ago for racing thoughts * Venlafaxine ER 150 mg PO BID- waning benefit, anorgasmia- has been taking for years. * Lamotrigine 100 mg PO daily and 150 mg PO QHS- has been taking for years, unsure of benefit. * Buspirone 10 mg PO BID- unsure of benefit- has been taking for probably a couple years. * Clonazepam 1 mg PO BID- has been taking for * 8 months; seems to have lost benefit over the past several months * Gabapentin 300 mg PO BID- started * 2 years ago, unsure of benefit. * Past rx: * Lorazepam- benefit waned, so was switched to clonazepam. * Zolpidem- can't recall whether it was beneficial. * Trazodone- helped for sleep, but stimulated appetite. * Tons of 'em. Does not recall any with severe side effects, but cannot recall specific names/doses/duration of treatment. * Psych hx: * Bipolar disorder, LIN * Current psychiatrist Veronica Redmond at [facility]- has been seeing since early 2019. * Hospitalized most recently at [facility] 1.5 years ago for suicidal ideation. Prior to that had not been hospitalized in * 10 years. Estimates 13 lifetime hospitalizations. * First treated at around age 10-11- I had a severe fear of school, dreadful fear. During middle school could only go for 1/2 days. Had fears that his food was being poisoned, so couldn't eat there. Was prescribed medication, but unsure what. It pretty much knocked me out. Was home-schooled briefly for HS, then took [employer] test and graduated early. * No history of suicide attempt or self-harm. * No violence history. * Has done individual therapy off and on over the years with virtually no success. Not currently seeing a therapist. * No history of IOP/PHP. * Family hx: * Uncle- bipolar disorder or schizophrenia * Cousin- schizophrenia * No substance use. * No suicide. * Pertinent medical dx: * Denies current medical issues. * No history of concussion, head injury, seizures. * I have personally reviewed the OARRS report for DALJIT NAPOLES. I have considered the risks of abuse, dependence, addiction and diversion. XS-[facility] DO Work Phone: [phone]) [phone] History of Present illness Narrative* Mr. Napoles is a 41 y/o M, seen in follow-up for bipolar disorder and LIN. * See chart update from MEEK Holly 08/01/2022. * Since his last appointment, * - I keep having a problem with depression. * -has moments things seem they're ok, but not very long. * -sleeping ok. * -requires more sleep than he thinks most people do. Suspects r/t medications to some extent. * -usually gets between 7-10 hours- depends on whether he has his son. Tends to be busier and sleep closer to 7 hrs when son is staying with him. * -no roberto changes. * -energy level has been low. * -anxiety has been really bad for the past 6 weeks or so. Maybe a little before depression started to feel worse. * -doesn't seem to have a particular precipitating factor. * -not constant, comes in waves. * -heart races, hands shake, shaky voice. * -had involuntary tongue movement- benztropine helps a lot, but doesn't fully get rid of it- maybe 60% * -seems to be intermittent- sometimes he doesn't realize it's happening and someone else will point it out (i.e. son) * -has been going on for 4-5 weeks * -thinking about esketamine tx * -looking for somewhere relatively close to him that is in network for his insurance. * -would like to consider titration of lithium dose if possible. * -no [facility] labs nearby, but can get level and other labs drawn through PCP's office and faxed. * Denies suicidal ideation or a passive wish. * No new medications or health problems. * From my initial assessment on 08/28/2021: * Current rx: * [place] IR 900 mg PO QHS- taking for 2 years- last lithium level was 6 months ago, not sure what itwas. Has been on higher doses (up to 1500 mg) and it caused skin to breakout. Doses lower than 900 mg have not managed his mood symptoms well. * Risperidone 1 mg PO daily and 2 mg PO QHS- started * 2 months ago for racing thoughts * Venlafaxine ER 150 mg PO BID- waning benefit, anorgasmia- has been taking for years. * Lamotrigine 100 mg PO daily and 150 mg PO QHS- has been taking for years, unsure of benefit. * Buspirone 10 mg PO BID- unsure of benefit- has been taking for probably a couple years. * Clonazepam 1 mg PO BID- has been taking for * 8 months; seems to have lost benefit over the past several months * Gabapentin 300 mg PO BID- started * 2 years ago, unsure of benefit. * Past rx: * Lorazepam- benefit waned, so was switched to clonazepam. * Zolpidem- can't recall whether it was beneficial. * Trazodone- helped for sleep, but stimulated appetite. * Tons of 'em. Does not recall any with severe side effects, but cannot recall specific names/doses/duration of treatment. * Psych hx: * Bipolar disorder, LIN * Current psychiatrist Veronica Redmond at [facility]- has been seeing since early 2019. * Hospitalized most recently at [facility] 1.5 years ago for suicidal ideation. Prior to that had not been hospitalized in * 10 years. Estimates 13 lifetime hospitalizations. * First treated at around age 10-11- I had a severe fear of school, dreadful fear. During middle school could only go for 1/2 days. Had fears that his food was being poisoned, so couldn't eat there. Was prescribed medication, but unsure what. It pretty much knocked me out. Was home-schooled briefly for HS, then took [employer] test and graduated early. * No history of suicide attempt or self-harm. * No violence history. * Has done individual therapy off and on over the years with virtually no success. Not currently seeing a therapist. * No history of IOP/PHP. * Family hx: * Uncle- bipolar disorder or schizophrenia * Cousin- schizophrenia * No substance use. * No suicide. * Pertinent medical dx: * Denies current medical issues. * No history of concussion, head injury, seizures. * I have personally reviewed the OARRS report for DALJIT NAPOLES. I have considered the risks of abuse, dependence, addiction and diversion. [facility] Work Phone: [phone]) [phone] Hospital Discharge instructions Patient Education 07/14/2022 08:27:30 Benign Prostatic Hyperplasia Benign Prostatic Hyperplasia Benign prostatic hyperplasia (BPH) is an enlarged prostate gland that is caused by the normal agingprocess and not by cancer. The prostate is a walnut-sized gland that is involved in the production of semen. It is located in front of the rectum and below the bladder. The bladder stores urine and the urethra is the tube that carries the urine out of the body. The prostate may get bigger as a man gets older. An enlarged prostate can press on the urethra. This can make it harder to pass urine. The build-up of urine in the bladder can cause infection. Back pressure and infection may progress to bladder damage and kidney (renal) failure. What are the causes? This condition is part of a normal aging process. However, not all men develop problems from this condition. If the prostate enlarges away from the urethra, urine flow will not be blocked. If it enlarges toward the urethra and compresses it, there will be problems passing urine. What increases the risk? This condition is more likely to develop in men over the age of 50 years. What are the signs or symptoms? Symptoms of this condition include: Getting up often during the night to urinate. Needing to urinate frequently during the day. Difficulty starting urine flow. Decrease in size and strength of your urine stream. Leaking (dribbling) after urinating. Inability to pass urine. This needs immediate treatment. Inability to completely empty your bladder. Pain when you pass urine. This is more common if there is also an infection. Urinary tract infection (UTI). How is this diagnosed? This condition is diagnosed based on your medical history, a physical exam, and your symptoms. Tests will also be done, such as: A post-void bladder scan. This measures any amount of urine that may remain in your bladder after you finish urinating. A digital rectal exam. In a rectal exam, your health care provider checks your prostate by putting a lubricated, gloved finger into your rectum to feel the back of your prostate gland. This exam detects the size of your gland and any abnormal lumps or growths. An exam of your urine (urinalysis). A prostate specific antigen (PSA) screening. This is a blood test used to screen for prostate cancer. An ultrasound. This test uses sound waves to electronically produce a picture of your prostate gland. Your health care provider may refer you to a specialist in kidney and prostate diseases (urologist). How is this treated? Once symptoms begin, your health care provider will monitor your condition (active surveillance or watchful waiting). Treatment for this condition will depend on the severity of your condition. Treatment may include: Observation and yearly exams. This may be the only treatment needed if your condition and symptoms are mild. Medicines to relieve your symptoms, including: ?Medicines to shrink the prostate. ?Medicines to relax the muscle of the prostate. Surgery in severe cases. Surgery may include: ?Prostatectomy. In this procedure, the prostate tissue is removed completely through an open incision or with a laparoscope or robotics. ?Transurethral resection of the prostate (TURP). In this procedure, a tool is inserted through the opening at the tip of the penis (urethra). It is used to cut away tissue of the inner core of the prostate. The pieces are removed through the same opening of the penis. This removes the blockage. ?Transurethral incision (TUIP). In this procedure, small cuts are made in the prostate. This lessens the prostate's pressure on the urethra. ?Transurethral microwave thermotherapy (TUMT). This procedure uses microwaves to create heat. The heat destroys and removes a small amount of prostate tissue. ?Transurethral needle ablation (TUNA). This procedure uses radio frequencies to destroy and remove a small amount of prostate tissue. ?Interstitial laser coagulation (ILC). This procedure uses a laser to destroy and remove a small amount of prostate tissue. ?Transurethral electrovaporization (TUVP). This procedure uses electrodes to destroy and remove a small amount of prostate tissue. ?Prostatic urethral lift. This procedure inserts an implant to push the lobes of the prostate away from the urethra. Follow these instructions at home: Take pbqo-wgu-tkecnuj and prescription medicines only as told by your health care provider. Monitor your symptoms for any changes. Contact your health care provider with any changes. Avoid drinking large amounts of liquid before going to bed or out in public. Avoid or reduce how much caffeine or alcohol you drink. Give yourself time when you urinate. Keep all follow-up visits as told by your health care provider. This is important. Contact a health care provider if: You have unexplained back pain. Your symptoms do not get better with treatment. You develop side effects from the medicine you are taking. Your urine becomes very dark or has a bad smell. Your lower abdomen becomes distended and you have trouble passing your urine. Get help right away if: You have a fever or chills. You suddenly cannot urinate. You feel lightheaded, or very dizzy, or you faint. There are large amounts of blood or clots in the urine. Your urinary problems become hard to manage. You develop moderate to severe low back or flank pain. The flank is the side of your body between the ribs and the hip. These symptoms may represent a serious problem that is an emergency. Do not wait to see if the symptoms will go away. Get medical help right away. Call your local emergency services (911 in the [place] Do not drive yourself to the hospital. Summary Benign prostatic hyperplasia (BPH) is an enlarged prostate that is caused by the normal aging process and not by cancer. An enlarged prostate can press on the urethra. This can make it hard to pass urine. This condition is part of a normal aging process and is more likely to develop in men over the age of 50 years. Get help right away if you suddenly cannot urinate. This information is not intended to replace advice given to you by your health care provider. Make sure you discuss any questions you have with your health care provider. Document Released: 04/06/2006 Document Revised: 03/01/2019 Document Reviewed: 05/11/2017 [employer] Patient Education 2019 [employer]. Follow Up Care 04/29/2022 11:46:44 With:AMOL BERTRAND, Coleman Simons, URL Address: [facility] [address] , [place] [address]- When: Unknown [facility] [place] 03-14-2023 Chief complaint Narrative - Reported* An interactive audio and video telecommunication system which permits real time communications between the patient (at the originating site) and provider (at the distant site) was utilized to providethis telehealth service. * Verbal consent was requested and obtained from DALJIT NAPOLES on this date, 07/01/2022 10:30 AM , for a telehealth visit. * Bipolar disorder, anxiety SS-Aqwizstjgu-[place] DO Work Phone: 1(759) 331-320202-07-2023 Chief complaint Narrative - Reported* An interactive audio and video telecommunication system which permits real time communications between the patient (at the originating site) and provider (at the distant site) was utilized to providethis telehealth service. * Verbal consent was requested and obtained from DALJIT NAPOLES on this date, 05/27/2022 10:00 AM , for a telehealth visit. * Bipolar disorder, anxiety NX-Hqvepgbefy-[place] DO Work Phone: 1(870) 655-439801-24-2023 NoteCONSULTATION PROCEDURE DATE: 05/13/2022 PREOPERATIVE DIAGNOSIS: Cervical spasm. POSTOPERATIVE DIAGNOSIS: Cervical spasm. PROCEDURE: Cervical trigger point injection. Subsequent to obtaining informed consent, the patient was placed in the sitting position. Alcohol prep was used to sterilize the site. A 25 gauge needle was advanced and it comes to rest along the splenius cervicis muscle on the right hand side. Negative aspiration. Marcaine 0.125% along with Kenalog 20 mg are injected to the site; 1 cc volume injected. Negative heme. The patient tolerates the procedure well without any overt complication, will be followed up in the office.The [id number] NoteCONSULTATION CONSULTATION DATE: 05/13/2022 CHIEF COMPLAINT: Cervical pain. HISTORY OF PRESENT ILLNESS: This is a very pleasant, 41-year-old gentleman, who has had pain along the cervical spine for a long time. The patient had a recent MRI performed on 04/14/[address] Powers, which shows bulging discs at the level of C6-7 most prominent, C5-6 and then C4-5. The patient states sitting too long, transitioning, at times trying to get into a car aggravates the patient's pain. Folding clothes aggravates the pain. The patient recently started etodolac, finds it helpful. He was on a prednisone course for six weeks and found it helped. The patient takes gabapentin 300 mg b.i.d., Effexor, lithium, Robaxin 500 mg t.i.d., clonidine and clonazepam 1 mg b.i.d. The patient, in the remote past, has had a rhizotomy radiofrequency ablation along the cervical spine. This has afforded the patient substantial improvement. The patient's PAST MEDICAL HISTORY / SURGICAL HISTORY / REVIEW OF SYSTEMS are noted on the chart, along with the MEDICATION LIST, ALLERGIES and RADIOLOGICAL IMAGES, including the MRI, which was reviewed with the patient. PHYSICAL EXAM: Upon physical examination, this is a pleasant, cooperative gentleman, who does not appear to be in any acute distress. VITAL SIGNS: Stable at 137/85 with a heart rate of 83. At a height of 5'9 , the patient weighs 109 kg. HEAD: Atraumatic, normocephalic. NECK: The patient maintains a slumped forward posture with stress along the cervical junction and forward flexion. Neck range of motion is intact. Slight paravertebral spasming is noted along the splenius cervicis muscle on the right hand side. HEART: Negative orthopnea. LUNGS: Negative dyspnea. ABDOMEN: Protuberant, distended. EXTREMITIES: No clubbing or cyanosis. MUSCULOSKELETAL: Intact in the upper extremities at 5/5 bilaterally. Trapezius and the paravertebral muscles overall are not spasmodic. IMPRESSION: Current working diagnosis on the patient is cervical disc displacement, most prominent at the level of C6-7, C5-6; cervical spasm, cervicalgia. PLAN: Education was done and I would like to maintain a conservative approach to the patient, since the physical findings were relatively benign. We will perform a cervical trigger point injection in office today on the right hand side, along the splenius cervicis muscle. In addition to this, a home traction device has been suggested to the patient and education has been done with regards to it, along with reviewing the MRI with the patient. The patient understands and would like to proceed. CC: Rizwan Powers D.O.The [id number] Note [id number]:[address] [place] [address] 04-29-2022 NoteCustom Cystoscopy ? Voiding after the procedure: there may be some pain, burning, urgency, frequency and blood tingedurine following the procedure. These symptoms usually resolve within 2-5 days. Drink the amount of fluid it takes to keep the urine pink to yellow or clear in color. Drinking enough water and fluids will help to ease any discomfort after your procedure. ? If you are having problems that seem out of the ordinary, please call. ? If unable to contact your physician and you feel it is an emergency, go to the nearest emergency room or call 911 ? Diet ? you may resume your normal diet. ? Activity ? you may resume your normal activities ? Call if you have a fever over [address] 03-31-2022 NoteChief Complaint Referral- Polyuria HPI Staff Evaluation requested by Dr Rizwan Powers due to polyuria and dysuria. Pt is a new pt, never before seen in our office. Renal US done 02/27/22 *Tadalafil therapy for ED from PCP. Pt did take Tamsulosin from PCP for approximately 1 wk, states he did not notice any difference. Nolonger taking. Pt states he has been through several courses of abx therapy from PCP due to possible UTI. Symptoms would return after completing abx. Intermittent urgency. Denies leaking. Denies pain/burning and visible blood. Occasional discomfort when voiding. Occasional double voids. When symptoms flare up he is voiding a couple times in an hr. Normally voids every couple of hrs. Symptoms seem to happen 2-3x/wk and on a bad day would last a couple of hrs. History of Present Illness Tests reviewed: reviewed UA, referral records, MISBAH. I have reviewed the previous health record information and history for this patient from Dr. Rizwan Powers. I have reviewed and verified the staff HPI to be accurate for this encounter. There have been no associated fever, chills, flank pain, or blood in the urine. Denies any urinary infections since last encounter. Review of Systems PHQ Score Initial Depression Screen Score: 0 ROS - Provider Constitutional: denies weight loss, denies hot flashes. Eyes: denies eye problems. Gastrointestinal: denies nausea, denies vomiting. Cardiovascular: denies chest pain or angina. Integumentary: no dryness Musculoskeletal: denies musculoskeletal symptoms. ENMT: denies otolaryngeal symptoms. Respiratory: no shortness of breath. Heme/Lymph: denies easy bleeding tendency, denies easy bruising tendency. Psychiatric: no confusion, no anxiety. Genitourinary: denies dysuria, denies hematuria, denies discharge, denies urinary frequency, deniesurinary hesitancy, denies nocturia, denies incontinence, denies genital sores, denies decreased libido, and denies erectile dysfunction. Physical Exam Vitals & Measurements HT: 69 in HT: 176 cm WT: 100 kg WT: 220 lb BMI: 32.28 General Appearance: alert, no distress, well nourished, well developed male. Head: normocephalic . Eyes: normal orbit and globe. ENMT: normal examination of external ears. Chest: Lungs CTA, respirations non labored. Cardiovascular: regular rate and rhythm. Abdomen: soft, non distended, no tenderness, no mass or organomegaly, no hernia. Genitourinary: normal scrotum, normal testes, normal urethra, normal epididymis, normal vas deferens/spermatic cord. Flank Pain: none. Bladder: nonpalpable. Penis: normal shaft, normal glans. Lymph Nodes: unremarkable palpation of the cervical area. Skin: warm, dry, no bruising. Psychiatric: cooperative, affect appropriate for age, normal judgement, euthymic mood. Assessment/Plan Pt taking [place] Carbonate 1200 QD. 1. BPH with urinary obstruction (N40.1: Benign prostatic hyperplasia with lower urinary tract symptoms) New patient referred by Dr. Rizwan Powers due to polyuria and dysuria. Renal US done 02/27/22 shows borderline thickening of the urinary bladder wall. Pt did take Tamsulosin from PCP for approximately 1 wk, states he did not notice any difference. Nolonger taking. Pt states he has been through several courses of abx (Amoxicillin, Bactrim, unknown third abx) therapy from PCP due to possible UTI. Symptoms (urgency, frequency, discomfort during urination) would return after completing abx. Pt experiencing intermittent urgency, occasional discomfort when voiding, occasional double voids. When sxs flare up he is voiding a couple times/hr. Normally voids every couple of hrs. Symptoms seem to happen 2-3x/wk and on a bad day would last a couple ofhrs. UA today shows moderate bilirubin and trace leuks. Discussed MISBAH, not concerning. Pt denies nighttime urinary complaints. Pt reports he drinks 6-7 bottles of water per day. Pt has occasional feeling of incomplete bladder emptying. Denies pain with ejaculation. Sxs have been ongoing for months. Unrelated to any personal encounters. Pt had similar sxs occasionally during his childhood. Discussed possible prostate infection. Pt does not feel infected at this time. Pt denies pain between scrotum and rectum. PE today: normal. Pt to start Alfuzosin 10mg ER QD and discontinue Flomax. Rx sent to pharmacy. Will schedule cysto. The risks and benefits for cystoscopy have been discussed. The risks include bleeding, infection, and irritation of the bladder and urinary channel, among others. The patient, after being informed of procedural details and after questions have been answered, wishes to proceed. Full informed consent has been obtained. Will order Local anesthesia. 2. Chronic prostatitis (N41.1: Chronic prostatitis) See #1. Pt to start Bactrim DS BID x 1 month. Rx sent to pharmacy. 3. Erectile dysfunction (N52.9: Male erectile dysfunction, unspecified) Tadalafil therapy from PCP. 4. Renal cyst (N28.1: Cyst of k (more content not included)...[facility]:Result Comment: Electronically Signed By: Coleman CARMICHAEL MD\.br\Date and Time Signed: 03/31/22 13:44 EST\.br\Electronically Co-Signed By: Rachelle Mancia\.br\Date and Time Co-Signed: 03/31/22 13:42 EST 03-31-2022 Hospital Discharge instructions Patient Education 03/31/2022 08:47:20 Urodynamic Testing Urodynamic Testing What is urodynamic testing? Urodynamic tests are done to determine how well your lower urinary tract is working. The lower urinary tract includes your bladder and the part of your body that drains urine from the bladder (urethra). When your kidneys filter your blood, urine is stored in your bladder until you feel the urge to urinate. Urination requires coordination between the nerves and muscles of your bladder and urethra. When your lower urinary tract is working well, you should be able to: Start urinating when your bladder is full. Empty your bladder completely. Control the flow of your urine. Why do I need urodynamic testing? You may need urodynamic testing to help find the cause of any of these problems: Leaking urine (incontinence). Problems starting or stopping your urine flow. Frequent or painful urination. Frequent urinary tract infections. Being unable to empty your bladder completely. Having strong urges to pass urine (urgency). Having a weak flow of urine. How do I prepare for the tests? Ask your health care provider about changing or stopping your regular medicines. This is especiallyimportant if you are taking diabetes medicines or blood thinners. You may be asked to avoid urinating before coming to the test so that you arrive with a full bladder. Tell a health care provider about: ?Any allergies you have. ?All medicines you are taking, including vitamins, herbs, eye drops, creams, and dgfu-nbx-nkegkap medicines. ?Whether you are or may be . What are the risks of this testing? Generally, these tests are safe. However, some of the tests have risks, including: Discomfort. Frequent urge to urinate. Bleeding. Infection. Allergic reactions to medicines or dyes (contrast material). How is urodynamic testing done? You may have various urodynamic tests. The tests may be done separately or may all be done during one testing visit. You may be given an antibiotic medicine before or after testing to help prevent infection. The types of tests that may be done include: Uroflowmetry This test measures how much urine you pass and how long it takes to pass. You will urinate into a certain type of toilet or device (flowmeter). The device will measure the volume and the time of your urine flow. These measurements will be sent to a computer that creates a graph of your urine flow. Postvoid residual measurement This test measures how much urine is left in your bladder after you urinate. The test may be done with ultrasound. In this method, sound waves and a computer will be used to create an image of your bladder. The test can also be done by inserting a thin, flexible tube (catheter) into your bladder after youurinate. The remaining urine will be removed through the catheter so it can be measured. Remaining urine will be measured in milliliters (mL). If you have more than 100 mL left in your bladder after you urinate, your bladder is not emptying as it should. Cystometric testing This test uses a type of bladder catheter that can measure pressure. You may be given a medicine to numb the area (local anesthetic). The area around the opening of your urethra will be cleaned. A urinary catheter will be passed through your urethra into your bladder and used to empty your bladder completely. Then a measuring catheter will be placed, and your bladder will be filled with warm, germ-free (sterile) water. Pressure measurements will be taken: ?As your bladder fills. ?When you feel the need to urinate. ?As your bladder is emptied. You may be asked to cough or bear down to check for leakage. In some cases, your bladder may be filled with a material that shows up on X- rays (contrast material) so that X-ray pictures can be taken during the test. Electromyogram This test measures the electrical activity of the nerves and muscles of your bladder and the opening of your urethra. Sticky patches (electrodes) will be placed near your rectum and urethra to measure electrical activity. The measurements will show how well your nerves are communicating with your muscles. What happens after the testing? You should be able to go home right away and do your usual activities. You may be told to drink a glass of water every 30 minutes for the first 2 hours after testing. Taking a warm bath or using warm, wet cloths (warm compresses) may relieve any discomfort near yoururethra. Contact your health care provider if you have: ?Pain. ?Blood in your urine. ?Chills. ?Fever. What do the results mean? Talk with your health care provider about what your results mean. Some common causes for abnormal results from urodynamic tests include: Enlarged prostate in men. Overactive bladder. Urinary tract infection. Nervous system diseases. Spinal cord damage. Questions to ask your health care provider Ask your health care provider, or the department that is doing the test: When will my results be ready? How will I get my results? What are my treatment options? What other tests do I need? What are my next steps? Summary Urodynamic tests are done to determine how well your lower urinary tract is working. The lower urinary tract includes your bladder and urethra. You may need urodynamic testing to help find the cause of various problems with urination, such as leaking urine (incontinence) or problems starting or stopping your urine flow. You may have various urodynamic tests. The tests may be done separately or may all be done during one testing visit. Talk with your health care provider about what your results mean. Contact your health care provider if you have pain, chills, a fever, or blood in your urine. This information is not intended to replace advice given to you by your health care provider. Make sure you discuss any questions you have with your health care provider. Document Released: 02/01/2008 Document Revised: 07/26/2019 Document Reviewed: 02/08/2018 [employer] Patient Education 2020 [employer]. Follow Up Care 03/03/2022 13:20:11 With:AMOL BERTRAND, Coleman Simons, URL Address: [facility] [address] [place] [address]- When: Unknown [facility] [place] 11-29-2022 Chief complaint Narrative - Reported* An interactive audio and video telecommunication system which permits real time communications between the patient (at the originating site) and provider (at the distant site) was utilized to providethis telehealth service. * Verbal consent was requested and obtained from DALJIT NAPOLES on this date, 03/18/2022 03:00 PM , for a telehealth visit. * Bipolar disorder, anxiety [facility] Work Phone: [phone]) 346-779910-27-2022 Miscellaneous Notes* Telephone Encounter - Shyanne Meade - 02/13/2022 11:28 AM EDT Patient of Dr. Reyes's The following medication(s) is being requested: By the pharmacy LAST APPT - 08/05/21 NEXT APPT - NONE Requested Prescriptions Pending Prescriptions Disp Refills clonazePAM (KLONOPIN) 1 mg tablet [Pharmacy Med Name: clonazePAM 1 MG Oral Tablet] 60 tablet 0 Sig: TAKE 1 TABLET BY MOUTH TWICE DAILY NEEDED UP TO 30 DAYS Please process accordingly Shyanne Meade documented in this [facility] Chief complaint Narrative - Reported* An interactive audio and video telecommunication system which permits real time communications between the patient (at the originating site) and provider (at the distant site) was utilized to providethis telehealth service. * Verbal consent was requested and obtained from DALJIT NAPOLES on this date, 02/12/2022 02:30 PM , for a telehealth visit. * Bipolar disorder, anxiety [facility] Work Phone: [phone] 488-495510-12-2022 History of Present illness Narrative* Mr. Napoles is a 41 y/o M, seen in follow-up for bipolar disorder and LIN. * Since his last appointment, he tells me he's been feeling increasingly depressed over the past several weeks. It's kind of gotten gradually worse. Struggling with inability to get things done that he normally can, very low energy, tearfulness. No obvious precipitating factor(s). Sleeping ok, If a nything I tend to sleep more than normal lately. No appetite changes. Energy has been low. Endorses anhedonia, guilt. * Anxiety, hasn't changed much... seems to be overshadowed by the depression right now. Not interested in individual or group therapy, but would like to consider changes to medications. * Denies suicidal ideation or a passive wish. * No new medications or medical problems. * From my initial assessment on 08/28/2021: * Current rx: * [place] IR 900 mg PO QHS- taking for 2 years- last lithium level was 6 months ago, not sure what itwas. Has been on higher doses (up to 1500 mg) and it caused skin to breakout. Doses lower than 900 mg have not managed his mood symptoms well. * Risperidone 1 mg PO daily and 2 mg PO QHS- started * 2 months ago for racing thoughts * Venlafaxine ER 150 mg PO BID- waning benefit, anorgasmia- has been taking for years. * Lamotrigine 100 mg PO daily and 150 mg PO QHS- has been taking for years, unsure of benefit. * Buspirone 10 mg PO BID- unsure of benefit- has been taking for probably a couple years. * Clonazepam 1 mg PO BID- has been taking for * 8 months; seems to have lost benefit over the past several months * Gabapentin 300 mg PO BID- started * 2 years ago, unsure of benefit. * Past rx: * Lorazepam- benefit waned, so was switched to clonazepam. * Zolpidem- can't recall whether it was beneficial. * Trazodone- helped for sleep, but stimulated appetite. * Tons of 'em. Does not recall any with severe side effects, but cannot recall specific names/doses/duration of treatment. * Psych hx: * Bipolar disorder, LIN * Current psychiatrist Veronica Redmond at [facility]- has been seeing since early 2019. * Hospitalized most recently at [facility] 1.5 years ago for suicidal ideation. Prior to that had not been hospitalized in * 10 years. Estimates 13 lifetime hospitalizations. * First treated at around age 10-11- I had a severe fear of school, dreadful fear. During middle school could only go for 1/2 days. Had fears that his food was being poisoned, so couldn't eat there. Was prescribed medication, but unsure what. It pretty much knocked me out. Was home-schooled briefly for HS, then took [employer] test and graduated early. * No history of suicide attempt or self-harm. * No violence history. * Has done individual therapy off and on over the years with virtually no success. Not currently seeing a therapist. * No history of IOP/PHP. * Family hx: * Uncle- bipolar disorder or schizophrenia * Cousin- schizophrenia * No substance use. * No suicide. * Pertinent medical dx: * Denies current medical issues. * No history of concussion, head injury, seizures. * I have personally reviewed the OARRS report for DALJIT NAPOLES. I have considered the risks of abuse, dependence, addiction and diversion. [address] DO Work Phone: [phone]) [phone] Chief complaint Narrative - Reported* An interactive audio and video telecommunication system which permits real time communications between the patient (at the originating site) and provider (at the distant site) was utilized to providethis telehealth service. * Verbal consent was requested and obtained from DALJIT NAPOLES on this date, 01/07/2022 02:30 PM , for a telehealth visit. * Bipolar disorder, anxiety [facility] [address] [place] [address] DO Work Phone: [phone] Chief complaint Narrative - Reported* An interactive audio and video telecommunication system which permits real time communications between the patient (at the originating site) and provider (at the distant site) was utilized to providethis telehealth service. * Verbal consent was requested and obtained from DALJIT NAPOLES on this date, 01/07/2022 02:30 PM , for a telehealth visit. * Bipolar disorder, anxiety [address] Work Phone: [phone] Chief complaint Narrative - Reported* An interactive audio and video telecommunication system which permits real time communications between the patient (at the originating site) and provider (at the distant site) was utilized to providethis telehealth service. * Verbal consent was requested and obtained from DALJIT NAPOLES on this date, 12/02/2021 03:30 PM , for a telehealth visit. * Bipolar disorder, anxiety [facility] [address] Work Phone: [phone] 168-260008-12-2022 History of Present illness Narrative* Mr. Napoles is a 41 y/o M, seen in follow-up for bipolar disorder and LIN. * Since his last appointment, he has increased his dose of buspirone to 20 mg PO TID (most recent increase was on Wednesday 11/29). He feels the medication is helping to reduce his anxiety. There has beenan overall calmness, I'd say. He's found hydroxyzine PRN beneficial for, on the spot kind of stuff, but would like to consider further titration. It's doing ok, at current dose, but thinks it could be better. Anxiety is, not done, but definitely improving. * Continues to report that he is sleeping well. No appetite changes. Energy level is, not the greatest... nothing that I'm concerned about. Overall mood, I would say it's been pretty good. Denies any significant depressive symptoms today. * No concerns with medications otherwise. * Denies suicidal ideation/plan/intent or a passive wish. Denies violent thinking or homicidal ideation. * Taking an antibiotic for prostate infection. Otherwise reports no new medical problems or medications. * From my initial assessment on 08/28/2021: * Current rx: * [place] IR 900 mg PO QHS- taking for 2 years- last lithium level was 6 months ago, not sure what itwas. Has been on higher doses (up to 1500 mg) and it caused skin to breakout. Doses lower than 900 mg have not managed his mood symptoms well. * Risperidone 1 mg PO daily and 2 mg PO QHS- started * 2 months ago for racing thoughts * Venlafaxine ER 150 mg PO BID- waning benefit, anorgasmia- has been taking for years. * Lamotrigine 100 mg PO daily and 150 mg PO QHS- has been taking for years, unsure of benefit. * Buspirone 10 mg PO BID- unsure of benefit- has been taking for probably a couple years. * Clonazepam 1 mg PO BID- has been taking for * 8 months; seems to have lost benefit over the past several months * Gabapentin 300 mg PO BID- started * 2 years ago, unsure of benefit. * Past rx: * Lorazepam- benefit waned, so was switched to clonazepam. * Zolpidem- can't recall whether it was beneficial. * Trazodone- helped for sleep, but stimulated appetite. * Tons of 'em. Does not recall any with severe side effects, but cannot recall specific names/doses/duration of treatment. * Psych hx: * Bipolar disorder, LIN * Current psychiatrist Veronica Redmond at [facility]- has been seeing since early 2019. * Hospitalized most recently at [facility] 1.5 years ago for suicidal ideation. Prior to that had not been hospitalized in * 10 years. Estimates 13 lifetime hospitalizations. * First treated at around age 10-11- I had a severe fear of school, dreadful fear. During middle school could only go for 1/2 days. Had fears that his food was being poisoned, so couldn't eat there. Was prescribed medication, but unsure what. It pretty much knocked me out. Was home-schooled briefly for HS, then took [employer] test and graduated early. * No history of suicide attempt or self-harm. * No violence history. * Has done individual therapy off and on over the years with virtually no success. Not currently seeing a therapist. * No history of IOP/PHP. * Family hx: * Uncle- bipolar disorder or schizophrenia * Cousin- schizophrenia * No substance use. * No suicide. * Pertinent medical dx: * Denies current medical issues. * No history of concussion, head injury, seizures. * I have personally reviewed the OARRS report for DALJIT NAPOLES. I have considered the risks of abuse, dependence, addiction and diversion. [facility]-[address] Work Phone: [phone]) [phone] Chief complaint Narrative - Reported* An interactive audio and video telecommunication system which permits real time communications between the patient (at the originating site) and provider (at the distant site) was utilized to providethis telehealth service. * Verbal consent was requested and obtained from DALJIT YESIKA on this date, 10/29/2021 01:30 PM , for a telehealth visit. * Bipolar disorder, anxiety [facility] [address] DO Work Phone: [phone] Chief complaint Narrative - Reported* An interactive audio and video telecommunication system which permits real time communications between the patient (at the originating site) and provider (at the distant site) was utilized to providethis telehealth service. * Verbal consent was requested and obtained from DALJIT NAPOLES on this date, 09/25/2021 01:00 PM , for a telehealth visit. * Bipolar disorder, anxiety [facility] Work Phone: [phone]) [phone] Chief complaint Narrative - Reported* An interactive audio and video telecommunication system which permits real time communications between the patient (at the originating site) and provider (at the distant site) was utilized to providethis telehealth service. * Verbal consent was requested and obtained from DALJIT NAPOLES on this date, 09/25/2021 01:00 PM , for a telehealth visit. * Bipolar disorder, anxiety [facility] [address] DO Work Phone: [phone] History of Present illness Narrative* Mr. Napoles is a 41 y/o M, seen in follow-up for bipolar disorder and LIN. * Since his last appointment, he has titrated vortioxetine to 20 mg PO daily. Has reduced venlafaxinefrom 300--> 225 mg. Struggled with taper d/t insomnia and worsening anxiety. Doxepin PRN was prescribed with benefit for sleep, but leaves him feeling lethargic and drowsy the next day. With the recent changes he's noted, a lot of depressive episodes that come on almost like a seizure. I never know how long they're gonna last or how bad they'll be. These episodes occur within a day's time- can last a few hours, but not days at a time. This has been going on for about 3 weeks. * He tells me his lithium dose is now 1200 mg, and it is somewhat unclear why this was increased. * -increased lithium to 1200 mg * 3 weeks ago- * -trialed doxepin- helps with sleep but residual somnolence/lethargy. * -usually * 1 hour after taking it feels tired enough to fall asleep. Occasionally has a night that he has a difficult time sleeping even when he does take it. * -does not recall mirtazapine. * -currently taking gabapentin- was off of it for * 1 month or so, but started back on it, though it might help with anxiety. Doesn't notice a difference on or off of it. * -does not want to consolidate dose of gabapentin in an effort to achieve. * -asked PCP to fax lab results (just done Thursday). * -d/c buspirone * -d/c doxepin * -continue taper of venlafaxine * -start mirtazapine * He tells me that he's decided to switch medication providers because he does not feel the current provider is a good fit. There are some communication difficulties (language barrier, difficulty reaching provider with concerns), and he felt some of his concerns were not being heard or taken seriously. * Overall, he tells me his mood as been fairly stable for the past month. About 5 weeks ago he had what sounds like a hypomanic episode, during which he was awake for several days with excessive energy, I got an awful lot done and I really enjoyed it. However, he began experiencing racing thoughts that were very disruptive. Risperidone was added to his regimen and has provided a significant benefit for his mood. Of note, he indicates this was the most significant manic episode he's ever experienced. * Regardless of mood symptoms, he tells me he's struggled with sleep disruption, for as long as I can remember. He recently had a sleep study done and was diagnosed with sleep apnea, not anything severe, it said mild symptoms. A CPAP was recommended, but he tells me he's on a 6 month wait list toget one because there have been prototype sewer recalls. * He also shares that with regard to mood episodes, generally I cycle down instead of up. He experiences anxiety regardless of mood symptoms, and recently has noted his anxiety does not feel well-managed. He is prescribed venlafaxine, buspirone and clonazepam for anxiety, but feels the benefits have waned. He's unsure buspirone has ever had a significant benefit. He is also concerned for sexual side effects from venlafaxine, and would like to consider an alternative. * He mentions that about 9 months ago he and his son's mother broke up. Since then, they've been in acustody vazquez, and this has been one of the most significant stressors he's dealing with. He tellsme things have gone well in the court proceedings, and so far it appears they will have equal custody. * Denies suicidal ideation/plan/intent or a passive wish. Denies violent thinking or homicidal ideation. * Current rx: * [place] IR 900 mg PO QHS- taking for 2 years- last lithium level was 6 months ago, not sure what itwas. Has been on higher doses (up to 1500 mg) and it caused skin to breakout. Doses lower than 900 mg have not managed his mood symptoms well. * Risperidone 1 mg PO daily and 2 mg PO QHS- started * 2 months ago for racing thoughts * Venlafaxine ER 150 mg PO BID- waning benefit, anorgasmia- has been taking for years. * Lamotrigine 100 mg PO daily and 150 mg PO QHS- has been taking for years, unsure of benefit. * Buspirone 10 mg PO BID- unsure of benefit- has been taking for probably a couple years. * Clonazepam 1 mg PO BID- has been taking for * 8 months; seems to have lost benefit over the past several months * Gabapentin 300 mg PO BID- started * 2 years ago, unsure of benefit. * Past rx: * Lorazepam- benefit waned, so was switched to clonazepam. * Zolpidem- can't recall whether it was beneficial. * Trazodone- helped for sleep, but stimulated appetite. * Tons of 'em. Does not recall any with severe side effects, but cannot recall specific names/doses/duration of treatment. * Psych hx: * Bipolar disorder, LIN * Current psychiatrist Veronica Redmond at [facility]- has been seeing since early 2019. * Hospitalized most recently at [facility] 1.5 years ago for suicidal ideation. Prior to that had not been hospitalized in * 10 years. Estimates 13 lifetime hospitalizations. * First treated at around age 10-11- I had a severe fear of school, dreadful fear. During middle school could only go for 1/2 days. Had fears that his food was being poisoned, so couldn't eat there. Was prescribed medication, but unsure what. It pretty much knocked me out. Was home-schooled briefly for HS, then took GED test and graduated early. * No history of suicide attempt or self-harm. * No violence history. * Has done individual therapy off and on over the years with virtually no success. Not currently seeing a therapist. * No history of IOP/PHP. * Family hx: * Uncle- bipolar disorder or schizophrenia * Cousin- schizophrenia * No substance use. * No suicide. * Pertinent medical dx: * Denies current medical issues. * No history of concussion, head injury, seizures. * I have personally reviewed the OARRS report for DALJIT DE LEONWORTH. I have considered the risks of abuse, dependence, addiction and diversion. [facility]-[address] Work Phone: [phone]) [phone] Miscellaneous Notes* Telephone Encounter - Sonia Jones MD - 09/19/2021 2:37 PM EDT The following approved medication requests have been transmitted electronically to [id number] per patient request. Pending Prescriptions Disp Refills BUSPIRONE 10 MG TABLET 60 tablet 0 Sig: Take 1 tablet by mouth twice daily MONAE: No Sonia Jones MD September 19, 2021 2:36 PM * Telephone Encounter - Charlotte Cee - 09/19/2021 12:00 PM EDT Patient of Dr Reyes. The following medication(s) is being requested: LAST APPT - 08-05-21 NEXT APPT - None scheduled. Pending Prescriptions Disp Refills BUSPIRONE 10 MG TABLET 60 tablet 0 Sig: Take 1 tablet by mouth twice daily MONAE: No Please process accordingly Charlotte Cee documented [facility]22 Miscellaneous Notes* Telephone Encounter - Lani Reyes MD - 2021 4:12 PM EDT Returned phone call to patient. Patient is doing much better but he wants to get off the Effexor because of the sexual side effects. Patient have chronic psychiatric problems and was tried on multiple different medications. Discouraged her from going off of the Effexor, however he wants to try and see how it goes. Recommendation decrease Effexor 37.5 mg every 3 days gradually and then stop. Informed him about the discontinuation Symptoms. If the anxiety get worse when he had to go back onthe Effexor. The plan is to start him on Lexapro once he is completely off the Effexor.Lani Reyes MD documented in this encounter[facility]04-20-2022 Miscellaneous Notes* Telephone Encounter - Charlotte Cee - 08/07/2021 10:[address] Reyes- Insurance will not allow more than 2 tablets daily of any strength. The following medication(s) is being requested: LAST APPT - 08-05-21 NEXT APPT - None scheduled Pending Prescriptions Disp Refills RISPERIDONE 1 MG TABLET 30 tablet 2 Sig: Take 1 tablet by mouth daily with breakfast. MONAE: No RISPERIDONE 2 MG TABLET 30 tablet 2 Sig: Take 1 tablet by mouth daily at bedtime. Please process accordingly Charlotte Cee documented in this encounterK[facility]04-18-2022 NoteHNO ID: [id number] Author: Lani Reyes MD Service: ? Author Type: Physician Type: Progress Notes Filed: 08/06/2021 11:37 AM Note Text: Progress note. Office visit. August 06, 2021 AGE: [age] year old RACE: White MARITAL STATUS: Single (never ) OCCUPATION: Disabled since early 1999 Current psychiatric medications:-- 1-Lamictal 100 mg po AM and 150 mg po hs. . 2-Effexor 150 mg po bid. 3-Buspar 10 mg po TID--pt is taking only bid. 4-Gabapentin 300 mg one po am and 2 at hs -pt stopped the medicine on his own 2 months ago. 5-Klonopin 1 mg po BID( changed from the ativan. ) 6- lithium 300 mg 2 po am and 3 at hs 7--Risperidone 1 mg po bid. Side effects. Hand tremors. CHIEF COMPLAINT: My anxiety has been really bad HPI: this is the first meeting with the pt in person. Pt with long history of anxiety, as well as mood syms. Pt stated that his anxiety is still the main issue. He recalled that he was anxious even when he was in grade school and it never completely went away with any medications. While on Xanax he hd more relief but we do not know how high a dose he took. After a while it was not helpful for him at all. His mood is stable. No mood swings. Anxiety. He wakes up in the morning without any anxiety syms. As the day progrss starts to get more and more anxious. He is not able to identify any precipitants. Towards night , he starts to gets more racing thoughts even thought he has some racy thoughts during the day time also. He denies any stressors in his life. He denied suicidal thoughts or plans. We discussed increasing the dose of Risperidone and also to restart the gabapentin. VITAL SIGNS: There were no vitals filed for this visit. ROS: GENERAL: Negative for malaise, significant weight loss and fever HEENT: No changes in hearing or vision, no nose bleeds or other nasal problems NECK: Negative for lumps, goiter, pain and significant neck swelling RESPIRATORY: Negative for cough, wheezing and shortness of breath CARDIOVASCULAR: Negative for chest pain, leg swelling and palpitations GI: Negative for abdominal discomfort, blood in stools or black stools : Negative for dysuria, frequency and incontinence CLINICAL PROGRAM COORDINATOR: N/A MUSCULOSKELETAL: Negative for joint pain or swelling, back pain, and muscle pain. SKIN: Negative for lesions, rash, and itching. PSYCH: See HPI HEMATOLOGY/LYMPHOLOGY Negative for prolonged bleeding, bruising easily, and swollen nodes. ENDOCRINE: Negative for cold or heat intolerance, polyuria, polydipsia and goiter. NEURO: Negative SINGLE ORGAN PSYCH EXAM: Constitutional: Well groomed, Well developed, Well nourished Musculoskeletal: Gait: Normal Pain: 0 PSYCHIATRIC HISTORY: Prior Diagnosis: Bipolar Affective Disorder Prior Provider: DR DALJIT Aguirre Therapist: No prior therapist Current Senior Trial Attorney: None Last Hospitalization: Denies hospitalization. and about a year ago. ECT: none Previous Discontinued Psychiatric Med Trials: Paxil,Prozaac, Zoloft, Wellbutrin,Celexa, Seroquel, [place] ,Latuda, Depakote, Imipramine etc. SUBSTANCE USE HISTORY: Nicotine: None Caffeine: None, he drinks 2 to 3 diet pop Alcohol: No history of use or dependence Marijuana: No history of use or dependence Cocaine: No history of use or dependence Opiods: No history of use or dependence SPIRITUALITY: none to speak off. PFSH: Daljit Napoles is one of 3 children to his parents. Born and raised in [place], [place].. Both parents were there when he was growing up. His father was killed in a car accident when he was 19 . 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 He has been on disability for years. He lives with his fiance and their 5 year old son. Pt denied smoking or alcohol abuse. He denied having guns . Service: None Legal: Pt. denied any past legal history FAMILY PSYCHIATRIC HISTORY: On the paternal side --one uncle has bipolar illness. Cousin is schizophrenic No alcoholism or suicides in the family. PATIENT DATA: PHQ completed. MENTAL STATUS EXAMINATION: Appearance: Casually dressed Behavior: Behaves appropriately during the encounter Social relatedness: Euthymic Speech/Language: The patient demonstrates appropriate tone, prosody, shala, phonetics, and syntax Mood: stable.some racy thoughts. Affect: Anxiety orientation: Person, Place, Time and Situation Associations: Intact and linear Hallucinations: None Delusions: None Suicidal Ideation: No suicidal ideation, intent or plan. Homicidal Ideation: No homicidal ideation, intent or plan. Insight: Fair Judgment: Fair IMPRESSION: This is a pt with bipolar illness. Pt is stable. . DIAGNOSIS: PRIMARY: bipolar affective disorder ,full remission. SECONDARY: Anxiety Disorder Generalized Anxiety Disorder Hypertension. Labs Repeat BUN, Creatinine and [place] levels. Continue current medications. 1-Lamictal 100 mg po am an (more content not included)...[facility] 08-05-2021 History of Present illness Narrative* Lani Reyes MD - 08/05/2021 2:31 PM EDT Progress note. Office visit. August 06, 2021 AGE: [age] year old RACE: White MARITAL STATUS: Single (never ) OCCUPATION: Disabled since early 1999 Current psychiatric medications:-- 1-Lamictal 100 mg po AM and 150 mg po hs. . 2-Effexor 150 mg po bid. 3-Buspar 10 mg po TID--pt is taking only bid. 4-Gabapentin 300 mg one po am and 2 at hs -pt stopped the medicine on his own 2 months ago. 5-Klonopin 1 mg po BID( changed from the ativan. ) 6- lithium 300 mg 2 po am and 3 at hs 7--Risperidone 1 mg po bid. Side effects. Hand tremors. CHIEF COMPLAINT: My anxiety has been really bad HPI: this is the first meeting with the pt in person. Pt with long history of anxiety, as well as mood syms. Pt stated that his anxiety is still the main issue. He recalled that he was anxious even when he was in grade school and it never completely went away with any medications. While on Xanax hehd more relief but we do not know how high a dose he took. After a while it was not helpful for himat all. His mood is stable. No mood swings. Anxiety. He wakes up in the morning without any anxiety syms. As the day progrss starts to get more and moreanxious. He is not able to identify any precipitants. Towards night , he starts to gets more racingthoughts even thought he has some racy thoughts during the day time also. He denies any stressors in his life. He denied suicidal thoughts or plans. We discussed increasing the dose of Risperidone and also to restart the gabapentin. VITAL SIGNS: There were no vitals filed for this visit. ROS: GENERAL: Negative for malaise, significant weight loss and fever HEENT: No changes in hearing or vision, no nose bleeds or other nasal problems NECK: Negative for lumps, goiter, pain and significant neck swelling RESPIRATORY: Negative for cough, wheezing and shortness of breath CARDIOVASCULAR: Negative for chest pain, leg swelling and palpitations GI: Negative for abdominal discomfort, blood in stools or black stools : Negative for dysuria, frequency and incontinence CLINICAL PROGRAM COORDINATOR: N/A MUSCULOSKELETAL: Negative for joint pain or swelling, back pain, and muscle pain. SKIN: Negative for lesions, rash, and itching. PSYCH: See HPI HEMATOLOGY/LYMPHOLOGY Negative for prolonged bleeding, bruising easily, and swollen nodes. ENDOCRINE: Negative for cold or heat intolerance, polyuria, polydipsia and goiter. NEURO: Negative SINGLE ORGAN PSYCH EXAM: Constitutional: Well groomed, Well developed, Well nourished Musculoskeletal: Gait: Normal Pain: 0 PSYCHIATRIC HISTORY: Prior Diagnosis: Bipolar Affective Disorder Prior Provider: DR DALJIT Aguirre Therapist: No prior therapist Current Senior Trial Attorney: None Last Hospitalization: Denies hospitalization. and about a year ago. ECT: none Previous Discontinued Psychiatric Med Trials: Paxil,Prozaac, Zoloft, Wellbutrin,Celexa, Seroquel, [place] ,Latuda, Depakote, Imipramine etc. SUBSTANCE USE HISTORY: Nicotine: None Caffeine: None, he drinks 2 to 3 diet pop Alcohol: No history of use or dependence Marijuana: No history of use or dependence Cocaine: No history of use or dependence Opiods: No history of use or dependence SPIRITUALITY: none to speak off. PFSH: Daljit Napoles is one of 3 children to his parents. Born and raised in [place], [place].. Both parents were there when he was growing up. His father was killed in a car accident when he was 19 . 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 He has been on disability for years. He lives with his fiance and their 5 year old son. Pt denied smoking or alcohol abuse. He denied having guns . Service: None Legal: Pt. denied any past legal history FAMILY PSYCHIATRIC HISTORY: On the paternal side --one uncle has bipolar illness. Cousin is schizophrenic No alcoholism or suicides in the family. PATIENT DATA: PHQ completed. MENTAL STATUS EXAMINATION: Appearance: Casually dressed Behavior: Behaves appropriately during the encounter Social relatedness: Euthymic Speech/Language: The patient demonstrates appropriate tone, prosody, shala, phonetics, and syntax Mood: stable.some racy thoughts. Affect: Anxiety orientation: Person, Place, Time and Situation Associations: Intact and linear Hallucinations: None Delusions: None Suicidal Ideation: No suicidal ideation, intent or plan. Homicidal Ideation: No homicidal ideation, intent or plan. Insight: Fair Judgment: Fair IMPRESSION: This is a pt with bipolar illness. Pt is stable. . DIAGNOSIS: PRIMARY: bipolar affective disorder ,full remission. SECONDARY: Anxiety Disorder Generalized Anxiety Disorder Hypertension. Labs Repeat BUN, Creatinine and [place] levels. Continue current medications. 1-Lamictal 100 mg po am and 150 mg po hs. . 2-start back Gabapentin 300 mg as bid. 3 increase risperidone 1 mg po am and 2 at hs. 4-Buspar 10 mg po bid. 5-Continue klonopin 1 mg po bid. 6-Continue Effexor 150 mg po bid. 7-[place] 300 mg 2 am and 2 at hs. . Repeat labs.--lithium level. Side effects to medicines explained to pt. Risk vs benefits and alternatives explained. PLAN: take meds as prescribed. If any problem give us a call or send a message. DISPOSITION: Home Pt was seen for 25 mts. RTC 2 months. SIGNATURE: Lani Reyes MD PATIENT NAME: Daljit Napoles DATE: August 06, 2021 TIME: PAGER/CONTACT #: [facility] Miscellaneous Notes* Telephone Encounter - Charlotte Cee - 07/17/2021 9:30 AM EDT The following medication(s) is being requested: LAST APPT - 12-12-20 NEXT APPT - NONE Pending Prescriptions Disp Refills LAMOTRIGINE 100 MG TABLET 30 tablet 2 Sig: Take 1 tablet by mouth once daily. In the AM. MONAE: No LAMOTRIGINE 150 MG TABLET 30 tablet 2 Sig: Take 1 tablet by mouth once daily. At bedtime. MONAE: No CLONAZEPAM 1 MG TABLET 60 tablet 0 Sig: Take 1 tablet by mouth twice daily as needed for up to 30 days. LAINA Class: C-IV MONAE: No Please process accordingly Charlotte Cee documented [facility] NoteHNO ID: [id number] Author: Lani Reyes MD Service: ? Author Type: Physician Type: Progress Notes Filed: 12/12/2020 1:56 PM Note Text: Progress note. Zoom visit December 12, 2020 AGE: [id number] year old RACE: White MARITAL STATUS: Single (never ) OCCUPATION: Disabled since early 1999 Current psychiatric medications:-- 1-Lamictal 100 mg po AM and 150 mg po hs. . 2-Effexor 150 mg po bid. 3-Buspar 10 mg po TID--pt is taking only bid. 4-Gabapentin 300 mg one po am and 2 at hs - 5-Ativan 1 mg po tid. 6- lithium 300 mg 2 po am and 2 at hs 7--he is back on Seroquel 100 mg half tab po hs. Last lithium level 0.3 Side effects. Hand tremors. CHIEF COMPLAINT: My anxiety has been really bad HPI: 40-year-old single disabled male so today for follow-up over the Zoom. Patient was doing very well during his last visit. Today he reported that his anxiety has been really bad the last 2-1/2 weeks. He is unable to identify any particular stressors that made the anxiety worse. Due to excessive sleepiness we did discontinue his Seroquel after the last visit. However he is back on Seroquel 100 mg a half a tablet at night. I also gather that he has been taking BuSpar 10 mg twice a day only. Patient reported hand tremors. Tremors get worse when his anxiety is worse. Sleep is fairly good. He has been going out slightly more. No mood swings. Not depressed. Reviewed with him, each of his medications. Patient reported the Lamictal really helped his mood swings and at one point when he did go off the Lamictal he started to have mood swings. Effexor has been helpful for his depression. Ativan, BuSpar and gabapentin has been helpful for the anxiety. [place] also helped his mood. Patient is not psychotic. He is not suicidal. We discussed different options. Patient would like to switch the Ativan to Klonopin. He vaguely recall doing good on the Klonopin. Since he just got a whole bottle of Ativan 5 days ago, I will wait at least till the of the December to put a prescription for the Klonopin. Patient agreed to have his Seroquel changed to Geodon to help the anxiety. We will try that option first to be before switched to Klonopin. Patient need to have his a lithium level and kidney test. He will request his primary care doctor to order those. VITAL SIGNS: There were no vitals filed for this visit. ROS: GENERAL: Negative for malaise, significant weight loss and fever HEENT: No changes in hearing or vision, no nose bleeds or other nasal problems NECK: Negative for lumps, goiter, pain and significant neck swelling RESPIRATORY: Negative for cough, wheezing and shortness of breath CARDIOVASCULAR: Negative for chest pain, leg swelling and palpitations GI: Negative for abdominal discomfort, blood in stools or black stools : Negative for dysuria, frequency and incontinence CLINICAL PROGRAM COORDINATOR: N/A MUSCULOSKELETAL: Negative for joint pain or swelling, back pain, and muscle pain. SKIN: Negative for lesions, rash, and itching. PSYCH: See HPI HEMATOLOGY/LYMPHOLOGY Negative for prolonged bleeding, bruising easily, and swollen nodes. ENDOCRINE: Negative for cold or heat intolerance, polyuria, polydipsia and goiter. NEURO: Negative SINGLE ORGAN PSYCH EXAM: Constitutional: Well groomed, Well developed, Well nourished Musculoskeletal: Gait: Normal Pain: 0 PSYCHIATRIC HISTORY: Prior Diagnosis: Bipolar Affective Disorder Prior Provider: DR DALJIT Aguirre Therapist: No prior therapist Current Senior Trial Attorney: None Last Hospitalization: Denies hospitalization. and about a year ago. ECT: none Previous Discontinued Psychiatric Med Trials: Paxil,Prozaac, Zoloft, Wellbutrin,Celexa, Seroquel, [place] ,Latuda, Depakote, Imipramine etc. SUBSTANCE USE HISTORY: Nicotine: None Caffeine: None, he drinks 2 to 3 diet pop Alcohol: No history of use or dependence Marijuana: No history of use or dependence Cocaine: No history of use or dependence Opiods: No history of use or dependence SPIRITUALITY: none to speak off. PFSH: Daljit Napoles is one of 3 children to his parents. Born and raised in [place], [place].. Both parents were there when he was growing up. His father was killed in a car accident when he was 19 . 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 He has been on disability for years. He lives with his fiance and their 5 year old son. Pt denied smoking or alcohol abuse. He denied having guns . Service: None Legal: Pt. denied any past legal history FAMILY PSYCHIATRIC HISTORY: On the paternal side --one uncle has bipolar illness. Cousin is schizophrenic No alcoholism or suicides in the family. PATIENT DATA: PHQ completed. MENTAL STATUS EXAMINATION: Appearance: Casually dressed Behavior: Behaves appropriately during the encounter Social relatedness: Euthymic Speech/Language: The patient demonstrates appropriate tone, prosody, shala, phonetics, (more content not included)...[facility] Plan note No data available for this section [facility] evaluation note* Diagnosis LIN (generalized anxiety disorder) Generalized anxiety disorder [facility] Diagnosis LIN (generalized anxiety disorder) Generalized anxiety disorder Bipolar disorder in full remission, most recent episode unspecified type (HCC) documented in this encounter [facility] noteNo [facility] Other Evaluation note* Diagnosis Severe episode of recurrent major depressive disorder, without psychotic features (CMS/HCC) Generalized anxiety disorder Other bipolar disorder (CMS/HCC) Extrapyramidal symptom documented in this encounter [facility] Work Phone: Evaluation note* Diagnosis Severe episode of recurrent major depressive disorder, without psychotic features (CMS/HCC) Generalized anxiety disorder Other bipolar disorder (CMS/HCC) Extrapyramidal symptom documented in this encounter [facility] Work Phone: Evaluation note* Diagnosis Onset Date Resolution Status Bipolar disorder acute Hypokalemia acute [place] toxicity [facility] Work Phone: Evaluation note* Diagnosis Other bipolar disorder (CMS/HCC) Severe episode of recurrent major depressive disorder, without psychotic features (CMS/HCC) Generalized anxiety disorder Extrapyramidal symptom documented in this encounter [facility] Work Phone: Evaluation note* Diagnosis Onset Date Resolution Status Bipolar disorder acute Hypokalemia resolved [place] toxicity resolved Impaired fasting glucose acu te Primary hypertension [facility] Work Phone: Evaluation note* Diagnosis Other bipolar disorder (CMS/HCC) Severe episode of recurrent major depressive disorder, without psychotic features (CMS/HCC) Generalized anxiety disorder Extrapyramidal symptom documented in this encounter [facility] Work Phone: Evaluation note* Diagnosis Generalized anxiety disorder Other bipolar disorder (CMS/HCC) Severe episode of recurrent major depressive disorder, without psychotic features (CMS/HCC) Extrapyramidal symptom documented in this encounter [facility] Work Phone: Evaluation note* Diagnosis Other bipolar disorder (Multi) Severe episode of recurrent major depressive disorder, without psychotic features (Multi) Generalized anxiety disorder Extrapyramidal symptom documented in this encounter [facility] Work Phone: Evaluation note* Diagnosis Onset Date Resolution Status Gastroesophageal reflux dise ase with esophagitis without hemorrhage acute Impaired fasting glucose acu te Obesity acute Palpitations acute Primary hypertension acute Wellness examination noneact rony [facility] Work Phone: History general Narrative - Reported* Type Description Date Surgical History No Surgical history information Hospitalization History [facility] Other Hisociw general Narrative - Reported* Type Description Date Surgical History No know Surgical history Hospitalization History [facility] Other History of Present illness Narrative* Mr. Napoles is a 41 y/o M, with a history of bipolar disorder and anxiety, seen as a new patient today for medication management. * He tells me that he's decided to switch medication providers because he does not feel the current provider is a good fit. There are some communication difficulties (language barrier, difficulty reaching provider with concerns), and he felt some of his concerns were not being heard or taken seriously. * Overall, he tells me his mood as been fairly stable for the past month. About 5 weeks ago he had what sounds like a hypomanic episode, during which he was awake for several days with excessive energy, I got an awful lot done and I really enjoyed it. However, he began experiencing racing thoughts that were very disruptive. Risperidone was added to his regimen and has provided a significant benefit for his mood. Of note, he indicates this was the most significant manic episode he's ever experienced. * Regardless of mood symptoms, he tells me he's struggled with sleep disruption, for as long as I can remember. He recently had a sleep study done and was diagnosed with sleep apnea, not anything severe, it said mild symptoms. A CPAP was recommended, but he tells me he's on a 6 month wait list toget one because there have been prototype sewer recalls. * He also shares that with regard to mood episodes, generally I cycle down instead of up. He experiences anxiety regardless of mood symptoms, and recently has noted his anxiety does not feel well-managed. He is prescribed venlafaxine, buspirone and clonazepam for anxiety, but feels the benefits have waned. He's unsure buspirone has ever had a significant benefit. He is also concerned for sexual side effects from venlafaxine, and would like to consider an alternative. * He mentions that about 9 months ago he and his son's mother broke up. Since then, they've been in acustody [place]az[place], and this has been one of the most significant stressors he's dealing with. He tellsme things have gone well in the court proceedings, and so far it appears they will have equal custody. * Denies suicidal ideation/plan/intent or a passive wish. Denies violent thinking or homicidal ideation. * Current rx: * [place] IR 900 mg PO QHS- taking for 2 years- last lithium level was 6 months ago, not sure what itwas. Has been on higher doses (up to 1500 mg) and it caused skin to breakout. Doses lower than 900 mg have not managed his mood symptoms well. * Risperidone 1 mg PO daily and 2 mg PO QHS- started * 2 months ago for racing thoughts * Venlafaxine ER 150 mg PO BID- waning benefit, anorgasmia- has been taking for years. * Lamotrigine 100 mg PO daily and 150 mg PO QHS- has been taking for years, unsure of benefit. * Buspirone 10 mg PO BID- unsure of benefit- has been taking for probably a couple years. * Clonazepam 1 mg PO BID- has been taking for * 8 months; seems to have lost benefit over the past several months * Gabapentin 300 mg PO BID- started * 2 years ago, unsure of benefit. * Past rx: * Lorazepam- benefit waned, so was switched to clonazepam. * Zolpidem- can't recall whether it was beneficial. * Trazodone- helped for sleep, but stimulated appetite. * Tons of 'em. Does not recall any with severe side effects, but cannot recall specific names/doses/duration of treatment. * Psych hx: * Bipolar disorder, LIN * Current psychiatrist Veronica Redmond at [facility]- has been seeing since early 2019. * Hospitalized most recently at [facility] 1.5 years ago for suicidal ideation. Prior to that had not been hospitalized in * 10 years. Estimates 13 lifetime hospitalizations. * First treated at around age 10-11- I had a severe fear of school, dreadful fear. During middle school could only go for 1/2 days. Had fears that his food was being poisoned, so couldn't eat there. Was prescribed medication, but unsure what. It pretty much knocked me out. Was home-schooled briefly for HS, then took [employer] test and graduated early. * No history of suicide attempt or self-harm. * No violence history. * Has done individual therapy off and on over the years with virtually no success. Not currently seeing a therapist. * No history of IOP/PHP. * Family hx: * Uncle- bipolar disorder or schizophrenia * Cousin- schizophrenia * No substance use. * No suicide. * Pertinent medical dx: * Denies current medical issues. * No history of concussion, head injury, seizures. * I have personally reviewed the OARRS report for DALJIT NAPOLES. I have considered the risks of abuse, dependence, addiction and diversion. [facility] Work Phone: History of Present illness Narrative* Mr. Napoles is a 41 y/o M, seen in follow-up for bipolar disorder and LIN. * Since his last appointment, he has titrated vortioxetine to 20 mg PO daily. Has reduced venlafaxinefrom 300--> 225 mg. Struggled with taper d/t insomnia and worsening anxiety. Doxepin PRN was prescribed with benefit for sleep, but leaves him feeling lethargic and drowsy the next day. With the recent changes he's noted, a lot of depressive episodes that come on almost like a seizure. I never know how long they're gonna last or how bad they'll be. These episodes occur within a day's time- can last a few hours, but not days at a time. This has been going on for about 3 weeks. * He tells me his lithium dose is now 1200 mg, and it is somewhat unclear why this was increased. He has not seen another provider since our last appointment, but tells me his previous provided had suggested he take 1500 mg, and perhaps he reduced the dose on his own to 900 mg, now recently self-incre ased to 1200 mg. * We discussed alternatives to doxepin to help with sleep, including the option to consolidate gabapentin dose to bedtime, which he declines. He would ultimately like to come off of that medication. Tyra not recall any past trial of mirtazapine. * He had recent lab work drawn at PCP appointment, and requested the results be faxed to my office. * -asked PCP to fax lab results (just done Thursday). * -d/c buspirone * -d/c doxepin * -continue taper of venlafaxine * -start mirtazapine * Denies suicidal ideation/plan/intent or a passive wish. Denies violent thinking or homicidal ideation. * From my initial assessment on 08/28/2021: * Current rx: * [place] IR 900 mg PO QHS- taking for 2 years- last lithium level was 6 months ago, not sure what itwas. Has been on higher doses (up to 1500 mg) and it caused skin to breakout. Doses lower than 900 mg have not managed his mood symptoms well. * Risperidone 1 mg PO daily and 2 mg PO QHS- started * 2 months ago for racing thoughts * Venlafaxine ER 150 mg PO BID- waning benefit, anorgasmia- has been taking for years. * Lamotrigine 100 mg PO daily and 150 mg PO QHS- has been taking for years, unsure of benefit. * Buspirone 10 mg PO BID- unsure of benefit- has been taking for probably a couple years. * Clonazepam 1 mg PO BID- has been taking for * 8 months; seems to have lost benefit over the past several months * Gabapentin 300 mg PO BID- started * 2 years ago, unsure of benefit. * Past rx: * Lorazepam- benefit waned, so was switched to clonazepam. * Zolpidem- can't recall whether it was beneficial. * Trazodone- helped for sleep, but stimulated appetite. * Tons of 'em. Does not recall any with severe side effects, but cannot recall specific names/doses/duration of treatment. * Psych hx: * Bipolar disorder, LIN * Current psychiatrist Veronica Redmond at [facility]- has been seeing since early 2019. * Hospitalized most recently at [facility] 1.5 years ago for suicidal ideation. Prior to that had not been hospitalized in * 10 years. Estimates 13 lifetime hospitalizations. * First treated at around age 10-11- I had a severe fear of school, dreadful fear. During middle school could only go for 1/2 days. Had fears that his food was being poisoned, so couldn't eat there. Was prescribed medication, but unsure what. It pretty much knocked me out. Was home-schooled briefly for HS, then took [employer] test and graduated early. * No history of suicide attempt or self-harm. * No violence history. * Has done individual therapy off and on over the years with virtually no success. Not currently seeing a therapist. * No history of IOP/PHP. * Family hx: * Uncle- bipolar disorder or schizophrenia * Cousin- schizophrenia * No substance use. * No suicide. * Pertinent medical dx: * Denies current medical issues. * No history of concussion, head injury, seizures. * I have personally reviewed the OARRS report for DALJIT NAPOLES. I have considered the risks of abuse, dependence, addiction and diversion. [id number] Work Phone: History of Present illness Narrative* Mr. Napoles is a 41 y/o M, seen in follow-up for bipolar disorder and LIN. * Since his last appointment, he ceased taking vortioxetine and has re-titrated venlafaxine to 300 mgPO daily. Depressive symptoms were worsening despite titration of vortioxetine to 20 mg. Venlafaxine seems to be the most beneficial medication for depression he's trialed, and despite the sexual side effects, he'd prefer to stay on it. * Mirtazapine has been beneficial for sleep. He's noted no significant side effects. Some daytime drowsiness, but this has not been especially disruptive. * His anxiety has been worsening over the past few months, and none of the recent efforts at changinghis medications has been beneficial. Describes an overwhelming feeling of anxiety, not a full blown panic, but it can last for hours. No obvious triggers, there doesn't seem to be any rhyme or reason to it. Occurs on a daily basis. Discussed the option to re-trial buspirone with a plan to titrate to more therapeutic dose vs further titrating gabapentin. * He otherwise reports he's continued his medications as prescribed. He continues to question the benefit from lamotrigine or gabapentin. * Denies suicidal ideation/plan/intent or a passive wish. Denies violent thinking or homicidal ideation. * No new medical issues or medications. His PCP's office has not yet faxed lab results from last month. PCP is Dr. Vito Powers in [place], [place]. * From my initial assessment on 08/28/2021: * Current rx: * [place] IR 900 mg PO QHS- taking for 2 years- last lithium level was 6 months ago, not sure what itwas. Has been on higher doses (up to 1500 mg) and it caused skin to breakout. Doses lower than 900 mg have not managed his mood symptoms well. * Risperidone 1 mg PO daily and 2 mg PO QHS- started * 2 months ago for racing thoughts * Venlafaxine ER 150 mg PO BID- waning benefit, anorgasmia- has been taking for years. * Lamotrigine 100 mg PO daily and 150 mg PO QHS- has been taking for years, unsure of benefit. * Buspirone 10 mg PO BID- unsure of benefit- has been taking for probably a couple years. * Clonazepam 1 mg PO BID- has been taking for * 8 months; seems to have lost benefit over the past several months * Gabapentin 300 mg PO BID- started * 2 years ago, unsure of benefit. * Past rx: * Lorazepam- benefit waned, so was switched to clonazepam. * Zolpidem- can't recall whether it was beneficial. * Trazodone- helped for sleep, but stimulated appetite. * Tons of 'em. Does not recall any with severe side effects, but cannot recall specific names/doses/duration of treatment. * Psych hx: * Bipolar disorder, LIN * Current psychiatrist Veronica Redmond at [facility]- has been seeing since early 2019. * Hospitalized most recently at [facility] 1.5 years ago for suicidal ideation. Prior to that had not been hospitalized in * 10 years. Estimates 13 lifetime hospitalizations. * First treated at around age 10-11- I had a severe fear of school, dreadful fear. During middle school could only go for 1/2 days. Had fears that his food was being poisoned, so couldn't eat there. Was prescribed medication, but unsure what. It pretty much knocked me out. Was home-schooled briefly for HS, then took GED test and graduated early. * No history of suicide attempt or self-harm. * No violence history. * Has done individual therapy off and on over the years with virtually no success. Not currently seeing a therapist. * No history of IOP/PHP. * Family hx: * Uncle- bipolar disorder or schizophrenia * Cousin- schizophrenia * No substance use. * No suicide. * Pertinent medical dx: * Denies current medical issues. * No history of concussion, head injury, seizures. * I have personally reviewed the OARRS report for [facility] [place]. I have considered the risks of abuse, dependence, addiction and diversion. [id number] DO Work Phone: History of Present illness Narrative* Mr. Napoles is a 41 y/o M, seen in follow-up for bipolar disorder and LIN. * Since his last appointment, * -things have been ok * -still having some issues with anxiety * -situations where he's been close to a panic attack- heart races, shaky- pretty random- can't pinpoint to anything specific. * -probably * 6 times/week. * -hydroxyzine seems to help, but not as much as he'd like. * -calming, but also sedating. * -everything else is going pretty well * -no concerns about other medications. * -propranolol- took for tremor- couple years ago. * -no hx of clonidine * Recently took antibiotics- thought was a UTI, but actually prostate infection. Just finished third course- have been trying to find right one. * No concerns with medications otherwise. * Denies suicidal ideation/plan/intent or a passive wish. Denies violent thinking or homicidal ideation. * Taking an antibiotic for prostate infection. Otherwise reports no new medical problems or medications. * From my initial assessment on 08/28/2021: * Current rx: * [place] IR 900 mg PO QHS- taking for 2 years- last lithium level was 6 months ago, not sure what itwas. Has been on higher doses (up to 1500 mg) and it caused skin to breakout. Doses lower than 900 mg have not managed his mood symptoms well. * Risperidone 1 mg PO daily and 2 mg PO QHS- started * 2 months ago for racing thoughts * Venlafaxine ER 150 mg PO BID- waning benefit, anorgasmia- has been taking for years. * Lamotrigine 100 mg PO daily and 150 mg PO QHS- has been taking for years, unsure of benefit. * Buspirone 10 mg PO BID- unsure of benefit- has been taking for probably a couple years. * Clonazepam 1 mg PO BID- has been taking for * 8 months; seems to have lost benefit over the past several months * Gabapentin 300 mg PO BID- started * 2 years ago, unsure of benefit. * Past rx: * Lorazepam- benefit waned, so was switched to clonazepam. * Zolpidem- can't recall whether it was beneficial. * Trazodone- helped for sleep, but stimulated appetite. * Tons of 'em. Does not recall any with severe side effects, but cannot recall specific names/doses/duration of treatment. * Psych hx: * Bipolar disorder, LIN * Current psychiatrist Veronica Redmond at [facility]- has been seeing since early 2019. * Hospitalized most recently at [facility] 1.5 years ago for suicidal ideation. Prior to that had not been hospitalized in * 10 years. Estimates 13 lifetime hospitalizations. * First treated at around age 10-11- I had a severe fear of school, dreadful fear. During middle school could only go for 1/2 days. Had fears that his food was being poisoned, so couldn't eat there. Was prescribed medication, but unsure what. It pretty much knocked me out. Was home-schooled briefly for HS, then took [employer] test and graduated early. * No history of suicide attempt or self-harm. * No violence history. * Has done individual therapy off and on over the years with virtually no success. Not currently seeing a therapist. * No history of IOP/PHP. * Family hx: * Uncle- bipolar disorder or schizophrenia * Cousin- schizophrenia * No substance use. * No suicide. * Pertinent medical dx: * Denies current medical issues. * No history of concussion, head injury, seizures. * I have personally reviewed the OARRS report for [facility]. I have considered the risks of abuse, dependence, addiction and diversion. [id number] [place] DO Work Phone: History of Present illness Narrative* Mr. Napoles is a 41 y/o M, seen in follow-up for bipolar disorder and LIN. * Since his last appointment, he tells me things are, not too bad. He's found clonidine beneficial at 0.2 mg dose (see chart update from 01/31). Not having panic attacks, but, I have the building upto it rickey thing, not a full on panic attack. Also experiencing a general feeling of anxiety the majority of the day every day. Cannot identify any aggravating or alleviating factors. Inquires about continuing to have the option to take hydroxyzine PRN for breakthrough anxiety. * Sleep has recently been, a little worse for some reason, but not terrible. Nothing that he is especially concerned about. Energy level has been, pretty good. Appetite has been lower over the pastmonth or so, but nothing drastic. No significant mood changes. * In discussing the option to engage in psychotherapy, he shares that he doesn't think it would be helpful. Doesn't recall ever seeing therapy as a benefit. Has seen quite a few different providers, but never seemed to have a very positive impact on his symptoms. * Denies suicidal ideation or a passive wish. * No new medications or medical problems. * From my initial assessment on 08/28/2021: * Current rx: * [place] IR 900 mg PO QHS- taking for 2 years- last lithium level was 6 months ago, not sure what itwas. Has been on higher doses (up to 1500 mg) and it caused skin to breakout. Doses lower than 900 mg have not managed his mood symptoms well. * Risperidone 1 mg PO daily and 2 mg PO QHS- started * 2 months ago for racing thoughts * Venlafaxine ER 150 mg PO BID- waning benefit, anorgasmia- has been taking for years. * Lamotrigine 100 mg PO daily and 150 mg PO QHS- has been taking for years, unsure of benefit. * Buspirone 10 mg PO BID- unsure of benefit- has been taking for probably a couple years. * Clonazepam 1 mg PO BID- has been taking for * 8 months; seems to have lost benefit over the past several months * Gabapentin 300 mg PO BID- started * 2 years ago, unsure of benefit. * Past rx: * Lorazepam- benefit waned, so was switched to clonazepam. * Zolpidem- can't recall whether it was beneficial. * Trazodone- helped for sleep, but stimulated appetite. * Tons of 'em. Does not recall any with severe side effects, but cannot recall specific names/doses/duration of treatment. * Psych hx: * Bipolar disorder, LIN * Current psychiatrist Veronica Redmond at [facility]- has been seeing since early 2019. * Hospitalized most recently at [facility] 1.5 years ago for suicidal ideation. Prior to that had not been hospitalized in * 10 years. Estimates 13 lifetime hospitalizations. * First treated at around age 10-11- I had a severe fear of school, dreadful fear. During middle school could only go for 1/2 days. Had fears that his food was being poisoned, so couldn't eat there. Was prescribed medication, but unsure what. It pretty much knocked me out. Was home-schooled briefly for HS, then took [employer] test and graduated early. * No history of suicide attempt or self-harm. * No violence history. * Has done individual therapy off and on over the years with virtually no success. Not currently seeing a therapist. * No history of IOP/PHP. * Family hx: * Uncle- bipolar disorder or schizophrenia * Cousin- schizophrenia * No substance use. * No suicide. * Pertinent medical dx: * Denies current medical issues. * No history of concussion, head injury, seizures. * I have personally reviewed the OARRS report for [facility]. I have considered the risks of abuse, dependence, addiction and diversion. [facility]-[address] Work Phone: History of Present illness Narrative* Mr. Napoles is a 41 y/o M, seen in follow-up for bipolar disorder and LIN. * Since his last appointment, he tells me things have been ok. I'm still having some issues with anxiety. There have been situations during which he's felt close to a panic attack- heart races, feelsshaky. Seems to be at random, unable to identify any precipitating factors. Estimates this occurs * 6 times/week. Hydroxyzine PRN is modestly beneficial, not as helpful as I'd like. Finds that it'scalming, but also pretty sedating. Other than clonazepam and gabapentin, recalls being prescribed propranolol in the past, but for tremor, not anxiety. No past trial of clonidine. * Otherwise reports, everything else is going pretty well. Mood symptoms have been well-controlled.No concerns with current regimen. * Denies suicidal ideation or a passive wish. * Recently took antibiotics- thought was a UTI, but actually prostate infection. No other new medicalproblems or medications. * No concerns with medications otherwise. * Denies suicidal ideation/plan/intent or a passive wish. Denies violent thinking or homicidal ideation. * Taking an antibiotic for prostate infection. Otherwise reports no new medical problems or medications. * From my initial assessment on 08/28/2021: * Current rx: * [place] IR 900 mg PO QHS- taking for 2 years- last lithium level was 6 months ago, not sure what itwas. Has been on higher doses (up to 1500 mg) and it caused skin to breakout. Doses lower than 900 mg have not managed his mood symptoms well. * Risperidone 1 mg PO daily and 2 mg PO QHS- started * 2 months ago for racing thoughts * Venlafaxine ER 150 mg PO BID- waning benefit, anorgasmia- has been taking for years. * Lamotrigine 100 mg PO daily and 150 mg PO QHS- has been taking for years, unsure of benefit. * Buspirone 10 mg PO BID- unsure of benefit- has been taking for probably a couple years. * Clonazepam 1 mg PO BID- has been taking for * 8 months; seems to have lost benefit over the past several months * Gabapentin 300 mg PO BID- started * 2 years ago, unsure of benefit. * Past rx: * Lorazepam- benefit waned, so was switched to clonazepam. * Zolpidem- can't recall whether it was beneficial. * Trazodone- helped for sleep, but stimulated appetite. * Tons of 'em. Does not recall any with severe side effects, but cannot recall specific names/doses/duration of treatment. * Psych hx: * Bipolar disorder, LIN * Current psychiatrist Veronica Redmond at [facility]- has been seeing since early 2019. * Hospitalized most recently at [facility] 1.5 years ago for suicidal ideation. Prior to that had not been hospitalized in * 10 years. Estimates 13 lifetime hospitalizations. * First treated at around age 10-11- I had a severe fear of school, dreadful fear. During middle school could only go for 1/2 days. Had fears that his food was being poisoned, so couldn't eat there. Was prescribed medication, but unsure what. It pretty much knocked me out. Was home-schooled briefly for HS, then took [employer] test and graduated early. * No history of suicide attempt or self-harm. * No violence history. * Has done individual therapy off and on over the years with virtually no success. Not currently seeing a therapist. * No history of IOP/PHP. * Family hx: * Uncle- bipolar disorder or schizophrenia * Cousin- schizophrenia * No substance use. * No suicide. * Pertinent medical dx: * Denies current medical issues. * No history of concussion, head injury, seizures. * I have personally reviewed the OARRS report for [facility]. I have considered the risks of abuse, dependence, addiction and diversion. [facility]-[address] Work Phone: History of Present illness Narrative* Mr. Napoles is a 41 y/o M, seen in follow-up for bipolar disorder and LIN. * Since our last appointment, he tells me things have been going ok. Seems like the increase in mirtazapine has had a good effect on the depression. It took a little while, but it's gotten better. He's sleeping well. Appetite is good. Energy level is generally good, but sometimes when he takes PRN medication for anxiety he can get more tired/fatigued. On days he has his son he usually skips any PRN medications because he can't afford to be tired. I just kind of have to live with [the anxiety] on those days. Overall his anxiety has been better than when we last met. * Otherwise has no concerns. He did complete an intake assessment for IOP, but his insurance requireda large co-pay that made participation cost-prohibitive. He is not interested in individual therapy. * Denies suicidal ideation or a passive wish. * Taking an antibiotic and alfuzosin from urologist for his prostate. Otherwise no new health problems or medications. * From my initial assessment on 08/28/2021: * Current rx: * [place] IR 900 mg PO QHS- taking for 2 years- last lithium level was 6 months ago, not sure what itwas. Has been on higher doses (up to 1500 mg) and it caused skin to breakout. Doses lower than 900 mg have not managed his mood symptoms well. * Risperidone 1 mg PO daily and 2 mg PO QHS- started * 2 months ago for racing thoughts * Venlafaxine ER 150 mg PO BID- waning benefit, anorgasmia- has been taking for years. * Lamotrigine 100 mg PO daily and 150 mg PO QHS- has been taking for years, unsure of benefit. * Buspirone 10 mg PO BID- unsure of benefit- has been taking for probably a couple years. * Clonazepam 1 mg PO BID- has been taking for * 8 months; seems to have lost benefit over the past several months * Gabapentin 300 mg PO BID- started * 2 years ago, unsure of benefit. * Past rx: * Lorazepam- benefit waned, so was switched to clonazepam. * Zolpidem- can't recall whether it was beneficial. * Trazodone- helped for sleep, but stimulated appetite. * Tons of 'em. Does not recall any with severe side effects, but cannot recall specific names/doses/duration of treatment. * Psych hx: * Bipolar disorder, LIN * Current psychiatrist Veronica Redmond at [facility]- has been seeing since early 2019. * Hospitalized most recently at [facility] 1.5 years ago for suicidal ideation. Prior to that had not been hospitalized in * 10 years. Estimates 13 lifetime hospitalizations. * First treated at around age 10-11- I had a severe fear of school, dreadful fear. During middle school could only go for 1/2 days. Had fears that his food was being poisoned, so couldn't eat there. Was prescribed medication, but unsure what. It pretty much knocked me out. Was home-schooled briefly for HS, then took [employer] test and graduated early. * No history of suicide attempt or self-harm. * No violence history. * Has done individual therapy off and on over the years with virtually no success. Not currently seeing a therapist. * No history of IOP/PHP. * Family hx: * Uncle- bipolar disorder or schizophrenia * Cousin- schizophrenia * No substance use. * No suicide. * Pertinent medical dx: * Denies current medical issues. * No history of concussion, head injury, seizures. * I have personally reviewed the OARRS report for [facility]. I have considered the risks of abuse, dependence, addiction and diversion. [id number] [place] DO Work Phone: History of Present illness Narrative* Mr. Napoles is a 41 y/o M, seen in follow-up for bipolar disorder and LIN. * Since his last appointment, * Since our last appointment, he tells me things have been going ok. Seems like the increase in mirtazapine has had a good effect on the depression. It took a little while, but it's gotten better. He's sleeping well. Appetite is good. Energy level is generally good, but sometimes when he takes PRN medication for anxiety he can get more tired/fatigued. On days he has his son he usually skips any PRN medications because he can't afford to be tired. I just kind of have to live with [the anxiety] on those days. Overall his anxiety has been better than when we last met. * Otherwise has no concerns. He did complete an intake assessment for IOP, but his insurance requireda large co-pay that made participation cost-prohibitive. He is not interested in individual therapy. * Denies suicidal ideation or a passive wish. * Taking an antibiotic and alfuzosin from urologist for his prostate. Otherwise no new health problems or medications. * From my initial assessment on 08/28/2021: * Current rx: * [place] IR 900 mg PO QHS- taking for 2 years- last lithium level was 6 months ago, not sure what itwas. Has been on higher doses (up to 1500 mg) and it caused skin to breakout. Doses lower than 900 mg have not managed his mood symptoms well. * Risperidone 1 mg PO daily and 2 mg PO QHS- started * 2 months ago for racing thoughts * Venlafaxine ER 150 mg PO BID- waning benefit, anorgasmia- has been taking for years. * Lamotrigine 100 mg PO daily and 150 mg PO QHS- has been taking for years, unsure of benefit. * Buspirone 10 mg PO BID- unsure of benefit- has been taking for probably a couple years. * Clonazepam 1 mg PO BID- has been taking for * 8 months; seems to have lost benefit over the past several months * Gabapentin 300 mg PO BID- started * 2 years ago, unsure of benefit. * Past rx: * Lorazepam- benefit waned, so was switched to clonazepam. * Zolpidem- can't recall whether it was beneficial. * Trazodone- helped for sleep, but stimulated appetite. * Tons of 'em. Does not recall any with severe side effects, but cannot recall specific names/doses/duration of treatment. * Psych hx: * Bipolar disorder, LIN * Current psychiatrist Veronica Redmond at [facility]- has been seeing since early 2019. * Hospitalized most recently at [facility] 1.5 years ago for suicidal ideation. Prior to that had not been hospitalized in * 10 years. Estimates 13 lifetime hospitalizations. * First treated at around age 10-11- I had a severe fear of school, dreadful fear. During middle school could only go for 1/2 days. Had fears that his food was being poisoned, so couldn't eat there. Was prescribed medication, but unsure what. It pretty much knocked me out. Was home-schooled briefly for HS, then took [employer] test and graduated early. * No history of suicide attempt or self-harm. * No violence history. * Has done individual therapy off and on over the years with virtually no success. Not currently seeing a therapist. * No history of IOP/PHP. * Family hx: * Uncle- bipolar disorder or schizophrenia * Cousin- schizophrenia * No substance use. * No suicide. * Pertinent medical dx: * Denies current medical issues. * No history of concussion, head injury, seizures. * I have personally reviewed the OARRS report for [facility]. I have considered the risks of abuse, dependence, addiction and diversion. [id number] [place] DO Work Phone: History of Present illness Narrative* Mr. Napoles is a 42 y/o M, seen in follow-up for bipolar disorder and LIN. * Since his last appointment, * -doing ok * -started seeing a therapist- someone he'd seen previously * -sleep has gotten better since consolidating gabapentin dose to bedtime * -anxiety is, just kind of out of control right now. * -becoming very difficult to get through day to day routine. * -always there, but seems like it's been worsening over the past couple of months. * -doesn't seem that it's worsened since the change in how he's taking gabapentin. * -getting behind on work because of anxiety. * -becoming more easily overwhelmed by stressors (e.g. people arguing in public and felt like he needed to get out as soon as possible). * -no panic attacks. * -takes hydroxyzine PRN and notices a mild reduction in sx * -clonidine PRN only in the evening, before bed, for anxiety. * -depression has been pretty good * -hasn't felt very depressed in the past month or so. * -seems that involuntary tongue movement has stopped. * -hasn t noticed it in weeks. * Denies suicidal ideation or a passive wish. * No new medications or health problems. Had a sinus infection earlier this month that he took amoxicillin for. * From my initial assessment on 08/28/2021: * Current rx: * [place] IR 900 mg PO QHS- taking for 2 years- last lithium level was 6 months ago, not sure what itwas. Has been on higher doses (up to 1500 mg) and it caused skin to breakout. Doses lower than 900 mg have not managed his mood symptoms well. * Risperidone 1 mg PO daily and 2 mg PO QHS- started * 2 months ago for racing thoughts * Venlafaxine ER 150 mg PO BID- waning benefit, anorgasmia- has been taking for years. * Lamotrigine 100 mg PO daily and 150 mg PO QHS- has been taking for years, unsure of benefit. * Buspirone 10 mg PO BID- unsure of benefit- has been taking for probably a couple years. * Clonazepam 1 mg PO BID- has been taking for * 8 months; seems to have lost benefit over the past several months * Gabapentin 300 mg PO BID- started * 2 years ago, unsure of benefit. * Past rx: * Lorazepam- benefit waned, so was switched to clonazepam. * Zolpidem- can't recall whether it was beneficial. * Trazodone- helped for sleep, but stimulated appetite. * Tons of 'em. Does not recall any with severe side effects, but cannot recall specific names/doses/duration of treatment. * Psych hx: * Bipolar disorder, LIN * Current psychiatrist Veronica Redmond at [facility]- has been seeing since early 2019. * Hospitalized most recently at [facility] 1.5 years ago for suicidal ideation. Prior to that had not been hospitalized in * 10 years. Estimates 13 lifetime hospitalizations. * First treated at around age 10-11- I had a severe fear of school, dreadful fear. During middle school could only go for 1/2 days. Had fears that his food was being poisoned, so couldn't eat there. Was prescribed medication, but unsure what. It pretty much knocked me out. Was home-schooled briefly for HS, then took [employer] test and graduated early. * No history of suicide attempt or self-harm. * No violence history. * Has done individual therapy off and on over the years with virtually no success. Not currently seeing a therapist. * No history of IOP/PHP. * Family hx: * Uncle- bipolar disorder or schizophrenia * Cousin- schizophrenia * No substance use. * No suicide. * Pertinent medical dx: * Denies current medical issues. * No history of concussion, head injury, seizures. * I have personally reviewed the OARRS report for [facility] [place]. I have considered the risks of abuse, dependence, addiction and diversion. [id number]-[address] [place] DO Work Phone: History of Present illness Narrative* Mr. Napoles is a 42 y/o M, seen in follow-up for bipolar disorder and LIN. * Since his last appointment, * -doing ok * -started seeing a therapist- someone he'd seen previously * -sleep has gotten better since consolidating gabapentin dose to bedtime * -anxiety is, just kind of out of control right now. * -becoming very difficult to get through day to day routine. * -always there, but seems like it's been worsening over the past couple of months. * -doesn't seem that it's worsened since the change in how he's taking gabapentin. * -getting behind on work because of anxiety. * -becoming more easily overwhelmed by stressors (e.g. people arguing in public and felt like he needed to get out as soon as possible). * -no panic attacks. * -takes hydroxyzine PRN and notices a mild reduction in sx * -clonidine PRN only in the evening, before bed, for anxiety. * -depression has been pretty good * -hasn't felt very depressed in the past month or so. * -seems that involuntary tongue movement has stopped. * -hasn t noticed it in weeks. * Denies suicidal ideation or a passive wish. * No new medications or health problems. Had a sinus infection earlier this month that he took amoxicillin for. * From my initial assessment on 08/28/2021: * Current rx: * [place] IR 900 mg PO QHS- taking for 2 years- last lithium level was 6 months ago, not sure what itwas. Has been on higher doses (up to 1500 mg) and it caused skin to breakout. Doses lower than 900 mg have not managed his mood symptoms well. * Risperidone 1 mg PO daily and 2 mg PO QHS- started * 2 months ago for racing thoughts * Venlafaxine ER 150 mg PO BID- waning benefit, anorgasmia- has been taking for years. * Lamotrigine 100 mg PO daily and 150 mg PO QHS- has been taking for years, unsure of benefit. * Buspirone 10 mg PO BID- unsure of benefit- has been taking for probably a couple years. * Clonazepam 1 mg PO BID- has been taking for * 8 months; seems to have lost benefit over the past several months * Gabapentin 300 mg PO BID- started * 2 years ago, unsure of benefit. * Past rx: * Lorazepam- benefit waned, so was switched to clonazepam. * Zolpidem- can't recall whether it was beneficial. * Trazodone- helped for sleep, but stimulated appetite. * Tons of 'em. Does not recall any with severe side effects, but cannot recall specific names/doses/duration of treatment. * Psych hx: * Bipolar disorder, LIN * Current psychiatrist Veronica Redmond at [facility]- has been seeing since early 2019. * Hospitalized most recently at [facility] 1.5 years ago for suicidal ideation. Prior to that had not been hospitalized in * 10 years. Estimates 13 lifetime hospitalizations. * First treated at around age 10-11- I had a severe fear of school, dreadful fear. During middle school could only go for 1/2 days. Had fears that his food was being poisoned, so couldn't eat there. Was prescribed medication, but unsure what. It pretty much knocked me out. Was home-schooled briefly for HS, then took [employer] test and graduated early. * No history of suicide attempt or self-harm. * No violence history. * Has done individual therapy off and on over the years with virtually no success. Not currently seeing a therapist. * No history of IOP/PHP. * Family hx: * Uncle- bipolar disorder or schizophrenia * Cousin- schizophrenia * No substance use. * No suicide. * Pertinent medical dx: * Denies current medical issues. * No history of concussion, head injury, seizures. * I have personally reviewed the OARRS report for [facility]. I have considered the risks of abuse, dependence, addiction and diversion. DD-Emahwc[facility]al[facility] [address] [place] DO Work Phone: Progress note No data available for this section [facility] reason for referral (narrative)* Consultation (Routine) - Authorized Specialty Diagnoses / Procedures Referred By Freedom rocha Referred To Contact Psychiatry Diagnoses Severe episode of recurrent major depressive disorder, without psychotic features (CMS/HCC) Generalized anxiety disorder Other bipolar disorder (CMS/HCC) Extrapyramidal symptom Procedures Follow Up In Psychiatry hSireen Khan, LIZZIE, JANA-VARIOUS EXCEPTIONALITIES TEACHER [id number] Department [place] [address] Referral ID Status Reason Start Date Expiration Date V isits Requested Visits Authorized [id number] Authorized 02/16/2023 02/16/2024 1 1 [facility] Work Phone: Reason for referral (narrative)* Consultation (Routine) - Authorized Specialty Diagnoses / Procedures Referred By Contac t Referred To Contact Psychiatry Diagnoses Severe episode of recurrent major depressive disorder, without psychotic features (CMS/HCC) Generalized anxiety disorder Other bipolar disorder (CMS/HCC) Extrapyramidal symptom Procedures Follow Up In Psychiatry Shireen Khan APRN-CNP, JANA-VARIOUS EXCEPTIONALITIES TEACHER [address] [facility] [place] [address] Referral ID Status Reason Start Date Expiration Date V isits Requested Visits Authorized [id number] Authorized 03/16/2023 03/15/2024 1 1 [facility] Work Phone: Reason for referral (narrative)* Consultation (Routine) - Authorized Specialty Diagnoses / Procedures Referred By Contac t Referred To Contact Psychiatry Diagnoses Other bipolar disorder (Multi) Severe episode of recurrent major depressive disorder, without psychotic features (Multi) Generalized anxiety disorder Extrapyramidal symptom Procedures Follow Up In Psychiatry Shireen Khan APRN-CNP, JANA-VARIOUS EXCEPTIONALITIES TEACHER [id number] [facility] [place] [address] Referral ID Status Reason Start Date Expiration Date V isits Requested Visits Authorized [id number] Authorized 07/15/2023 07/14/2024 1 1 [facility] Work Phone: Reason for visit Narrative* Consultation (Routine) - Authorized Specialty Diagnoses / Procedures Referred By Contac t Referred To Contact Psychiatry Diagnoses Other bipolar disorder (Multi) Severe episode of recurrent major depressive disorder, without psychotic features (Multi) Generalized anxiety disorder Extrapyramidal symptom Procedures Follow Up In Psychiatry Shireen Khan APRN-CNP, JANA-VARIOUS EXCEPTIONALITIES TEACHER [id number] [facility] [place] [address] Referral ID Status Reason Start Date Expiration Date V isits Requested Visits Authorized [id number] Authorized 06/11/2023 06/10/2024 1 1 [facility] Work Phone: Summary Purpose Family History No Family History Records Found Relationship Condition Age at Onset Recorded Date/T tay father Unknown Advance Directives No Advanced Directives Records Found Advance Directive Response Recorded Date/ Time Advance Directives No May 07, 2023 3:11am Advance Directive Response Recorded Date/ Time Advance Directives No May 07, 2023 4:11am Chief Complaint * Face - To - Face Visit. * Bipolar disorder, anxiety Chief Complaint and Reason for Visit Chief Complaint lithium toxicity Reason for Visit Bipolar disorder Hypokalemia [place] toxicity Chief Complaint lithium toxicity Amb Documentation Elevated BP Reason for Visit Bipolar disorder Hypokalemia [place] toxicity Impaired fasting glucose Primary hypertension Chief Complaint check up Reason for Visit Gastroesophageal ref lux disease with esophagitis without hemorrhage Impaired fasting glucose Obesity Palpitations Primary hypertension Wellness examination Reason for Referral Specialty Diagnoses / Procedures Referred By Contac t Referred To Contact Diagnoses Other bipolar disorder ([facility]) Shireen Khan, 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 MACHINE TENDER-RN ANGIOGRAPHY, 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 MACHINE TENDER-VARIOUS EXCEPTIONALITIES TEACHER [id number] Department [place] [address] Referral ID Status Reason Start Date Expiration Date V isits Requested Visits Authorized [id number] Pending Review 1 1 Additional Source Comments (unrecognized sect ion and content) No Status Records FoundNo Status Records FoundNo Status Records FoundNo Status Records FoundNo Status Records FoundNo Status Records FoundNo Status Records FoundNo Status Records FoundNo Status Records Found INFORMATION SOURCE (unrecogn ized section and content) DATE CREATED AUTHOR 03/10/2020 [facility] DATE CREATED AUTHOR AUTHOR'S ORGANIZ ATION 08/16/2021 [facility] DATE CREATED AUTHOR AUTHOR'S ORGANIZ ATION [facility]2022 [facility] DATE CREATED AUTHOR AUTHOR'S ORGANIZ ATION 08/28/2022 [facility] DATE CREATED AUTHOR AUTHOR'S ORGANIZ ATION 01/03/2023 [facility] DATE CREATED AUTHOR AUTHOR'S ORGANIZ ATION 05/11/2023 [facility] PSYCHIATRIC DATE CREATED AUTHOR AUTHOR'S ORGANIZ ATION 07/02/2023 [facility] DATE CREATED AUTHOR AUTHOR'S ORGANIZ ATION 11/04/2023 [facility] DATE CREATED AUTHOR AUTHOR'S ORGANIZ ATION 12/26/2023 [facility] Ambulatory Source Comments (unrecognize d section and content) In the event this informatio n is protected by the Federal Confidentiality of Alcohol and Drug Abuse Patient Records regulations: The Federal rules restrict any use of the information to criminally investigate or prosecute any alcohol or drug abuse patient.[facility] the event this information is protected by the Federal Confidentiality of Alcohol and Drug Abuse Patient Records regulations: The Federal rules restrict any use of the information to criminally investigate or prosecute any alcohol or drug abuse patient.[facility] Dayton[facility] the event this information is protected by the Federal Confidentiality of Alcohol and Drug Abuse Patient Records regulations: The Federal rules restrict any use of the information to criminally investigate or prosecute any alcohol or drug abuse patient.[facility] DaytonIn the event this information is protected by the Federal Confidentiality of Alcohol and Drug Abuse Patient Records regulations: The Federal rules restrict any use of the information to criminally investigate or prosecute any alcohol or drug abuse patient.[facility] Dayton[facility] the event this information is protected by the Federal Confidentiality of Alcohol and Drug Abuse Patient Records regulations: The Federal rules restrict any use of the information to criminally investigate or prosecute any alcohol or drug abuse patient.[facility] DaytonIn the event this information is protected by the Federal Confidentiality of Alcohol and Drug Abuse Patient Records regulations: The Federal rules restrict any use of the information to criminally investigate or prosecute any alcohol or drug abuse patient.[facility] DaytonIn the event this information is protected by the Federal Confidentiality of Alcohol and Drug Abuse Patient Records regulations: The Federal rules restrict any use of the information to criminally investigate or prosecute any alcohol or drug abuse patient.[facility] DaytonIn the event this information is protected by the Federal Confidentiality of Alcohol and Drug Abuse Patient Records regulations: The Federal rules restrict any use of the information to criminally investigate or prosecute any alcohol or drug abuse patient.[facility] DaytonIn the event this information is protected by the Federal Confidentiality of Alcohol and Drug Abuse Patient Records regulations: The Federal rules restrict any use of the information to criminally investigate or prosecute any alcohol or drug abuse patient.[facility] Reason for Visit (unrecogniz ed section and content) Reason Onset Date Comments Refill Request 07/17/2021 Reason Comments Rx Refills Specialty Diagnoses / Procedures Referred By Freedom t Referred To Contact Psychiatry / ADULT PSYCHIATRY Diagnoses med check ( [facility]) Procedures VIDEO PSYC/[place] [address] [place] [address] Referral ID Status Reason Start Date Expiration Date Visits Re quested Visits Authorized [id number] Closed 04/20/2020 04/19/2021 20 20 Reason Onset Date Comments Refill Request 08/07/2021 Reason Onset Date Comments Medication Problem 2021 Reason Comments Refill Request Patient Care team informatio n (unrecognized section and content) Team Status: Active Member Role Status Dates Rizwan Powers DO Primary Care Provider Active Team Status: Inactive Member Role Status Dates Rizwan Powers DO Primary Care Provide r, Attending Provider Active Start: December 02, 2023 End: December 02, 2023 Fire Operations Forester Relationship Specialty [place] [id number], [place] [id number] [facility] General 07/01/22 Shireen Khan, 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 MACHINE TENDER-RN ANGIOGRAPHY, 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 MACHINE TENDER-VARIOUS EXCEPTIONALITIES TEACHER [address] [place] [address] Nurse Practitioner Psychiatry 02/16/23 Fire Operations Forester Relationship Specialty [place] [id number], [place] [id number] [facility] 07/01/22 Shireen Khan, 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 MACHINE TENDER-RN ANGIOGRAPHY, 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 MACHINE TENDER-VARIOUS EXCEPTIONALITIES TEACHER [address] [place] [address] Nurse Practitioner Psychiatry 02/16/23 Team Status: Active Member Role Status Dates Jeremías Ocampo MD Admit Provider Active S tart: May 07, 2023 Rizwan Powers DO Primary Care Provider Active Start: May 07, 2023 Zoya Castro DO Other Provider Active Start: Nahid brown 2023 Srinivas Botello MD Attending Pro vider, Other Provider Active Start: May 07, 2023 Fire Operations Forester Relationship Specialty [place] [id number], [place] [id number] [facility] 07/01/22 Shireen Khan, 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 MACHINE TENDER-RN ANGIOGRAPHY, 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 MACHINE TENDER-VARIOUS EXCEPTIONALITIES TEACHER [address] [place] [address] Nurse Practitioner Psychiatry 02/16/23 Team Status: Active Member Role Status Dates Rizwan Powers DO Primary Care Provider Active Start: June 02, 2023 JENELLE Gambino Attending Provider Active St art: June 02, 2023 Team Status: Inactive Member Role Status Dates Rizwan Powers DO Primary Care Provide r, Attending Provider Active Start: June 05, 2023 End: June 05, 2023 Fire Operations Forester Relationship Specialty [place] [id number], [place] [id number] [facility] General 07/01/22 Shireen Khan, 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 MACHINE TENDER-RN ANGIOGRAPHY, 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 MACHINE TENDER-VARIOUS EXCEPTIONALITIES TEACHER [address] [place] [address] Nurse Practitioner Psychiatry 02/16/23 Fire Operations Forester Relationship Specialty Start [place] [id number], [place] [id number] PCP General 07/01/22 Shireen Khan, 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 MACHINE TENDER-RN ANGIOGRAPHY, 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 MACHINE TENDER-VARIOUS EXCEPTIONALITIES TEACHER [address] [place] [address] Nurse Practitioner Psychiatry 02/16/23 Fire Operations Forester Relationship Specialty [place] [address], [place] [id number] [facility] 07/01/22 Shireen Khan, 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 MACHINE TENDER-RN ANGIOGRAPHY, 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 MACHINE TENDER-VARIOUS EXCEPTIONALITIES TEACHER [address] [place] [address] Nurse Practitioner Psychiatry 02/16/23 Goals (unrecognized section and content) Goals may be documented in a n alternate section FOR RECORDS PERTAINING TO PATIENTS WHO ARE OR HAVE BEEN ENROLLED IN A CHEMICAL DEPENDENCY/SUBSTANCEABUSE PROGRAM, SOME INFORMATION MAY BE OMITTED. This clinical summary was aggregated from multiple sources. Caution should be exercised in using it in the provision of clinical care. This summary normalizes information from multiple sources, and as a consequence, information in this document may materially change the coding, format and clinical context of patient data. In addition, data may be omitted in some cases. CLINICAL DECISIONS SHOULD BE BASED ON THE PRIMARY CLINICAL RECORDS. [facility]. provides no warranty or guarantee of the accuracy or completeness of information in this document.
[2024-01-01 15:23] LABS: Basophils Absolute Auto 0.1 10^3/uL (0.0-0.1); Basophils Percent Auto 1.1 % (0.2-2.0); Eosinophils Absolute Auto 0.2 10^3/uL (0.0-0.7); Hematocrit 44.7 % (42.0-54.0); Hemoglobin 15.8 g/dL (14.0-18.0); Immature Granulocytes Abs Auto 0.03 10^3/uL (0.00-0.03); Immature Granulocytes Pct Auto 0.4 % (0.0-0.5); Lymphocytes Absolute Auto 1.9 10^3/uL (1.2-3.8); Lymphocytes Percent Auto 23.6 % (20.5-60.0); Mean Corpuscular HGB Conc 35.3 g/dL (29.9-35.2); Mean Corpuscular Hemoglobin 30.1 pg (25.9-34.0); Mean Corpuscular Volume 85.1 fL (80.0-94.0); Mean Platelet Volume 10.7 fL (9.5-13.5); Monocytes Absolute Auto 0.6 10^3/uL (0.3-0.8); Monocytes Percent Auto 7.1 % (1.7-12.0); Neutrophils Absolute Auto 5.4 10^3/uL (1.4-6.5); Neutrophils Percent Auto 65.8 % (43.0-75.0); Platelet Count 278 10^3/uL (150-450); Red Blood Count 5.25 10^6/uL (4.70-6.10); Red Cell Distribution Width 12.2 % (11.0-15.0); White Blood Count 8.2 10^3/uL (4.0-11.0)
[2024-01-01 15:51] LABS: Estimated Average Glucose 97 mg/dL
[2024-01-01 16:11] LABS: Alanine Aminotransferase 76 U/L (16-63); Albumin Globulin Ratio 1.2; Albumin Level 4.3 g/dL (3.4-5.0); Alkaline Phosphatase 92 U/L (46-116); Anion Gap 14.2; Aspartate Amino Transferase 57 U/L (15-37); Bilirubin Total 1.4 mg/dL (0.2-1.0); Calcium 9.1 mg/dL (8.5-10.1); Carbon Dioxide 28.2 mmol/L (21.0-32.0); Chloride 101 mmol/L (98-107); Chol HDL Ratio 4.5; Cholesterol 262 mg/dL (<=200); Estimated GFR (African America >60 (>=60); Estimated GFR (Non-African Ame >60 (>=60); Globulin 3.7 g/dL; Glucose 79 mg/dL (74-106); HDL Cholesterol 58 mg/dL (40-60); Potassium 3.4 mmol/L (3.5-5.1); Sodium 140 mmol/L (136-145); Triglycerides 200 mg/dL (<=150)
== END 2024-01-01 15:05 | disposition home or self-care (01) ==
PROVIDERS: PCP Internal Medicine; Visit Provider Internal Medicine
DX: Z00.00 Encounter for general adult medical examination without abnormal findings (principal); R73.01 Impaired fasting glucose; E78.00 Pure hypercholesterolemia, unspecified; I10 Essential (primary) hypertension
CPT/HCPCS: 36415; 80053; 80061; 83036; 85025

== ENCOUNTER 2024-03-30 07:42 | Outpatient (OUT) | payer MEDICARE, SELFPAY ==
--- OUTSIDE RECORDS SUMMARY | 2024-03-30 07:45 | XMS_ITS | CCD ---
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 Name Role Phone Unavailable Primary Care Provider Unavailabl e Unknown, Unknown Unavailable Unavailable Unavailable Unavailable Unavailable Primary Care Provider Unavailsylwia e RIZWAN POWERS Primary Care Physician [phone] Coleman CARMICHAEL Attending Unavailable AMOL, Coleman Simons Attending Unavailable CARMICHAEL, Coleman Simons Attending Unavailable CARMICHAEL, Coleman Simons Referring Unavailable CARMICHAEL, Coleman Simons Admitting Unavailable BALL, DR ROCHE [...] Unavailable BALL, DR ROCHE Primary Care Unavailable WEST, DR GUSTAVO Monge Consulting Unavailable BALL, DR ROCHE Admitting Unavailable BALL, DR ROCHE Attending Unavailable BALL, DR ROCHE Consulting Unavailable BALL, DR ROCHE Primary Care Unavailable ZieberJesi Consulting Unavailable BALL, DR ROCHE Admitting Unavailable BALL, DR ROCHE Primary Care Unavailable BALL, DR ROCHE Attending Unavailable BALL, DR ROCHE Consulting Unavailable BALL, DR ROCHE Admitting Unavailable BALL, DR ROCHE Attending Unavailable BALL, DR ROCHE Primary Care Unavailable YIN ., DR KALEIGH Mohan Admitting Unavailable ANNAMARIA ., DR KALEIGH Mohan Attending Unavailable ANNAMARIA ., DR KALEIGH Mohan Consulting Unavailable BALL, DR ROCHE Primary Care Unavailable BALL, DR ROCHE Primary Care Unavailable LAKSHMIPATHY ., NARENDRANATH Admitting Lauren vailable SUNNI LOPEZ Consulting Unavailable LINDASHMIJEYSON ., [place] Attending Lauren Mora Griffith Unavailable [phone] Rizwan [place] Un[place] [id number], Number Primary Care Provide r Unavailable Jhon RING SORTER-TOOL MACHINE SETUP OPERATOR, RING SORTER-COMPUTER AIDE, Shireen Hays Unavailable Michele Rizwan Primary Care Unavailable Srinivas Botello Admitting Unavailab Srinivas Cervantes Attending Unavailab Jeremías Lugo Admitting Unavailable Zoya Castro Attending Unavailable MicheleRizwan Primary Care Unavailable Srinivas Botello Consulting Unavailab pratima Thomas PhD, Chance A Primary Care Provider SHIREEN KHAN Attending Unavailable SHIREEN KHAN Referring Unavailable SHIREEN KHAN Attending Unavailable SHIREEN KHAN Referring Unavailable KHANSHIREEN WALKER Attending Unavailable SHIREEN KHAN Attending Unavailable KHANSHIREEN WALKER Referring Unavailable DIEDRICK, CHANCE A Primary Care Unavailable SHIREEN KHAN Attending Unavailable DIEDRICK, CHANCE A Primary Care Unavailable KHANSHIREEN WALKER Attending Unavailable DIEDRICK, CHANCE A Primary Care Unavailable SHIREEN KHAN Attending Unavailable SHIREEN KHAN Referring Unavailable DIEDRICK, CHANCE A Primary Care Unavailable SHIREEN KHAN Attending Unavailable SHIREEN KHAN Referring Unavailable DIEDRICK, CHANCE A Primary Care Unavailable SHIREEN KHAN Attending Unavailable DIEDRICK, CHANCE A Primary Care Unavailable SHIREEN KHAN Attending Unavailable SHIREEN KHNA Referring Unavailable SHIREEN KHAN Attending Unavailable SHIREEN KHAN Referring Unavailable KHANSHIREEN WALKER Attending Unavailable SHIREEN KHAN Referring Unavailable DIEDRICK, CHANCE A Primary Care Unavailable DIEDRICK, CHANCE A Primary Care Unavailable DIEDRICK, CHANCE A Primary Care Unavailable SHIREEN KHAN Attending Unavailable SHIREEN KHAN Referring Unavailable DIEDRICK, CHANCE A Primary Care Unavailable DIEDRICK, CHANCE A Primary Care Unavailable Allergies Allergy Classification Reported Allergen(s) Allergy Type Date of Onset Reaction(s) Facility (1 source) No Known Medication Allergies; Translations: [No Known Medication Allergies] Propensity to adverse reactions (disorder) [facility] Repository (11 sources) Other; Translations: [OTHER] Propensity to adverse reactions 7 Other [facility] Work Phone: Medications Current Medications Medication Drug Class(es) Dates Sig (Normalized) Sig (Original) 24 hr alfuzosin hydrochloride 10 mg extended release oral tablet (20 sources) alpha-Adrenergic Daren Start: 03-31-2022 End: 06-22-2023 alfuzosin 10mg alfuzosin( 10mg oral 1 daily ) Active -Hx Entry oral daily for 0 *Reorder from [employer] for eRx and Interaction Alerts* Mar, Active allopurinol 100 mg oral tablet (5 sources) Xanthine Oxidase Inhibitor Start: 01-22-2024 take 1 tablet by mouth in the morning allopurinol (Zyloprim) 100 mg tablet Take 1 tablet (100 mg) by mouth early in the morning.. 01/22/2024 Active Start: 10-07-2017 End: 06-22-2023 take 1 tablet by mouth once daily allopurinol (Zyloprim) 100 mg tablet Take 1 tablet (100 mg) by mouth once daily. 0 10/07/2017 06/22/2023 Discontinued (Med List Cleanup) amLODIPine (20 sources) Dihydropyridine Calcium Channel Daren Start: 11-11-2023 take 1 tablet by mouth once daily Amlodipine Active 0 .ROUTE .COMPLEX November 11, 2023 5:56pm TAKE ONE TABLET BY MOUTH ONCE DAILY Start: 11-11-2023 amlodipine bes ylate (AMLODIPINE ORAL) .COMPLEX 11/11/2023 Active Start: 06-02-2023 End: 11-11-2023 take 1 tablet by mouth once daily amLODIPine (Norvasc) 10 mg tablet Take 1 tablet (10 mg) by mouth once daily. 06/02/2023 Active Start: 06-02-2023 End: 06-02-2023 take 20 mg [...] List Cleanup) carvedilol 6.25 mg oral tablet (18 sources) alpha-Adrenergic Daren, beta-Adrenergic Daren Start: 11-11-2023 take 1 tablet by mouth twice daily at mealtime Carvedilol Active 0 .ROUTE .COMPLEX 60 November 11, 2023 5:55pm TAKE ONE TABLET BY MOUTH TWICE A DAY WITH FOOD Start: 05-26-2023 End: 11-11-2023 take 1 tablet by mouth twice daily at mealtime carvedilol (Coreg) 6.25 mg tablet Take 1 tablet (6.25 mg) by mouth 2 times a day with meals. 06/02/2023 Active Start: 10-07-2017 End: 05-18-2023 take 1 tablet by mouth every twelve hours carvedilol (Coreg) 12.5 mg tablet Take 1 tablet (12.5 mg) by mouth every 12 hours. 0 10/07/2017 05/18/2023 Discontinued (Med List Cleanup) celecoxib 200 mg oral capsule (6 sources) Nonsteroidal Anti-inflammatory Drug Start: 12-31-2023 take 1 capsule by mouth in the morning celecoxib (CeleBREX) 200 mg capsule Take 1 capsule (200 mg) by mouth early in the morning.. 12/31/2023 Active take 1 capsule by mo [facility] every twenty-four hours CeleBREX 200 MG 1 capsule with food Orally Once a day Active clonazePAM 1 mg oral tablet (20 sources) Benzodiazepine Start: 12-09-2023 End: 06-05-2024 take 1 tablet by mouth twice daily clonazePAM (KlonoPIN) 1 mg tablet Indications: Generalized anxiety disorder , Other bipolar disorder Take 1 tablet (1 mg) by mouth 2 times a day. 60 tablet 2 03/07/2024 06/05/2024 Active Start: 06-06-2021 End: 08-24-2023 take 1 mg by mouth twice daily Clonazepam Active 1 MG PO Twice daily May 07, 2023 1:00am take 1 tablet by beth th every twenty-four hours KlonoPIN 1 MG 1 tablet Orally Once a day Active Comment on above: Take 1 tablet by beth th twice daily as needed for up to 30 days. TAKE 1 TABLET BY BETH TH TWICE DAILY NEEDED UP TO 30 DAYS cloNIDine hydrochloride 0.2 mg oral tablet (20 sources) Central alpha-2 Adrenergic Agonist Start: End: take 1 tablet by mouth once daily at bedtime cloNIDine (Catapres) 0.2 mg tablet Indications: Generalized anxiety disorder Take 1 tablet (0.2 mg) by mouth once daily at bedtime. 30 tablet 2 03/23/2024 Active Start: 07-28-2023 take 0.2 mg by mouth [...] Start: 02-03-2022 take 1 tablet by beth th once daily at bedtime cloNIDine (Catapres) 0.2 mg tablet Take 1 tablet (0.2 mg) by mouth once daily at bedtime. 0 02/03/2022 Active Start: 02-03-2022 take 1 tablet by beth th three times daily as needed for anxiety cloNIDine HCl - 0.2 MG Oral Tablet Take 1 tablet up to 3 times daily as needed for anxiety. Quantity: 90 Refills: 2 Ordered: 07-Aug-2022 Shireen Higuera Start : 03-Feb-2022 Active Start: 01-31-2022 take 0.1 tablet by m outh three times daily as needed cloNIDine HCl [...] attacks Quantity: 90 Refills: 0 Ordered: 07-Jan-2022 Jhon LORA Shireen Start : 07-Jan-2022 Active cycloSPORINE 0.5 mg/ml ophthalmic suspension (1 source) Calcineurin Inhibitor Immunosuppressant Start: 03-18-2024 take 1 drop(s) into the eye(s) every twelve hours Restasis 0.05 % ophthalmic emulsion Administer 1 drop into both eyes every 12 hours. 03/18/2024 Active dexamethasone 1 mg/ml / neomycin 3.5 mg/ml / polymyxin b 47064 unt/ml ophthalmic suspension (3 sources) Aminoglycoside Antibacterial, Polymyxin-class Antibacterial, Corticosteroid Start: 12-25-2023 take 1 drop(s) into the eye(s) four times daily neomycin-polymy ashley-dexAMETHaso ne (Maxitrol) 3.5mg/mL-10,000 unit/mL-0.1 % ophthalmic suspension INSTILL 1 DROP IN EACH EYE FOUR TIMES A DAY FOR 7 DAYS 12/25/2023 Active etodolac 400 mg oral tablet (8 sources) Nonsteroidal Anti-inflammatory Drug Start: 04-08-2022 End: 05-18-2023 etodolac (Lodine) 400 mg tablet Take by mouth. 04/08/2022 Active Start: 04-08-2022 take 1 tablet by beth th twice daily Etodolac 400mg etodolac 400mg, 1 (one) tablet two times daily # 30, 04/08/2022, Ref. x1. Active oral two times daily for 15 *Pick strength-form from [employer] for eRX* Mar, Active gabapentin 600 mg oral tablet (20 sources) Anti-epileptic Agent Start: 01-04-2024 End: 04-03-2024 take 2 tablets by mouth three times daily gabapentin (Neurontin) 600 mg tablet Indications: Generalized anxiety disorder , Other bipolar disorder TAKE TWO TABLETS BY MOUTH THREE TIMES A DAY 180 tablet 2 03/15/2024 Active Start: 06-05-2023 take 1200 mg by mout h three times daily Gabapentin Active 1200 MG PO Three times daily June 05, 2023 10:13am Start: 05-07-2023 End: 02-16-2024 take 1200 mg by mouth every eight [...] bedtime. Quantity: 120 Refills: 1 Ordered: 20-Nov-2022 Shireen Hgiuera Start : 20-Nov-2022 Active Increasing total daily [...] times daily for 0 *Pick strength-form from [employer] for eRX* Jan, Active Start: 04-04-2019 take 1 capsule by [facility] once daily gabapentin 400 mg Cap 400 mg = 1 cap(s), Oral, Daily, Refills(s) 0 Start Date: 04/04/19 Status: Ordered Comment on above: Take 1 capsule by [facility] twice daily for 30 days. hydrALAZINE hydrochloride 10 mg oral tablet (5 sources) Arteriolar Vasodilator Start: 07-29-19 take 1 tablet by mouth three times daily hydrALAZINE (Apresoline) 10 mg tablet Take 1 tablet (10 mg) by mouth 3 times a day. 07/29/2023 Active hydrOXYzine pamoate 50 mg oral capsule (20 sources) Antihistamine Start: 03-07-20 End: 06-05-19 25 take 1 capsule by mouth once daily as needed hydrOXYzine pamoate (VistariL) 50 mg capsule Indications: Generalized anxiety disorder Take 1-2 capsules (50-100 mg) by mouth once daily as needed for anxiety. 60 capsule 2 03/07/2024 06/05/2024 Active Start: 12-24-2023 End: 02-22-2024 take 1 capsule by mouth once daily as needed hydrOXYzine pamoate (VistariL) 50 mg capsule Indications: Generalized anxiety disorder Take 1-2 capsules (50-100 mg) by mouth once daily as needed for anxiety. 60 capsule 1 12/24/2023 Active Start: 05-07-2023 End: 07-20-2023 take 1-2 capsules by mouth once daily as needed for anxiety Hydroxyzine Pamoate Active 50 MG PO Daily June 05, 2023 10:14am TAKE 1-2 CAPSULE BY MOUTH ONCE DAILY NEEDED FOR ANXIETY Start: 04-15-2022 hydrOXYzine HC l 50MG hydrOXYzine HCl( 50MG Oral 2 three times daily as needed ) Active -Hx Entry Oral three times daily as needed for 0 *Pick strength-form from [employer] for eRX* 27 Mar, 2022 Active Start: 12-02-2021 End: 02-16-2023 hydrOXYzine HCL [...] 18-Nov-2021 Shireen Higuera Start : 18-Nov-2021 Active lamoTRIgine 100 mg oral tablet (20 sources) Mood Stabilizer, Anti-epileptic Agent Start: 06-11-2023 End: 07-06-2024 take 1 tablet by mouth twice daily lamoTRIgine (LaMICtal) 100 mg tablet Indications: Other bipolar disorder , Severe episode of recurrent major depressive disorder, without psychotic features (Multi) TAKE 1 TABLET (100 MG) BY MOUTH 2 TIMES A DAY. 60 tablet 5 01/08/2024 07/06/2024 Active Start: 10-29-2021 End: 09-12-2023 take 1 tablet [...] extended release oral tablet (20 sources) Start: 03-23-2024 End: 04-22-2024 take 2 tablets by mouth once daily at bedtime lithium ER (Lithobid) 300 mg 12 hr tablet Indications: Severe episode of recurrent major depressive disorder, without psychotic features (Multi) , Other bipolar disorder Take 2 tablets (600 mg) by mouth once daily at bedtime. Take with (2) 450 mg tabs for total dose of 1500 mg at bedtime. Do not crush, chew, or split. 60 tablet 03/23/2024 04/22/2024 Active Start: 03-07-2024 End: 05-06-2024 take 3 tablets by mouth once daily at bedtime lithium ER (Eskalith) 450 mg 12 hr tablet Indications: Severe episode of recurrent major depressive disorder, without psychotic features (Multi) , Other bipolar disorder Take 3 tablets (1,350 mg) by mouth once daily at bedtime. Do not crush, chew, or split. 90 tablet 1 03/07/2024 05/06/2024 Active Start: 12-09-2023 End: 03-08-2024 take 2 tablets by mouth once daily at bedtime lithium ER (Eskalith) 450 mg 12 hr tablet Indications: Other bipolar disorder , Severe episode of recurrent major depressive disorder, without psychotic features (Multi) TAKE 2 TABLETS (900 MG) BY MOUTH ONCE DAILY AT BEDTIME. DO NOT CRUSH, CHEW, OR SPLIT. 60 tablet 1 01/08/2024 03/08/2024 Active Start: 07-09-2023 End: 07-20-2023 take 2 tablets by mouth once daily at bedtime lithium ER (Lithobid) 300 mg 12 hr tablet Indications: Other bipolar disorder (Multi) Take 2 tablets (600 mg) by mouth once daily at bedtime. Do not crush, chew, or split. 20 tablet 07/09/2023 07/20/2023 Discontinued (Reorder) Start: 05-07-2023 End: 05-08-2023 take 4 tablets by mouth once daily at bedtime [place] Carbonate Discontinued 450 MG PO Daily at [...] 4 tablets by mo uth at bedtime [place] Carbonate ER 450 MG Oral Tablet Extended Release TAKE 4 TABLET Bedtime Quantity: 120 Refills: 1 Ordered: 20-Nov-2022 Shireen Higuera Start : 18-Aug-2022 Active Start: 04-15-2022 [place] Carbon ate 150MG [place] Carbonate( 150MG Oral 1200 daily ) Active -Hx Entry Oral daily for 0 *Pick strength-form from [employer] for eRX* Mar, Active Start: 03-25-2022 LITHIUM CARBON ATE ORAL Take by mouth. 03/25/2022 Active Start: 03-25-2022 lithium carbon ate Oral, TID, Refills(s) 0 Start Date: 03/25/22 Status: Ordered Start: 09-30-2021 End: 02-16-2023 lithium 300 mg tablet TAKE 4 TABLETS AT BEDTIME 0 09/30/2021 02/16/2023 Discontinued (Med List Cleanup) Start: 09-30-2021 take 1 tablet by beth at bedtime [place] Carbonate 300 MG Oral Tablet TAKE 1 TABLET Bedtime Take with 900 mg for a total of 1200 mg Quantity: 30 Refills: 0 Ordered: 30-Sep-2021 Shireen Higuera Start : 30-Sep-2021 Active Start: 08-28-2021 take 3 tablets by mo uth at bedtime [place] Carbonate 300 MG Oral Tablet TAKE 3 TABLETS AT BEDTIME. Quantity: 90 Refills: 0 Ordered: 25-Sep-2021 Shireen Higuera Start : 28-Aug-2021 Active Start: 08-28-2021 take 2 tablets by mo uth at bedtime [place] Carbonate 300 MG Oral Tablet TAKE 2 TABLETS AT BEDTIME. Quantity: 60 Refills: 0 Ordered: 28-Aug-2021 Shireen Higuera Start : 28-Aug-2021 Active Start: 03-28-2021 take 2 capsules by m outh in the morning, then take 3 capsules by mouth at bedtime lithium carbonate (ESKALITH) 300 mg capsule Take two capsules po am and 3 capsules po hs. 150 capsule 5 03/28/2021 Active Comment on above: Take two capsules po am and 3 capsules po hs. methocarbamol 500 mg oral tablet (8 sources) Muscle Relaxant Start: 3 End: 4 methocarbamol (Robaxin) 500 mg tablet Take by mouth every 8 hours. 04/25/2022 Active mirtazapine 30 mg oral tablet (20 sources) Start: 4 End: 5 take 1 tablet by mouth once daily at bedtime mirtazapine (Remeron) 15 mg tablet Indications: Severe episode of recurrent major depressive disorder, without psychotic features (Multi) , Generalized anxiety disorder Take 1 tablet (15 mg) by mouth once daily at bedtime. 30 tablet 2 03/07/2024 06/05/2024 Active Start: 12-09-2023 End: 06-05-2024 take 1 tablet by mouth once daily at bedtime mirtazapine (Remeron) 30 mg tablet Indications: Severe episode of recurrent major depressive disorder, without psychotic features (Multi) , Generalized anxiety disorder Take 1 tablet (30 mg) by mouth once daily at bedtime. 30 tablet 2 03/07/2024 06/05/2024 Active Start: 05-05-2023 End: 08-10-2023 take 1 tablet [...] MG. Quantity: 30 Refills: 0 Ordered: 10-Sep-2022 Jhon GUIDOShireen Start : 10-Sep-2022 Active Increasing dose from 15 mg--> 22.5 mg moxifloxacin 5 mg/ml ophthalmic solution (1 source) Quinolone Antimicrobial Start: 02-10-2024 take 1 drop(s) into the eye(s) twice daily moxifloxacin (Vigamox) 0.5 % ophthalmic solution INSTILL 1 DROP INTO RIGHT EYE TWICE A DAY DIRECTED 02/10/2024 Active One Touch Glucometer (6 sources) Start: 05-26-2023 One Touch Glucometer to test blood sugar daily for 365 days May, Active prednisoLONE acetate 10 mg/ml ophthalmic suspension (9 sources) Corticosteroid Start: 01-06-2024 take 1 drop(s) into the eye(s) four times daily prednisoLONE acetate (Pred-Forte) 1 % ophthalmic suspension INSTILL 1 DROP INTO BOTH EYES 4 TIMES A DAY DIRECTED 01/06/2024 Active Start: 02-03-2023 End: 07-20-2023 prednisoLONE acetate (Pred-F orte) 1 % ophthalmic suspension 02/03/2023 07/20/2023 Discontinued (Med List Cleanup) QUEtiapine 200 mg oral tablet (12 sources) Atypical Antipsychotic Start: 02-17-2024 End: 06-21-2024 take 1 tablet by mouth once daily at bedtime QUEtiapine (SEROquel) 200 mg tablet Indications: Severe episode of recurrent major depressive disorder, without psychotic features (Multi) , Other bipolar disorder , Generalized anxiety disorder Take 1 tablet (200 mg) by mouth once daily at bedtime. 30 tablet 2 03/23/2024 06/21/2024 Active Start: 01-27-2024 End: 05-15-2024 take 1 tablet by mouth three times daily QUEtiapine (SEROquel) 50 mg tablet Indications: Other bipolar disorder , Severe episode of recurrent major depressive disorder, without psychotic features (Multi) Take 1 tablet (50 mg) by mouth 3 times a day. 90 tablet 1 03/16/2024 05/15/2024 Active Start: 12-09-2023 End: 03-20-2024 take 1 tablet by mouth once daily at bedtime QUEtiapine (SEROquel) 100 mg tablet Indications: Severe episode of recurrent major depressive disorder, without psychotic features (Multi) Take 1 tablet (100 mg) by mouth once daily at bedtime. 30 tablet 1 01/20/2024 02/17/2024 Discontinued (Dose adjustment) Start: 12-09-2023 End: 01-11-2024 take 1 tablet by mouth twice daily QUEtiapine (SEROquel) 50 mg tablet Indications: Other bipolar disorder , Severe episode of recurrent major depressive disorder, without psychotic features (Multi) Take 1 tablet (50 mg) by mouth 2 times daily (morning and midday). 60 tablet 1 12/09/2023 01/11/2024 Discontinued (Reorder) Start: 12-02-2023 take 1 tablet by beth th three times daily Quetiapine (Seroquel) 50 mg tablet Active 50 MG PO Three times daily December 02, 2023 12:00am risperiDONE 1 mg oral tablet (20 sources) Atypical Antipsychotic Start: 03-07-2024 End: 05-06-2024 take 1 tablet by mouth once daily at bedtime risperiDONE (RisperDAL) 1 mg tablet Indications: Severe episode of recurrent major depressive disorder, without psychotic features (Multi) , Other bipolar disorder Take 1 tablet (1 mg) by mouth once daily at bedtime. 30 tablet 1 03/07/2024 05/06/2024 Active Start: 03-07-2024 take 1 tablet by beth th once daily risperiDONE (RisperDAL) 2 mg tablet Indications: Other bipolar disorder Take 1 tablet (2 mg) by mouth once daily. 30 tablet 1 03/07/2024 Active Start: 12-24-2023 End: 02-22-2024 take 1 tablet by mouth once daily at bedtime risperiDONE (RisperDAL) 1 mg tablet Indications: Other bipolar disorder , Severe episode of recurrent major depressive disorder, without psychotic features (Multi) Take 1 tablet (1 mg) by mouth once daily at bedtime. 30 tablet 1 12/24/2023 Active Start: 12-24-2023 take 1 tablet by beth th once daily risperiDONE (RisperDAL) 2 mg tablet Indications: Other bipolar disorder Take 1 tablet (2 mg) by mouth once daily. 30 tablet 1 12/24/2023 Active Start: 07-15-2023 End: 07-20-2023 take 1-2 tablets [...] tablet by beth th daily at bedtime. tadalafil 10 mg oral tablet (4 sources) Phosphodiesterase 5 Inhibitor Start: 02-12-2022 Cialis 10mg Cialis 10mg, 1 (one) Tablet Tablet PRN ED # 6, 02/12/2022, Ref. x2. Active oral PRN ED for 0 *Pick strength-form from [employer] for eRX* Jan, Active True Metrix Meter w/Device (2 sources) Start: 05-27-2023 True Metrix Meter w/Device as directed to test blood sugar for 365 days Test Strips as well - dispense 100 strips with 5 refills May, Active Completed/Discontinued Medications Medication Drug Class(es) Dates Sig (Normalized) Sig (Original) amoxicillin 875 mg oral tablet (5 sources) [...] 16-Oct-2021 Complete atenolol 50 mg oral tablet (9 sources) beta-Adrenergic Daren Start: 12-30-2018 End: 05-18-2023 atenolol (Tenormin) 50 mg tablet atenolol (Tenorm in) 50 mg tablet Take by mouth once every 24 hours. Active End: 05-18-2023 ATENOLOL ORAL Take by mouth [...] (2 sources) Nonsteroidal Anti-inflammatory Drug Start: 10-06-19 End: 05-18-19 24 take 1 tablet by [...] 05-Sep-2021 Shireen Higuera Start : 05-Sep-2021 Active losartan potassium 25 mg oral tablet (5 sources) Angiotensin 2 Receptor Daren Start: 06-05-19 24 End: 07-29-19 24 take 25 mg by mouth once daily Losartan Discontinued 25 MG PO daily June 05, 2023 1:00am July 28, 2023 5:29pm lurasidone hydrochloride 20 mg oral tablet (12 sources) Atypical Antipsychotic Start: 06-22-19 End: 07-22-19 24 take 1 tablet by mouth once daily at mealtime lurasidone (Latuda) 20 mg tablet Indications: Other bipolar disorder (Multi) Take 1 tablet (20 mg) by mouth once daily in the evening. Take with meals. 30 tablet 06/22/2023 07/15/2023 Discontinued (Side effects) take 1 tablet by beth th every twenty-four hours Latuda 80 MG 1 tablet with food Orally Once a day Active nabumetone 500 mg oral tablet (2 sources) Nonsteroidal Anti-inflammatory Drug Start: 11-22-2018 End: 05-18-2023 take 1 tablet by mouth twice daily at mealtime nabumetone (Relafen) 500 mg tablet Take 1 tablet (500 mg) by mouth 2 times a day with meals. 0 11/22/2018 05/18/2023 Discontinued (Med List Cleanup) polyethylene glycol 3350 [id number] mg powder for oral solution (3 sources) Osmotic Laxative Start: 06-05-2023 End: 09-03-2023 polyethylene glycol (Glycolax, Miralax) 17 gram/dose powder Indications: Drug-induced constipation Take 17 g by mouth once daily. 510 g 2 06/05/2023 09/03/2023 polymyxin b 19741 unt/ml / trimethoprim 1 mg/ml ophthalmic solution (15 sources) Dihydrofolate Reductase Inhibitor Antibacterial, Polymyxin-class Antibacterial Start: 01-16-2023 End: 07-20-2023 take 1 drop(s) into the eye(s) four times daily polymyxin B sulf-trimethoprim (Polytrim) ophthalmic solution INSTILL 1 DROP INTO AFFECTED EYE(S) 4 TIMES DAILY FOR 5 DAYS 01/16/2023 07/20/2023 Discontinued (Med List Cleanup) predniSONE 20 mg oral tablet (5 sources) Start: 04-02-2022 End: 02-04-2024 predniSONE (Deltasone) 20 mg tablet Take by mouth. 04/02/2022 02/04/2024 Discontinued (Med List Cleanup) Start: 04-02-2022 predniSONE 20 MG Oral Tablet Quantity: 15 Refills: 0 Ordered: 02-Apr-2022 DO Start : 02-Apr-2022 Complete sulfacetamide sodium 100 mg/ml ophthalmic solution (1 source) Sulfonamide Antibacterial Start: 12-02-2023 End: 02-04-2024 take 2 drop(s) into the eye(s) four times daily sulfacetamide (Bleph-10) 10 % ophthalmic solution INSTILL 2 DROPS INTO BOTH EYES FOUR TIMES A DAY DIRECTED FOR 7 DAYS 12/02/2023 02/04/2024 Discontinued (Med List Cleanup) sulfamethoxazole 800 mg / trimethoprim 160 mg oral tablet (5 sources) Dihydrofolate Reductase Inhibitor Antibacterial, Sulfonamide Antimicrobial Start: 04-29-2022 End: 05-18-2023 take 1 tablet by mouth twice daily sulfamethoxazole-t rimethoprim (Bactrim DS) 800-160 mg tablet Take 1 tablet by mouth 2 times a day. 0 04/29/2022 05/18/2023 Discontinued (Med List Cleanup) Start: 03-31-2022 take 1 tablet by beth twice daily Bactrim D.S. 800 mg-160 mg Tab 160 mg, Oral, BID, 60 caplet(s), Refill(s) 1, [facility] [phone], [phone], cm, 03/31/22 12:37:00 [...] tablet 1 05/18/2023 06/11/2023 Discontinued (Dose adjustment) 24 hr venlafaxine 75 mg extended release oral capsule (20 sources) Serotonin and Norepinephrine Reuptake Inhibitor Start: 12-09-2023 End: 05-14-2024 take 1 capsule by mouth once daily venlafaxine XR (Effexor-XR) 37.5 mg 24 hr capsule Indications: Generalized anxiety disorder , Severe episode of recurrent major depressive disorder, without psychotic features (Multi) TAKE 1 CAPSULE (37.5 MG) BY MOUTH ONCE DAILY. TAKE WITH 150 MG + 75 MG FOR A TOTAL DAILY DOSE OF 262.5 MG. DO NOT CRUSH OR CHEW. 30 capsule 1 03/15/2024 05/14/2024 Active Start: 12-09-2023 End: 03-23-2024 take 1 capsule by mouth once daily venlafaxine XR (Effexor-XR) 150 mg 24 hr capsule Indications: Severe episode of recurrent major depressive disorder, without psychotic features (Multi) , Generalized anxiety disorder Take 1 capsule (150 mg) by mouth once daily. Do not crush or chew. 30 capsule 1 03/07/2024 03/23/2024 Discontinued (Dose adjustment) Start: 12-09-2023 End: 04-10-2024 take 1 capsule by mouth once daily venlafaxine XR (Effexor-XR) 75 mg 24 hr capsule Indications: Generalized anxiety disorder , Severe episode of recurrent major depressive disorder, without psychotic features (Multi) TAKE 1 CAPSULE (75 MG) BY MOUTH ONCE DAILY. TAKE WITH 150 MG + 37.5 MG FOR A TOTAL DAILY DOSE OF 262.5 MG. DO NOT CRUSH OR CHEW. 30 capsule 1 03/15/2024 03/23/2024 Discontinued (Dose adjustment) Start: 05-07-2023 take 300 mg by mouth once daily at bedtime Venlafaxine Active 300 MG PO Daily at bedtime May 07, 2023 1:00am Start: 04-15-2022 Venlafaxine HC l ER 150MG Venlafaxine HCl ER( 150MG Oral 1 two times daily ) Active -Hx Entry Oral two times daily *Pick strength-form from [employer] for eRX* Mar, Active Start: 08-28-2021 End: [...] above: Take 1 capsule by mo uth once daily. Take one po bid. Take 2 pills po myrna y. vortioxetine 20 mg oral tablet (5 sources) [...] Date Documented Da te Episodic/Chronic Abdominal pain (14 sources) Abdominal pain; Translations: [Abdominal pain] Onset: 12-31-2023 12-31-2023 Episodic Anxiety disorders (20 sources) Generalized anxiety disorder; Translations: [Generalized anxiety disorder] Onset: 02-15-2023 Chronic Cardiac dysrhythmias (16 sources) Palpitations; Translations: [Palpitations] Onset: 12-31-2023 06-05-2023 Episodic Diabetes mellitus without complication (20 sources) Impaired fasting glycemia; Translations: [Impaired fasting glucose] Onset: 12-31-2023 Episodic Disorders of lipid metabolism (19 sources) Familial hypercholesterolemia ; Translations: [Familial hypercholesterolemia ] Onset: 12-31-2023 12-02-2023 Chronic Disorders of teeth and jaw (14 sources) Periapical abscess without sinus tract; Translations: [Periapical abscess without sinus] Onset: 12-31-2023 12-31-2023 Episodic Esophageal disorders (17 sources) Gastro-esophageal reflux disease with esophagitis; Translations: [Gastro-esophageal reflux disease with esophagitis, without bleeding] Onset: 12-31-2023 06-04-2023 Chronic Esophageal disorders (4 sources) Disorder of esophagus; Translations: [Disease of esophagus, unspecified] Onset: 12-31-2023 12-31-2023 Episodic Essential hypertension (20 sources) Hypertensive disorder; Translations: [Essential hypertension] Onset: 12-31-2023 04-04-2019 Chronic Fluid and electrolyte disorders (10 sources) Hypokalemia; Translations: [Hypokalemia] Onset: 05-07-2023 05-07-2023 Episodic Gastrointestinal hemorrhage (14 sources) Hemorrhage of rectum and anus; Translations: [Rectal bleed] Onset: 12-31-2023 12-31-2023 Episodic Gout and other crystal arthropathies (14 sources) Primary gout; Translations: [Idiopathic gout, right ankle and foot] Onset: 12-31-2023 12-31-2023 Chronic Hyperplasia of prostate (12 sources) Benign prostatic hypertrophy with outflow obstruction; Translations: [Benign prostatic hyperplasia with lower urinary tract symptoms] Onset: 03-31-2022 Chronic Inflammation; infection of eye (except that caused by tuberculosis or sexually transmitteddisease) (5 sources) Other mucopurulent conjunctivitis, bilateral; Translations: [Mucopurulent conjunctivitis] Onset: 12-31-2023 Episodic Inflammatory conditions of male genital organs (8 sources) Chronic prostatitis; Translations: [Chronic prostatitis] Onset: 03-31-2022 Chronic Miscellaneous mental health disorders (20 sources) Somatoform disorder; Translations: [Other somatoform disorders] Onset: 12-14-2012 12-31-2023 Chronic Mood disorders (20 sources) Bipolar disorder in full remission; Translations: [Bipolar disorder, currently in remission, most recent episode unspecified] Onset: 09-05-2013 Chronic Other aftercare (20 sources) Patient encounter status; Translations: [Long-term (current) use of other medications] Onset: 09-27-2021 12-31-2023 Episodic Other aftercare (10 sources) Therapeutic drug level - finding; Translations: [Encounter for therapeutic drug level monitoring] Episodic Other circulatory disease (14 sources) Elevated blood-pressure reading without diagnosis of hypertension; Translations: [Elevated blood-pressure reading, without diagnosis of hypertension] Onset: 12-31-2023 12-31-2023 Episodic Other connective tissue disease (20 sources) Extrapyramidal sign; Translations: [Other symptoms and signs involving the nervous system] Onset: 02-16-2023 02-16-2023 Episodic Other connective tissue disease (4 sources) Other symptoms and signs involving the nervous system; Translations: [Other symptoms and signs involving the nervous system] Onset: 02-16-2023 Episodic Other diseases of kidney and ureters (6 sources) Cyst of kidney; Translations: [Cyst of kidney, acquired] Onset: 12-31-2023 03-31-2022 Episodic Other ear and sense organ disorders (10 sources) Sensorineural hearing loss; Translations: [Unspecified sensorineural hearing loss] Chronic Other ear and sense organ disorders (14 sources) Sensorineural hearing loss, bilateral; Translations: [Sensorineural hearing loss, bilateral] Onset: 12-31-2023 12-31-2023 Chronic Other ear and sense organ disorders (14 sources) Tinnitus; Translations: [Tinnitus, unspecified ear] Onset: 12-31-2023 12-31-2023 Episodic Other male genital disorders (8 sources) Male erectile dysfunction, unspecified; Translations: [Erectile dysfunction] Onset: 03-31-2022 Chronic Other nutritional; endocrine; and metabolic disorders (20 sources) Body mass index 30+ - obesity; Translations: [Body mass index 36.0-36.9, adult] Onset: 12-28-2015 12-31-2023 Chronic Other nutritional; endocrine; and metabolic disorders (20 sources) Obese class I; Translations: [Body mass index (BMI) 33.0-33.9, adult] Onset: 02-04-2018 12-31-2023 Chronic Other nutritional; endocrine; and metabolic disorders (15 sources) Obesity; Translations: [Obesity, unspecified] Onset: 12-31-2023 06-05-2023 Chronic Other nutritional; endocrine; and metabolic disorders (14 sources) Obese class II; Translations: [Body mass index 35.0-35.9, adult] Onset: 09-05-2013 12-31-2023 Chronic Other nutritional; endocrine; and metabolic disorders (14 sources) Morbid obesity; Translations: [Morbid (severe) obesity due to excess calories] Onset: 09-05-2013 12-31-2023 Chronic Other nutritional; endocrine; and metabolic disorders (14 sources) Simple obesity ; Translations: [Other obesity due to excess calories] Onset: 12-31-2023 12-31-2023 Chronic Other nutritional; endocrine; and metabolic disorders (1 source) Morbid (severe) obesity due to excess calories Chronic Other nutritional; endocrine; and metabolic disorders (1 source) Body mass index (BMI) 37.0-37.9, adult Chronic Other nutritional; endocrine; and metabolic disorders (6 sources) Obesity caused by energy imbalance; Translations: [Morbid (severe) obesity due to excess calories] Onset: 09-05-2013 06-04-2023 Chronic Other nutritional; endocrine; and metabolic disorders (1 source) Obesity, unspecified; Translations: [Obesity, unspecified] 12-02-2023 Chronic Other nutritional; endocrine; and metabolic disorders (15 sources) Excessive thirst; Translations: [Polydipsia] Onset: 12-31-2023 12-31-2023 Episodic Other skin disorders (14 sources) Hair follicle disorder; Translations: [Other specified follicular disorders] Onset: 12-31-2023 12-31-2023 Episodic Other upper respiratory disease (14 sources) Allergic rhinitis; Translations: [Allergic rhinitis, unspecified] Onset: 12-31-2023 12-31-2023 Chronic Poisoning by nonmedicinal substances (13 sources) [place] poisoning; Translations: [Toxic effect of other metals, accidental (unintentional), initial encounter] Onset: 12-31-2023 05-07-2023 Chronic Residual codes; unclassified (16 sources) Obstructive sleep apnea syndrome; Translations: [Obstructive sleep apnea (adult) (pediatric)] Onset: 05-20-2021 03-25-2022 Chronic Residual codes; unclassified (10 sources) Tobacco user; Translations: [Tobacco use] Episodic Rheumatoid arthritis and related disease (14 sources) Inflammatory polyarthropathy; Translations: [Unspecified inflammatory polyarthropathy] Onset: 12-28-2015 12-31-2023 Chronic Spondylosis; intervertebral disc disorders; other back problems (20 sources) Other cervical disc displacement, mid-cervical region, unspecified level; Translations: [Spondylosis without myelopathy or radiculopathy, cervical region] Onset: 02-04-2018 Chronic Substance-related disorders (4 sources) Sedative, hypnotic AND/OR anxiolytic-induced sexual dysfunction; Translations: [Sedative, hypnotic or anxiolytic abuse with sedative, hypnotic or anxiolytic-induced sexual dysfunction] Onset: 12-31-2023 12-31-2023 Chronic Substance-related disorders (10 sources) Sedative, hypnotic or anxiolytic use, unspecified with sedative, hypnotic or anxiolytic-induced sexual dysfunction; Translations: [Sedative, hypnotic or anxiolytic use, unspecified with sedative, hypnotic or anxiolytic-induced sexual dysfunction] Episodic Unclassified (1 source) Adverse effect of other antipsychotics and neuroleptics, initial encounter; Translations: [Adverse effect of other antipsychotics and neuroleptics, initial encounter] Onset: 05-07-2023 Viral infection (14 sources) Verruca vulgaris; Translations: [Viral wart, unspecified] Onset: 12-31-2023 12-31-2023 Episodic Past or Other Problems Problem Classification Problem Date Documented Date Episodic/Chronic Acute bronchitis (20 sources) Acute bronchitis; Translations: [Acute bronchitis due to other specified organisms] Onset: 4 12-31-2023 Episodic Allergic reactions (14 sources) Inflammatory dermatosis; Translations: [Dermatitis, unspecified] Onset: 3 12-31-2023 Episodic Bacterial infection; unspecified site (14 sources) Bacterial infectious disease; Translations: [Bacterial infection, unspecified, in conditions classified elsewhere and of unspecified site] Onset: 8 12-31-2023 Episodic Blindness and vision defects (14 sources) Visual disturbance; Translations: [Other visual disturbances] Onset: 6 12-31-2023 Episodic E Codes: Adverse effects of medical drugs (4 sources) Adverse reaction to drug; Translations: [Adverse effect of other antipsychotics and neuroleptics, initial encounter] Onset: 4 12-31-2023 Episodic Esophageal disorders (1 source) Esophageal disorders Genitourinary symptoms and ill-defined conditions (20 sources) Dysuria; Translations: [Polyuria] Onset: 2 03-25-2022 Episodic Immunizations and screening for infectious disease (14 sources) Vaccination given; Translations: [Encounter for immunization] Onset: 8 12-31-2023 Episodic Inflammatory conditions of male genital organs (20 sources) Prostatitis; Translations: [Inflammatory disease of prostate, unspecified] Onset: 2 03-25-2022 Episodic Malaise and fatigue (14 sources) Malaise and fatigue; Translations: [Other malaise and fatigue] Onset: 8 12-31-2023 Episodic Open wounds of extremities (10 sources) Open wound of finger without complication; Translations: [Open wound of finger(s), without mention of complication] Onset: 3 Episodic Other aftercare (6 sources) Other custodial (current) drug therapy; Translations: [OTH SHELTER CURRENT DRUG THERAPY] Onset: 2 Episodic Other aftercare (1 source) Encounter for therapeutic drug level monitoring; Translations: [ENC THERAPEUTC DRUG LEVL MONITORING] Onset: 2 Episodic Other aftercare (14 sources) Long-term current use of drug therapy; Translations: [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] Onset: 6 12-31-2023 Episodic Other circulatory disease (10 sources) Cardiovascular symptoms; Translations: [Other specified symptoms and signs involving the circulatory and respiratory systems] Onset: 6 Episodic Other circulatory disease (4 sources) Other specified symptoms and signs involving the circulatory and respiratory systems; Translations: [Other symptoms involving cardiovascular system] Onset: 6 12-31-2023 Episodic Other connective tissue disease (4 sources) Other muscle spasm; Translations: [OTHER MUSCLE SPASM] Onset: 3 Episodic Other connective tissue disease (14 sources) Pain in limb; Translations: [Pain in unspecified foot] Onset: 6 12-31-2023 Episodic Other connective tissue disease (10 sources) Musculoskeletal symptom; Translations: [Other musculoskeletal symptoms referable to limbs] Onset: 8 Episodic Other connective tissue disease (4 sources) Spasm; Translations: [Other muscle spasm] Onset: 3 12-31-2023 Episodic Other connective tissue disease (4 sources) Musculoskeletal finding; Translations: [Unspecified symptoms and signs involving the musculoskeletal system] Onset: 8 12-31-2023 Episodic Other diseases of kidney and ureters (6 sources) Acquired renal cyst without neoplastic change; Translations: [Cyst of kidney, acquired] Onset: 2 Episodic Other gastrointestinal disorders (14 sources) Pharyngeal dysphagia; Translations: [Dysphagia, pharyngoesophageal phase] Onset: 6 12-31-2023 Episodic Other screening for suspected conditions (not mental disorders or infectious disease) (4 sources) Blood chemistry abnormal; Translations: [Other specified abnormal findings of blood chemistry] Onset: 4 12-31-2023 Episodic Other skin disorders (14 sources) Localized superficial swelling of skin; Translations: [Localized superficial swelling, mass, or lump] Onset: 6 12-31-2023 Episodic Other upper respiratory disease (14 sources) Pain in throat; Translations: [Pain in throat] Onset: 3 12-31-2023 Episodic Other upper respiratory infections (20 sources) Acute pharyngitis; Translations: [Acute pharyngitis due to other specified organisms] Onset: 4 12-31-2023 Episodic Residual codes; unclassified (20 sources) Insomnia; Translations: [Insomnia, unspecified] Onset: 3 02-15-2023 Episodic Residual codes; unclassified (10 sources) Requires influenza virus vaccination; Translations: [Need for prophylactic vaccination and inoculation, Influenza] Onset: 8 Episodic Skin and subcutaneous tissue infections (14 sources) Cellulitis and abscess of hand excluding digits; Translations: [Cellulitis and abscess of hand, except fingers and thumb] Onset: 3 12-31-2023 Episodic Spondylosis; intervertebral disc disorders; other back problems (15 sources) Cervicalgia; Translations: [Low back pain] Onset: 3 12-31-2023 Episodic Sprains and strains (14 sources) Neck sprain; Translations: [Strain of muscle, fascia and tendon at neck level, initial encounter] Onset: 8 12-31-2023 Episodic Unclassified (10 sources) Long-term current use of drug therapy; Translations: [Long-term (current) use of other medications] Onset: 6 Results Test Name Value Interpretation Reference Range Facility Lithiumon 03-14-2024 [place] [Moles/Vol] 0.65 mmol/L Normal 0.60-1.20 [facility] Comment on above: Performed By: #### 2 4321-2 #### KATARZYNA COLLAZO ([id number]) [facility] ([facility]) [address] [place] [address] 29665 Lithiumon 03-03-2024 [place] [Moles/Vol] 0.56 mmol/L Low 0.60-1.20 [facility] Comment on above: Performed By: #### 2 4321-2 #### KATARZYNA COLLAZO ([id number]) [facility] ([facility]) [address] [place] [address] 98720 Basic metabolic 2000 panelon 02-23-2024 Anion gap [Moles/Vol] 13 mmol/L 10 - 20 mmol/L [facility] Calcium [Mass/Vol] 9.3 mg/dL 8.6 - 10. 3 mg/dL [facility] Chloride [Moles/Vol] 104 mmol/L 98 - 107 mmol/L [facility] CO2 [Moles/Vol] 25 mmol/L 21 - 32 mmol/L [facility] Creatinine [Mass/Vol] 0.66 mg/dL 0.50 - 1.30 mg/dL [facility] eGFR - PINF [facility] Comment on above: Calculations of noe mated GFR are performed using the 2020 CKD-EPI Study Refit equation without the race variable for the IDMS-Traceable creatinine methods. https://jasn.asnjournals.org/content//ASN.91273348 88 Glucose [Mass/Vol] 94 mg/dL 74 - 99 mg/dL [facility] Interpretation and review of laboratory results Normal [facility] Potassium [Moles/Vol] 3.9 mmol/L 3.5 - 5.3 mmol/L [facility] Sodium [Moles/Vol] 138 mmol/L 136 - 145 mmol/L [facility] Urea nitrogen [Mass/Vol] 13 mg/dL 6 - 23 mg/dL [facility] Anion gap [Moles/Vol] 13 mmol/L Normal 10-20 [facility] Comment on above: Performed By: #### 2 4321-2 #### KATARZYNA COLLAZO ([id number]) [facility] ([facility]) [address] [place] [address]59 Calcium [Mass/Vol] 9.3 mg/dL Normal 8.6-10.3 [facility] Comment on above: Performed By: #### 2 4321-2 #### KATARZYNA COLLAZO ([id number]) [facility] ([facility]) [address] [place] [address] 98047 Chloride [Moles/Vol] 104 mmol/L Normal 98-107 [facility] Comment on above: Performed By: #### 2 4321-2 #### KATARZYNA COLLAZO ([id number]) [facility] ([facility]) [address] [place] [address] 54576 CO2 [Moles/Vol] 25 mmol/L Normal 21-32 [facility] Comment on above: Performed By: #### 2 4321-2 #### KATARZYNA COLLAZO ([id number]) [facility] ([facility]) [address] [place] [address] Creatinine [Mass/Vol] 0.66 mg/dL Normal 0.50-1.30 [facility] Comment on above: Performed By: #### 2 4321-2 #### KATARZYNA COLLAZO ([id number]) [facility] ([facility]) [address] [place] [address] 75779 GFR/1.73 sq M.predicted MDRD (S/P/Bld) [Vol rate/Area] mL/min/{1.73_m2} Normal >60 [facility] Comment on above: Result Comment: Calc ulations of estimated GFR are performed using the 2020 CKD-EPI Study Refit equation without the race variable for the IDMS-Traceable creatinine methods. https://jasn.asnjournals.org/content//ASN.94045748 88 Performed By: #### 2 4321-2 #### KATARZYNA COLLAZO ([id number]) [facility] ([facility]) [address] [place] [address] 19071 Glucose [Mass/Vol] 94 mg/dL Normal 74-99 [facility] Comment on above: Performed By: #### 2 4321-2 #### KATARZYNA COLLAZO ([id number]) [facility] ([facility]) [address] [place] [address] 71522 Potassium [Moles/Vol] 3.9 mmol/L Normal 3.5-5.3 [facility] Comment on above: Performed By: #### 2 4321-2 #### KATARZYNA COLLAZO ([id number]) [facility] ([facility]) [address] [place] [address] 92377 Sodium [Moles/Vol] 138 mmol/L Normal 136-145 [facility] Comment on above: Performed By: #### 2 4321-2 #### KATARYZNA COLLAZO ([id number]) [facility]) [address] [place] [address] 49399 Urea nitrogen [Mass/Vol] 13 mg/dL Normal 6-23 [facility] Comment on above: Performed By: #### 2 4321-2 #### KATARZYNA COLLAZO ([id number]) [facility] ([facility]) [address] [place] [address] 09181 Lithiumon 02-23-2024 [place] [Moles/Vol] 0.42 mmol/L Low 0.60 - 1 .20 mmol/L [facility] [place] [Moles/Vol] 0.42 mmol/L Low 0.60-1.20 [facility] Comment on above: Performed By: #### 2 4321-2 #### KATARZYNA COLLAZO ([id number]) [facility]) [address] [place] [address] 49552 [place] [Moles/Vol]on 2023 Interpretation and review of laboratory results Abnormal [facility] Basic metabolic 2000 panelon 01-18-2024 Anion gap [Moles/Vol] 13 mmol/L Normal 10-20 [facility] Comment on above: Performed By: #### 2 4321-2 #### KATARZYNA COLLAZO ([id number]) [facility]) [address] [place] [address] 87991 Calcium [Mass/Vol] 9.7 mg/dL Normal 8.6-10.3 [facility] Comment on above: Performed By: #### 2 4321-2 #### KATARZYNA COLLAZO ([id number]) [facility]) [address] [place] [address] 37644 Chloride [Moles/Vol] 104 mmol/L Normal 98-107 [facility] Comment on above: Performed By: #### 2 4321-2 #### KATARZYNA COLLAZO ([id number]) [facility]) [address] [place] [address] 56503 CO2 [Moles/Vol] 26 mmol/L Normal 21-32 [facility] Comment on above: Performed By: #### 2 4321-2 #### KATARZYNA COLLAZO ([id number]) [facility]) [address] [place] [address] 15340 Creatinine [Mass/Vol] 0.73 mg/dL Normal 0.50-1.30 [facility] Comment on above: Performed By: #### 2 4321-2 #### KATARZYNA COLLAZO ([id number]) [facility]) [address] [place] [address] 39522 GFR/1.73 sq M.predicted MDRD (S/P/Bld) [Vol rate/Area] mL/min/{1.73_m2} Normal >60 [facility] Comment on above: Result Comment: Calc ulations of estimated GFR are performed using the 2020 CKD-EPI Study Refit equation without the race variable for the IDMS-Traceable creatinine methods. https://jasn.asnjournals.org/content//ASN.63613399 88 Performed By: #### 2 4321-2 #### KATARZYNA COLLAZO ([id number]) [facility]) [address] [place] [address] 26117 Glucose [Mass/Vol] 90 mg/dL Normal 74-99 [facility] Comment on above: Performed By: #### 2 4321-2 #### KATARZYNA COLLAZO ([id number]) [facility]) [address] [place] [address] 84880 Potassium [Moles/Vol] 4.4 mmol/L Normal 3.5-5.3 [facility] Comment on above: Performed By: #### 2 4321-2 #### KATARZYNA COLLAZO ([id number]) [facility]) [address] [place] [address] 07239 Sodium [Moles/Vol] 139 mmol/L Normal 136-145 [facility] Comment on above: Performed By: #### 2 4321-2 #### KATARZYNA COLLAZO ([id number]) [facility]) [address] [place] [address] 23062 Urea nitrogen [Mass/Vol] 11 mg/dL Normal 6-23 [facility] Comment on above: Performed By: #### 2 4321-2 #### KATARZYNA COLLAZO ([id number]) [facility]) [address] [place] [address] 21967 Lithiumon 01-18-2024 [place] [Moles/Vol] 0.61 mmol/L Normal 0.60-1.20 [facility] Comment on above: Performed By: #### 2 4321-2 #### KATARZYNA COLLAZO ([id number]) [facility]) [address] [place] [address] 67881 Basic metabolic 2000 panelon 08-03-2023 Anion gap [Moles/Vol] 10 mmol/L Normal 10-20 [facility] Comment on above: Performed By: #### 2 4321-2 #### KATARZYNA COLLAZO ([id number]) [facility]) [address] [place] [address] 20344 Calcium [Mass/Vol] 9.3 mg/dL Normal 8.6-10.3 [facility] Comment on above: Performed By: #### 2 4321-2 #### KATARZYNA COLLAZO ([id number]) [facility]) [address] [place] [address] 62686 Chloride [Moles/Vol] 106 mmol/L Normal 98-107 [facility] Comment on above: Performed By: #### 2 4321-2 #### KATARZYNA COLLAZO ([id number]) [facility]) [address] [place] [address] 06748 CO2 [Moles/Vol] 27 mmol/L Normal 21-32 [facility] Comment on above: Performed By: #### 2 4321-2 #### KATARZYNA COLLAZO ([id number]) [facility]) [address] [place] [address] 60428 Creatinine [Mass/Vol] 0.71 mg/dL Normal 0.50-1.30 [facility] Comment on above: Performed By: #### 2 4321-2 #### KATARZYNA COLLAZO ([id number]) [facility] ([facility]) [address] [place] [address] 17856 GFR/1.73 sq M.predicted MDRD (S/P/Bld) [Vol rate/Area] mL/min/{1.73_m2} Normal >60 [facility] Comment on above: Result Comment: Calc ulations of estimated GFR are performed using the 2020 CKD-EPI Study Refit equation without the race variable for the IDMS-Traceable creatinine methods. https://jasn.asnjournals.org/content//ASN.71838131 88 Performed By: #### 2 4321-2 #### KATARZYNA COLLAZO ([id number]) [facility] ([facility]) [address] [place] [address] 61624 Glucose [Mass/Vol] 98 mg/dL Normal 74-99 [facility] Comment on above: Performed By: #### 2 4321-2 #### KATARZYNA COLLAZO ([id number]) [facility] ([facility]) [address] [place] [address] 53698 Potassium [Moles/Vol] 4.0 mmol/L Normal 3.5-5.3 [facility] Comment on above: Performed By: #### 2 4321-2 #### KATARZYNA COLLAZO ([id number]) [facility] ([facility]) [address] [place] [address] 62744 Sodium [Moles/Vol] 139 mmol/L Normal 136-145 [facility] Comment on above: Performed By: #### 2 4321-2 #### KATARZYNA COLLAZO ([id number]) [facility] ([facility]) [address] [place] [address] 90062 Urea nitrogen [Mass/Vol] 10 mg/dL Normal 6-23 [facility] Comment on above: Performed By: #### 2 4321-2 #### KATARZYNA COLLAZO ([id number]) [facility] ([facility]) [address] [place] [address] 10352 Lithiumon 08-03-2023 [place] [Moles/Vol] 0.64 mmol/L Normal 0.60-1.20 [facility] Comment on above: Performed By: #### 2 4321-2 #### KATARZYNA COLLAZO ([id number]) [facility] ([facility]) [address] [place] [address] 20006 Basic metabolic 2000 panelon 07-10-2023 Anion gap [Moles/Vol] 10 mmol/L Normal 10-20 [facility] Comment on above: Performed By: #### 2 4321-2 #### KATARZYNA COLLAZO ([id number]) [facility] ([facility]) [address] [place] [address] 96025 Calcium [Mass/Vol] 9.6 mg/dL Normal 8.6-10.3 [facility] Comment on above: Performed By: #### 2 4321-2 #### AMARAIBARON COLLAZO ([id number]) [facility] ([facility]) [address] [place] [address] 51683 Chloride [Moles/Vol] 103 mmol/L Normal 98-107 [facility] Comment on above: Performed By: #### 2 4321-2 #### KATARZYNA COLLAZO ([id number]) [facility] ([facility]) [address] [place] [address] 54160 CO2 [Moles/Vol] 30 mmol/L Normal 21-32 [facility] Comment on above: Performed By: #### 2 4321-2 #### KATARZYNA COLLAZO ([id number]) [facility] ([facility]) [address] [place] [address] 78067 Creatinine [Mass/Vol] 0.78 mg/dL Normal 0.50-1.30 [facility] Comment on above: Performed By: #### 2 4321-2 #### KATARZYNA COLLAZO ([id number]) [facility] ([facility]) [address] [place] [address] 95892 GFR/1.73 sq M.predicted MDRD (S/P/Bld) [Vol rate/Area] mL/min/{1.73_m2} Normal >60 [facility] Comment on above: Result Comment: Calc ulations of estimated GFR are performed using the 2020 CKD-EPI Study Refit equation without the race variable for the IDMS-Traceable creatinine methods. https://jasn.asnjournals.org/content//ASN.72125831 88 Performed By: #### 2 4321-2 #### KATARZYNA COLLAZO ([id number]) [facility] ([facility]) [address] [place] [address] 14724 Glucose [Mass/Vol] 104 mg/dL High 74-99 [facility] Comment on above: Performed By: #### 2 4321-2 #### KATARZYNA COLLAZO ([id number]) [facility] ([facility]) [address] [place] [address] 42317 Potassium [Moles/Vol] 4.1 mmol/L Normal 3.5-5.3 [facility] Comment on above: Performed By: #### 2 4321-2 #### KATARZYNA COLLAZO ([id number]) [facility] ([facility]) [address] [place] [address] 84713 Sodium [Moles/Vol] 139 mmol/L Normal 136-145 [facility] Comment on above: Performed By: #### 2 4321-2 #### KATARZYNA COLLAZO ([id number]) [facility] ([facility]) [address] [place] [address] 09988 Urea nitrogen [Mass/Vol] 13 mg/dL Normal 6-23 [facility] Comment on above: Performed By: #### 2 4321-2 #### KATARZYNA COLLAZO ([id number]) [facility] ([facility]) [address] [place] [address] 68596 Lithiumon 07-10-2023 [place] [Moles/Vol] 0.50 mmol/L Low 0.60-1.20 [facility] Comment on above: Performed By: #### 1 4334-7 #### KATARZYNA COLLAZO ([id number]) [facility] ([facility]) [address] [place] [address] 61383 TSH WITH REFLEX TO FREE T4 I F ABNORMALon 07-10-2023 TSH Qn 1.17 m[IU]/L Normal 0.44-3.98 [facility] Comment on above: Order Comment: TSH t esting is performed using different testing methodology at [facility] than at other [facility]. Direct result comparisons should only be made within the same method. Performed By: #### 2 4321-2 #### KATARZYNA COLLAZO ([id number]) [facility] ([facility]) [address] [place] [address] 89965 CBC W Auto Differential pane l (Bld)on 06-05-2023 Basophils (Bld) [#/Vol] 0.05 x10*3/uL Normal 0.00-0.10 [facility] Comment on above: Performed By: #### 5 7021-8 #### KATARZYNA COLLAZO ([id number]) [facility] ([facility]) [address] [place] [address] 86262 Basophils/100 WBC (Bld) 1.0 % Normal 0.0-2.0 [facility] Comment on above: Performed By: #### 5 7021-8 #### KATARZYNA COLLAZO ([id number]) [facility] ([facility]) [address] [place] [address] 93589 Eosinophils (Bld) [#/Vol] 0.19 x10*3/uL Normal 0.00-0.70 [facility] Comment on above: Performed By: #### 5 7021-8 #### KATARZYNA COLLAZO ([id number]) [facility] ([facility]) [address] [place] [address] 63352 Eosinophils/100 WBC (Bld) 3.9 % Normal 0.0-6.0 [facility] Comment on above: Performed By: #### 5 7021-8 #### KATARZYNA COLLAZO ([id number]) [facility] ([facility]) [address] [place] [address] 86246 Erythrocyte distribution width (RBC) [Ratio] 11.9 % Normal 11.5-14.5 [facility] Comment on above: Performed By: #### 5 7021-8 #### KATARZYNA COLLAZO ([id number]) [facility] ([facility]) [address] [place] [address] 32095 Hematocrit (Bld) [Volume fraction] 44.9 % Normal 41.0-52.0 [facility] Comment on above: Performed By: #### 5 7021-8 #### KATARZYNA COLLAZO ([id number]) [facility] ([facility]) [address] [place] [address] 29993 Hemoglobin (Bld) [Mass/Vol] 15.6 g/dL Normal 13.5-17.5 [facility] Comment on above: Performed By: #### 5 7021-8 #### KATARZYNA COLLAZO ([id number]) [facility] ([facility]) [address] [place] [address] 24840 Immature granulocytes (Bld) [#/Vol] 0.01 x10*3/uL Normal 0.00-0.70 [facility] Comment on above: Performed By: #### 5 7021-8 #### KATARZYNA COLLAZO ([id number]) [facility] (C) [address] [place] [address] 51278 Immature granulocytes/100 WBC (Bld) 0.2 % Normal 0.0-0.9 [facility] Comment on above: Result Comment: Monique ture Granulocyte Count (IG) includes promyelocytes, myelocytes and metamyelocytes but does not include bands. Percent differential counts (%) should be interpreted in the context of the absolute cell counts (cells/UL). Performed By: #### 5 7021-8 #### KATARZYNA COLLAZO ([id number]) [facility] ([facility]) [address] [place] [address] 36055 Lymphocytes (Bld) [#/Vol] 1.71 x10*3/uL Normal 1.20-4.80 [facility] Comment on above: Performed By: #### 5 7021-8 #### KATARZYNA COLLAZO ([id number]) [facility] ([facility]) [address] [place] [address] 98006 Lymphocytes/100 WBC (Bld) 35.0 % Normal 13.0-44.0 [facility] Comment on above: Performed By: #### 5 7021-8 #### KATARZYNA COLLAZO ([id number]) [facility] ([facility]) [address] [place] [address] 35163 MCH (RBC) [Entitic mass] 30.4 pg Normal 26.0-34.0 [facility] Comment on above: Performed By: #### 5 7021-8 #### KATARZYNA COLLAZO ([id number]) [facility] ([facility]) [address] [place] [address] 79147 MCHC (RBC) [Mass/Vol] 34.7 g/dL Normal 32.0-36.0 [facility] Comment on above: Performed By: #### 5 7021-8 #### KATARZYNA COLLAZO ([id number]) [facility] ([facility]) [address] [place] [address] 52609 MCV (RBC) [Entitic vol] 87 fL Normal 80-100 [facility] Comment on above: Performed By: #### 5 7021-8 #### KATARZYNA COLLAZO ([id number]) [facility] ([facility]) [address] [place] [address] 01357 Monocytes (Bld) [#/Vol] 0.46 x10*3/uL Normal 0.10-1.00 [facility] Comment on above: Performed By: #### 5 7021-8 #### KATARZYNA COLLAZO ([id number]) [facility] ([facility]) [address] [place] [address] 67475 Monocytes/100 WBC (Bld) 9.4 % Normal 2.0-10.0 [facility] Comment on above: Performed By: #### 5 7021-8 #### KATARZYNA COLLAZO ([id number]) [facility] ([facility]) [address] [place] [address] 20014 Neutrophils (Bld) [#/Vol] 2.46 x10*3/uL Normal 1.20-7.70 [facility] Comment on above: Result Comment: Perc ent differential counts (%) should be interpreted in the context of the absolute cell counts (cells/uL). Performed By: #### 5 7021-8 #### KATARZYNA COLLAOZ ([id number]) [facility] ([facility]) [address] [place] [address] 50558 Neutrophils/100 WBC (Bld) 50.5 % Normal 40.0-80.0 [facility] Comment on above: Performed By: #### 5 7021-8 #### KATARZYNA COLLAZO ([id number]) [facility] ([facility]) [address] [place] [address] 91633 Nucleated RBC/100 WBC (Bld) [Ratio] 0.0 /100 WBCs Normal 0.0-0.0 [facility] Comment on above: Performed By: #### 5 7021-8 #### KATARZYNA COLLAZO ([id number]) [facility] ([facility]) [address] [place] [address] 67091 Platelets (Bld) [#/Vol] 213 x10*3/uL Normal 150-450 [facility] Comment on above: Performed By: #### 5 7021-8 #### KATARZYNA COLLAZO ([id number]) [facility] ([facility]) [address] [place] [address] 10298 RBC (Bld) [#/Vol] 5.14 x10*6/uL Normal 4.50-5.90 [facility] Comment on above: Performed By: #### 5 7021-8 #### KATARZYNA COLLAZO ([id number]) [facility] ([facility]) [address] [place] [address] 59118 WBC (Bld) [#/Vol] 4.9 x10*3/uL Normal 4.4-11.3 [facility] Comment on above: Performed By: #### 5 7021-8 #### KATARZYNA COLLAZO ([id number]) [facility] ([facility]) [address] [place] [address] 94162 Comprehensive metabolic 2000 panelon 06-05-2023 Albumin BCP dye [Mass/Vol] 4.5 g/dL Normal 3.4-5.0 [facility] Comment on above: Performed By: #### 2 4323-8 #### KATARZYNA COLLAZO ([id number]) [facility] ([facility]) [address] [place] [address] 55651 ALP [Catalytic activity/Vol] 69 U/L Normal 33-120 [facility] Comment on above: Performed By: #### 2 4323-8 #### AMARAIBARON OLIVA ANGEL ([id number]) [facility] ([facility]) [address] [place] [address] 06149 ALT With P-5'-P [Catalytic activity/Vol] 29 U/L Normal 10-52 [facility] Comment on above: Result Comment: Viola ents treated with Sulfasalazine may generate falsely decreased results for ALT. Performed By: #### 2 432-8 #### KATARZYNA COLLAZO ([id number]) [facility] ([facility]) [address] [place] [address] 52464 Anion gap [Moles/Vol] 13 mmol/L Normal 10-20 [facility] Comment on above: Performed By: #### 2 432-8 #### KATARZYNA COLLAZO ([id number]) [facility] ([facility]) [address] [place] [address] 99718 AST With P-5'-P [Catalytic activity/Vol] 21 U/L Normal 9-39 [facility] Comment on above: Performed By: #### 2 4323-8 #### KATARZYNA ROBLES RIO ANGEL ([id number]) [facility] ([facility]) [address] [place] [address] 43497 Bilirubin [Mass/Vol] 0.6 mg/dL Normal 0.0-1.2 [facility] Comment on above: Performed By: #### 2 4323-8 #### KATARZYNA COLLAZO ([id number]) [facility] ([facility]) [address] [place] [address] 02030 Calcium [Mass/Vol] 9.5 mg/dL Normal 8.6-10.3 [facility] Comment on above: Performed By: #### 2 4323-8 #### AMARAIBARON ROBLES RIO ANGEL ([id number]) [facility] ([facility]) [address] [place] [address] Chloride [Moles/Vol] 105 mmol/L Normal 98-107 [facility] Comment on above: Performed By: #### 2 4323-8 #### AMARAIBELIASHLEY HAZEL ANGEL ([id number]) [facility] ([facility]) [address] [place] [address] 26328 CO2 [Moles/Vol] 28 mmol/L Normal 21-32 [facility] Comment on above: Performed By: #### 2 4323-8 #### AMARAIBARON ROBLES RIO ANGEL ([id number]) [facility] ([facility]) [address] [place] [address] 83043 Creatinine [Mass/Vol] 0.67 mg/dL Normal 0.50-1.30 [facility] Comment on above: Performed By: #### 2 4323-8 #### AMARAIBARON ROBLES RIO ANGEL ([id number]) [facility] ([facility]) [address] [place] [address] 69928 GFR/1.73 sq M.predicted MDRD (S/P/Bld) [Vol rate/Area] mL/min/{1.73_m2} Normal >60 [facility] Comment on above: Result Comment: Calc ulations of estimated GFR are performed using the 2020 CKD-EPI Study Refit equation without the race variable for the IDMS-Traceable creatinine methods. https://jasn.asnjournals.org/content/early/ASN.86334088 88 Performed By: #### 2 4323-8 #### AMARAIBARON ROBLES RIO ANGEL ([id number]) [facility] ([facility]) [address] [place] [address] 64101 Glucose [Mass/Vol] 104 mg/dL High 74-99 [facility] Comment on above: Performed By: #### 2 4323-8 #### AMARAIBARON OLIVA ANGEL ([id number]) [facility] ([facility]) [address] [place] [address] 43755 Potassium [Moles/Vol] 3.7 mmol/L Normal 3.5-5.3 [facility] Comment on above: Performed By: #### 2 4323-8 #### KATARZYNA COLLAZO ([id number]) [facility] ([facility]) [address] [place] [address] 08460 Protein [Mass/Vol] 7.1 g/dL Normal 6.4-8.2 [facility] Comment on above: Performed By: #### 2 4323-8 #### KATARZYNA COLLAZO ([id number]) [facility] ([facility]) [address] [place] [address] 44913 Sodium [Moles/Vol] 142 mmol/L Normal 136-145 [facility] Comment on above: Performed By: #### 2 4323-8 #### KATARZYNA COLLAZO ([id number]) [facility] ([facility]) [address] [place] [address] 93425 Urea nitrogen [Mass/Vol] 9 mg/dL Normal 6-23 [facility] Comment on above: Performed By: #### 2 4323-8 #### KATARZYNA COLLAZO ([id number]) [facility] ([facility]) [address] [place] [address] 51518 HbA1c (Bld) [Mass fraction]o n 06-05-2023 Average glucose Estimated from glycated hemoglobin (Bld) [Mass/Vol] 97 mg/dL Normal Not Established [facility] Comment on above: Order Comment: Diagn osis of Diabetes-Adults Non-Diabetic: < or = 5.6% Increased risk for developing diabetes: 5.7-6.4% Diagnostic of diabetes: > or = 6.5% Monitoring of Diabetes Age (y)....................... Therapeutic Goal (%) Adults: >18.........................<7.0 Pediatrics: 13-18...................<7.5 Pediatrics: 7-12....................<8.0 Pediatrics: 0-6..................... 7.5-8.5 [employer]. Diabetes Care 33(S1)Apr 2009 Performed By: #### 4 548-4 #### MALLY Jeronimo ([id number]) [facility] ([facility]) [id number] [place], [place] [id number] Hemoglobin A1c/Hemoglobin.to venita 06-05-2023 HbA1c (Bld) [Mass fraction] 5.0 % Normal see below [facility] Comment on above: Order Comment: Diagn osis of Diabetes-Adults Non-Diabetic: < or = 5.6% Increased risk for developing diabetes: 5.7-6.4% Diagnostic of diabetes: > or = 6.5% Monitoring of Diabetes Age (y)....................... Therapeutic Goal (%) Adults: >18.........................<7.0 Pediatrics: 13-18...................<7.5 Pediatrics: 7-12....................<8.0 Pediatrics: 0-6..................... 7.5-8.5 [employer]. Diabetes Care 33(S1), Apr 2009 Performed By: #### 4 548-4 #### MALLY Jeronimo ([id number]) [facility] ([facility]) [address] [place] [address] Lipid 1996 panelon 4 Cholesterol [Mass/Vol] 239 mg/dL High 0-199 [facility] Comment on above: Result Comment: Age [...] By: #### 2 4331-1 #### KATARZYNA COLLAZO ([id number]) [facility] ([facility]) [address] [place] [address] 48786 Cholesterol in HDL [Mass/Vol] 38.4 mg/dL Normal [facility] Comment on above: Result Comment: Age Very Low Low Normal High 0-19 Y < 35 < 40 40-45 ---- 20-24 Y ---- < 40 >45 ---- >24 Y ---- < 40 40-60 >60 Performed By: #### 2 4331-1 #### KATARZYNA COLLAZO ([id number]) [facility] ([facility]) [address] [place] [address] 70139 Cholesterol in LDL [Mass/Vol] Normal [facility] Comment on above: Result Comment: The calculation [...] By: #### 2 4331-1 #### KATARZYNA COLLAZO ([id number]) [facility] ([facility]) [address] [place] [address] 70398 CHOLESTEROL/HDL RATIO 6.2 Normal [facility] Comment on above: Result Comment: Ref Values Desirable < 3.4 High Risk > 5.0 Performed By: #### 2 4331-1 #### KATARZYNA COLLAZO ([id number]) [facility] ([facility]) [address] [place] [address] NON HDL CHOLESTEROL 201 mg/dL High 0-149 [facility] Comment on above: Result Comment: Age Desirable Borderline High High Very High 0-19 Y 0 - 119 120 - 144 >/= 145 >/= 160 20-24 Y 0 - 149 150 - 189 >/= 190 ---- >24 Y 30 mg/dL above LDL Cholesterol goal Performed By: #### 2 4331-1 #### KATARZYNA COLLAZO ([id number]) [facility] ([facility]) [address] [place] [address] Triglyceride [Mass/Vol] 404 mg/dL High 0-149 [facility] Comment on above: Result Comment: Age [...] By: #### 2 4331-1 #### KATARZYNA COLLAZO ([id number]) [facility] ([facility]) [address] [place], [place] [id number] VLDL Normal [facility] Comment on above: Result Comment: Unab le to calculate VLDL. Performed By: #### 2 4331-1 #### KATARZYNA COLLAZO ([id number]) [facility] ([facility]) [address] [place] [address] Valproateon 06-05-2023 Valproate [Mass/Vol] 17 ug/mL Low 50-100 [facility] Comment on above: Performed By: #### 4 086-5 #### KATARZYNA COLLAZO ([id number]) [facility] ([facility]) [address] [place] [address] lamoTRIgineon 06-05-2023 lamoTRIgine [Mass/Vol] 7.6 ug/mL Normal 2.5-15.0 [facility] Comment on above: Performed By: #### 6 948-4 #### MALLY Jeronimo ([id number]) [facility] ([facility]) [address] [place] [address] Basic Metabolic Panelon 04-20 Anion gap [Moles/Vol] 12.9 mmol/L Normal 6.0-15.0 [facility] Comment on above: Performed By: #### C BC, MG, PHOS, CMP #### [facility] [address] CO2 [Moles/Vol] 23.7 mmol/L Normal 21.0-31.0 [facility] Comment on above: Performed By: #### C BC, MG, PHOS, CMP #### [facility] [address] [place] [address] [place] Creatinine [Mass/Vol] 0.68 mg/dL Low 0.70-1.30 [facility] Comment on above: Performed By: #### C BC, MG, PHOS, CMP #### [facility] [address] [place] [address] [place] Creatinine Clr Calc Pharmacy 174.23 Normal [facility] Comment on above: Performed By: #### C BC, MG, PHOS, CMP #### [facility] [address] [place] [id number] [place] Glucose [Mass/Vol] 107 mg/dL High 70-100 [facility] Comment on above: Result Comment: [place] Glucose Reference Range is dependent on time and content of last meal. Glucose of more than 200 mg/dL in a nonstressed, ambulatory subject supports the diagnosis of Diabetes Mellitus. ADA recommended reference range Performed By: #### C BC, MG, PHOS, CMP #### [facility] [address] [place] [address] [place] Urea nitrogen [Mass/Vol] 5 mg/dL Low 7-25 [facility] Comment on above: Performed By: #### C BC, MG, PHOS, CMP #### [facility] [address] Comprehensive Metabolic Pane elli 05-08-2023 Albumin [Mass/Vol] 4.3 g/dL Normal 3.5-5.7 [facility] Comment on above: Performed By: #### C MP #### [facility] [address] Albumin/Globulin [Mass ratio] 1.5 {ratio} Normal [facility] Comment on above: Performed By: #### C MP #### [address] ALP [Catalytic activity/Vol] 122 U/L High 34-104 [facility] Comment on above: Performed By: #### C MP #### [facility] [address] [place] [address] ALT [Catalytic activity/Vol] 19 U/L Normal 7-52 [facility] Comment on above: Performed By: #### C MP #### [address] Anion gap [Moles/Vol] 13.3 mmol/L Normal 6.0-15.0 [facility] Comment on above: Performed By: #### C MP #### [facility] [address] [place] [address] AST [Catalytic activity/Vol] 15 U/L Normal 13-39 [facility] Comment on above: Performed By: #### C MP #### [facility] [address] [place] [address] Bilirubin [Mass/Vol] 0.8 mg/dL Normal 0.3-1.0 [facility] Comment on above: Performed By: #### C MP #### [address] Calcium [Mass/Vol] 9.3 mg/dL Normal 8.6-10.3 [facility] Comment on above: Performed By: #### C MP #### [address] Performed By: #### C BC, MG, PHOS, CMP #### [address] Chloride [Moles/Vol] 107 mmol/L Normal 98-107 [facility] Comment on above: Performed By: #### C MP #### [facility] [address] [place] [address] Performed By: #### C BC, MG, PHOS, CMP #### [address] CO2 [Moles/Vol] 23.3 mmol/L Normal 21.0-31.0 [facility] Comment on above: Performed By: #### C MP #### [address] Creatinine [Mass/Vol] 0.65 mg/dL Low 0.70-1.30 [facility] Comment on above: Performed By: #### C MP #### [address] Creatinine Clr Calc Pharmacy 182.27 [facility] Comment on above: Result Comment: PERF ORMED BY: [place] [address] PATHOLOGIST [employer]PER EDMOND LUND M.D. Performed By: #### C MP #### [address] GFR/1.73 sq M.predicted MDRD (S/P/Bld) [Vol rate/Area] mL/min/{1.73_m2} [facility] Comment on above: Performed By: #### C MP #### [address] Performed By: #### C BC, MG, PHOS, CMP #### [address] Globulin (S) [Mass/Vol] 2.8 g/dL [facility] Comment on above: Performed By: #### C MP #### [address] Glucose [Mass/Vol] 108 mg/dL High 70-100 [facility] Comment on above: Result Comment: [place] Glucose Reference Range is dependent on time and content of last meal. Glucose of more than 200 mg/dL in a nonstressed, ambulatory subject supports the diagnosis of Diabetes Mellitus. ADA recommended reference range Performed By: #### C MP #### [address] Potassium [Moles/Vol] 3.6 mmol/L Normal 3.5-5.1 [facility] Comment on above: Performed By: #### C MP #### [address] Performed By: #### C BC, MG, PHOS, CMP #### [address] Protein [Mass/Vol] 7.1 g/dL Normal 6.4-8.9 [facility] Comment on above: Performed By: #### C MP #### [address] Sodium [Moles/Vol] 140 mmol/L Normal 136-145 [facility] Comment on above: Performed By: #### C MP #### [address] Performed By: #### C BC, MG, PHOS, CMP #### [address] Urea nitrogen [Mass/Vol] 6 mg/dL Low 7-25 [facility] Comment on above: Performed By: #### C MP #### [address] Magnesiumon 05-08-2023 Magnesium [Mass/Vol] 1.9 mg/dL Normal 1.9-2.7 [facility] Comment on above: Result Comment: PERF ORMED BY: [place] [address] PATHOLOGIST GLAZIER HELPER EDMOND LUND M.D. Performed By: #### C BC, MG, PHOS, CMP #### [address] Complete Blood Count Auto Di ffon 05-07-2023 Basophils (Bld) [#/Vol] 0.1 10*3/uL Normal 0.0-0.2 [facility] Comment on above: Result Comment: PERF ORMED BY: [place] [address] PATHOLOGIST GLAZIER HELPER EDMOND LUND M.D. Performed By: #### C BC, MG, PHOS, CMP #### [address] Basophils/100 WBC (Bld) 0.9 % Normal . [facility] Comment on above: Performed By: #### C BC, MG, PHOS, CMP #### [address] Eosinophils (Bld) [#/Vol] 0.3 10*3/uL Normal 0.0-0.45 [facility] Comment on above: Performed By: #### C BC, MG, PHOS, CMP #### [address] Eosinophils/100 WBC (Bld) 3.1 % Normal . [facility] Comment on above: Performed By: #### C BC, MG, PHOS, CMP #### [address] Erythrocyte distribution width (RBC) [Ratio] 12.9 % Normal 12.0-14.8 [facility] Comment on above: Performed By: #### C BC, MG, PHOS, CMP #### [address] Hematocrit (Bld) [Volume fraction] 37.9 % Low 38.8-50.0 [facility] Comment on above: Performed By: #### C BC, MG, PHOS, CMP #### [address] [address] [place] Hemoglobin (Bld) [Mass/Vol] 13.4 g/dL Normal 13.0-17.0 [facility] Comment on above: Performed By: #### C BC, MG, PHOS, CMP #### [facility] [address] Lymphocytes (Bld) [#/Vol] 2.1 10*3/uL Normal 1.00-4.8 [facility] Comment on above: Performed By: #### C BC, MG, PHOS, CMP #### [address] Lymphocytes/100 WBC (Bld) 24.8 % Normal . [facility] Comment on above: Performed By: #### C BC, MG, PHOS, CMP #### [address] MCH (RBC) [Entitic mass] 30.4 pg Normal 27.5-35.2 [facility] Comment on above: Performed By: #### C BC, MG, PHOS, CMP #### [address] MCV (RBC) [Entitic vol] 86.1 fL Normal 83.5-101 [facility] Comment on above: Performed By: #### C BC, MG, PHOS, CMP #### [address] Mean Corpuscular HGB Conc 35.3 g/dL Normal 32.5-35.6 [facility] Comment on above: Performed By: #### C BC, MG, PHOS, CMP #### [place] [address] [place] Monocytes (Bld) [#/Vol] 0.8 10*3/uL Normal 0.0-0.8 [facility] Comment on above: Performed By: #### C BC, MG, PHOS, CMP #### [address] Monocytes/100 WBC (Bld) 9.4 % Normal . [facility] Comment on above: Performed By: #### C BC, MG, PHOS, CMP #### [address] Neutrophils (Bld) [#/Vol] 5.1 10*3/uL Normal 1.8-7.7 [facility] Comment on above: Performed By: #### C BC, MG, PHOS, CMP #### [address] Neutrophils/100 WBC (Bld) 61.8 % Normal . [facility] Comment on above: Performed By: #### C BC, MG, PHOS, CMP #### [address] NRBC% 0.0 /100{WBC} Normal 0-0.5 [facility] Comment on above: Performed By: #### C BC, MG, PHOS, CMP #### [address] Platelet mean volume (Bld) [Entitic vol] 10.1 fL Normal 6.6-10.1 [facility] Comment on above: Performed By: #### C BC, MG, PHOS, CMP #### [address] Platelets (Bld) [#/Vol] 203 10*3/uL Normal 150-450 [facility] Comment on above: Performed By: #### C BC, MG, PHOS, CMP #### [address] RBC (Bld) [#/Vol] 4.40 10*6/uL Normal 3.90-5.60 [facility] Comment on above: Performed By: #### C BC, MG, PHOS, CMP #### [address] WBC (Bld) [#/Vol] 8.3 10*3/uL Normal 4.1-10.5 [facility] Comment on above: Performed By: #### C BC, MG, PHOS, CMP #### [facility] [address] Comprehensive Metabolic Pane elli 05-07-2023 Albumin [Mass/Vol] 4.0 g/dL Normal 3.5-5.7 [facility] Comment on above: Performed By: #### C BC, MG, PHOS, CMP #### [facility] [address] [place] [address] [place] Albumin/Globulin [Mass ratio] 1.8 {ratio} Normal [facility] Comment on above: Performed By: #### C BC, MG, PHOS, CMP #### [facility] [address] ALP [Catalytic activity/Vol] 116 U/L High 34-104 [facility] Comment on above: Performed By: #### C BC, MG, PHOS, CMP #### [facility] [address] ALT [Catalytic activity/Vol] 19 U/L Normal 7-52 [facility] Comment on above: Performed By: #### C BC, MG, PHOS, CMP #### [facility] [address] [place] [address] [place] Anion gap [Moles/Vol] 7.0 mmol/L Normal 6.0-15.0 [facility] Comment on above: Performed By: #### C BC, MG, PHOS, CMP #### [facility] [address] [place] [address] [place] AST [Catalytic activity/Vol] 15 U/L Normal 13-39 [facility] Comment on above: Performed By: #### C BC, MG, PHOS, CMP #### [facility] [address] [place] [address] [place] Bilirubin [Mass/Vol] 0.6 mg/dL Normal 0.3-1.0 [facility] Comment on above: Performed By: #### C BC, MG, PHOS, CMP #### [facility] [address] [place] [address] [place] Calcium [Mass/Vol] 9.0 mg/dL Normal 8.6-10.3 [facility] Comment on above: Performed By: #### C BC, MG, PHOS, CMP #### [facility] [address] Chloride [Moles/Vol] 110 mmol/L High 98-107 [facility] Comment on above: Performed By: #### C BC, MG, PHOS, CMP #### [facility] [address] CO2 [Moles/Vol] 29.1 mmol/L Normal 21.0-31.0 [facility] Comment on above: Performed By: #### C BC, MG, PHOS, CMP #### [facility] [address] Creatinine [Mass/Vol] 0.98 mg/dL Normal 0.70-1.30 [facility] Comment on above: Performed By: #### C BC, MG, PHOS, CMP #### [facility] [address] Creatinine Clr Calc Pharmacy 120.89 [facility] Comment on above: Result Comment: PERF ORMED BY: [place] [address] PATHOLOGIST GLAZIER HELPER EDMOND LUND M.D. Performed By: #### C BC, MG, PHOS, CMP #### [address] GFR/1.73 sq M.predicted MDRD (S/P/Bld) [Vol rate/Area] mL/min/{1.73_m2} [facility] Comment on above: Performed By: #### C BC, MG, PHOS, CMP #### [facility] [address] Globulin (S) [Mass/Vol] 2.2 g/dL [facility] Comment on above: Performed By: #### C BC, MG, PHOS, CMP #### [facility] [address] Glucose [Mass/Vol] 114 mg/dL High 70-100 [facility] Comment on above: Result Comment: [place] Glucose Reference Range is dependent on time and content of last meal. Glucose of more than 200 mg/dL in a nonstressed, ambulatory subject supports the diagnosis of Diabetes Mellitus. ADA recommended reference range Performed By: #### C BC, MG, PHOS, CMP #### [facility] [address] Potassium [Moles/Vol] 4.1 mmol/L Normal 3.5-5.1 [facility] Comment on above: Performed By: #### C BC, MG, PHOS, CMP #### [facility] [address] Protein [Mass/Vol] 6.2 g/dL Low 6.4-8.9 [facility] Comment on above: Performed By: #### C BC, MG, PHOS, CMP #### [facility] [address] Sodium [Moles/Vol] 142 mmol/L Normal 136-145 [facility] Comment on above: Performed By: #### C BC, MG, PHOS, CMP #### [facility] [address] [place] [address] [place] Urea nitrogen [Mass/Vol] 4 mg/dL Low 7-25 [facility] Comment on above: Performed By: #### C BC, MG, PHOS, CMP #### [facility] [address] [place] [address] [place] Albumin [Mass/Vol] 3.8 g/dL Normal 3.5-5.7 [facility] Comment on above: Performed By: #### C BC, MG, PHOS, CMP #### [facility] [address] [place] [address] [place] Albumin/Globulin [Mass ratio] 1.6 {ratio} Normal [facility] Comment on above: Performed By: #### C BC, MG, PHOS, CMP #### [facility] [address] [place] [address] [place] ALP [Catalytic activity/Vol] 107 U/L High 34-104 [facility] Comment on above: Performed By: #### C BC, MG, PHOS, CMP #### [facility] [address] ALT [Catalytic activity/Vol] 17 U/L Normal 7-52 [facility] Comment on above: Performed By: #### C BC, MG, PHOS, CMP #### [facility] [address] Anion gap [Moles/Vol] 7.7 mmol/L Normal 6.0-15.0 [facility] Comment on above: Performed By: #### C BC, MG, PHOS, CMP #### [address] AST [Catalytic activity/Vol] 12 U/L Low 13-39 [facility] Comment on above: Performed By: #### C BC, MG, PHOS, CMP #### [address] Bilirubin [Mass/Vol] 0.4 mg/dL Normal 0.3-1.0 [facility] Comment on above: Performed By: #### C BC, MG, PHOS, CMP #### [facility] [address] [place] [address] Calcium [Mass/Vol] 8.4 mg/dL Low 8.6-10.3 [facility] Comment on above: Performed By: #### C BC, MG, PHOS, CMP #### [facility] [address] [place] [address] [place] Chloride [Moles/Vol] 107 mmol/L Normal 98-107 [facility] Comment on above: Performed By: #### C BC, MG, PHOS, CMP #### [facility] [address] [place] [address] [place] CO2 [Moles/Vol] 26.5 mmol/L Normal 21.0-31.0 [facility] Comment on above: Performed By: #### C BC, MG, PHOS, CMP #### [facility] [address] [place] [address] [place] Creatinine [Mass/Vol] 0.72 mg/dL Normal 0.70-1.30 [facility] Comment on above: Performed By: #### C BC, MG, PHOS, CMP #### [address] Creatinine Clr Calc Pharmacy 164.55 [facility] Comment on above: Performed By: #### C BC, MG, PHOS, CMP #### [place] [address] [place] GFR/1.73 sq M.predicted MDRD (S/P/Bld) [Vol rate/Area] mL/min/{1.73_m2} [facility] Comment on above: Performed By: #### C BC, MG, PHOS, CMP #### [address] Globulin (S) [Mass/Vol] 2.4 g/dL [facility] Comment on above: Performed By: #### C BC, MG, PHOS, CMP #### [address] Glucose [Mass/Vol] 91 mg/dL Normal 70-100 [facility] Comment on above: Result Comment: [place] Glucose Reference Range is dependent on time and content of last meal. Glucose of more than 200 mg/dL in a nonstressed, ambulatory subject supports the diagnosis of Diabetes Mellitus. ADA recommended reference range Performed By: #### C BC, MG, PHOS, CMP #### [address] Potassium [Moles/Vol] 3.2 mmol/L Low 3.5-5.1 [facility] Comment on above: Performed By: #### C BC, MG, PHOS, CMP #### [address] Protein [Mass/Vol] 6.2 g/dL Low 6.4-8.9 [facility] Comment on above: Performed By: #### C BC, MG, PHOS, CMP #### [place] [address] [place] Sodium [Moles/Vol] 138 mmol/L Normal 136-145 [facility] Comment on above: Performed By: #### C BC, MG, PHOS, CMP #### [facility] [address] Urea nitrogen [Mass/Vol] 4 mg/dL Low 7-25 [facility] Comment on above: Performed By: #### C BC, MG, PHOS, CMP #### [facility] [address] Dipstick and Microscopicon 0 05-07-2023 Appearance (U) Slightly Cloudy Critically abnormal Clear [facility] Comment on above: Order Comment: Name Collection Type:: Clean-Voided Midstream Performed By: #### C BC, MG, PHOS, CMP #### [facility] [address] [place] [address] Bacteria,Urine None Seen Normal None Seen [facility] Comment on above: Order Comment: Name Collection Type:: Clean-Voided Midstream Performed By: #### C BC, MG, PHOS, CMP #### [facility] [address] [place] [address] Bilirubin,Urine Negative Normal Negative [facility] Comment on above: Order Comment: Name Collection Type:: Clean-Voided Midstream Performed By: #### C BC, MG, PHOS, CMP #### [facility] [address] [place] [address] Color (U) Yellow Normal Yellow [facility] Comment on above: Order Comment: Name Collection Type:: Clean-Voided Midstream Performed By: #### C BC, MG, PHOS, CMP #### [facility] [address] Glucose Ql (U) Normal Normal Normal [facility] Comment on above: Order Comment: Name Collection Type:: Clean-Voided Midstream Performed By: #### C BC, MG, PHOS, CMP #### [facility] [address] Hyaline Casts,Urine None Seen Normal 0-8 [facility] Comment on above: Order Comment: Name Collection Type:: Clean-Voided Midstream Result Comment: PERF ORMED BY: [place] [address] PATHOLOGIST GLAZIER HELPER EDMOND LUND M.D. Performed By: #### C BC, MG, PHOS, CMP #### [address] Ketones Ql (U) Negative Normal Negative [facility] Comment on above: Order Comment: Name Collection Type:: Clean-Voided Midstream Performed By: #### C BC, MG, PHOS, CMP #### [address] Leukocyte esterase Test strip Ql (U) 4+ High Negative [facility] Comment on above: Order Comment: Name Collection Type:: Clean-Voided Midstream Performed By: #### C BC, MG, PHOS, CMP #### [address] Nitrite,Urine Negative Normal Negative [facility] Comment on above: Order Comment: Name Collection Type:: Clean-Voided Midstream Performed By: #### C BC, MG, PHOS, CMP #### [address] Occult Blood,Urine Trace High Negative [facility] Comment on above: Order Comment: Name Collection Type:: Clean-Voided Midstream Result Comment: PERF ORMED BY: [place] [address] PATHOLOGIST GLAZIER HELPER EDMOND LUND M.D. Performed By: #### C BC, MG, PHOS, CMP #### [place] [address] [place] pH (U) 7.0 [pH] Normal 5.0-9.0 [facility] Comment on above: Order Comment: Name Collection Type:: Clean-Voided Midstream Performed By: #### C BC, MG, PHOS, CMP #### [place] [address] [place] Protein,Urine Negative Normal Negative [facility] Comment on above: Order Comment: Name Collection Type:: Clean-Voided Midstream Performed By: #### C BC, MG, PHOS, CMP #### [facility] [address] [place] [address] RBC,Urine 1-2 Normal 0-4 [facility] Comment on above: Order Comment: Name Collection Type:: Clean-Voided Midstream Performed By: #### C BC, MG, PHOS, CMP #### [address] Specificy [place],Urine 1.005 Normal 1.001-1.030 [facility] Comment on above: Order Comment: Name Collection Type:: Clean-Voided Midstream Performed By: #### C BC, MG, PHOS, CMP #### [address] Squamous Epithelial Cell,Urine None Seen Normal 0-2 [facility] Comment on above: Order Comment: Name Collection Type:: Clean-Voided Midstream Performed By: #### C BC, MG, PHOS, CMP #### [address] Urobilinogen,Urine Normal Normal Normal [facility] Comment on above: Order Comment: Name Collection Type:: Clean-Voided Midstream Performed By: #### C BC, MG, PHOS, CMP #### [facility] [address] [place] [address] WBC,Urine 50-100 High 0-4 [facility] Comment on above: Order Comment: Name Collection Type:: Clean-Voided Midstream Performed By: #### C BC, MG, PHOS, CMP #### [address] Drug Screen,Urineon 05-07-19 24 Amphetamine Screen,Urine Negative Normal Negative [facility] Comment on above: Performed By: #### C BC, MG, PHOS, CMP #### [address] Barbiturate Screen,Urine Negative Normal Negative [facility] Comment on above: Performed By: #### C BC, MG, PHOS, CMP #### [address] Benzodiazepines Screen,Urine Negative Normal Negative [facility] Comment on above: Performed By: #### C BC, MG, PHOS, CMP #### [address] Cannabinoid Screen,Urine Negative Normal Negative [facility] Comment on above: Result Comment: Thes e are unconfirmed results and should not be used for legal purposes. Drug Cut-Off Concentration: AMPH 1000 ng/mL JESSICA 200 ng/mL PAPI 200 ng/mL COCM 300 ng/mL OP 300 ng/mL PCP 25 ng/mL THC 20 ng/mL PERFORMED BY: [place] [address] PATHOLOGIST GLAZIER HELPER EDMOND LUND M.D. Performed By: #### C BC, MG, PHOS, CMP #### [address] Cocaine Screen,Urine Negative Normal Negative [facility] Comment on above: Performed By: #### C BC, MG, PHOS, CMP #### [address] Opiate Screen,Urine Negative Normal Negative [facility] Comment on above: Performed By: #### C BC, MG, PHOS, CMP #### [address] Phencyclidine Screen,Urine Negative Normal Negative [facility] Comment on above: Performed By: #### C BC, MG, PHOS, CMP #### [facility] [address] [place] [address] ECG 12 lead ECGon 05-07-2023 ECG 12 lead ECG [place] [address] Electrocardiograph Report Signed Patient: Daljit Napoles MR#: [id number] : 1980 Acct:[id number] Age/Sex: 42 / M ADM Date: 05/07/23 Loc: Room: [address] [place] [address] Type: ADM IN Attending Dr: Zoya Castro [...] Kya Byers MD 0 05/07/23 1056 Normal [facility] Lithiumon 05-07-2023 [place] [Moles/Vol] 1.20 mmol/L Normal 0.60-1.20 [facility] Comment on above: Order Comment: Date of last dose?: 20230506 Time of last dose?: 2199 Result Comment: PERF ORMED BY: [place] [address] PATHOLOGIST GLAZIER HELPER EDMOND LUND M.D. Performed By: #### L ITH #### [facility] [address] [place] [address] [place] [Moles/Vol] 1.30 mmol/L High 0.60-1.20 [facility] Comment on above: Order Comment: Date of last dose?: 20230506 Time of last dose?: 2199 Result Comment: PERF ORMED BY: [place] [address] PATHOLOGIST GLAZIER HELPER EDMOND LUND M.D. Performed By: #### L ITH #### [facility] [address] [place] [address] [place] [Moles/Vol] 1.60 mmol/L High 0.60-1.20 [facility] Comment on above: Order Comment: Date of last dose?: 20230506 Time of last dose?: 2199 Result Comment: PERF ORMED BY: [place] [address] PATHOLOGIST GLAZIER HELPER EDMOND LUND M.D. Performed By: #### C BC, MG, PHOS, CMP #### [facility] [address] [place] [address] [place] [Moles/Vol] 1.70 mmol/L High 0.60-1.20 [facility] Comment on above: Order Comment: Date of last dose?: 20230506 Time of last dose?: 2199 Result Comment: PERF ORMED BY: [place] [address] PATHOLOGIST GLAZIER HELPER EDMOND LUND M.D. Performed By: #### L ITH #### [address] [place] [Moles/Vol] 1.90 mmol/L High 0.60-1.20 [facility] Comment on above: Result Comment: PERF ORMED BY: [place] [address] PATHOLOGIST GLAZIER HELPER EDMOND LUND M.D. Performed By: #### L ITH #### [address] Magnesiumon 05-07-2023 Magnesium [Mass/Vol] 2.0 mg/dL Normal 1.9-2.7 [facility] Comment on above: Result Comment: PERF ORMED BY: [facility] [address] [place] [address] PATHOLOGIST GLAZIER HELPER EDMOND LUND M.D. Performed By: #### C BC, MG, PHOS, CMP #### [facility] [address] [place] [address] Phosphoruson 05-07-2023 Phosphate [Mass/Vol] 2.8 mg/dL Normal 2.5-4.5 [facility] Comment on above: Performed By: #### C BC, MG, PHOS, CMP #### [facility] [address] [place] [id number] [facility] Urine Cultureon 05-07-2023 Bacteria identified Cx Nom (U) <9,000 colonies/ml mixed bacterial skin contaminants 2 Days PERFORMED BY: [place] [address] PATHOLOGIST GLAZIER HELPER EDMOND LUND M.D. Normal [facility] Comment on above: Performed By: #### C BC, MG, PHOS, CMP #### [facility] [address] [place] [id number] [facility] Basic metabolic 2000 panelon 05-06-2023 Anion gap [Moles/Vol] 14 mmol/L Normal 10-20 [facility] Comment on above: Performed By: #### 2 4321-2 #### AMARAIBELIASHLEY COLLAZO ([id number]) [facility] (C) [address] [place] [address] Calcium [Mass/Vol] 9.2 mg/dL Normal 8.6-10.3 [facility] Comment on above: Performed By: #### 2 4321-2 #### AMARAIBARON COLLAZO ([id number]) [facility] ([facility]) [address] [place] [address] Chloride [Moles/Vol] 100 mmol/L Normal 98-107 [facility] Comment on above: Performed By: #### 2 4321-2 #### ANAIBELIASHLEY COLLAZO ([id number]) [facility] ([facility]) [address] [place] [address]863 CO2 [Moles/Vol] 27 mmol/L Normal 21-32 [facility] Comment on above: Performed By: #### 2 4321-2 #### ANAIBELIASHLEY COLLAZO ([id number]) [facility] ([facility]) [address] [place] [address] Creatinine [Mass/Vol] 0.82 mg/dL Normal 0.50-1.30 [facility] Comment on above: Performed By: #### 2 4321-2 #### ANAIBELIASHLEY OLIVA ANGEL ([id number]) [facility] ([facility]) [address] [place] [address]50 GFR/1.73 sq M.predicted MDRD (S/P/Bld) [Vol rate/Area] mL/min/{1.73_m2} Normal >60 [facility] Comment on above: Result Comment: Calc ulations of estimated GFR are performed using the 2020 CKD-EPI Study Refit equation without the race variable for the IDMS-Traceable creatinine methods. https://jasn.asnjournals.org/content/early/ASN.58968164 88 Performed By: #### 2 4321-2 #### KATARZYNA COLLAZO ([id number]) [facility] ([facility]) [address] [place] [address] Glucose [Mass/Vol] 98 mg/dL Normal 74-99 [facility] Comment on above: Performed By: #### 2 4321-2 #### KATARZYNA COLLAZO ([id number]) [facility] ([facility]) [address] [place] [address] Potassium [Moles/Vol] 3.3 mmol/L Low 3.5-5.3 [facility] Comment on above: Performed By: #### 2 4321-2 #### KATARZYNA COLLAZO ([id number]) [facility] ([facility]) [address] [place] [address] Sodium [Moles/Vol] 138 mmol/L Normal 136-145 [facility] Comment on above: Performed By: #### 2 4321-2 #### AMARAIBARON ROBLES RIO ANGEL ([id number]) [facility] ([facility]) [address] [place] [address]3987 Urea nitrogen [Mass/Vol] 5 mg/dL Low 6-23 [facility] Comment on above: Performed By: #### 2 4321-2 #### KATARZYNA COLLAZO ([id number]) [facility] ([facility]) [address] [place] [address] Lithiumon 05-06-2023 [place] [Moles/Vol] 2.03 mmol/L Critically high 0.60-1.20 [facility] Comment on above: Performed By: #### 1 4334-7 #### KATARZYNA COLLAZO ([id number]) [facility] ([facility]) [address] [place] [address] 38819 TSH WITH REFLEX TO FREE T4 I F ABNORMALon 05-06-2023 TSH Qn 1.17 m[IU]/L Normal 0.44-3.98 [facility] Comment on above: Order Comment: TSH t esting is performed using different testing methodology at [facility] than at other [facility]. Direct result comparisons should only be made within the same method. Performed By: #### T HYDS #### KATARZYNA COLLAZO ([id number]) [facility] (EM) [address] [place] [address] Psychiatry Adulton Psychiatry Adult No report was sent Normal Unipl[facility] Chart Updateon 12-08-2022 Chart Update Diagnoses/Problems Generalized anxiety disorder (300.02) (F41.1) Orders Generalized anxiety disorder Start: Gabapentin 600 MG Oral Tablet; TAKE 1 TABLET 3 TIMES DAILY NEEDED FOR ANXIETY Rx By: Shireen Holly; Dispense: 30 Days ; #:90 Tablet; Refill: 0;For: Generalized anxiety disorder; MONAE = N; Sent To: [facility] [facility]; Msg to Pharmacy: cross covering for Shireen [...] 01:32 PM, Created By: System Task Name: [facility] Patient Message Assigned To: Shireen Holly Regarding Patient: YESIKA DALJIT MohanBrian, Status: Active Comment: System - 08 Dec 2022 1:32 PM Message from patient using Jybe. Heather Bermudez - 08 Dec 2022 1:57 PM UNDELEGATED TASK Shruti Rust - 08 Dec 2022 2:27 PM TASK REASSIGNED: Previously Assigned To Shireen Khan Signatures Electronically signed by : LAMONTE WilsonTOOL MACHINE SETUP OPERATOR; Dec 08 2022 2:44PM EST (Author) Normal Uniplaces Chart Updateon 11-28-2022 Chart Update Chart Update Received [facility] message from patient requesting to increase mid-day [...] on titration. Signatures Electronically signed by : LAMONTE CalabreseCOMPUTER AIDE; Nov 28 2022 9:07AM EST (Author) Normal Uniplaces Psychiatry Adulton 3 Psychiatry Adult Diagnoses/Problems Assessed [...] Oral Tablet; TAKE 1 TABLET DAILY Renew: Tuckerton Carbonate ER 450 MG Oral Tablet Extended [...] site) was (more content not included)... Normal [facility] Psychiatry Adulton 3 Psychiatry Adult Diagnoses/Problems Assessed [...] DAILY Other and unspecified bipolar disorders Renew: [place] Carbonate ER 450 MG Oral Tablet Extended [...] was request (more content not included)... Normal [facility] Psychiatry Adulton 3 Psychiatry Adult Diagnoses/Problems Assessed [...] Oral Tablet; TAKE 1 TABLET Bedtime Renew: T[place]erton Carbonate ER 450 MG Oral Tablet Extended [...] increase i (more content not included)... Normal Uniplaces Chart Updateon 09-10-2022 Chart Update Diagnoses/Problems Severe [...] depressive episode; MONAE = N; Sent To: [facility]; Msg to Pharmacy: Increasing dose from 15 mg--> 22.5 mg Other and unspecified bipolar disorders Stop: T[place]erton Carbonate ER 300 MG Oral Tablet Extended Release Rx By: Shireen Khan; Dispense: 30 Days ; #:60 Tablet; Refill: 1;For: Other and unspecified bipolar disorders; MONAE = N; Transmitted To: [facility] Changed: From [place]erton Carbonate ER 450 MG Oral Tablet Extended Release TAKE 2 TABLET Bedtime Take with 2 lithium ER 300 mg tabs for a total of 1500 mg To [place] Carbonate ER 450 MG Oral Tablet Extended Release TAKE 4 TABLET Bedtime Rx By: Shireen Khan; Dispense: 30 Days ; #:120 Tablet; Refill: 1;For: Other and unspecified bipolar disorders; MONAE = N; Sent To: [facility]; Msg to Pharmacy: Increasing from 1500--> 1800 mg Chart Update Spoke with Mr. Napoles via phone this afternoon. Clarified that he had unintentionally been taking (3) 300 mg tabs of lithium + (2) 450 mg tabs for a total of 1800 mg PO QHS, and had therefore run out of the 300 mg tabs sooner than expected. Tuckerton level of 1.04 drawn on 09/05 reflects [...] 01:05 PM, Created By: System Task Name: [facility] Patient Message Assigned To: Shireen Khan Regarding Patient: DALJIT NAPOLESBrian, Status: Active Comment: System - 09 Sep 2022 1:05 PM Message from patient using Jybe. Shruti Rust - 09 Sep 2022 1:11 PM UNDELEGATED TASK Signatures Electronically signed by : Shireen Khan APRN-COMPUTER AIDE; Sep 10 2022 4:48PM EST (Author) Normal Touchworks Tuckerton Level, Serumon 09-05 T[place]erton [Moles/Vol] 1.04 mmol/L See Below Comm [facility] Work Phone: Comment on above: Reference Range: 0.6 0 - 1.20 Chart Updateon 08-14-2022 Chart Update Chart Update Received [facility] message from Mr. Napoles indicating that he [...] of lithium. Signatures Electronically signed by : Shireen Khan APRN-COMPUTER AIDE; Aug 14 2022 1:25PM EST (Author) Normal [facility] Complete Blood Count + Diffe dalila 08-14-2022 Basophils/100 WBC (Bld) 0.9 % 0.0 - 2.0 [place] [address] [employer] Work Phone: Erythrocyte distribution width (RBC) [Ratio] 12.2 % See Below [address] Work Phone: Comment on above: Reference Range: 11. 5 - 14.5 Hematocrit (Bld) [Volume fraction] 46.2 % See Below [address] Work Phone: Comment on above: Reference Range: 41. 0 - 52.0 Hemoglobin (Bld) [Mass/Vol] 15.4 g/dL See Below [place] [address] [employer] Work Phone: Comment on above: Reference Range: 13. 5 - 17.5 Lymphocytes/100 WBC (Bld) 24.2 % See Below [place] [address] [employer] Work Phone: Comment on above: Reference Range: 13. 0 - 44.0 MCHC (RBC) [Mass/Vol] 33.3 g/dL See Below [place] [address] [employer] Work Phone: Comment on above: Reference Range: 32. 0 - 36.0 MCV (RBC) [Entitic vol] 91 fL 80 - 100 [place] [address] [employer] Work Phone: Monocytes/100 WBC (Bld) 7.8 % 2.0 - 10.[address] Work Phone: Neutrophils/100 WBC (Bld) 64.2 % See Below [address] Work Phone: Comment on above: Reference Range: 40. 0 - 80.0 Platelets (Bld) [#/Vol] 242 10*3/uL 150 - 450 [place] [address] [place] Work Phone: RBC (Bld) [#/Vol] 5.10 {x10E12/L} See Below [place] [address] [place] Work Phone: Comment on above: Reference Range: 4.5 0 - 5.90 WBC (Bld) [#/Vol] 6.6 10*3/uL 4.4 - 11.3 [place] [address] [place] Work Phone: Complete Blood Count + Differential 0.06 {x10E9/L} See Below [place] [address] [place] Work Phone: Comment on above: Reference Range: 0.0 0 - 0.10 Complete Blood Count + Differential 0.17 {x10E9/L} See Below [place] [address] [place] Work Phone: Comment on above: Reference Range: 0.0 0 - 0.70 Complete Blood Count + Differential 0.51 {x10E9/L} See Below [place] [address] [place] Work Phone: Comment on above: Reference Range: 0.1 0 - 1.00 Complete Blood Count + Differential 1.59 {x10E9/L} See Below [place] [address] [place] Work Phone: Comment on above: Reference Range: 1.2 0 - 4.80 Complete Blood Count + Differential 4.23 {x10E9/L} See Below [place] [address] [place] Work Phone: Comment on above: Reference Range: 1.2 0 - 7.70 Complete Blood Count + Differential 2.6 % 0.0 - 6.0 [place] [address] [place] Work Phone: Complete Blood Count + Differential 0.3 % 0.0 - 0.9 [place] [address] [place] Work Phone: Comment on above: Immature Granulocyte Count (IG) includes promyelocytes, myelocytes and metamyelocytes but does not include bands. Percent differential counts (%) should be interpreted in the context of the absolute cell counts (cells/L). Laboratory - Chemistry and C hemistry - challengeon 08-14-2022 Albumin BCP dye [Mass/Vol] 4.8 g/dL 3.4 - 5.0 [place] [address] [place] Work Phone: ALP [Catalytic activity/Vol] 52 U/L 33 - 120 [place] [address] [place] Work Phone: ALT With P-5'-P [Catalytic activity/Vol] 26 U/L 10 - 52 [place] [address] [place] Work Phone: [phone] Comment on above: Patients treated wit h Sulfasalazine may generate falsely decreased results for ALT. Anion gap [Moles/Vol] 12 mmol/L 10 - 20 [place] [address] [place] Work Phone: AST With P-5'-P [Catalytic activity/Vol] 24 U/L 9 - 39 [place] [address] [place] Work Phone: Bilirubin [Mass/Vol] 1.0 mg/dL 0.0 - 1.2 [place] [address] [place] Work Phone: Calcium [Mass/Vol] 10.1 mg/dL 8.6 - 10.3 [place] [address] [place] Work Phone: Chloride [Moles/Vol] 104 mmol/L 98 - 107 [place] [address] [place] Work Phone: CO2 [Moles/Vol] 25 mmol/L 21 - 32 [place] [address] [place] Work Phone: Creatinine [Mass/Vol] 0.69 mg/dL See Below [place] [address] [place] Work Phone: Comment on above: Reference Range: 0.5 0 - 1.30 Glucose [Mass/Vol] 79 mg/dL 74 - 99 [place] [address] [employer] Work Phone: Potassium [Moles/Vol] 3.7 mmol/L 3.5 - 5.3 [place] [address] [place] Work Phone: Protein [Mass/Vol] 7.7 g/dL 6.4 - 8.2 [place] [address] [place] Work Phone: Sodium [Moles/Vol] 137 mmol/L 136 - 145 [place] [address] [place] Work Phone: TSH Qn 1.03 m[IU]/L See Below [address] Work Phone: Comment on above: Reference Range: 0.4 4 - 3.98 TSH testing is performed using different testing methodology at [facility] than at other [facility]. Direct result comparisons should only be made within the same method. Urea nitrogen [Mass/Vol] 13 mg/dL 6 - 23 [place] [address] [employer] Work Phone: Lipid Panelon 08-14-2022 Cholesterol [Mass/Vol] 204 mg/dL above high threshold 0 - 199 [place] [address] [employer] Work Phone: Comment on above: . AGE [...] guidelines reference: NCEP ATPIII Guidelines, LACI 2001, 258:2486-97. Venipuncture immediately after or during the administration of Metamizole may lead to falsely low results. Testing should be performed immediately prior to Metamizole dosing. Cholesterol in HDL [Mass/Vol] 52.2 mg/dL [place] [address] [employer] Work Phone: Comment on above: . AGE VERY LOW LOW N ORMAL HIGH 0-19 Y < 35 < 40 40-45 ---- 20- 24 Y ---- < 40 >45 ---- >24 Y ---- < 40 40-60 >60. Cholesterol in LDL [Mass/Vol] 125 mg/dL above high threshold 0 - 99 [place] [address] [employer] Work Phone: Comment on above: . NEAR BORD AGE LASHAWN RABLE OPTIMAL HIGH HIGH VERY HIGH 0-19 Y 0 - 109 --- 110-129 >/= 130 ---- 20-24 Y 0 - 119 --- 120-159 >/= 160 ---- >24 Y 0 - 99 100-129 130-159 160-189 >/=190. Cholesterol.total/C holesterol in HDL [Mass ratio] 3.9 {ratio} [place] [address] [employer] Work Phone: Comment on above: REF VALUESDESIRABLE < 3.4HIGH RISK > 5.0 Triglyceride [Mass/Vol] 132 mg/dL 0 - 149 [place] [address] [employer] Work Phone: Comment on above: . AGE [...] Lipid Panel 26 mg/dL 0 - 40 [place] [address] [employer] Work Phone: Tuckerton Level, Serumon 08-14 [place] [Moles/Vol] 0.59 mmol/L below low threshold See Below [place] [address] [employer] Work Phone: Comment on above: Reference Range: 0.6 0 - 1.20 No Panel Informationon 08-14 >90 >[address] Work Phone: Comment on above: CALCULATIONS OF NOE MATED GFR ARE PERFORMED USING THE 2020 CKD-EPI STUDY REFIT EQUATION WITHOUT THE RACE VARIABLE FOR THE IDMS-TRACEABLE CREATININE METHODS.https://jasn.asnjournals.org/content//ASN. 3714940858 Psychiatry Adulton 3 Psychiatry Adult Diagnoses/Problems Assessed [...] Oral Tablet; TAKE 1 TABLET Bedtime Continue: [place] Carbonate 300 MG Oral Tablet; TAKE 4 [...] things seem (more content not included)... Normal [facility] [employer] Chart Updateon 08-01-2022 Chart Update Diagnoses/Problems Other and unspecified bipolar disorders (296.80) (F31.9) Orders Other and unspecified bipolar disorders Start: Benztropine Mesylate 0.5 MG Oral Tablet; TAKE 1 TABLET BY MOUTH TWICE A DAY NEEDED FOR SIDE EFFECTS Rx By: Shireen Holly; Dispense: 30 Days ; #:60 Tablet; Refill: 0;For: Other and unspecified bipolar disorders; MONAE = N; Verified Transmission to [facility]; Last Updated By: SystemTakipi; 08/01/2022 9:23:42 AM Chart Update Received a task message that the patient is reports abnormal tongue movements that started 3 weeks ago and is not affecting his ability to swallow, but may affect his speech at times. This global technical writer is cross covering for his primary provider, Shireen Khan CNP. This global technical writer sent in a rx for benztropine 0.5mg [...] her aware. Signatures Electronically signed by : Shireen Holly, RING SORTER-TOOL MACHINE SETUP OPERATOR; Aug 01 2022 9:31AM EST (Author) Normal Uniplaces Patient Educationon 07-15-19 Patient Education Urology Benign [...] Follow these instructions at home: ? Take yibq-woo-ebhocjq and prescription medicines only as told by [...] You d (more content not included)... Normal [facility] Psychiatry Adulton 3 Psychiatry Adult No report was sent Normal [facility] Psychiatry Adulton 3 Psychiatry Adult Diagnoses/Problems Health [...] Date; Requested for:Before next appointment; Medication management T[place]erton Level, Serum; Status:Hold For - Exact Date; Requested for:Before next appointment; Other and unspecified bipolar disorders Renew: hydrOXYzine HCl - 50 MG Oral Tablet; TAKE 1.5-2 TABLETS UP TO 3 TIMES DAILY NEEDED FOR ANXIETY Renew: lamoTRIgine 150 MG Oral Tablet; TAKE 1 TABLET Bedtime Renew: [place] Carbonate 300 MG Oral Tablet; TAKE 4 [...] been going (more content not included)... Normal [employer] Coding Summary.on 05-01-2022 Coding Summary. CD:[id number] Gh 0bWw+PGhlYWQ+UC7EZNDuK 73wpTEmgY6KG1iBFV6KQUY HDIKLOK3ARM8ndSS9ZVstD 2VybiAv FiqxmHImVV94DOu6SGE4dJ qwDDlagR1gaEYzV4f3NnRb JP45uG43AObwADUrFyE1Ow ZpbjsgbWFy T1arLkZoyHFoHef+PHRhYm xlIHdpZHRoPScxMDAlJyBz bLbpLX2uNp1dESMgYCTfhC xhcHNlOiBj w5oyHHNhZUodAP1nbVcfG0 NhgHI2AOIpn6d6Ox30cUO+ RHXyKZZ3gTmdTVmvj116Xv Jis0rwHMH7 cKMlGVmmSBE7N93fg5H9CD YuVRZcOOT4aKS3eO8wqZcx jwreQ0FbxFUeLtX0WBH1wQ EviE8hqNaq zxsnmN7oBkq+T73DDH9RXX ZFRP2BLwe3V3HqKmtgbMJ+ RM03MYPnFX84lHOsfOTvs7 kkmKy9RtRb UWBkBON9eTedTHjbe3LnJK SwI55xpXKoc5L7CUDenRhj gIGpIaEsnBT2sT3fRRscrm pzm0fufeab Qiatq8enfq81dC09P79xOV bcAKAbUFD8GAXrBOVnvXjv pn6inB8rLe6+KMbmn0xtu8 dmvJb2DnYa MPEvnoEnpAviLCV9g4HbUy 79B7LllJfok6FzAcb3rg85 kVWxk1T5rQY6TBouNLFloZ 9jBEzdBxY2 FBIwUhYybY50zGBkRCjhGe 4smHnfxXxfUC7lVYCdlcjh JYPnpL6mZRGulJBcyBoyFT 4wNTBpbjtm y288BeEdQAY9GSPoiYSvF0 HcyO2pVmTdGSYmOCLkT1In oQZrLVndZ215OKxwYeW9VU UkmzSpA2Pe IGEzkEunJxT8d8M6Dt1Po7 GzufqlRAR4VWimVNMdQnBb MeJhVnK6F7TmBgt1KVChjJ cqVC8xO6At GXBeczorrhfcgYB5IUUlFO HieH97yBKrSUhkLv3wo0F6 e248DNNvDXPydT43Uy6olH ogMTBwdCBU pU7ninapb0iaqbtdXhQiIM JyBCr6IOc2NGYfhIxiMmFw CBD9CuY2TOM3zDCsfV3hoG dwirmsgA9x Oyc+V72obH9pTMH2XXH4sk phIIHoslVsHA36RX11S9Ce PjwvdGFibGU+PGRpdiBzdH vnTB8gBrUo w4wtl3QoLUotC2IjKESoWD buVhp0QLKbIRO6mPC4vS7x WNKeMUyiy9X2rJQ9Z8Mwgg Kxyp1gi5cx DUKpFHfoK27zeQWxr1S9FE UeeXH1SMJswIkaAnZgoW65 Oyc+QIKhhWckp7AkFzzji0 tck3rhqTh5 BdTwSJHlrgBtpAooIHU9i4 SiAq70N78cQYlrCKUtOOWt YTMoNCItdUazqr3gvW0cJg 8+PGNvbCB3 zTA9xM2pONFhFyZ7HEsbB9 67AyNdeFMbAldni1gbo3wa vTe6RzLjBRErewJjlAkyFT M1n9FbLz12 Y88sJOfqAWDmBBQuSTMfVP WalKzgxi8blV2fSx1+PC9j m5wgme68rP30qKZ+PHRkIH H1bMemQBej WVBpkH3cGRntYzE5JOHcPv IusU60sSVdKKqrOx3rxNhk yMcwVS2nATHrgkper950Zg Nyl1dwEWUg pCQhFLwiMNH1C08wd5W1EP QyXFBvKHM4qRW4rO6ypFen bjogbGVmdDsgdmVydGljYW ebTXrpC597 IHRvcDsnPlBhdGllbnQgTm VeKPm8G0TrXpu0EFDrcXri SJ2wcUYqKIyoDs1mhQaspM xjPS6zZHTr villt960ZrRkd9yeIYEtcH MiVDbrGGF1Y82nf7Q2DRNq KKCiTKA5eXW5bE7pcLtrdz ogbGVmdDsg rdZbyLydMPxvCVojK144FA RvcDsnPkJpcnRoIERhdGU6 LH99DR81jTSij7R8cVU4J9 BhZGRpbmct mlqqfCG6MKKqIEZjvW43Ba 3eqFzoPr8zZCRbFNJ6TVMm gIJoO4GdwM0nZvFkCHFgES UpC9GxqLXg ZAorW003LNxzIiE0CNOrpr GaX7QtSEUmgGfiGpP7j2I9 Nf5FG6G0TB79BS96jPKpq6 B5pOD9Z1In MIBuzutkuerebZE3IJDdGH UzwS28Pm5mzWzhFv0sSWXd JTB8FTLrwKVqP3YvjQ9xPo AjMDAwMDAw P2ThoDYyABibS346DLxuRr P8GSIchyDdK8FyJEPdaUve JwK7z7W7Vq2NULu3ND75XK 67yYElp6S5 vUY4E6AzXPMqbykcuidrzH R8KQPpLLXakK54Jp3osGtp Wd3hNPEaPBJ0FCHhuQMlL7 NogE1bHmWs JTCwPKQsE7MogZSgOJmrE4 11YBchXvX5RTYqboChV0Pt DHAlwRwrUcD6e6L3Gm2EPI JuSM66SQJ3 xFO2HV02GV19C4OlQygwmN FibGU+PHRhYmxlIHdpZHRo XDwkRJFfNqRlhLzyWN3pGw 9yZGVyLWNv kYajlYWmBgIys3ruDGFaDH wwTH7rhFqhG1WizGP6SFGv e5r2Sz08S50vA2XboEM+PG KiwYB7qHL4 vB0lIxJyNaL4TFbwF824Ki IbmIWeKgrkb1oes0entJa2 TrD7PQDqwhIhdXulBKB1g3 AuMt00N74f IHdpZHRoPSIxNSUiIHZhbG sukf4tlS4pSy5+PGNvbCB3 dJE5vL0kVpBrVuF0TKqyC3 49InRvcCIv Upktm6jor6tddSp7TsJkWI EsxiXmdSsgDJH8g3BiMj59 F0ZkmWree5DeTnk9le88nQ Ebg2X1iTX8 G2GcIKGvfbggtPAogFdcLH 3aRMJqdulfHIYpnK8gSAJz S0v0LdKzUnR3IMbqU0Kouq G6EGMqyWQh XRegHER9Q79il3P9YTOeME ArJKP2kIH1lA8ctLgzymeb bGVmdDsgdmVydGljYWwtYW yfU795OITs rYpaDWPyiO9vYWIidJJodT cfZD7oQMPhplraPyzECFPH U9UIAWzxBohQBpRKYV04PB 34pWEev1X2 iXP5D9ScFRZcjldxratasC P0NJVhUQKquZ65yAGpARvq Xe2fx9A2g914BJBrDGTqhU 68Oi8xvSab PWYavUDIwK5crmyxz3ipjr pfZjPnCMDnODu5TMe8GZMp jApuWjNeQVQ6SgV2FPS7fC GahD2rrWfp bjaxuF8cMtd+MDQvMjUvMT t6OKzvvAU+XOIrCWR5xLcz TExvWHFjwA1rTXEkX9b1Tn SsAtI3DPmu B4OlVKJdvgwkXo50nI9jOg RtUsY8AQxbT5JnmyE8WNVr aFZjCRirWHI7B45st7Y4LR MwMDAwMDA7 pUP3rJ0xiJgprckoqIDjgN pskmMbfDgaTRgdOYqsL801 IHRvcDsnPjQyIFllYXJzPC 37HU73rAVm f3M0wFR7Y1QiSHYsrqxlsj ywzYB6WXNzLUWzrS67qYLr JVceMf0yy8R4w621JJPoXW PjfK86Jc1f vPxuZRVkoEBHiS9ijplee3 bpetieRbDfNJNcGUj6XVs2 QRIiwYezGeXkVED8GoY5MT N7yYLjeU5m yZansdvunB9tUjs+TWFsZT wvdGQ+YJXbPGK5vVffUXad UIKppF7pUBUuA6h4VjNgTr V7GThwO6Gl UAMycztpTt17xB6lLpIoWn W7VVxaY4BssoG0GIXjbSSg WLufLPM1K76xq7A4CVSjEJ AfRSO7jSW3 gQ3guMdblkpseNCpvGzmkc XmqFwgHIpxESheS331NQAo nQluIk39pGIhfAxmmmF7N9 RkPjwvdHI+ IK26BPWlUK97pNUutMTqu6 yliXj1XfZfZZSoCNF6uIcq AAghq8IiEGKoG28cqEDkp0 E7ZVQdcVij dNFhBsRlwBU3oG9zQEoyzf rxu2koikwcAacfr5ypce94 gW41T89jDCguJLAiUTFeYX UiIHZhbGln pg0wvL4zEd9+MFNzvKU3lZ C0cN9jAjVoMrZ2ZWcmQ990 QqJxvTDtNigxr7swl9xslC b9UsWzSLPl wcDjeOaqLJM9o6QiHk51X8 9sIHdpZHRoPSIyMCUiIHZh eVcpgk6ppW6cWc1+PC9jb2 hfje00yF62 dHI+UBOeQTJ7lZbsXQltJE JzlO9iFIokLhM8RNXmXnIn zW62jHAkMGwjBb8gtMmksT uzUP4vAUOt jwtzd529SpCcx9zqLVEngN IhCWorTQT3U91pc8D8QABz LHQoWXX6jQA7rA9vkJolpd ogbGVmdDsg rjLgeImpTVsgWRgzK474EP QqlOpgOgHtnFFgJ4pkejKM XW5pFitjuXJ+PAWtERC8lP xlPSdwYWRk vU4qKSVwI1n5DsGjDfK5JQ ciT4SvtkV6EGXroDLfPAHi eKMJmK6jofawf6lwkbnwWr AwMDAwMDt0 HHb6EYEbdHvgRaJyLIG8Ts N4HFB6eOQjpZ4dwRwknlfj iX8yGiy+RklOOjwvdGQ+PH GpSRM7jHat QUvfLKGeoP4kTDEpE2q9Zs VxExC8CQocC6DoaqR9DYZv pCVeYMMeuRNMkD0ehhgha1 xvcjogIzAw YAZdTFf8HSu0AZZopLfvRj VhGCR2YbL2QQN1zYBcxM7a aYddeplorH5tHud+TVJOOj wvdGQ+PHRk UAB9pRocISkvGOQxcX4gRJ PwM2v7DfHmSyW3PHgcB6Zl wdG5IMFwxDLhIFItnUTYxA 4ilsqig3gk bayyAvGlQKTbSEr2VGg4XU FppYmuJyJsYSD3VtH3TFC1 qPPtqE6ibBcrhwhurG7qYs c+FHX9NXL3 ZB14IG11U3HkNqhqmQYwnU U+PHRhYmxlIHdpZHRoPScx KEJbFdVwoBqyOH0aUd9hTL VyLWNvbGxh cHNl (more content not included)... Normal [facility] Consent for Procedure/Surger yon 04-30-2022 Consent for Procedure/Surgery [id number]#1. 00CD:127 [facility] IntraOperative Documentson 0 04-30-2022 IntraOperative Documents [id number]#1. 00CD:127 [facility] Consent for Treatmenton 04-20 Consent for Treatment [id number]#1.0 0CD:127 [facility] Main OR Intraoperative Recor don 04-29-2022 Main OR Intraoperative Record IntraOp Document Type FTURO Summary Primary Physician: Coleman CARMICHAEL MD Finalized Date/Time: 04/29/22 11:38:38 Pt. Name: DALJIT NAPOLES D.O.B./Sex: 1980 Male Med Rec #: [id number] Physician: Coleman CARMICHAEL MD Financial #: [id number] Pt. Type: O Room/Bed: / Admit/Disch: 04/29/22 10:13:41 - Institution: Case Times FTURO Entry 1 Patient Times In Room 04/29/22 11:30:00 Out Room 04/29/22 11:38:00 Procedure Times Start 04/29/22 11:32:00 Stop 04/29/22 11:36:00 Anesthesia Times Last Modified By: Alea Ramirez RN 04/29/22 11:38:34 Case Attendance FTURO Entry 1 Entry 2 Entry 3 Case Attendee AMOL BERTRAND, Coleman Zacarias STAINLESS STEEL FINISHER, Alea Haile RN Role Performed Surgeon - Primary Scrub - Primary Fur Buyer - Primary Time In 04/29/22 11:30:00 04/29/22 11:30:00 04/29/22 11:30:00 Time Out 04/29/22 11:38:00 04/29/22 11:38:00 04/29/22 11:38:00 Procedure CYSTOSCOPY LOCAL(.) CYSTOSCOPY LOCAL(.) CYSTOSCOPY LOCAL(.) Comments Last Modified By: Alea Ramirez RN, RN, Kimberly Y Barbee RN, Kimberly Y 04/29/22 11:38:35 04/29/22 11:38:35 04/29/22 11:38:35 Surgical [...] By: Alea Ramirez RN 04/29/22 11:38 Normal [facility] Main OR Preoperative Recordo n 04-29-2022 Main OR Preoperative Record Holding Area Document Type FTURO Summary Primary Physician: Coleman CARMICHAEL MD Finalized Date/Time: 04/29/22 11:28:39 Pt. Name: DALJIT NAPOLES /Sex: 1980 Male Med Rec #: [id number] Physician: Coleman CARMICHAEL MD Financial #: [id number] Pt. Type: O Room/Bed: / Admit/Disch: 04/29/22 [...] No Pain Comment: na Skin Integrity Intact, Festus, Warm, & Dry Vitals - EU Blood Pressure 114/71 Pulse 81 bpm Respirations 18 br/min SPO2 96 % RN Reviewed Yes Last Modified By: Alea Ramirez RN 04/29/22 11:28:37 General Comments: temp:36.8 Finalized By: Alea Ramirez RN Document Signatures Signed By: Annika Woods LPN 04/29/22 10:40 Alea Ramirez RN 04/29/22 11:28 Normal [facility] Operative Reporton 3 Operative Report Patient: DALJIT NAPOLES Age: 41 [...] with antibiotic coverage, Follow up arranged. Normal [facility] Comment on above: Result Comment: Elec tronically Signed By: AMOL BERTRAND, Coleman Cruz.br\Date and Time Signed: 04/29/22 11:39 EST [facility]: Cervical spondylosis without myelopathy , [...] by: JESI PEREZ Date: 2022-04-14 16:29 Normal [facility] Lab Reportson 04-04-2022 Lab Reports [id number] 0CD:127 Normal [facility] RAD - Ultrasound Reporton RAD - Ultrasound Report [id number] 0CD:127 Normal [facility] Physician Referralon 022 Physician Referral [id number] 0CD:127 Normal [facility] Ambulatory Visit Summaryon 1 06-01-2021 Ambulatory Visit Summary DALJIT NAPOLES :1980 Visit Date:03/31/2022 Ambulatory Visit Instructions Your Diagnosis Polyuria Erectile dysfunction Renal cyst Tests Performed Urnls Dip Stick Auto w/o Microscopy POC 14385 Your Care Team Attending Physician - Coleman [...] Schedule the Following Appointments Follow Up with CARMICHAEL MD, Coleman R, URL When: Where: [facility] [address], [place] [address]- Medications What How Much When Instructions Unchanged [...] Urnls Dip Stick Auto w/o Microscopy POC 01654 (03/31/2022) Bilirubin Urine Dipstick - 2+ Moderate Blood Urine Dipstick - Negative Glucose Urine Dipstick - Negative Ketones Urine Dipstick - Negative Leukocytes Urine Dipstick - Trace Nitrite Urine Dipstick - Negative Protein Urine Dipstick - Negative Specific [place] Urine Dipstick - 1.010 Urine Appearance Urine [...] including vitamins, herbs, eye drops, creams, and omtv-yga-gjqukoz medicines. ? Whether you are or may be . What are the risks of this testing? Generally, these tests are safe. However (more content not included)... Normal [facility] Patient Educationon 03-31-20 Patient Education Urology Urodynamic [...] including vitamins, herbs, eye drops, creams, and vpdx-uor-oibrweh medicines. ? Whether you are or may [...] system diseases. (more content not included)... Normal [facility] Psychiatry Adulton 2 Psychiatry Adult Diagnoses/Problems Assessed [...] Oral Tablet; TAKE 1 TABLET Bedtime Renew: [place] Carbonate 300 MG Oral Tablet; TAKE 4 [...] bipolar 2 disorder) and LIN by history. Discussed avoiding further contribution to [...] to m (more content not included)... [facility] K[facility]NE[facility] BLADDERon 02-27- 022 US KIDNEYS BLADDER EXAMINATION: US KIDNEYS [...] GUSTAVO CONCEPCION Date: 2022-02-27 16:13 Normal [facility] Psychiatry Adulton 2 Psychiatry Adult Diagnoses/Problems Assessed [...] Oral Tablet; TAKE 1 TABLET Bedtime Renew: [place] Carbonate 300 MG Oral Tablet; TAKE 4 [...] seen quite (more content not included)... Normal [facility] Chart Updateon 01-31-2022 Chart Update Chart Update Received [facility] message from Mr. Napoles requesting to discuss [...] Jan 31 2022 12:44PM EST (Author) Normal [facility] Psychiatry Adulton 2 Psychiatry Adult Diagnoses/Problems Assessed [...] Oral Tablet; TAKE 1 TABLET Bedtime Renew: [place] Carbonate 300 MG Oral Tablet; TAKE 4 [...] concerns with (more content not included)... Normal [facility] CULTURE URINEon 01-02-2022 CULTURE URINE Culture Observations : NO GROWTH. Normal [facility] Comment on above: Performed By: #### U RCX #### [facility] [address] [place] [address] Dr. Dahlia Huang UA RANDOM W/MICROSCOPICon BACTERIA NONE SEEN Normal NONE SEEN [facility] Comment on above: Performed By: #### U AMIC #### [facility] [address] [place] [address] Dr. Dahlia Huang Bilirubin Ql (U) Negative Normal NEGATIVE [facility] Comment on above: Performed By: #### U AMIC #### [facility] [address] [place] [address] Dr. Dahlia Huang CAST NONE SEEN Normal NONE SEEN [facility] [facility] Comment on above: Performed By: #### U AMIC #### [facility] [address] [place] [address] Dr. Dahlia Huang Clarity (U) CLEAR Normal CLEAR [facility] Comment on above: Performed By: #### U AMIC #### [facility] [address] [place] [address] Dr. Dahlia Huang Color (U) YELLOW Normal YELLOW [facility] Comment on above: Performed By: #### U AMIC #### [facility] [address] [place] [address] Dr. Dahlia Huang Crystals LM Nom (Urine sed) NONE SEEN Normal NONE SEEN [facility] Comment on above: Performed By: #### U AMIC #### [facility] [address] [place] [address] Dr. Dahlia Huang Epithelial cells LM Ql (Urine sed) FEW Abnormal NONE SEEN /RARE [facility] Comment on above: Performed By: #### U AMIC #### [facility] [address] [place] [address] Dr. Dahlia Huang Glucose Ql (U) Negative Normal NEGATIVE [facility] Comment on above: Performed By: #### U AMIC #### [facility] [address] [place] [address] Dr. Dahlia Huang Hemoglobin Ql (U) Negative Normal NEGATIVE [facility] Comment on above: Performed By: #### U AMIC #### [facility] [address] [address] [address] Dahlia Huang Ketones Ql (U) Negative Normal NEGATIVE [facility] Comment on above: Performed By: #### U AMIC #### [facility] [address] [address] [address] Dahlia Huang LEUKOCYTES Negative Normal NEGATIVE [facility] Comment on above: Performed By: #### U AMIC #### [facility] [address] [place] [address] Dr. Dahlia Huang MUCOUS NONE SEEN Normal NONE SEEN [facility] Comment on above: Performed By: #### U AMIC #### [facility] [address] [place] [address] Dr. Dahlia Huang Nitrite Ql (U) Negative Normal NEGATIVE [facility] Comment on above: Performed By: #### U AMIC #### [facility] [address] [place] [address] Dr. Dahlia Huang pH (U) 6.5 [pH] Normal 5-9 [facility] Comment on above: Performed By: #### U AMIC #### [facility] [address] [place] [address] Dr. Dahlia Huang RBC 0-2 Normal 0-2 [facility] Comment on above: Performed By: #### U AMIC #### [facility] [address] [place] [address] Dr. Dahlia Huang SPEC GRAVITY 1.010 Normal 1.005-<=1.025 [facility] Comment on above: Performed By: #### U AMIC #### [facility] [address] [place] [address] Dr. Dahlia Huang UA PROTEIN Negative Normal NEGATIVE/ TRACE [facility] Comment on above: Performed By: #### U AMIC #### [facility] [address] [place] [address] Dr. Dahlia Huang Urobilinogen Qn (U) 0.2 {Carolyn'U}/dL Normal 0.2 - 1. 0 [facility] Comment on above: Performed By: #### U AMIC #### [facility] [address] [place] [address] Dr. Dahlia Huang WBC NONE SEEN Normal NONE SEEN [facility] Comment on above: Performed By: #### U AMIC #### [facility] [address] [place] [address] Dr. Dahlia Huang CULTURE URINEon 11-03-2021 CULTURE [...] F Tetracycline >=16 R F Normal [facility] Comment on above: Performed By: #### C BC #### [facility] [address] [place] [address] Dr. Dahlia Hunag UA RANDOM W/MICROSCOPICon BACTERIA TRACE Abnormal NONE SEEN [facility] Comment on above: Performed By: #### U AMIC #### [facility] [address] [place] [address] Dr. Dahlia Huang Bilirubin Ql (U) Negative Normal NEGATIVE [facility] Comment on above: Performed By: #### U AMIC #### [facility] [address] [place] [address] Dr. Dahlia Huang CAST NONE SEEN Normal NONE SEEN [facility] Comment on above: Performed By: #### U AMIC #### [facility] [address] [place] [address] Dr. Dahlia Huang Clarity (U) SL CLOUDY Abnormal CLEAR [facility] Comment on above: Performed By: #### U AMIC #### [facility] [address] [place] [address] Dr. Dahlia Huang Color (U) LT. YELLOW Normal YELLOW [facility] Comment on above: Performed By: #### U AMIC #### [facility] [address] [address] [address] Dahlia Huang Crystals LM Nom (Urine sed) NONE SEEN Normal NONE SEEN [facility] Comment on above: Performed By: #### U AMIC #### [facility] [address] [address] [address] Dahlia Huang Epithelial cells LM Ql (Urine sed) RARE Normal NONE SEEN /RARE [facility] Comment on above: Performed By: #### U AMIC #### [facility] [address] [address] [address] Dahlia Huang Glucose Ql (U) Negative Normal NEGATIVE [facility] Comment on above: Performed By: #### U AMIC #### [facility] [address] [place] [address] Dr. Dahlia Huang Hemoglobin Ql (U) Negative Normal NEGATIVE The [facility] Comment on above: Performed By: #### U AMIC #### [facility] [address] [address] [address] Dahlia Huang Ketones Ql (U) Negative Normal NEGATIVE [facility] Comment on above: Performed By: #### U AMIC #### [facility] [address] [address] [address] Dahlia Huang LEUKOCYTES TRACE Abnormal NEGATIVE [facility] Comment on above: Performed By: #### U AMIC #### [facility] [address] [address] [address] Dahlia Huang MUCOUS NONE SEEN Normal NONE SEEN [facility] Comment on above: Performed By: #### U AMIC #### [facility] [address] [address] [address] Dahlia Huang Nitrite Ql (U) Negative Normal NEGATIVE [facility] Comment on above: Performed By: #### U AMIC #### [facility] [address] [address] [address] Dahlia Huang pH (U) 7.0 [pH] Normal 5-9 [facility] Comment on above: Performed By: #### U AMIC #### [facility] [address] [address] [address] Dahlia Huang RBC NONE SEEN Abnormal 0-2 [facility] Comment on above: Performed By: #### U AMIC #### [facility] [address] [address] [address] Dahlia Huang SPEC GRAVITY 1.010 Normal 1.005-<=1.025 [facility] Comment on above: Performed By: #### U AMIC #### [facility] [address] [place] [address] Dr. Dahlia Huang UA PROTEIN Negative Normal NEGATIVE/ TRACE [facility] Comment on above: Performed By: #### U AMIC #### [facility] [address] [place] [address] Dr. Dahlia Huang Urobilinogen Qn (U) 0.2 {Carolyn'U}/dL Normal 0.2 - 1. 0 [facility] Comment on above: Performed By: #### U AMIC #### [facility] [address] [place] [address] Dr. Dahlia Huang WBC 0-2 Abnormal NONE SEEN [facility] Comment on above: Performed By: #### U AMIC #### [facility] [address] [place] [address] Dr. Dahlia Huang LITHIUMon 09-24-2021 [place] (Eskalith(R)), Serum 0.6 mmol/L Normal 0.5-1.2 [facility] Comment on above: Result Comment: Plas ma concentration of 0.5 - 0.8 mmol/L are advised for long-term use; concentrations of up to 1.2 mmol/L may be necessary during acute treatment. Detection Limit = 0.1 <0.1 indicates None Detected Performed By: #### L ITHIUM #### [facility] [address] [place] [address] Dr. Dahlia Huang CBC AUTO DIFFon 09-23-2021 BASO # 0.1 103/ul Normal 0.0-0.1 [facility] Comment on above: Performed By: #### C BC #### [facility] [address] [address] [address] Dahlia Huang Basophils/100 WBC (Bld) 0.9 % Normal 0.2-2.0 [facility] Comment on above: Performed By: #### C BC #### [facility] [address] [address] [address] Dahlia Huang EO # 0.3 103/ul Normal 0.0-0.7 [facility] Comment on above: Performed By: #### C BC #### [facility] [address] [address] [address] Dahlia Huang Eosinophils/100 WBC (Bld) 4.2 % Normal 0.9-7.0 [facility] Comment on above: Performed By: #### C BC #### [facility] [address] [place] [address] Dr. Dahlia Huang Erythrocyte distribution width (RBC) [Ratio] 12.8 % Normal 11.0-15.0 [facility] Comment on above: Performed By: #### C BC #### [facility] [address] [place] [address] Dr. Dahlia Huang Hematocrit (Bld) [Volume fraction] 44.6 % Normal 42.0-54.0 [facility] Comment on above: Performed By: #### C BC #### [facility] [address] [place] [address] Dr. Dahlia Huang Hemoglobin (Bld) [Mass/Vol] 14.9 g/dL Normal 14.0-18.0 [facility] Comment on above: Performed By: #### C BC #### [facility] [address] [place] [address] Dr. Dahlia Huang IG # 0.04 10e3/ul Critically high 0.00-0.03 [facility] Comment on above: Performed By: #### C BC #### [facility] [address] [address] [address] Dahlia Huang IG % 0.5 % Normal 0.0-0.5 [facility] Comment on above: Performed By: #### C BC #### [facility] [address] [place] [address] Dr. Dahlia Huang LYMPH # 1.6 103/ul Normal 1.2-3.8 [facility] Comment on above: Performed By: #### C BC #### [facility] [address] [place] [address] Dr. Dahlia Huang Lymphocytes/100 WBC (Bld) 19.4 % Critically low 20.5-60.0 [facility] Comment on above: Performed By: #### C BC #### [facility] [address] [place] [address] Dr. Dahlia Huang MANUAL DIFF REQ NO Normal [facility] Comment on above: Performed By: #### C BC #### [facility] [address] [place] [address] Dr. Dahlia Huang MCH (RBC) [Entitic mass] 29.9 pg Normal 25.9-34.0 [facility] Comment on above: Performed By: #### C BC #### [facility] [address] [place] [address] Dr. Dahlia Huang MCHC (RBC) [Mass/Vol] 33.4 g/dL Normal 29.9-35.2 [facility] Comment on above: Performed By: #### C BC #### [facility] [address] [place] [address] Dr. Dahlia Huang MCV (RBC) [Entitic vol] 89.6 fL Normal 80.0-94.0 [facility] Comment on above: Performed By: #### C BC #### [facility] [address] [place] [address] Dr. Dahlia Huang MONO # 0.5 103/ul Normal 0.3-0.8 [facility] Comment on above: Performed By: #### C BC #### [facility] [address] [place] [address] Dr. Dahlia Huang Monocytes/100 WBC (Bld) 6.5 % Normal 1.7-12.0 [facility] Comment on above: Performed By: #### C BC #### [facility] [address] [place] [address] Dr. Dahlia Huang NEUT # 5.5 103/ul Normal 1.4-6.5 [facility] Comment on above: Performed By: #### C BC #### [facility] [address] [place] [address] Dr. Dahlia Huang Neutrophils/100 WBC (Bld) 68.5 % Normal 43.0-75.0 [facility] Comment on above: Performed By: #### C BC #### [facility] [address] [place] [address] Dr. Dahlia Huang Platelet mean volume (Bld) [Entitic vol] 10.4 fL Normal 9.5-13.5 [facility] Comment on above: Performed By: #### C BC #### [facility] [address] [place] [address] Dr. Dahlia Huang PLT 217 103/ul Normal 150-450 [facility] Comment on above: Performed By: #### C BC #### [facility] [address] [place] [address] Dr. Dahlia Huang RBC 4.98 106/ul Normal 4.70-6.10 [facility] Comment on above: Performed By: #### C BC #### [facility] [address] [place] [address] Dr. Dahlia Huang WBC 8.0 103/ul Normal 4.0-11.0 [facility] Comment on above: Performed By: #### C BC #### [facility] [address] [place] [address] Dr. Dahlia Huang PROF CHEM 8 (BAS METB)on Anion gap [Moles/Vol] 13.6 mmol/L Normal [facility] Comment on above: Performed By: #### B MP, TSH #### [facility] [address] [place] [address] Dr. Dahlia Huang Calcium [Mass/Vol] 9.0 mg/dL Normal 8.5-10.1 [facility] Comment on above: Performed By: #### B MP, TSH #### [facility] [address] [place] [address] Dr. Dahlia Huang Chloride [Moles/Vol] 103 mmol/L Normal 98-107 [facility] Comment on above: Performed By: #### B HELADIO, TSH #### [facility] [address] [place] [address] Dr. Dahlia Huang CO2 [Moles/Vol] 28.1 mmol/L Normal 21.0-32.0 [facility] Comment on above: Performed By: #### B HELADIO, TSH #### [facility] [address] [address] [address] Dahlia Huang Creatinine [Mass/Vol] 0.78 mg/dL Normal 0.70-1.30 [facility] Comment on above: Performed By: #### B HELADIO, TSH #### [facility] [address] [place] [address] Dr. Dahlia Huang EGFR-AF [facility] >60 Normal >=60 [facility] Comment on above: Performed By: #### B HELADIO, TSH #### [facility] [address] [place] [address] Dr. Dahlia Huang EGFR-NON AF [facility] >60 Normal >=60 [facility] Comment on above: Performed By: #### B HELADIO, TSH #### [facility] [address] [place] [address] Dr. Dahlia Huang Glucose [Mass/Vol] 91 mg/dL Normal 74-106 [facility] Comment on above: Performed By: #### B HELADIO, TSH #### [facility] [address] [place] [address] Dr. Dahlia Huang Potassium [Moles/Vol] 3.7 mmol/L Normal 3.5-5.1 [facility] Comment on above: Performed By: #### B HELADIO, TSH #### [facility] [address] [place] [address] Dr. Dahlia Huang Sodium [Moles/Vol] 141 mmol/L Normal 136-145 [facility] Comment on above: Performed By: #### B HELADIO, TSH #### [facility] [address] [place] [address] Dr. Dahlia Huang Urea nitrogen [Mass/Vol] 13.0 mg/dL Normal 7.0-18.0 [facility] Comment on above: Performed By: #### B MP, TSH #### [facility] [address] [place] [address] Dr. Dahlia Huang Urea nitrogen/Creatinine [Mass ratio] 16.7 mg/mg Normal [facility] Comment on above: Performed By: #### B MP, TSH #### [facility] [address] [address] [address] Dahlia Huang TSHon 09-23-2021 TSH 0.919 uIU/mL Normal 0.358-3.740 [facility] Comment on above: Performed By: #### B MP, TSH #### [facility] [address] [place] [address] Dr. Dahlia Huang TSH RANGE SEE BELOW Normal [facility] Comment on above: Result Comment: <0.3 4 UIU/ml HYPERTHYROID 0.34-5.60 UIU/ml EUTHYROID >5.60 UIU/ml HYPOTHYROID Performed By: #### B MP, TSH #### [facility] [address] [place] [address] Dr. Dahlia Bashir 2021 KAYCEE Telephone (DELFINA) DALJIT NAPOLES ([id number]) 1980 M Date Time Provider Department 08/13/21 [...] Encounter Status:Closed by LANI REYES on 08/13/21 [facility] 08-05-20[address] [facility] Office Visit (PSMMMR ) YESIKADALJIT ([id number]) 1980 M Date Time Provider Department 08/05/21 2:30 PM [facility] During your visit today, we recorded the [...] : Negative for dysuria, frequency and incontinence WHIZZER HAND: N/A MUSCULOSKELETAL: Negative for joint pain or [...] DALJIT Aguirre Therapist: No prior therapist Current Retail Sales Associate: None Last Hospitalization: Denies hospitalization. and about a year ago. ECT: none Previous Discontinued Psychiatric Med Trials: Paxil,Prozaac, Zoloft, Wellbutrin,Celexa, Seroquel, [place] ,Latuda, Depakote, Imipramine etc. SUBSTANCE USE HISTORY: [...] to his parents. Born and raised in [place], [place].. Both parents were there when he was growing up. His father was killed in a car accident when he was 19 . 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 He [...] disorder ,full remission. (more content not included)... [facility] 07-22-2021 [facility] Telephone (PSMMMR) DALJIT NAPOLES ([id number]) 1980 M Date Time Provider Department 07/22/[address] [facility] During your visit today, we recorded the [...] Encounter Status:Closed by LANI REYES on 07/22/21 [facility] OBSOLETEon 04-02-2021 OBSOLETE Refill (PSMMMR) DALJIT NAPOLES ([id number]) 1980 M Date Time Provider Department 04/02/21 [facility]YES [facility] During your visit today, we recorded the [...] Encounter Status:Closed by LANI REYES on 04/02/21 [facility] OBSOLETEon 03-08-2021 OBSOLETE Refill (PSMMMR) DALJIT NAPOLES ([id number]) 1980 M Date Time Provider Department 03/08/21 LANI REYES [facility] During your visit today, we recorded the following information about you: Charlotte Cee 03/08/2021 2:[address] Reyes- Per My Chart message of 03.08.21, patient is willing to lower the dosage. Please review and send. Thanks, Charlotte Cee March 08, 2021 2:46 PM Allergies [...] Encounter Status:Closed by LANI REYES on 03/08/21 [facility] OBSOLETEon 03-01-2021 OBSOLETE Refill (PSMMMR) DALJIT NAPOLES ([id number]) 1980 M Date Time Provider Department 03/01/[address] [facility] During your visit today, we recorded the following information about you: Abby Chrystal Sanders 03/01/2021 1:09 PM Signed Please review and send. Thanks, Abby Chrystal Sanders Allergies As of Date: 03/01/2021 (Not [...] Encounter Status:Closed by LANI REYES on 03/03/21 [facility] OBSOLETE Refill (PSMMMR) DALJIT NAPOLES ([id number]) 1980 M Date Time Provider Department 03/01/21 [facility] During your visit today, we recorded the [...] Encounter Status:Closed by LANI REYES on 03/03/21 [facility] OBSOLETEon 01-20-2021 OBSOLETE Refill (PSMMMR) DALJIT NAPOLES ([id number]) 1980 M Date Time Provider Department 01/20/21 LAN[facility] REYES [facility] During your visit today, we recorded the [...] Encounter Status:Closed by LANI REYES on 01/21/21 [facility] OBSOLETEon 01-14-2021 OBSOLETE Refill (PSMMMR) DALJIT NAPOLES ([id number]) 1980 M Date Time Provider Department 01/14/21 LANI REYES [facility] During your visit today, [...] Encounter Status:Closed by LANI REYES on 01/14/21 [facility] 12-18-2020 [facility] Telephone (PSMMMR) YESIKADALJIT ([id number]) 1980 M Date Time Provider Department 12/18/[address] [facility] During your visit today, we recorded the [...] Encounter Status:Closed by LANI REYES on 12/18/20 [facility] OBSOLETEon 11-07-2020 OBSOLETE Refill (PSMMMR) DALJIT NAPOLES ([id number]) 1980 M Date Time Provider Department 11/07/20 LANI REYES [facility] During your visit today, [...] Encounter Status:Closed by JOSE FRITZ on 11/08/20 [facility] OBSOLETEon 11-06-2020 OBSOLETE Refill (PSMMMR) DALJIT NAPOLES ([id number]) 1980 M Date Time Provider Department 11/06/20 LANI REYES [facility] During your visit today, we recorded the [...] Encounter Status:Closed by JOSE FRITZ on 11/06/20 [facility] OBSOLETEon 10-09-2020 OBSOLETE Refill (PSMMMR) DALJIT NAPOLES ([id number]) 1980 M Date Time Provider Department 10/09/20 LAN[facility] REYES [facility] During your visit today, we recorded the [...] Encounter Status:Closed by LANI REYES on 10/10/20 [facility] OBSOLETEon 09-26-2020 OBSOLETE Refill (PSMMMR) DALJIT NAPOLES ([id number]) 1980 M Date Time Provider Department 09/26/20 [facility] During your visit today, we recorded the [...] Encounter Status:Closed by [facility] Telephone (PSMMMR) DALJIT NAPOLES ([id number]) 1980 M Date Time Provider Department 08/22/[address] [facility] During your visit today, we recorded the following information about you: Lani Reyes MD 08/22/2020 12:03 PM Signed Received lab results. BUN 13 Creatinine 0.85 [place] level 0.9 Hb A1c --normal. Lani Reyes [...] Encounter Status:Closed by LANI REYES on 08/22/20 [facility] 03-07-2020 CNP Telephone (PSYRL) DALJIT NAPOLES ([id number]) 1980 M Date Time Provider Department 03/07/20 [...] Encounter Status:Closed by HARVINDER DAWSON on 03/09/20 [facility] OBSOLETEon 03-07-2020 OBSOLETE Refill (PSYRL) DALJIT NAPOLES ([id number]) 1980 M Date Time Provider Department 03/07/20 LANI REYES [facility] During your visit today, we recorded the [...] Status:Closed by LANI REYES MD on 03/07/20 [facility] Vital Signs Date Time Vital Sign Value Performing Clinician Facility 12-02-2023 14:040 Body height 175.26 cm [facility] 12-02-2023 14:29-0400 Body mass index (BMI) [Ratio] 38 kg/m2 [facility] 12-02-2023 14:29040 Body weight 116.74 kg [facility] 12-02-2023 14:29-0400 Diastolic blood pressure 87 mm[Hg] [facility] 12-02-2023 14:29-0400 Heart rate 91 /min [facility] 12-02-2023 14:29-0400 Respiratory rate 12 /min [facility] 12-02-2023 14:29-0400 Systolic blood pressure 119 mm[Hg] [facility] 06-05-2023 09:09-0500 Body height 175.26 cm [facility] 06-05-2023 09:09-0500 Body mass index (BMI) [Ratio] 36.6 kg/m2 [facility] 06-05-2023 09:09-0500 Body weight 112.49 kg [facility] 06-05-2023 09:09-0500 Diastolic blood pressure 76 mm[Hg] [facility] 06-05-2023 09:09-0500 Heart rate 72 /min [facility] 06-05-2023 09:09-0500 Respiratory rate 16 /min [facility] 06-05-2023 09:09-0500 Systolic blood pressure 111 mm[Hg] [facility] 05-08-2023 12:00-0500 Diastolic blood pressure 99 mm[Hg] [facility] 05-08-2023 12:00-0500 Heart rate 82 /min [facility] 05-08-2023 12:00-0500 Respiratory rate 18 /min [facility] 05-08-2023 12:00-0500 SaO2% (BldA) [Mass fraction] 97 % [facility] 05-08-2023 12:00-0500 Systolic blood pressure 164 mm[Hg] [facility] 05-08-2023 08:00-0500 Body temperature 98.4 [degF] [facility] 05-08-2023 06:00-0500 Body weight 113.8 kg [facility] 05-07-2023 03:48-0500 Body height 175.26 cm [facility] 01-16-2023 11:45-0400 Body height 175.26 cm Mora Hendrickson Other [facility] Other 01-16-2023 11:45-0400 Body mass index (BMI) [Ratio] 37.06 kg/m2 Mora Hendrickson Other Hall Other 01-16-2023 11:45-0400 Body weight 113.85 kg Mora Emeka Other Hall Other 01-16-2023 11:45-0400 Diastolic blood pressure 80 mm[Hg] Mora Emeka Other Hall Other 01-16-2023 11:45-0400 SaO2% (BldA) [Mass fraction] 96 % Mora Emeka Other Hall Other 01-16-2023 11:45-0400 Systolic blood pressure 126 mm[Hg] Mora Emeka Other Hall Other Encounters Encounter Date Encounter Type Care Provider Facility Start: 03-23-2024 End: 03-23-2024 Office outpatient visit 40 minutes Shireen Khan RING SORTERInkomerce, [employer]. Work Phone: [facility] Comment on above: Severe episode of re current major depressive disorder, without psychotic features (Multi); Other bipolar disorder; Generalized anxiety disorder; Extrapyramidal symptom; Medication management; Healthcare maintenance Start: 03-23-2024 End: 03-23-2024 Patient encounter status Shireen Khan RING SORTER-[employer], [employer] Work Phone: [facility] Work Phone: Start: 03-14-2024 End: 03-14-2024 ambulatory [facility]ANCE Mckeon [facility] Start: 03-07-2024 End: 03-07-2024 ambulatory SHIREEN KHAN [facility] Start: 03-03-2024 End: 03-03-2024 [facility] Start: 02-23-2024 End: 02-23-2024 ambulatory CHANCE Mckeon [facility] Start: 02-17-2024 End: 02-17-2024 Office outpatient visit 40 minutes Shireen Khan RING SORTER-TOOL MACHINE SETUP OPERATOR, RING SORTER-COMPUTER AIDE Work Phone: [facility] Comment on above: Severe episode of re current major depressive disorder, without psychotic features (Multi); Other bipolar disorder; Generalized anxiety disorder; Extrapyramidal symptom; Medication management; Healthcare maintenance Start: 02-17-2024 End: 02-17-2024 Patient encounter status Shireen Khan RING SORTER-TOOL MACHINE SETUP OPERATOR, RING SORTER-COMPUTER AIDE Work Phone: [facility] Work Phone: Start: 02-17-2024 End: 02-17-2024 ambulatory [facility] Start: 02-04-2024 End: 02-04-2024 Office outpatient visit 25 minutes Shireen Hays Khan RING SORTER-TOOL MACHINE SETUP OPERATOR, RING SORTER-COMPUTER AIDE [facility] Phone[facility] Comment on above: Severe episode of re current major depressive disorder, without psychotic features (Multi); Generalized anxiety disorder; Other bipolar disorder; Extrapyramidal symptom Start: 02-04-2024 End: 02-04-2024 ambulatory [facility] Start: 01-20-2024 End: 01-20-2024 Office outpatient visit 25 minutes Shireen Khan RING SORTER-TOOL MACHINE SETUP OPERATOR, RING SORTER-COMPUTER AIDE Work Phone: [facility] Comment on above: Generalized anxiety disorder; Mood disorder ([facility]); Severe episode of recurrent major depressive disorder, without psychotic features (Multi); Extrapyramidal symptom Start: 01-20-2024 End: 01-20-2024 ambulatory [facility] Start: 01-18-2024 End: 01-18-2024 [facility] Start: 01-07-2024 End: 01-07-2024 ambulatory [facility] Start: 12-24-2023 End: 12-24-2023 ambulatory [facility] Start: 12-09-2023 End: 12-09-2023 ambulatory [facility] Start: 12-02-2023 End: 12-02-2023 ambulatory [facility] Work Phone: Start: 12-02-2023 End: 12-02-2023 Encounter for general adult medical examination without abnormal findings [facility] Start: 12-02-2023 End: 12-02-2023 Patient encounter procedure [facility] Work Phone: Start: 09-24-2023 End: 09-24-2023 ambulatory [facility] Start: 08-24-2023 End: 08-24-2023 ambulatory [facility] Start: 08-03-2023 End: 08-03-2023 ambulatory [facility] Start: 07-15-2023 End: 07-15-2023 Office outpatient visit 25 minutes Shireen Lis Jhon RING SORTER-TOOL MACHINE SETUP OPERATOR, RING SORTER-COMPUTER AIDE Work Phone: [facility] Comment on above: Other bipolar disord er (Multi); Severe episode of recurrent major depressive disorder, without psychotic features (Multi); Generalized anxiety disorder; Extrapyramidal symptom Start: 07-15-2023 End: 07-15-2023 ambulatory [facility] Start: 07-10-2023 End: 07-10-2023 ambulatory [facility] Start: 06-22-2023 End: 06-22-2023 Office outpatient visit 40 minutes Shireen Lis Jhon RING SORTER-TOOL MACHINE SETUP OPERATOR, RING SORTER-COMPUTER AIDE Work Phone: [facility] Comment on above: Generalized anxiety disorder; Other bipolar disorder (CMS/HCC); Severe episode of recurrent major depressive disorder, without psychotic features (CMS/HCC); Extrapyramidal symptom Start: 06-22-2023 End: 06-22-2023 ambulatory SHIREEN Hays [facility] Start: 06-11-2023 End: 06-11-2023 Office outpatient visit 40 minutes Shireen Lis Jhon RING SORTER-TOOL MACHINE SETUP OPERATOR, RING SORTER-COMPUTER AIDE [facility] Phone: [facility] Comment on above: Other bipolar disord er (CMS/HCC); Severe episode of recurrent major depressive disorder, without psychotic features (CMS/HCC); Generalized anxiety disorder; Extrapyramidal symptom Start: 06-11-2023 End: 06-11-2023 [facility] Start: 06-05-2023 End: 06-05-2023 ambulatory [facility] Start: 06-05-2023 End: 06-05-2023 ambulatory [facility] Work Phone: Start: 06-05-2023 End: 06-05-2023 Patient encounter procedure [facility] Work Phone: Start: 06-02-2023 Non-patient / Non-visit [facility] Work Phone: Start: 06-02-2023 End: 06-02-2023 ambulatory Rizwan Powers Other Hall Other Start: 06-02-2023 Telephone encounter Rizwan LY [facility] Start: 06-01-2023 End: 06-01-2023 ambulatory Rizwan Powers Other Hall Other Start: 06-01-2023 Telephone encounter Rizwan LY [facility] Start: 05-26-2023 End: 05-26-2023 ambulatory Rizwan Powers Other Hall Other Start: 05-26-2023 Telephone encounter Rizwan [facility] Start: 05-20-2023 End: 05-20-2023 ambulatory Rizwan Powers Other Hall Other Start: 05-20-2023 Telephone encounter Rizwan LY [facility] Start: 05-18-2023 End: 05-18-2023 Office outpatient visit 40 minutes Shireen Lis Khan RING SORTER-TOOL MACHINE SETUP OPERATOR, RING SORTER-COMPUTER AIDE Work Phone: [facility] Comment on above: Other bipolar disord er (CMS/HCC); Severe episode of recurrent major depressive disorder, without psychotic features (CMS/HCC); Generalized anxiety disorder; Extrapyramidal symptom Start: 05-18-2023 End: 05-18-2023 ambulatory SHIREEN Hays KHAN [facility] Start: 05-15-2023 ambulatory Rizwan Powers Facility: [facility] Start: 05-14-2023 End: 05-14-2023 ambulatory Rizwan Powers Other Hall Other Start: 05-14-2023 Office outpatient vi sit 25 minutes Rizwan Powers [facility] Start: 05-11-2023 End: 05-11-2023 ambulatory Not Available Start: 05-07-2023 End: 05-08-2023 ambulatory Jeremías Ocampo Facility:[facility] Start: 05-07-2023 Non-patient / Non-visit [facility] Work Phone: Start: 05-06-2023 End: 05-06-2023 ambulatory [facility] Start: 05-06-2023 End: 05-06-2023 Encounter for general adult medical examination without abnormal findings [facility] Start: 04-27-2023 End: 04-27-2023 ambulatory Not Available Start: 03-16-2023 End: 03-16-2023 Office outpatient visit 25 minutes Shireen Khan RING SORTER-TOOL MACHINE SETUP OPERATOR, RING SORTER-COMPUTER AIDE Work Phone: [facility] Comment on above: Severe episode of re current major depressive disorder, without psychotic features (CMS/HCC); Generalized anxiety disorder; Other bipolar disorder (CMS/HCC); Extrapyramidal symptom Start: 02-16-2023 End: 02-16-2023 Office outpatient visit 40 minutes Shireen Khan RING SORTER-TOOL MACHINE SETUP OPERATOR, RING SORTER-COMPUTER AIDE Work Phone: [facility] Comment on above: Severe episode of re current major depressive disorder, without psychotic features (CMS/HCC); Generalized anxiety disorder; Other bipolar disorder (CMS/HCC); Extrapyramidal symptom Start: 01-23-2023 End: 01-23-2023 ambulatory Rizwan Powers Other [facility] [employer] Other Start: 01-23-2023 Telephone encounter Rizwan Powers FP [facility] Start: 01-16-2023 End: 01-16-2023 ambulatory Mora Hendrickson Other [employer] Other Start: 01-16-2023 Office outpatient vi sit 15 minutes Mora Hendrickson [facility] Start: 01-05-2023 AUDIT Unknown Unknown [facility] [address] [place] Work Phone: Start: 01-01-2023 Patient encounter procedure Unknown Unknown [facility]X-Oydierhzuy-Icftqa [address] DO Work Phone: Start: 12-24-2022 AUDIT Unknown Unknown [facility] [address] [place] Work Phone: Start: 12-08-2022 Chart Update Unknown Unknown Communi ty [facility] [address] [place] Work Phone: Start: 11-28-2022 Chart Update Unknown Unknown [facility] [address] [place] Work Phone: Start: 11-20-2022 Patient encounter procedure Unknown Unknown AW-Ddhrzxwraq-Pmaywz [address] [place] DO Work Phone: Start: 11-04-2022 AUDIT Unknown Unknown MP-Psyc hiatry-Walker [address] [place] DO Work Phone: Start: 10-22-2022 Rx Renewal Unknown Unknown Communi ty Mental [facility] [address] [place] Work Phone: Start: 09-25-[address] RIZWAN POWERS Facili ty:[facility]1 Start: 09-18-2022 Office outpatient vi sit 25 minutes Unknown Unknown Community [facility] [address] [place] Work Phone: Start: 09-18-2022 Patient encounter procedure Unknown Unknown YH-Rlnfxfybet-Hmzxjj [address] [place] DO Work Phone: Start: 09-17-2022 AUDIT Unknown Unknown Communi ty [facility] [address] [place] Work Phone: Start: 08-15-2022 Chart Update [facility] [address] [place] Work Phone: Start: 08-14-2022 Chart Update Unknown Unknown MP-Psyc hiatry-Walker [address] [place] DO Work Phone: Start: 2022 AUDIT Unknown [facility] [address] [place] Work Phone: Start: 08-07-2022 Office outpatient vi sit 40 minutes Unknown Unknown [facility] [address] [place] Work Phone: Start: 08-07-2022 Patient encounter procedure Unknown Unknown TR-Nstfjirpzq-Pdpjqp [address] [place] DO Work Phone: Start: 08-01-2022 AUDIT Unknown Unknown MG-Psyc hiatry-Walker [address] [place] Work Phone: Start: 07-14-2022 End: 07-15-2022 ambulatory Coleman CARMICHAEL Facility:[facility] Start: 07-14-2022 End: 07-14-2022 Patient encounter procedure Coleman CARMICHAEL [facility] Start: 07-01-2022 Patient encounter procedure Unknown Unknown QH-Buurudslwf-Dihnhm [address] [place] DO Work Phone: Start: 05-27-2022 Office outpatient vi sit 40 minutes Unknown Unknown UF-Lphrqluteb-Nncrin [address] [place] DO Work Phone: Start: 05-22-2022 AUDIT Unknown Unknown MP-Psyc hiatry-Walker [address] [place] DO Work Phone: Start: 05-13-2022 End: 05-14-[address] KALEIGH YIN . Facility: Start: 05-05-2022 AUDIT Unknown Unknown Communi [facility] [address] [place] Work Phone: Start: 04-29-2022 End: 04-30-2022 ambulatory Coleman CARMICHAEL [facility] Start: 04-15-2022 Adult health examination Aide purdy Emeka Other Hall Other Start: 04-14-2022 End: 04-15-[address] RIZWAN POWERS Facility:[facility] Start: 03-31-2022 End: 04-01-2022 ambulatory Coleman CARMICHAEL Facility:[facility] [place] Start: 03-31-2022 End: 03-31-2022 Patient encounter procedure Coleman CARMICHAEL [facility] Start: 03-27-2022 End: 04-02-[address] RIZWAN POWERS Facility:[facility] Start: 03-18-2022 Office outpatient vi sit 25 minutes Unknown Unknown RM-Banpokwvxw-Ragcsi [address] [place] DO Work Phone: Start: 03-10-2022 ambulatory Coleman CARMICHAEL Facility :[facility] [place] Start: 02-27-2022 End: 02-28-[address] RIZWAN POWERS Facility:[facility] Start: 02-13-2022 AUDIT Unknown Unknown MP-Psyc hiatry-Walker [address] [place] DO Work Phone: Start: 02-13-2022 Refill Lani Reyes MD Work Phone: Psychiatry Comment on above: Refill Request Start: 02-12-2022 Office outpatient vi sit 25 minutes Unknown Unknown [facility] [address] [place] Work Phone: Start: 01-31-2022 AUDIT Unknown Unknown [facility] [address] [place] Work Phone: Start: 01-07-2022 Office outpatient vi sit 25 minutes Unknown Unknown [facility] [address] [place] Work Phone: Start: 01-07-2022 Patient encounter procedure Unknown Unknown TN-Ffbsejciiu-Plqirb [address] [place] DO Work Phone: Start: 01-02-2022 End: 01-03-[address] RIZWAN POWERS Facility:[facility] Start: 12-02-2021 Office outpatient vi sit 25 minutes Unknown Unknown [facility] [address] [place] Work Phone: Start: 11-29-2021 AUDIT Unknown Unknown [facility] [address] [place] Work Phone: Start: 11-22-2021 AUDIT Unknown Unknown [facility] [address] [place] Work Phone: Start: 11-18-2021 AUDIT Unknown Unknown [facility] [address] [place] Work Phone: Start: 11-01-2021 End: 11-02-[address] RIZWAN POWERS Facility:[facility] Start: 10-29-2021 Office outpatient vi sit 25 minutes Unknown Unknown QL-Wpvzjlvhvu-Oncypf 7th Flr DO Work Phone: Start: 09-30-2021 AUDIT Unknown Unknown [facility] [address] [place] Work Phone: Start: 09-25-2021 Office outpatient vi sit 25 minutes Unknown Unknown YQ-Bvaojnuvdf-Fayxrd 7th Flr DO Work Phone: Start: 09-25-2021 Patient encounter procedure Unknown Unknown [facility] [address] [place] Work Phone: Start: 09-23-2021 End: 09-24-[address] RIZWAN POWERS Facility:[facility] Start: 09-19-2021 Refill Lani Reyes MD Work Phone: Psychiatry Comment on above: Refill Request Start: 09-05-2021 AUDIT Unknown Unknown MP-Psyc hiatry-Walker 7th Flr DO Work Phone: Start: 08-28-2021 Office outpatient ne w 60 minutes Unknown Unknown [facility] [address] [place] Work Phone: Start: 2021 Telephone encounter [...] Detail Performing Clinician Start: 08-03-2023 Basic metabolic 2000 panel - Serum or Plasma SHIREEN KHAN Start: 08-03-2023 [place] [Moles/volum e] in Serum or Plasma SHIREEN KHAN Start: 07-15-2023 FOLLOW UP IN PSYCHIATRY SHIREEN KHAN Start: 07-10-2023 Basic metabolic 2000 panel - Serum or Plasma SHIREEN KHAN Start: 07-10-2023 [place] [Moles/volum e] in Serum or Plasma SHIREEN KHAN Start: 07-10-2023 TSH WITH REFLEX TO F REE T4 IF ABNORMAL SHIREEN KHAN Start: 07-10-2023 Thyrotropin [Units/v olume] in Serum or Plasma Shireen Khan RING SORTER-TOOL MACHINE SETUP OPERATOR, RING SORTER-COMPUTER AIDE Work Phone: Start: 06-05-2023 CBC W Auto Different ial panel - Blood SHIREEN KHAN Start: 06-05-2023 Comprehensive metabo lic 2000 panel - Serum or Plasma SHIREEN KHAN Start: 06-05-2023 Hemoglobin A1c/Hemoglobin.total in Blood SHIREEN KHAN Start: 06-05-2023 LAMOTRIGINE SHIREEN WALKER Start: 06-05-2023 Lipid panel SHIREEN WALKER Start: 06-05-2023 VALPROIC ACID SHIREENBIJAL MERAZ Start: 06-05-2023 Lipid 1996 panel - S ignacia or Plasma Shireen Khan RING SORTER-TOOL MACHINE SETUP OPERATOR, RING SORTER-COMPUTER AIDE Work Phone: Start: 05-06-2023 Basic metabolic 2000 panel - Serum or Plasma SHIREEN KHAN Start: 05-06-2023 [place] [Moles/volum e] in Serum or Plasma SHIREEN KHAN Start: 05-06-2023 TSH WITH REFLEX TO F REE T4 IF ABNORMAL SHIREEN KHAN Start: 08-14-2022 Lipid 1996 panel - S ignacia or Plasma Shireen Khan RING SORTER-TOOL MACHINE SETUP OPERATOR, RING SORTER-COMPUTER AIDE Work Phone: Start: 08-14-2022 Thyrotropin [Units/v olume] in Serum or Plasma Shireen Khan RING SORTER-TOOL MACHINE SETUP OPERATOR, RING SORTER-COMPUTER AIDE Work Phone: Start: 04-29-2022 Cystoscopy Coleman HANKS Start: 01-31-2020 Adult depression scr eening assessment Lani Reyes MD Work Phone: None (qualifier value) Antoine CARMICHAEL Plan of Treatment Date Care Activity Detail Author Start: 08-12-2029 Zoster Vaccines (1 of 2) Zoste r Vaccines (1 of 2) [facility] Start: 06-05-2028 Lipid panel Lipid Panel [facility] Start: 08-15-2027 Lipid panel Lipid Panel [facility] Start: 06-05-2026 Diabetes mellitus screening Diabetes Screening [facility] Start: 07-09-2024 Thyroid stimulating hormone measurement TSH Level [facility] Start: 04-18-2024 COVID-19 Vaccine ( season) COVID-19 Vaccine () [facility] Start: 04-07-2024 End: 04-07-2024 Telemedicine consultation with patient 04/07/2024 10:00 AM EST Telemedicine [facility] [id number] [place] [address] [address]th [place] [address] Shireen Khan, RING SORTER-TOOL MACHINE SETUP OPERATOR, RING SORTER-COMPUTER AIDE [address] [place] [address] [facility] Start: 03-23-2024 End: 03-23-2024 Telemedicine consultation with patient 03/23/2024 11:00 AM EST Telemedicine [address] [place] [phone] Shireen Khan, RING SORTER-TOOL MACHINE SETUP OPERATOR, RING SORTER-COMPUTER AIDE [address] [place] [address] [facility] Start: 03-07-2024 End: 03-07-2024 Telemedicine consultation with patient 03/07/2024 10:30 AM EST Telemedicine [place] [id number] [place] [phone] Shireen Khan, RING SORTER-TOOL MACHINE SETUP OPERATOR, RING SORTER-COMPUTER AIDE [address] [place] [address] [facility] Start: 02-17-2024 End: 02-17-2024 Telemedicine consultation with patient 02/17/2024 11:00 AM EDT Telemedicine [address] [place] [phone] Shireen Khan, RING SORTER-TOOL MACHINE SETUP OPERATOR, RING SORTER-COMPUTER AIDE [address] [facility] [place] [address] [facility] Start: 02-04-2024 End: 02-04-2024 Telemedicine consultation with patient 02/04/2024 1:30 PM EDT [facility]icine [facility] [address] [place] [phone] Shireen Khan, RING SORTER-TOOL MACHINE SETUP OPERATOR, RING SORTER-COMPUTER AIDE [address] [facility] Department of Psychiatry-[facility] [place] [address] [facility] Start: 12-20-2023 COVID-19 Vaccine ( season) COVID-19 Vaccine ( season) [facility] Start: 12-20-2023 Influenza vaccination [facility] Start: 09-24-2023 End: 09-24-2023 Telemedicine consultation with patient 09/24/2023 2:30 PM EDT Telemedicine [facility] [address] [facility] 13th [place] [phone] Shireen Khan, RING SORTER-TOOL MACHINE SETUP OPERATOR, RING SORTER-COMPUTER AIDE [address] [facility] [place] [address] [facility] Start: 08-15-2023 Thyroid stimulating hormone measurement TSH Level [facility] Start: 07-15-2023 End: 07-15-2023 Telemedicine consultation with patient [facility] Start: 06-11-2023 End: 06-11-2023 Telemedicine consultation with patient 06/11/2023 10:30 AM EST Telemedicine [facility] [address] [facility] 13th [place] [phone] Shireen Khan, RING SORTER-TOOL MACHINE SETUP OPERATOR, RING SORTER-COMPUTER AIDE [address] [facility] Department of Psychiatry-[facility] [place] [address] [facility] Start: 05-08-2023 [facility] Start: 05-08-2023 Referral to psychiatrist [facility] Start: 05-07-2023 Hospital admission [facility] Start: 05-07-2023 [facility] Start: 04-30-2023 End: 04-30-2023 Telemedicine consultation with patient 04/30/2023 9:30 AM EST Telemedicine [facility] [address] [place] [address] Shireen Khan, RING SORTER-TOOL MACHINE SETUP OPERATOR, RING SORTER-COMPUTER AIDE [address] Department of Psychiatry-[facility] [place] [address] [facility] Start: 03-16-2023 End: 03-16-2023 Telemedicine consultation with patient 03/16/2023 10:00 AM EST Telemedicine [facility] [address] [place] [address] Shireen Khan, RING SORTER-TOOL MACHINE SETUP OPERATOR, RING SORTER-COMPUTER AIDE [address] Department of Psychiatry-[facility] [place] [address] [facility] Start: 12-19-2022 COVID-19 Vaccine ( season) COVID-19 Vaccine ( season) [facility] Start: 12-19-2022 Influenza vaccination Influenza Vacc ine (#1) [facility] Start: 12-19-2021 Influenza vaccination C [facility] Start: 06-18-2021 COVID-19 VACCINE (4 - Booster for Pfizer series) COVID-19 VACCINE (4 - Booster for Pfizer series) [facility] Start: 06-18-2021 COVID-19 Vaccine (4 - Pfizer risk series) COVID-19 Vaccine (4 - Pfizer risk series) [facility] Start: 06-18-2021 COVID-19 Vaccine (4 - Pfizer series) COVID-19 Vaccine (4 - Pfizer series) [facility] Start: 04-20-2021 DEPRESSION ASSESSMENT DEPRESSION ASS ESSMENT [facility] Start: 01-30-2021 Adult depression screening assessment DEPRESSION SCREENING [facility] Start: 01-02-2021 COVID-19 VACCINE (3 - Booster for Pfizer series) COVID-19 VACCINE (3 - Booster for Pfizer series) [facility] Start: 12-19-2020 Influenza vaccination INFLUENZA (#1) [facility] Start: 08-12-2014 LIPID SCREEN LIPID SCREEN [facility] Start: 08-12-2001 DTaP/Tdap/Td Vaccine s (1 - Tdap) DTaP/Tdap/Td Vaccines (1 - Tdap) [facility] Start: 08-12-1998 Hepatitis A Vaccines (1 of 2 - Risk 2-dose series) Hepatitis A Vaccines (1 of 2 - Risk 2-dose series) [facility] Start: 08-12-1998 Hepatitis B Vaccines (1 of 3 - 19+ 3-dose series) Hepatitis B Vaccines (1 of 3 - 19+ 3-dose series) [facility] Start: 08-12-1998 Urine microalbumin profile DTAP,TDAP,TD (1 - Tdap) [facility] Start: 08-12-1997 Diabetes mellitus screening Diabetes Screening [facility] Start: 08-12-1997 HEPATITIS C SCREENING HEPATITIS C [facility] Start: 08-12-1997 Hepatitis C screening Hepatitis C [facility] Start: 08-12-1997 HIV SCREENING HIV SCREENING [facility] Start: 08-12-1980 MMR Vaccines (1 of 1 - Standard series) MMR Vaccines (1 of 1 - Standard series) [facility] Start: 1979 HEPATITIS B (1 of 3 - 3-dose series) HEPATITIS B (1 of 3 - 3-dose series) [facility] Start: 1979 Hepatitis B Vaccines (1 of 3 - 3-dose series) Hepatitis B Vaccines (1 of 3 - 3-dose series) [facility] Start: 1980 HIV screening HIV Screening [facility] Start: 1979 Medicare Annual Well ness Visit Medicare Annual Wellness Visit (AWV) [facility] Comprehensive metabo lic 2000 panel - Serum or Plasma [facility] End: 03-23-2025 [place] [Moles/volume] in Serum or Plasma [place] [facility] Routine Medication management Healthcare maintenance 1 Occurrences starting 03/23/2024 until 03/23/2025 [facility] Service Area Work Phone: Comment on above: 1 Occurrences starti ng 03/23/2024 until 03/23/2025 Patient referral [facility] Work Phone: [facility] Immunizations Immunization Date Immunization Notes Care Provider Fa cility 11-04-2024 influenza, seasonal, injectable, preservative free Shireen Khan RING SORTER-TOOL MACHINE SETUP OPERATOR, RING SORTER-COMPUTER AIDE Work Phone: [facility] Work Phone: 02-22-2024 Moderna COVID-19 vaccine, age 6mo-11y (25mcg/0.25mL)(Spikev ax) Shireen Khan RING SORTER-TOOL MACHINE SETUP OPERATOR, RING SORTER-COMPUTER AIDE Work Phone: [facility] Work Phone: 01-13-2022 influenza virus vaccine, split virus (incl. purified surface antigen) Mora Hendrickson Other Hall Other 01-13-2022 influenza virus vaccine, unspecified formulation Coleman Haptik [facility] 01-13-2022 Influenza, injectable, Madin Linden Canine Kidney, preservative free, quadrivalent Shireen Khan RING SORTER-TOOL MACHINE SETUP OPERATOR, RING SORTER-COMPUTER AIDE Work Phone: [facility] Work Phone: 04-23-2021 SARS-CoV-2 (COVID-19 ) mRNA BNT-162b2 vax Coleman Haptik [facility] Comment on above: Result Comment: 2021: [id number] 01-20-2021 influenza virus vaccine, unspecified formulation Coleman CARMICHAEL [facility] 01-20-2021 influenza, injectable, quadrivalent, preservative free Shireen Khan RING SORTER-TOOL MACHINE SETUP OPERATOR, RING SORTER-COMPUTER AIDE Work Phone: [facility] Work Phone: 08-02-2020 SARS-CoV-2 (COVID-19 ) mRNA BNT-162b2 vax Coleman Haptik [facility] 07-11-2020 SARS-CoV-2 (COVID-19 ) mRNA BNT-162b2 vax Colemanlenin CARMICHAEL [facility] 01-30-2020 influenza virus vaccine, unspecified formulation Colemanlenin CARMICHAEL [facility] 01-30-2020 Seasonal, quadrivalent, recombinant, injectable influenza vaccine, preservative free Shireen Khan RING SORTER-TOOL MACHINE SETUP OPERATOR, RING SORTER-COMPUTER AIDE Work Phone: [facility] Work Phone: 02-04-2018 influenza virus vaccine, split virus (incl. purified surface antigen) Mora Hendrickson Other Hall Other 02-04-2018 influenza virus vaccine, unspecified formulation Coleman CARMICHAEL [facility] 02-04-2018 Influenza, injectable, Madin Linden Canine Kidney, quadrivalent with preservative Shireen Khan RING SORTER-TOOL MACHINE SETUP OPERATOR, RING SORTER-COMPUTER AIDE Work Phone: [facility] Work Phone: Payers Date Payer Category Payer Self-pay 2022 Medicare (Managed Care) [employer] [id number] 2021 Medicare [id number] 2017 Medicare [id number] [id number]. 2.7.3.873528.315 1979 Unknown [id number] 2.16.840.1.188770.3.579. 2.727 1979 Unknown [id number] 2.16.840.1.845520.3.579. 2.727 1979 Unknown [id number] 2.16.840.1.609538.3.579. 2.727 1979 Unknown [id number] 2.16.840.1.914664.3.579. 2.727 1979 Unknown [id number] 2.16.840.1.820354.3.579. 2.593 1979 Unknown [id number] 2.16.840.1.700995.3.579. 2.593 1979 Unknown [id number] 2.16.840.1.697310.3.579. 2.593 1979 Unknown [id number] 2.16.840.1.316492.3.579. 2.593 1979 Unknown [id number] 2.16.840.1.738071.3.579. 2.593 1979 Unknown [id number] 2.16.840.1.330552.3.579. 2.593 1979 Unknown [id number] 2.16.840.1.076617.3.579. 2.593 1979 Unknown [id number] 2.16.840.1.761197.3.579. 2.593 1979 Unknown [id number] 2.16.840.1.715298.3.579. 2.1259 1979 Unknown [id number] 2.16.840.1.010802.3.579. 2.1259 24-1980 Unknown [id number] 2.840.1.773951.3.579. 2.1243 1979 Unknown [id number] 2.840.1.680524.3.579. 2.1243 1979 Unknown [id number] 2.840.1.337332.3.579. 2.1243 1979 Unknown [id number] 2.840.1.335502.3.579. 2.1243 1979 Unknown [id number] 2.840.1.702855.3.579. 2.1243 1979 Unknown [id number] 2.840.1.941128.3.579. 2.1243 1979 Unknown [id number] 2.0.1.748280.3.579. 2.1243 1979 Unknown [id number] 2.840.1.239080.3.579. 2.1243 1979 Unknown [id number] 2.0.1.588808.3.579. 2.1243 1979 Unknown [id number] 2.840.1.794158.3.579. 2.1244 1979 Unknown [id number] 2.840.1.661344.3.579. 2.1244 1979 Unknown [id number] 2.840.1.450702.3.579. 2.1244 1979 Unknown [id number] 2.840.1.793697.3.579. 2.1244 1979 Unknown [id number] 2.840.1.580189.3.579. 2.1244 1979 Unknown [id number] 2.840.1.425280.3.579. 2.1244 1979 Unknown [id number] 2.840.1.201811.3.579. 2.1245 1979 Unknown [id number] 2.16.840.1.279152.3.579. 2.1244 1979 Unknown [id number] 2.16.840.1.886406.3.579. 2.124 1979 Unknown [id number] 2.16.840.1.111386.3.579. 2.1244 1979 Unknown [id number] 2.16.840.1.747617.3.579. 2.1244 1979 Unknown [id number] 2.16.840.1.811317.3.579. 2.1245 1959 Private Health Insurance [id number] Medicare [id number] Unknown Unknown [facility] [id number] Unknown [id number] 2.16.840.1.715704.3.579. 2.531 Unknown [id number] 2.16.840.1.011550.3.579. 2.531 Social History Date Type Detail Facility Tobacco smoking status MTIS Tobacco smoking consumption unknown [facility] Start: 1980 Sex Assigned At Not on file C [facility] Start: 07-26-2021 End: 05-06-2023 Exposure to SARS-CoV-2 (event) Not sure [facility] Start: 03-31-2022 End: 02-16-2023 Tobacco smoking status Never smoked tobacco (finding) [facility] Tobacco smoking status Never [facility] Start: 02-16-2023 End: 03-23-2024 Sex Assigned At Male [facility] Start: 02-16-2023 Tobacco use and exposure Smokeless tobacco non-user [facility] Work Phone: Start: 02-16-2023 End: 03-23-2024 History of Social function [facility] Work Phone: Start: 1980 Sex Assigned At Male F [facility] Medical Equipment Procedure Code Equipment Code Equipment Origin al Text Equipment Identifier Dates Start: 05-26-2023 Functional Status Date Assessment Result Facility 03-31-2022 Functional Status N/A [facility] Clinical Notes 12-12-2020 to 03-23-2024 Assessment & Plan Note - LIZZIE Corona APRN-CNS - 03/23/2024 1:06 PM ESTAssessment & Plan Note - LIZZIE Corona APRN-CNS - 03/23/2024 1:06 PM EST Note Date & Type Note Facility 03-23-2024 Evaluation + Plan note Associated Problem(s): Extrapyramidal symptom Suspect r/t risperidone. Attempted to taper gradually x 3 in the past year, but unable to toelrate d/t exacerbation of mood sx. 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 Continue quetiapine as noted above, with plan to re-attempt taper off of risperidone. If sx persist after risperidone has been discontinued, and tardive dyskinesia is suspected, will discuss treatment options. [facility] Work Phone: 03-23-2024 Evaluation + Plan note Associated Problem(s): Severe episode of recurrent major depressive disorder, without psychotic features (Multi) Plan as noted above for 'Other bipolar disorder' [facility] Work Phone: 03-23-2024 Evaluation + Plan note Associated Problem(s): Generalized anxiety disorder As noted above, some suspicion for mood dysregulation/mixed mood sx vs exacerbation of anxious sx recently. Continue taper of venlafaxine as tolerated, and continue quetiapine as noted above. Continue gabapentin as noted above. Continue mirtazapine 45 mg PO at bedtime- no refill needed today. Continue clonazepam 1 mg PO BID- no refill needed today. Continue clonidine 0.2 mg PO at bedtime PRN for sleep- no refill needed today. Continue hydroxyzine 50-100 mg PO daily PRN for anxiety- no refill needed today. Continue individual therapy. Continuing efforts at mitigating polypharmacy. 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 Reviewed OARRS, no discrepancies or concerns. Discussed risk of motor/cognitive impairment, sedation, dependence, tolerance, abuse, withdrawal sequelae, accidental overdose, life-threatening respiratory depression (rashard. in combination with alcohol and/or opioids), excess sedation in combination with other sedating medicines. [facility] Work Phone: 03-23-2024 Miscellaneous Notes Associated Problem(s): Extrapyramidal symptom Suspect r/t risperidone. Attempted to taper gradually x 3 in the past year, but unable to toelrate d/t exacerbation of mood sx. 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 Continue quetiapine as noted above, with plan to re-attempt taper off of risperidone. If sx persist after risperidone has been discontinued, and tardive dyskinesia is suspected, will discuss treatment options. Associated Problem(s): Severe episode of recurrent major depressive disorder, without psychotic features (Multi) Plan as noted above for 'Other bipolar disorder' Associated Problem(s): Generalized anxiety disorder As noted above, some suspicion for mood dysregulation/mixed mood sx vs exacerbation of anxious sx recently. Continue taper of venlafaxine as tolerated, and continue quetiapine as noted above. Continue gabapentin as noted above. Continue mirtazapine 45 mg PO at bedtime- no refill needed today. Continue clonazepam 1 mg PO BID- no refill needed today. Continue clonidine 0.2 mg PO at bedtime PRN for sleep- no refill needed today. Continue hydroxyzine 50-100 mg PO daily PRN for anxiety- no refill needed today. Continue individual therapy. Continuing efforts at mitigating polypharmacy. Goal custodial will be to reduce and ideally discontinue clonazepam. Reviewed OARRS, no discrepancies or concerns. Discussed risk of motor/cognitive impairment, sedation, dependence, tolerance, abuse, withdrawal sequelae, accidental overdose, life-threatening respiratory depression (rashard. in combination with alcohol and/or opioids), excess sedation in combination with other sedating medicines. Electronically signed by Shireen Khan, JANA-TOOL MACHINE SETUP OPERATOR, RING SORTER-COMPUTER AIDE at 03/23/2024 1:06 PM EST Associated Problem(s): Other bipolar disorder r/o Bipolar 2 disorder vs MDD- given mood dysregulation, mixed mood sx +/- exacerbation of anxious sx, some concern that combination of mirtazapine + venlafaxine at high doses may be contributing to mixed mood episode/sx. Discussed that it is not uncommon to experience discontinuation sx, even when venlafaxine is gradually tapered, but that these are typically transient and tend to improve with ~1 week of dose reduction. Continuing to gradually taper venlafaxine in 37.5 mg increments. Reviewed lithium level and BMP from 03/14/2024 following most recent dose titration. Level 0.65- just within therapeutic range. Will gently titrate given persistence and severity of depressive sx. Discussed indication(s), reviewed risks/benefits/alternatives. Polypharmacy has been an ongoing concern, and remains so. Plan remains to gradually taper venlafaxine and potentially mirtazapine in the future as well if quetiapine is well-tolerated and provides benefit. As noted in previous visits, would also ideally like to taper and discontinue risperidone, given concern for possible EPS. We have attempted x 3 and he has so far been unable to tolerate d/t severe exacerbation of mood sx, further supporting plan noted above. Decreased venlafaxine ER to 75mg PO daily ~4 days ago. Plan to further taper and discontinue. Continue quetiapine 50 mg PO in AM and mid-day, and 200 mg PO at bedtime.- refill sent to pharmacy today. Increase lithium ER to 1500 mg PO at bedtime (03/14 lithium level= 0.65)- order placed today for repeat lithium level ~1 week after starting dose increase. Continue lamotrigine 100 mg PO BID. -no refill needed today. Continue mirtazapine 45 mg PO at bedtime-no refill needed today. Continue gabapentin 1200 mg PO TID- no refill needed today. Continue risperidone 1 mg PO daily and 2 mg PO at bedtime (for now). -no refill needed today. Has not recently been engaging in individual therapy, and not receptive to doing so. Advised of potentially fatal rash (i.e. Herrera-Rojas [...] re-titration is necessary. documented in this encounter [facility] Work Phone: 03-23-2024 Evaluation + Plan note Associated Problem(s): Other bipolar disorder r/o Bipolar 2 disorder vs MDD- given mood dysregulation, mixed mood sx +/- exacerbation of anxious sx, some concern that combination of mirtazapine + venlafaxine at high doses may be contributing to mixed mood episode/sx. Discussed that it is not uncommon to experience discontinuation sx, even when venlafaxine is gradually tapered, but that these are typically transient and tend to improve with ~1 week of dose reduction. Continuing to gradually taper venlafaxine in 37.5 mg increments. Reviewed lithium level and BMP from 03/14/2024 following most recent dose titration. Level 0.65- just within therapeutic range. Will gently titrate given persistence and severity of depressive sx. Discussed indication(s), reviewed risks/benefits/alternatives. Polypharmacy has been an ongoing concern, and remains so. Plan remains to gradually taper venlafaxine and potentially mirtazapine in the future as well if quetiapine is well-tolerated and provides benefit. As noted in previous visits, would also ideally like to taper and discontinue risperidone, given concern for possible EPS. We have attempted x 3 and he has so far been unable to tolerate d/t severe exacerbation of mood sx, further supporting plan noted above. Decreased venlafaxine ER to 75mg PO daily ~4 days ago. Plan to further taper and discontinue. Continue quetiapine 50 mg PO in AM and mid-day, and 200 mg PO at bedtime.- refill sent to pharmacy today. Increase lithium ER to 1500 mg PO at bedtime (03/14 lithium level= 0.65)- order placed today for repeat lithium level ~1 week after starting dose increase. Continue lamotrigine 100 mg PO BID. -no refill needed today. Continue mirtazapine 45 mg PO at bedtime-no refill needed today. Continue gabapentin 1200 mg PO TID- no refill needed today. Continue risperidone 1 mg PO daily and 2 mg PO at bedtime (for now). -no refill needed today. Has not recently been engaging in individual therapy, and not receptive to doing so. Advised of potentially fatal rash (i.e. Herrera-Rojas [...] is necessary. Electronically signed by Shireen Khan, JANA-TOOL MACHINE SETUP OPERATOR, JANA-COMPUTER AIDE at 03/23/2024 1:05 PM EST N [facility] Work Phone: 03-23-2024 History of Presen t illness Narrative Outpatient Psychiatry Subjective Daljit Napoles, is a 43 y.o. male, seen in follow-up. Assessment/Plan Problem List Items Addressed This Visit ICD-10-CM Other bipolar disorder F31.89 r/o Bipolar 2 disorder vs MDD- given mood dysregulation, mixed mood sx +/- exacerbation of anxious sx, some concern that combination of mirtazapine + venlafaxine at high doses may be contributing to mixed mood episode/sx. Discussed that it is not uncommon to experience discontinuation sx, even when venlafaxine is gradually tapered, but that these are typically transient and tend to improve with ~1 week of dose reduction. Continuing to gradually taper venlafaxine in 37.5 mg increments. Reviewed lithium level and BMP from 03/14/2024 following most recent dose titration. Level 0.65- just within therapeutic range. Will gently titrate given persistence and severity of depressive sx. Discussed indication(s), reviewed risks/benefits/alternatives. Polypharmacy has been an ongoing concern, and remains so. Plan remains to gradually taper venlafaxine and potentially mirtazapine in the future as well if quetiapine is well-tolerated and provides benefit. As noted in previous visits, would also ideally like to taper and discontinue risperidone, given concern for possible EPS. We have attempted x 3 and he has so far been unable to tolerate d/t severe exacerbation of mood sx, further supporting plan noted above. Decreased venlafaxine ER to 75mg PO daily ~4 days ago. Plan to further taper and discontinue. Continue quetiapine 50 mg PO in AM and mid-day, and 200 mg PO at bedtime.- refill sent to pharmacy today. Increase lithium ER to 1500 mg PO at bedtime (03/14 lithium level= 0.65)- order placed today for repeat lithium level ~1 week after starting dose increase. Continue lamotrigine 100 mg PO BID. -no refill needed today. Continue mirtazapine 45 mg PO at bedtime-no refill needed today. Continue gabapentin 1200 mg PO TID- no refill needed today. Continue risperidone 1 mg PO daily and 2 mg PO at bedtime (for now). -no refill needed today. Has not recently been engaging in individual therapy, and not receptive to doing so. Advised of potentially fatal rash (i.e. Herrera-Rojas [...] of non-adherence, re-titration is necessary. Relevant Medications lithium ER (Lithobid) 300 mg 12 hr tablet QUEtiapine (SEROquel) 200 mg tablet Other Relevant Orders Follow Up In Psychiatry Generalized anxiety disorder F41.1 As noted above, some suspicion for mood dysregulation/mixed mood sx vs exacerbation of anxious sx recently. Continue taper of venlafaxine as tolerated, and continue quetiapine as noted above. Continue gabapentin as noted above. Continue mirtazapine 45 mg PO at bedtime- no refill needed today. Continue clonazepam 1 mg PO BID- no refill needed today. Continue clonidine 0.2 mg PO at bedtime PRN for sleep- no refill needed today. Continue hydroxyzine 50-100 mg PO daily PRN for anxiety- no refill needed today. Continue individual therapy. Continuing efforts at mitigating polypharmacy. 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 Reviewed OARRS, no discrepancies or concerns. Discussed risk of motor/cognitive impairment, sedation, dependence, tolerance, abuse, withdrawal sequelae, accidental overdose, life-threatening respiratory depression (rashard. in combination with alcohol and/or opioids), excess sedation in combination with other sedating medicines. Relevant Medications cloNIDine (Catapres) 0.2 mg tablet QUEtiapine (SEROquel) 200 mg tablet Other Relevant Orders Follow Up In Psychiatry Severe episode of recurrent major depressive disorder, without psychotic features (Multi) F33.2 Plan as noted above for 'Other bipolar disorder' Relevant Medications lithium ER (Lithobid) 300 mg 12 hr tablet QUEtiapine (SEROquel) 200 mg tablet Other Relevant Orders Follow Up In Psychiatry Extrapyramidal symptom R29.818 Suspect r/t risperidone. Attempted to taper gradually x 3 in the past year, but unable to toelrate d/t exacerbation of mood sx. 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 Continue quetiapine as noted above, with plan to re-attempt taper off of risperidone. If sx persist after risperidone has been discontinued, and tardive dyskinesia is suspected, will discuss treatment options. Relevant Orders Follow Up In Psychiatry Other Visit Diagnoses Codes Medication management Z79.899 Relevant Orders [place] [facility] maintenance Z00.00 Relevant Orders [place] Follow-up in 2-3 weeks Risk Assessment: Risk Assessment: Daljit Napoles is currently a low acute risk of suicide and self-harm due to no past suicide attempt(s) and despite currently endorsing intermittent, fleeting thoughts of suicide and passive thoughts of . Daljit Napoles is currently a low acute [...] years, positive family relationships, and hopefulness/future orientation. Provided with crisis/emergency resources, including Mobile Crisis [phone], Crisis Text Line (text 9INPF qr 420223) and the National Suicide Prevention Lifeline hotline . Agrees to call 988 or go to the nearest emergency department if he feels unsafe, or has suicidal thinking with a plan or intent. Reason for Visit: Follow-up for medication management. HPI: Since his last visit, Not noticing much change in mood. Experiencing same fluctuations in mood- consistently feeling sx are better earlier in the day, and worse as the day goes on. Doesn't necessarily stay depressed, mood can come back up before the day is over, but pretty consistently notices dip in mood in late afternoon. No change in anxious sx. No change in sleep. Some days worse than others. On had his son, and depressive sx emerged very suddenly in the afternoon. [place] overwhelmed, like he didn't know what to do or how he would manage to get through the rest of the day. No side effects with most recent lithium dose titration. Venlafaxine dose is currently 75 mg PO daily, and planning to reduce to 37.5 mg in the next 3-4 days. Most recent taper went well, no major discontinuation symptoms. Denies suicidal ideation or a passive wish. No new medications or health problems. Current Psychiatric Medications: Clonazepam 1 mg PO BID Clonidine 0.2 mg PO at bedtime PRN for sleep [place] ER 1350 mg PO at bedtime Gabapentin 1200 mg PO TID Lamotrigine 100 mg PO BID Mirtazapine 45 mg PO at bedtime Quetiapine 50 mg BID and 200 mg PO at bedtime Risperidone 2 mg PO daily and 1 mg PO at bedtime Effexor XR 75 mg PO daily Hydroxyzine 50-100 mg PO daily PRN for anxiety Record Review: brief Medical Review Of Systems: Pertinent items are noted in HPI. Psychiatric Review Of Systems: As noted in HPI. Objective Mental Status Exam General Appearance: Well groomed, appropriate eye contact Attitude/Behavior: Cooperative Motor: No psychomotor agitation or retardation, no tremor or other abnormal movements Speech: Normal rate, volume, prosody Mood: Not much different. Affect: Constricted, Congruent with mood and topic of conversation Thought Process: Linear, goal directed Thought Associations: No loosening of associations Thought Content: Other: (comment) (some persistent depressive themes.) Perception: No perceptual abnormalities noted Sensorium: Alert and oriented to person, place, time and situation Insight: Intact Judgement: Intact Cognition: Cognitively intact to conversational testing with respect to attention, orientation, fund of knowledge, recent and remote memory, and language Vitals: There were no vitals filed for this visit. Labs: Lab on 03/14/2024 Component Date Value [place] 03/14/2024 0.65 Lab on 03/03/2024 Component Date Value [place] 03/03/2024 0.56 (L) Lab on 02/23/2024 Component Date Value [place] 02/23/2024 0.42 (L) Glucose 02/23/2024 94 Sodium 02/23/2024 138 Potassium 02/23/2024 3.9 Chloride 02/23/2024 104 Bicarbonate 02/23/2024 25 Anion Gap 02/23/2024 13 Urea Nitrogen 02/23/2024 13 Creatinine 02/23/2024 0.66 eGFR 02/23/2024 >90 Calcium 02/23/2024 9.3 LIZZIE Corona, JANA-COMPUTER AIDE documented in this encounter [facility] Work Phone: 02-24-2024 Evaluation + Plan note Associated Problem(s): Extrapyramidal symptom Suspect r/t risperidone. Attempted to taper gradually x 3 in the past year, but unable to toelrate d/t exacerbation of mood sx. 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 Recent titration of quetiapine as noted above, with plan to re-attempt taper off of risperidone. If sx persist after risperidone has been discontinued, and tardive dyskinesia is suspected, will discuss treatment options. [facility] Work Phone: 02-24-2024 Evaluation + Plan note Associated Problem(s): Severe episode of recurrent major depressive disorder, without psychotic features (Multi) Plan as noted above for 'Other bipolar disorder' [facility] Work Phone: 02-24-2024 Evaluation + Plan note Associated Problem(s): Generalized anxiety disorder As noted above, some suspicion for mood dysregulation/mixed mood sx vs exacerbation of anxious sx recently. Continue taper of venlafaxine as tolerated, and continue quetiapine as noted above. Continue gabapentin as noted above. Continue mirtazapine 45 mg PO at bedtime- no refill needed today. Continue clonazepam 1 mg PO BID- no refill needed today. Continue clonidine 0.2 mg PO at bedtime PRN for sleep- no refill needed today. Continue hydroxyzine 50-100 mg PO daily PRN for anxiety- no refill needed today. Continue individual therapy. Continuing efforts at mitigating polypharmacy. 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 Reviewed [place]AR[place], no discrepancies or concerns. Discussed risk of motor/cognitive impairment, sedation, dependence, tolerance, abuse, withdrawal sequelae, accidental overdose, life-threatening respiratory depression (rashard. in combination with alcohol and/or opioids), excess sedation in combination with other sedating medicines. [facility] Work Phone: 02-24-2024 Miscellaneous Notes Associated Problem(s): Extrapyramidal symptom Suspect r/t risperidone. Attempted to taper gradually x 3 in the past year, but unable to toelrate d/t exacerbation of mood sx. 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 Recent titration of quetiapine as noted above, with plan to re-attempt taper off of risperidone. If sx persist after risperidone has been discontinued, and tardive dyskinesia is suspected, will discuss treatment options. Associated Problem(s): Severe episode of recurrent major depressive disorder, without psychotic features (Multi) Plan as noted above for 'Other bipolar disorder' Associated Problem(s): Generalized anxiety disorder As noted above, some suspicion for mood dysregulation/mixed mood sx vs exacerbation of anxious sx recently. Continue taper of venlafaxine as tolerated, and continue quetiapine as noted above. Continue gabapentin as noted above. Continue mirtazapine 45 mg PO at bedtime- no refill needed today. Continue clonazepam 1 mg PO BID- no refill needed today. Continue clonidine 0.2 mg PO at bedtime PRN for sleep- no refill needed today. Continue hydroxyzine 50-100 mg PO daily PRN for anxiety- no refill needed today. Continue individual therapy. Continuing efforts at mitigating polypharmacy. Goal custodial will be to reduce and ideally discontinue clonazepam. Reviewed OARRS, no discrepancies or concerns. Discussed risk of motor/cognitive impairment, sedation, dependence, tolerance, abuse, withdrawal sequelae, accidental overdose, life-threatening respiratory depression (rashard. in combination with alcohol and/or opioids), excess sedation in combination with other sedating medicines. Electronically signed by Shireen Khan, JANA-TOOL MACHINE SETUP OPERATOR, RING SORTER-COMPUTER AIDE at 02/24/2024 3:57 PM EST Associated Problem(s): Other bipolar disorder r/o Bipolar 2 disorder vs MDD- given mood dysregulation, mixed mood sx +/- exacerbation of anxious sx, some concern that combination of mirtazapine + venlafaxine at high doses may be contributing to mixed mood episode/sx. Discussed that it is not uncommon to experience discontinuation sx, even when venlafaxine is gradually tapered, but that these are typically transient and tend to improve with ~1 week of dose reduction. Continuing to gradually taper venlafaxine in 37.5 mg increments. Reviewed lithium level and BMP from 01/18/2024 (WNL). Given recent addition of Celebrex daily for pain (per PCP) and potential for interaction with lithium, will repeat lithium level, BMP after ~1 month to ensure stability of lithium level, and monitor renal function. Polypharmacy has been an ongoing concern, and remains so. Plan remains to gradually taper venlafaxine and potentially mirtazapine in the future as well if quetiapine is well-tolerated and provides benefit. As noted in previous visits, would also ideally like to taper and discontinue risperidone, given concern for possible EPS. We have attempted x 3 and he has so far been unable to tolerate d/t severe exacerbation of mood sx, further supporting plan noted above. Decreased venlafaxine ER to 187.5 mg PO daily ~5 days ago. Plan to further taper as tolerated. Continue quetiapine 50 mg PO in AM and mid-day, and 200 mg PO at bedtime.- has supply of medication at home, no refill needed today. Continue lithium ER 900 mg PO at bedtime (01/17 lithium level= 0.61, BMP WNL). Orders placed today for repeat lithium level and BMP to be drawn prior to next appointment. Continue lamotrigine 100 mg PO BID. -no refill needed today. Continue mirtazapine 45 mg PO at bedtime-no refill needed today. Continue gabapentin 1200 mg PO TID- no refill needed today. Continue risperidone 1 mg PO daily and 2 mg PO at bedtime (for now). -no refill needed today. Has not recently been engaging in individual therapy, and not receptive to doing so. Advised of potentially fatal rash (i.e. Herrera-Rojas [...] re-titration is necessary. documented in this encounter [facility] Work Phone: 02-24-2024 Evaluation + Plan note Associated Problem(s): Other bipolar disorder r/o Bipolar 2 disorder vs MDD- given mood dysregulation, mixed mood sx +/- exacerbation of anxious sx, some concern that combination of mirtazapine + venlafaxine at high doses may be contributing to mixed mood episode/sx. Discussed that it is not uncommon to experience discontinuation sx, even when venlafaxine is gradually tapered, but that these are typically transient and tend to improve with ~1 week of dose reduction. Continuing to gradually taper venlafaxine in 37.5 mg increments. Reviewed lithium level and BMP from 01/18/2024 (WNL). Given recent addition of Celebrex daily for pain (per PCP) and potential for interaction with lithium, will repeat lithium level, BMP after ~1 month to ensure stability of lithium level, and monitor renal function. Polypharmacy has been an ongoing concern, and remains so. Plan remains to gradually taper venlafaxine and potentially mirtazapine in the future as well if quetiapine is well-tolerated and provides benefit. As noted in previous visits, would also ideally like to taper and discontinue risperidone, given concern for possible EPS. We have attempted x 3 and he has so far been unable to tolerate d/t severe exacerbation of mood sx, further supporting plan noted above. Decreased venlafaxine ER to 187.5 mg PO daily ~5 days ago. Plan to further taper as tolerated. Continue quetiapine 50 mg PO in AM and mid-day, and 200 mg PO at bedtime.- has supply of medication at home, no refill needed today. Continue lithium ER 900 mg PO at bedtime (01/17 lithium level= 0.61, BMP WNL). Orders placed today for repeat lithium level and BMP to be drawn prior to next appointment. Continue lamotrigine 100 mg PO BID. -no refill needed today. Continue mirtazapine 45 mg PO at bedtime-no refill needed today. Continue gabapentin 1200 mg PO TID- no refill needed today. Continue risperidone 1 mg PO daily and 2 mg PO at bedtime (for now). -no refill needed today. Has not recently been engaging in individual therapy, and not receptive to doing so. Advised of potentially fatal rash (i.e. Herrera-Rojas [...] is necessary. Electronically signed by Shireen Khan, JANA-TOOL MACHINE SETUP OPERATOR, RING SORTER-COMPUTER AIDE at 02/24/2024 3:56 PM EST [facility] Work Phone: 02-23-2024 Evaluation + Plan note Associated Problem(s): Extrapyramidal symptom Suspect r/t risperidone. Attempted to taper gradually x 3 in the past year, but unable to toelrate d/t exacerbation of mood sx. 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 Recent titration of quetiapine as noted above, with plan to re-attempt taper off of risperidone. If sx persist after risperidone has been discontinued, and tardive dyskinesia is suspected, will discuss treatment options. [facility] Work Phone: 02-23-2024 Evaluation + Plan note Associated Problem(s): Severe episode of recurrent major depressive disorder, without psychotic features (Multi) Plan as noted above for 'Other bipolar disorder' [facility] Work Phone: 02-23-2024 Evaluation + Plan note Associated Problem(s): Generalized anxiety disorder As noted above, some suspicion for mood dysregulation/mixed mood sx vs exacerbation of anxious sx recently. Continue taper of venlafaxine as tolerated, and continue quetiapine as noted above. Continue gabapentin as noted above. Continue mirtazapine 45 mg PO at bedtime- no refill needed today. Continue clonazepam 1 mg PO BID- no refill needed today. Continue clonidine 0.2 mg PO at bedtime PRN for sleep- no refill needed today. Continue hydroxyzine 50-100 mg PO daily PRN for anxiety- no refill needed today. Continue individual therapy. Continuing efforts at mitigating polypharmacy. Goal custodial will be to reduce and ideally discontinue clonazepam. Reviewed OARRS, no discrepancies or concerns. Discussed risk of motor/cognitive impairment, sedation, dependence, tolerance, abuse, withdrawal sequelae, accidental overdose, life-threatening respiratory depression (rashard. in combination with alcohol and/or opioids), excess sedation in combination with other sedating medicines. [facility] Work Phone: 02-23-2024 Miscellaneous Notes Associated Problem(s): Extrapyramidal symptom Suspect r/t risperidone. Attempted to taper gradually x 3 in the past year, but unable to toelrate d/t exacerbation of mood sx. 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 Recent titration of quetiapine as noted above, with plan to re-attempt taper off of risperidone. If sx persist after risperidone has been discontinued, and tardive dyskinesia is suspected, will discuss treatment options. Associated Problem(s): Severe episode of recurrent major depressive disorder, without psychotic features (Multi) Plan as noted above for 'Other bipolar disorder' Associated Problem(s): Generalized anxiety disorder As noted above, some suspicion for mood dysregulation/mixed mood sx vs exacerbation of anxious sx recently. Continue taper of venlafaxine as tolerated, and continue quetiapine as noted above. Continue gabapentin as noted above. Continue mirtazapine 45 mg PO at bedtime- no refill needed today. Continue clonazepam 1 mg PO BID- no refill needed today. Continue clonidine 0.2 mg PO at bedtime PRN for sleep- no refill needed today. Continue hydroxyzine 50-100 mg PO daily PRN for anxiety- no refill needed today. Continue individual therapy. Continuing efforts at mitigating polypharmacy. 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 Reviewed OARRS, no discrepancies or concerns. Discussed risk of motor/cognitive impairment, sedation, dependence, tolerance, abuse, withdrawal sequelae, accidental overdose, life-threatening respiratory depression (rashard. in combination with alcohol and/or opioids), excess sedation in combination with other sedating medicines. Electronically signed by Shireen Khan, JANA-TOOL MACHINE SETUP OPERATOR, RING SORTER-COMPUTER AIDE at 02/23/2024 1:18 PM EST Associated Problem(s): Other bipolar disorder r/o Bipolar 2 disorder vs MDD- given mood dysregulation, mixed mood sx +/- exacerbation of anxious sx, some concern that combination of mirtazapine + venlafaxine at high doses may be contributing to mixed mood episode/sx. Discussed that it is not uncommon to experience discontinuation sx, even when venlafaxine is gradually tapered, but that these are typically transient and tend to improve with ~1 week of dose reduction. Continuing to gradually taper venlafaxine in 37.5 mg increments. Has found quetiapine PRN beneficial for mood/anxious sx, and now taking routinely with fair benefit. Will further titrate to target dose of total of 300 mg daily for mood stabilization. Reviewed lithium level and BMP from 01/18/2024 (WNL). Given recent addition of Celebrex daily for pain (per PCP) and potential for interaction with lithium, will repeat lithium level, BMP after ~1 month to ensure stability of lithium level, and monitor renal function. Polypharmacy has been an ongoing concern, and remains so. Plan remains to gradually taper venlafaxine and potentially mirtazapine in the future as well if quetiapine is well-tolerated and provides benefit. As noted in previous visits, would also ideally like to taper and discontinue risperidone, given concern for possible EPS. We have attempted x 3 and he has so far been unable to tolerate d/t severe exacerbation of mood sx, further supporting plan noted above. Decreased venlafaxine ER to 225 mg PO daily ~5 days ago. Plan to further taper as tolerated. Increase quetiapine to 50 mg PO in AM and mid-day, and 200 mg PO at bedtime.- has supply of medication at home, no refill needed today. Continue lithium ER 900 mg PO at bedtime (01/17 lithium level= 0.61, BMP WNL). Will repeat lithium level and BMP in late January. Continue lamotrigine 100 mg PO BID. -no refill needed today. Continue mirtazapine 45 mg PO at bedtime-no refill needed today. Continue gabapentin 1200 mg PO TID- no refill needed today. Continue risperidone 1 mg PO daily and 2 mg PO at bedtime (for now). -no refill needed today. Continue engagement in individual [...] re-titration is necessary. Electronically signed by LAMONTE CoronaTOOL MACHINE SETUP OPERATOR, JANA-COMPUTER AIDE at 02/23/2024 1:17 PM EST documented in this encounter [facility] Work Phone: 02-23-2024 Evaluation + Plan note Associated Problem(s): Other bipolar disorder r/o Bipolar 2 disorder vs MDD- given mood dysregulation, mixed mood sx +/- exacerbation of anxious sx, some concern that combination of mirtazapine + venlafaxine at high doses may be contributing to mixed mood episode/sx. Discussed that it is not uncommon to experience discontinuation sx, even when venlafaxine is gradually tapered, but that these are typically transient and tend to improve with ~1 week of dose reduction. Continuing to gradually taper venlafaxine in 37.5 mg increments. Has found quetiapine PRN beneficial for mood/anxious sx, and now taking routinely with fair benefit. Will further titrate to target dose of total of 300 mg daily for mood stabilization. Reviewed lithium level and BMP from 01/18/2024 (WNL). Given recent addition of Celebrex daily for pain (per PCP) and potential for interaction with lithium, will repeat lithium level, BMP after ~1 month to ensure stability of lithium level, and monitor renal function. Polypharmacy has been an ongoing concern, and remains so. Plan remains to gradually taper venlafaxine and potentially mirtazapine in the future as well if quetiapine is well-tolerated and provides benefit. As noted in previous visits, would also ideally like to taper and discontinue risperidone, given concern for possible EPS. We have attempted x 3 and he has so far been unable to tolerate d/t severe exacerbation of mood sx, further supporting plan noted above. Decreased venlafaxine ER to 225 mg PO daily ~5 days ago. Plan to further taper as tolerated. Increase quetiapine to 50 mg PO in AM and mid-day, and 200 mg PO at bedtime.- has supply of medication at home, no refill needed today. Continue lithium ER 900 mg PO at bedtime (01/17 lithium level= 0.61, BMP WNL). Will repeat lithium level and BMP in late January. Continue lamotrigine 100 mg PO BID. -no refill needed today. Continue mirtazapine 45 mg PO at bedtime-no refill needed today. Continue gabapentin 1200 mg PO TID- no refill needed today. Continue risperidone 1 mg PO daily and 2 mg PO at bedtime (for now). -no refill needed today. Continue engagement in individual [...] re-titration is necessary. Electronically signed by LAMONTE CoronaTOOL MACHINE SETUP OPERATOR, JANA-COMPUTER AIDE at 02/23/2024 1:17 PM [facility] Work Phone: 02-17-2024 History of Presen t illness Narrative Outpatient Psychiatry Subjective Daljit MohanBrian Napoles, is a 43 y.o. male, seen in follow-up. Assessment/Plan Problem List Items Addressed This Visit ICD-10-CM Other bipolar disorder F31.89 r/o Bipolar 2 disorder vs MDD- given mood dysregulation, mixed mood sx +/- exacerbation of anxious sx, some concern that combination of mirtazapine + venlafaxine at high doses may be contributing to mixed mood episode/sx. Discussed that it is not uncommon to experience discontinuation sx, even when venlafaxine is gradually tapered, but that these are typically transient and tend to improve with ~1 week of dose reduction. Continuing to gradually taper venlafaxine in 37.5 mg increments. Reviewed lithium level and BMP from 01/18/2024 (WNL). Given recent addition of Celebrex daily for pain (per PCP) and potential for interaction with lithium, will repeat lithium level, BMP after ~1 month to ensure stability of lithium level, and monitor renal function. Polypharmacy has been an ongoing concern, and remains so. Plan remains to gradually taper venlafaxine and potentially mirtazapine in the future as well if quetiapine is well-tolerated and provides benefit. As noted in previous visits, would also ideally like to taper and discontinue risperidone, given concern for possible EPS. We have attempted x 3 and he has so far been unable to tolerate d/t severe exacerbation of mood sx, further supporting plan noted above. Decreased venlafaxine ER to 187.5 mg PO daily ~5 days ago. Plan to further taper as tolerated. Continue quetiapine 50 mg PO in AM and mid-day, and 200 mg PO at bedtime.- has supply of medication at home, no refill needed today. Continue lithium ER 900 mg PO at bedtime (01/17 lithium level= 0.61, BMP WNL). Orders placed today for repeat lithium level and BMP to be drawn prior to next appointment. Continue lamotrigine 100 mg PO BID. -no refill needed today. Continue mirtazapine 45 mg PO at bedtime-no refill needed today. Continue gabapentin 1200 mg PO TID- no refill needed today. Continue risperidone 1 mg PO daily and 2 mg PO at bedtime (for now). -no refill needed today. Has not recently been engaging in individual therapy, and not receptive to doing so. Advised of potentially fatal rash (i.e. Herrera-Rojas [...] of non-adherence, re-titration is necessary. Relevant Medications QUEtiapine (SEROquel) 200 mg tablet Other Relevant Orders Follow Up In Psychiatry Generalized anxiety disorder F41.1 As noted above, some suspicion for mood dysregulation/mixed mood sx vs exacerbation of anxious sx recently. Continue taper of venlafaxine as tolerated, and continue quetiapine as noted above. Continue gabapentin as noted above. Continue mirtazapine 45 mg PO at bedtime- no refill needed today. Continue clonazepam 1 mg PO BID- no refill needed today. Continue clonidine 0.2 mg PO at bedtime PRN for sleep- no refill needed today. Continue hydroxyzine 50-100 mg PO daily PRN for anxiety- no refill needed today. Continue individual therapy. Continuing efforts at mitigating polypharmacy. 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 Reviewed OARRS, no discrepancies or concerns. Discussed risk of motor/cognitive impairment, sedation, dependence, tolerance, abuse, withdrawal sequelae, accidental overdose, life-threatening respiratory depression (rashard. in combination with alcohol and/or opioids), excess sedation in combination with other sedating medicines. Relevant Medications QUEtiapine (SEROquel) 200 mg tablet Other Relevant Orders Follow Up In Psychiatry Severe episode of recurrent major depressive disorder, without psychotic features (Multi) F33.2 Plan as noted above for 'Other bipolar disorder' Relevant Medications QUEtiapine (SEROquel) 200 mg tablet Other Relevant Orders Follow Up In Psychiatry Extrapyramidal symptom R29.818 Suspect r/t risperidone. Attempted to taper gradually x 3 in the past year, but unable to toelrate d/t exacerbation of mood sx. 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 Recent titration of quetiapine as noted above, with plan to re-attempt taper off of risperidone. If sx persist after risperidone has been discontinued, and tardive dyskinesia is suspected, will discuss treatment options. Relevant Orders Follow Up In Psychiatry Other Visit Diagnoses Codes Medication management Z79.899 Relevant Orders [place] (Completed) Basic metabolic panel (Completed) Healthcare maintenance Z00.00 Relevant Orders [place] (Completed) Basic metabolic panel (Completed) Follow-up in 2-3 weeks. Risk Assessment: Risk Assessment: Daljit Napoles is currently a low acute risk of suicide and self-harm due to no past suicide attempt(s) and despite currently endorsing intermittent, fleeting thoughts of suicide and passive thoughts of . Daljit Napoles is currently a low acute [...] years, positive family relationships, and hopefulness/future orientation. Provided with crisis/emergency resources, including Mobile Crisis [phone], Crisis Text Line (text 4HZWB to 195243) and the National Suicide Prevention Lifeline hotline . Agrees to call 988 or go to the nearest emergency department if he feels unsafe, or has suicidal thinking with a plan or intent. Reason for Visit: Follow-up for medication management. HPI: Since his last visit, Things have not been very good. Fluctuating a lot... up and down. Can feel fine and suddenly, I'm rickey starting to fall apart again. Feeling of sadness and anxiety that can last for hours. Happens at random, multiple times/day, never knows when it's gonna happen. Sleep, hasn't been too bad... some nights are better than others. Energy level is, probably normal. Has been extremely difficult keeping up with self-care. Showers ~every 3 days. Feels better once he does, but feels like a monumental task. Everything else feels very hard. Son likes football, so they spend some time outside playing catch. Son also enjoys video games, and asks him to play. Able to enjoy the time they spend together- more effortless when mood is feeling normal. Has been taking quetiapine total dose of 300 mg for ~5 days. Not causing worsening sedation during the day. Currently taking venlafaxine 187.5 mg (past ~5 days), and has been tolerating decrease by 37.5 mg weekly. Hasn't recently been meeting with individual therapist. Provider semi-retired. Didn't feel like they were making much progress. Doesn't have confidence in therapy based on past experiences. Denies suicidal ideation or a passive wish. No new medications or health problems. Current Psychiatric Medications: Clonazepam 1 mg PO BID Clonidine 0.2 mg PO at bedtime PRN for sleep [place] ER 900 mg PO at bedtime Gabapentin 1200 mg PO TID Lamotrigine 100 mg PO BID Mirtazapine 45 mg PO at bedtime Quetiapine 50 mg BID and 200 mg PO at bedtime Risperidone 2 mg PO daily and 1 mg PO at bedtime Effexor XR 187.5 mg PO daily Hydroxyzine 50-100 mg PO daily PRN for anxiety Record Review: brief Medical Review Of Systems: Pertinent items are noted in HPI. Psychiatric Review Of Systems: As noted in HPI. Objective Mental Status Exam General Appearance: Well groomed, appropriate eye contact Attitude/Behavior: Cooperative Motor: No psychomotor agitation or retardation, no tremor or other abnormal movements Speech: Normal rate, volume, prosody Mood: Fluctuating a lot. Affect: Constricted, Congruent with mood and topic of conversation Thought Process: Linear, goal directed Thought Associations: No loosening of associations Thought Content: Other: (comment) (ongoing depressive themes.) Perception: No perceptual abnormalities noted Sensorium: Alert and oriented to person, place, time and situation Insight: Intact Judgement: Intact Cognition: Cognitively intact to conversational testing with respect to attention, orientation, fund of knowledge, recent and remote memory, and language Vitals: There were no vitals filed for this visit. Labs: not applicable LIZZIE Corona, JANA-COMPUTER AIDE documented in this encounter [facility] Work Phone: 02-04-2024 History of Presen t illness Narrative Outpatient Psychiatry Subjective Daljit Antonette Napoles, is a 43 y.o. male, seen in follow-up. Assessment/Plan Problem List Items Addressed This Visit ICD-10-CM Other bipolar disorder F31.89 r/o Bipolar 2 disorder vs MDD- given mood dysregulation, mixed mood sx +/- exacerbation of anxious sx, some concern that combination of mirtazapine + venlafaxine at high doses may be contributing to mixed mood episode/sx. Discussed that it is not uncommon to experience discontinuation sx, even when venlafaxine is gradually tapered, but that these are typically transient and tend to improve with ~1 week of dose reduction. Continuing to gradually taper venlafaxine in 37.5 mg increments. Has found quetiapine PRN beneficial for mood/anxious sx, and now taking routinely with fair benefit. Will further titrate to target dose of total of 300 mg daily for mood stabilization. Reviewed lithium level and BMP from 01/18/2024 (WNL). Given recent addition of Celebrex daily for pain (per PCP) and potential for interaction with lithium, will repeat lithium level, BMP after ~1 month to ensure stability of lithium level, and monitor renal function. Polypharmacy has been an ongoing concern, and remains so. Plan remains to gradually taper venlafaxine and potentially mirtazapine in the future as well if quetiapine is well-tolerated and provides benefit. As noted in previous visits, would also ideally like to taper and discontinue risperidone, given concern for possible EPS. We have attempted x 3 and he has so far been unable to tolerate d/t severe exacerbation of mood sx, further supporting plan noted above. Decreased venlafaxine ER to 225 mg PO daily ~5 days ago. Plan to further taper as tolerated. Increase quetiapine to 50 mg PO in AM and mid-day, and 200 mg PO at bedtime.- has supply of medication at home, no refill needed today. Continue lithium ER 900 mg PO at bedtime (01/17 lithium level= 0.61, BMP WNL). Will repeat lithium level and BMP in late January. Continue lamotrigine 100 mg PO BID. -no refill needed today. Continue mirtazapine 45 mg PO at bedtime-no refill needed today. Continue gabapentin 1200 mg PO TID- no refill needed today. Continue risperidone 1 mg PO daily and 2 mg PO at bedtime (for now). -no refill needed today. Continue engagement in individual [...] days of non-adherence, re-titration is necessary. Relevant Orders Follow Up In Psychiatry Generalized anxiety disorder F41.1 As noted above, some suspicion for mood dysregulation/mixed mood sx vs exacerbation of anxious sx recently. Continue taper of venlafaxine as tolerated, and continue quetiapine as noted above. Continue gabapentin as noted above. Continue mirtazapine 45 mg PO at bedtime- no refill needed today. Continue clonazepam 1 mg PO BID- no refill needed today. Continue clonidine 0.2 mg PO at bedtime PRN for sleep- no refill needed today. Continue hydroxyzine 50-100 mg PO daily PRN for anxiety- no refill needed today. Continue individual therapy. Continuing efforts at mitigating polypharmacy. 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 Reviewed OARRS, no discrepancies or concerns. Discussed risk of motor/cognitive impairment, sedation, dependence, tolerance, abuse, withdrawal sequelae, accidental overdose, life-threatening respiratory depression (rashard. in combination with alcohol and/or opioids), excess sedation in combination with other sedating medicines. Relevant Orders Follow Up In Psychiatry Severe episode of recurrent major depressive disorder, without psychotic features (Multi) F33.2 Plan as noted above for 'Other bipolar disorder' Relevant Orders Follow Up In Psychiatry Extrapyramidal symptom R29.818 Suspect r/t risperidone. Attempted to taper gradually x 3 in the past year, but unable to toelrate d/t exacerbation of mood sx. 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 Recent titration of quetiapine as noted above, with plan to re-attempt taper off of risperidone. If sx persist after risperidone has been discontinued, and tardive dyskinesia is suspected, will discuss treatment options. Relevant Orders Follow Up In Psychiatry Follow-up in 2 weeks. Risk Assessment: Risk Assessment: Daljit Napoles is currently a low acute risk of suicide and self-harm due to no past suicide attempt(s) and despite currently endorsing intermittent, fleeting thoughts of suicide and passive thoughts of . Daljit Napoles is currently a low acute [...] years, positive family relationships, and hopefulness/future orientation. Provided with crisis/emergency resources, including Mobile Crisis [phone], Crisis Text Line (text 5ZQDJ to 417668) and the National Suicide Prevention Lifeline hotline . Agrees to call 988 or go to the nearest emergency department if he feels unsafe, or has suicidal thinking with a plan or intent. Reason for Visit: Follow-up for medication management. HPI: Since his last visit, Things have been pretty much the same. Venlafaxine dose is currently 225 mg. Didn't have as many discontinuation sx with last reduction . Sleep has been, rickey rough. Things just really aren't good. Has difficulty sleeping consistently at night, so sleeps during the day/naps when he can. Mood is more depressed. Anxiety is higher- no obvious triggers/stressors Almost like an anxiety attack, but not a full blown [panic attack]. Happening every day, multiple times/day. Inquired about duloxetine. Was doing some research, and stood out as something he hadn't tried yet. Considering tx with esketamine as well, but doesn't want to pursue right now. I would like to try to work on this with medications first. Denies suicidal ideation or a passive wish. No new medications or health problems. Current Psychiatric Medications: Clonazepam 1 mg PO BID Clonidine 0.2 mg PO at bedtime PRN for sleep [place] ER 900 mg PO at bedtime Gabapentin 1200 mg PO TID Lamotrigine 100 mg PO BID Mirtazapine 45 mg PO at bedtime Quetiapine 50 mg up to TID PRN for anxiety/mood, and 100 mg PO at bedtime Risperidone 2 mg PO daily and 1 mg PO at bedtime Effexor XR 225 mg PO daily Hydroxyzine 50-100 mg PO daily PRN for anxiety Record Review: brief Medical Review Of Systems: Pertinent items are noted in HPI. Psychiatric Review Of Systems: As noted in HPI. Objective Mental Status Exam General Appearance: Well groomed, appropriate eye contact Attitude/Behavior: Cooperative Motor: No psychomotor agitation or retardation, no tremor or other abnormal movements Speech: Normal rate, volume, prosody Mood: Pretty much the same. Affect: Constricted, Congruent with mood and topic of conversation Thought Process: Linear, goal directed Thought Associations: No loosening of associations Thought Content: Other: (comment) (ongoing anxious and depressive themes.) Perception: No perceptual abnormalities noted Sensorium: Alert and oriented to person, place, time and situation Insight: Intact Judgement: Intact Cognition: Cognitively intact to conversational testing with respect to attention, orientation, fund of knowledge, recent and remote memory, and language Vitals: There were no vitals filed for this visit. Labs: not applicable LIZZIE Corona, JANA-COMPUTER AIDE documented in this encounter [facility] Work Phone: 02-02-2024 Evaluation + Plan note Associated Problem(s): Extrapyramidal symptom Suspect r/t risperidone. Attempted to taper gradually x 3 in the past year, but unable to toelrate d/t exacerbation of mood sx. 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 Recent titration of quetiapine as noted above, with plan to re-attempt taper off of risperidone. If sx persist after risperidone has been discontinued, and tardive dyskinesia is suspected, will discuss treatment options. [facility] Work Phone: 02-02-2024 Evaluation + Plan note Associated Problem(s): Severe episode of recurrent major depressive disorder, without psychotic features (Multi) Plan as noted above for 'Other bipolar disorder' [facility] Work Phone: 02-02-2024 Evaluation + Plan note Associated Problem(s): Generalized anxiety disorder As noted above, some suspicion for mood dysregulation/mixed mood sx vs exacerbation of anxious sx recently. Continue taper of venlafaxine as tolerated, and continue quetiapine as noted above. Continue gabapentin as noted above. Continue mirtazapine 45 mg PO at bedtime- no refill needed today. Continue clonazepam 1 mg PO BID- no refill needed today. Continue clonidine 0.2 mg PO at bedtime PRN for sleep- no refill needed today. Continue hydroxyzine 50-100 mg PO daily PRN for anxiety- no refill needed today. Continue individual therapy. Continuing efforts at mitigating polypharmacy. Goal custodial will be to reduce and ideally discontinue clonazepam. Reviewed OARRS, no discrepancies or concerns. Discussed risk of motor/cognitive impairment, sedation, dependence, tolerance, abuse, withdrawal sequelae, accidental overdose, life-threatening respiratory depression (rashard. in combination with alcohol and/or opioids), excess sedation in combination with other sedating medicines. [facility] Work Phone: 02-02-2024 Miscellaneous Notes Associated Problem(s): Extrapyramidal symptom Suspect r/t risperidone. Attempted to taper gradually x 3 in the past year, but unable to toelrate d/t exacerbation of mood sx. 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 Recent titration of quetiapine as noted above, with plan to re-attempt taper off of risperidone. If sx persist after risperidone has been discontinued, and tardive dyskinesia is suspected, will discuss treatment options. Associated Problem(s): Severe episode of recurrent major depressive disorder, without psychotic features (Multi) Plan as noted above for 'Other bipolar disorder' Associated Problem(s): Generalized anxiety disorder As noted above, some suspicion for mood dysregulation/mixed mood sx vs exacerbation of anxious sx recently. Continue taper of venlafaxine as tolerated, and continue quetiapine as noted above. Continue gabapentin as noted above. Continue mirtazapine 45 mg PO at bedtime- no refill needed today. Continue clonazepam 1 mg PO BID- no refill needed today. Continue clonidine 0.2 mg PO at bedtime PRN for sleep- no refill needed today. Continue hydroxyzine 50-100 mg PO daily PRN for anxiety- no refill needed today. Continue individual therapy. Continuing efforts at mitigating polypharmacy. 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 Reviewed OARRS, no discrepancies or concerns. Discussed risk of motor/cognitive impairment, sedation, dependence, tolerance, abuse, withdrawal sequelae, accidental overdose, life-threatening respiratory depression (rashard. in combination with alcohol and/or opioids), excess sedation in combination with other sedating medicines. Associated Problem(s): Other bipolar disorder r/o Bipolar 2 disorder vs MDD- given mood dysregulation, mixed mood sx +/- exacerbation of anxious sx, some concern that combination of mirtazapine + venlafaxine at high doses may be contributing to mixed mood episode/sx. Discussed that it is not uncommon to experience discontinuation sx, even when venlafaxine is gradually tapered, but that these are typically transient and tend to improve with ~1 week of dose reduction. Continuing to gradually taper venlafaxine in 37.5 mg increments. Has found quetiapine PRN beneficial for mood/anxious sx, and has been taking up to TID. Would consider further titration of quetiapine in the future, if indicated, given potential benefits for bipolar depression as well as anxiolytic properties. Reviewed lithium level and BMP from 01/18/2024 (WNL). Given recent addition of Celebrex daily for pain (per PCP) and potential for interaction with lithium, will repeat lithium level, BMP after ~1 month to ensure stability of lithium level, and monitor renal function. Polypharmacy has been an ongoing concern, and remains so. Plan remains to gradually taper venlafaxine and potentially mirtazapine in the future as well if quetiapine is well-tolerated and provides benefit. As noted in previous visits, would also ideally like to taper and discontinue risperidone, given concern for possible EPS. We have attempted x 3 and he has so far been unable to tolerate d/t severe exacerbation of mood sx, further supporting plan noted above. Decreased venlafaxine ER to 225 mg PO daily ~5 days ago. Plan to further taper as tolerated. Continue quetiapine 50 mg PO up to TID PRN for mood/anxiety, and 100 mg PO at bedtime. -refill sent to pharmacy today. Continue lithium ER 900 mg PO at bedtime (01/17 lithium level= 0.61, BMP WNL). Will repeat lithium level and BMP in late January. Continue lamotrigine 100 mg PO BID. -no refill needed today. Continue mirtazapine 45 mg PO at bedtime-no refill needed today. Continue gabapentin 1200 mg PO TID- no refill needed today. Continue risperidone 1 mg PO daily and 2 mg PO at bedtime (for now). -no refill needed today. Continue engagement in individual [...] re-titration is necessary. Electronically signed by Shireen M Khan, RING SORTER-TOOL MACHINE SETUP OPERATOR, RING SORTER-COMPUTER AIDE at 02/02/2024 9:56 AM EDT documented in this encounter [facility] Work Phone: 02-02-2024 Evaluation + Plan note Associated Problem(s): Other bipolar disorder r/o Bipolar 2 disorder vs MDD- given mood dysregulation, mixed mood sx +/- exacerbation of anxious sx, some concern that combination of mirtazapine + venlafaxine at high doses may be contributing to mixed mood episode/sx. Discussed that it is not uncommon to experience discontinuation sx, even when venlafaxine is gradually tapered, but that these are typically transient and tend to improve with ~1 week of dose reduction. Continuing to gradually taper venlafaxine in 37.5 mg increments. Has found quetiapine PRN beneficial for mood/anxious sx, and has been taking up to TID. Would consider further titration of quetiapine in the future, if indicated, given potential benefits for bipolar depression as well as anxiolytic properties. Reviewed lithium level and BMP from 01/18/2024 (WNL). Given recent addition of Celebrex daily for pain (per PCP) and potential for interaction with lithium, will repeat lithium level, BMP after ~1 month to ensure stability of lithium level, and monitor renal function. Polypharmacy has been an ongoing concern, and remains so. Plan remains to gradually taper venlafaxine and potentially mirtazapine in the future as well if quetiapine is well-tolerated and provides benefit. As noted in previous visits, would also ideally like to taper and discontinue risperidone, given concern for possible EPS. We have attempted x 3 and he has so far been unable to tolerate d/t severe exacerbation of mood sx, further supporting plan noted above. Decreased venlafaxine ER to 225 mg PO daily ~5 days ago. Plan to further taper as tolerated. Continue quetiapine 50 mg PO up to TID PRN for mood/anxiety, and 100 mg PO at bedtime. -refill sent to pharmacy today. Continue lithium ER 900 mg PO at bedtime (01/17 lithium level= 0.61, BMP WNL). Will repeat lithium level and BMP in late January. Continue lamotrigine 100 mg PO BID. -no refill needed today. Continue mirtazapine 45 mg PO at bedtime-no refill needed today. Continue gabapentin 1200 mg PO TID- no refill needed today. Continue risperidone 1 mg PO daily and 2 mg PO at bedtime (for now). -no refill needed today. Continue engagement in individual [...] is necessary. Electronically signed by Shireen Khan, JANA-TOOL MACHINE SETUP OPERATOR, RING SORTER-COMPUTER AIDE at 02/02/2024 9:56 AM [facility] Work Phone: 01-20-2024 History of Presen t illness Narrative Outpatient Psychiatry Subjective Daljit Napoles, is a 43 y.o. male, seen in follow-up. Assessment/Plan Problem List Items Addressed This Visit ICD-10-CM Other bipolar disorder F31.89 r/o Bipolar 2 disorder vs MDD- given mood dysregulation, mixed mood sx +/- exacerbation of anxious sx, some concern that combination of mirtazapine + venlafaxine at high doses may be contributing to mixed mood episode/sx. Discussed that it is not uncommon to experience discontinuation sx, even when venlafaxine is gradually tapered, but that these are typically transient and tend to improve with ~1 week of dose reduction. Continuing to gradually taper venlafaxine in 37.5 mg increments. Has found quetiapine PRN beneficial for mood/anxious sx, and has been taking up to TID. Would consider further titration of quetiapine in the future, if indicated, given potential benefits for bipolar depression as well as anxiolytic properties. Reviewed lithium level and BMP from 01/18/2024 (WNL). Given recent addition of Celebrex daily for pain (per PCP) and potential for interaction with lithium, will repeat lithium level, BMP after ~1 month to ensure stability of lithium level, and monitor renal function. Polypharmacy has been an ongoing concern, and remains so. Plan remains to gradually taper venlafaxine and potentially mirtazapine in the future as well if quetiapine is well-tolerated and provides benefit. As noted in previous visits, would also ideally like to taper and discontinue risperidone, given concern for possible EPS. We have attempted x 3 and he has so far been unable to tolerate d/t severe exacerbation of mood sx, further supporting plan noted above. Decreased venlafaxine ER to 225 mg PO daily ~5 days ago. Plan to further taper as tolerated. Continue quetiapine 50 mg PO up to TID PRN for mood/anxiety, and 100 mg PO at bedtime. -refill sent to pharmacy today. Continue lithium ER 900 mg PO at bedtime (01/17 lithium level= 0.61, BMP WNL). Will repeat lithium level and BMP in late January. Continue lamotrigine 100 mg PO BID. -no refill needed today. Continue mirtazapine 45 mg PO at bedtime-no refill needed today. Continue gabapentin 1200 mg PO TID- no refill needed today. Continue risperidone 1 mg PO daily and 2 mg PO at bedtime (for now). -no refill needed today. Continue engagement in individual [...] 2 days of non-adherence, re-titration is necessary. Generalized anxiety disorder F41.1 As noted above, some suspicion for mood dysregulation/mixed mood sx vs exacerbation of anxious sx recently. Continue taper of venlafaxine as tolerated, and continue quetiapine as noted above. Continue gabapentin as noted above. Continue mirtazapine 45 mg PO at bedtime- no refill needed today. Continue clonazepam 1 mg PO BID- no refill needed today. Continue clonidine 0.2 mg PO at bedtime PRN for sleep- no refill needed today. Continue hydroxyzine 50-100 mg PO daily PRN for anxiety- no refill needed today. Continue individual therapy. Continuing efforts at mitigating polypharmacy. 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 Reviewed OARRS, no discrepancies or concerns. Discussed risk of motor/cognitive impairment, sedation, dependence, tolerance, abuse, withdrawal sequelae, accidental overdose, life-threatening respiratory depression (rashard. in combination with alcohol and/or opioids), excess sedation in combination with other sedating medicines. 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 Attempted to taper gradually x 3 in the past year, but unable to toelrate d/t exacerbation of mood sx. 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 Recent titration of quetiapine as noted above, with plan to re-attempt taper off of risperidone. If sx persist after risperidone has been discontinued, and tardive dyskinesia is suspected, will discuss treatment options. Relevant Orders Follow Up In Psychiatry Follow-up in 2-3 weeks. Risk Assessment: Risk Assessment: Daljit Napoles is currently a low acute risk of suicide and self-harm due to no past suicide attempt(s) and despite currently endorsing intermittent, fleeting thoughts of suicide and passive thoughts of . Daljit Napoles is currently a low acute [...] years, positive family relationships, and hopefulness/future orientation. Provided with crisis/emergency resources, including Mobile Crisis [phone], Crisis Text Line (text 0KDCW tr 975580) and the National Suicide Prevention Lifeline hotline . Agrees to call 988 or go to the nearest emergency department if he feels unsafe, or has suicidal thinking with a plan or intent. Reason for Visit: Follow-up for medication management. HPI: Since his last visit, Things have been, pretty much the same. Decreased venlafaxine by another 37.5 mg a few days ago (thinks on Thursday) Not sure that he'd feel any differently because of dose change so recently. No change in sleep- has noticed the past few days has had more difficulty waking up in the morning, even after getting plenty of sleep. No change in appetite. No change in energy level once he's up for the day- still fairly low. Always has some anxiety- medicine helps, but still always there to some extent. Hasn't been worse since recent medication changes, but no significant improvement either. Denies suicidal ideation or a passive wish. Recently had a gout flare-up. Supposed to take a routine medication (allopurinol), but hasn't been taking lately. PCP advised that it can be restarted once current flare up has resolved. Current Psychiatric Medications: Clonazepam 1 mg PO BID Clonidine 0.2 mg PO at bedtime PRN for sleep [place] ER 900 mg PO at bedtime Gabapentin 1200 mg PO TID Lamotrigine 100 mg PO BID Mirtazapine 45 mg PO at bedtime Quetiapine 50 mg up to TID PRN for anxiety/mood, and 100 mg PO at bedtime Risperidone 2 mg PO daily and 1 mg PO at bedtime Effexor XR 262.5 mg PO daily Hydroxyzine 50-100 mg PO [...] rate, volume, prosody Gait/Station: Other:(comment) (not observed- virtual.) Mood: Pretty much the same. Affect: Constricted, Congruent with mood and topic of conversation Thought Process: Linear, goal directed Thought Content: Other: (comment) (ongoing depressive themes.) Perception: No perceptual abnormalities noted Sensorium: Alert and oriented to person, place, time and situation Insight: Intact Judgement: Intact Cognition: Cognitively intact to conversational testing with respect to attention, orientation, fund of knowledge, recent and remote memory, and language Vitals: There were no vitals filed for this visit. Labs: Lab on 01/18/2024 Component Date Value [place] 01/18/2024 0.61 Glucose 01/18/2024 90 Sodium 01/18/2024 139 Potassium 01/18/2024 4.4 Chloride 01/18/2024 104 Bicarbonate 01/18/2024 26 Anion Gap 01/18/2024 13 Urea Nitrogen 01/18/2024 11 Creatinine 01/18/2024 0.73 eGFR 01/18/2024 >90 Calcium 01/18/2024 9.7 Shireen Khan, JANA-TOOL MACHINE SETUP OPERATOR, RING SORTER-COMPUTER AIDE Electronically signed by LAMONTE CoronaTOOL MACHINE SETUP OPERATOR, RING SORTER-COMPUTER AIDE at 02/02/2024 9:58 AM EDT documented [facility] [facility] Work Phone: 07-15-2023 History of Presen t illness Narrative [...] mg PO at bedtime PRN for sleep Tuckerton ER 300 mg PO at bedtime- restarted [...] this visit. Labs: not applicable LIZZIE Corona, JANA-COMPUTER AIDE documented in this encounter [facility] Work Phone: 06-22-2023 Evaluation + Plan note Associated Problem(s): Severe episode of recurrent major depressive disorder, without psychotic features (CMS/HCC) Plan as noted above for 'Other bipolar disorder' [facility] Work Phone: 06-22-2023 Miscellaneous Notes [...] medications. Continuing efforts at mitigating polypharmacy. Goal industrial gas fitter will be to reduce and ideally discontinue [...] sedating medicines. Electronically signed by Shireen Khan, JANA-TOOL MACHINE SETUP OPERATOR, RING SORTER-COMPUTER AIDE at 06/22/2023 5:17 PM EST Associated Problem(s): Other bipolar disorder ([facility]) r/o Bipolar 2 disorder vs MDD T[place] discontinued during recent hospitalization for lithium toxicity. [...] re-titration is necessary. documented in this encounter [facility] Work Phone: 06-22-2023 Evaluation + [...] dyskinesia is suspected, will discuss treatment options. [facility] Work Phone: 06-22-2023 Evaluation + Plan note Associated Problem(s): Generalized anxiety disorder No indication for changes to treatment plan today, while making adjustments to mood stabilizing medications. Continuing efforts at mitigating polypharmacy. Goal custodial will be to reduce and ideally discontinue [...] sedation in combination with other sedating medicines. [facility] Work Phone: 06-22-2023 Evaluation + Plan note Associated Problem(s): Other bipolar disorder ([facility]) r/o Bipolar 2 disorder vs MDD [place] discontinued during recent hospitalization for lithium toxicity. [...] is necessary. Electronically signed by Shireen Khan, JANA-TOOL MACHINE SETUP OPERATOR, RING SORTER-COMPUTER AIDE at 06/22/2023 5:17 PM EST [facility] Work Phone: 06-22-2023 History of Presen t illness Narrative Outpatient Psychiatry Subjective Daljit Napoles, is a 42 y.o. male, seen in follow-up. Assessment/Plan Problem List Items Addressed This Visit ICD-10-CM Other bipolar disorder (CMS/[facility]) F31.89 r/o Bipolar 2 disorder vs MDD [place] discontinued during recent hospitalization for lithium toxicity. [...] medications. Continuing efforts at mitigating polypharmacy. Goal industrial gas fitter will be to reduce and ideally discontinue [...] this visit. Labs: not applicable LIZZIE Corona, GUIDO documented in this encounter [facility] Work Phone: 06-11-2023 Evaluation + [...] dyskinesia is suspected, will discuss treatment options. [facility] Work Phone: 06-11-2023 Evaluation + Plan note Associated Problem(s): Severe episode of recurrent major depressive disorder, without psychotic features (CMS/HCC) Plan as noted above for 'Other bipolar disorder' [facility] Work Phone: 06-11-2023 Evaluation + Plan note Associated Problem(s): Generalized anxiety disorder No indication for changes to treatment plan today, while making adjustments to mood stabilizing medications. Continuing efforts at mitigating polypharmacy. Goal industrial gas fitter will be to reduce and ideally discontinue [...] sedation in combination with other sedating medicines. [facility] Work Phone: 06-11-2023 Miscellaneous Notes [...] medications. Continuing efforts at mitigating polypharmacy. Goal custodial will be to reduce and ideally discontinue [...] sedating medicines. Associated Problem(s): Other bipolar disorder (CMS/HCC) r/o Bipolar 2 disorder vs MDD [place] discontinued during recent hospitalization for lithium toxicity. [...] is necessary. Electronically signed by Shireen Khan, LAMONTETOOL MACHINE SETUP OPERATOR, JANA-COMPUTER AIDE at 06/11/2023 5:10 PM EST documented in this encounter [facility] Work Phone: 06-11-2023 Evaluation + Plan note Associated Problem(s): Other bipolar disorder ([facility]) r/o Bipolar 2 disorder vs MDD [place] discontinued during recent hospitalization for lithium toxicity. [...] is necessary. Electronically signed by Shireen Khan, RING SORTER-TOOL MACHINE SETUP OPERATOR, RING SORTER-COMPUTER AIDE at 06/11/2023 5:10 PM EST [facility] Work Phone: 06-11-2023 History of Presen t illness Narrative Outpatient Psychiatry Subjective Daljit Napoles, is a 42 y.o. male, seen in follow-up. Assessment/Plan Problem List Items Addressed This Visit ICD-10-CM Other bipolar disorder (CMS/[facility]) F31.89 r/o Bipolar 2 disorder vs MDD [place] discontinued during recent hospitalization for lithium toxicity. [...] medications. Continuing efforts at mitigating polypharmacy. Goal industrial gas fitter will be to reduce and ideally discontinue [...] 97 Lab on 05/06/2023 Component Date Value T[place] 05/06/2023 2.03 (HH) Glucose 05/06/2023 98 Sodium 05/06/2023 138 Potassium 05/06/2023 3.3 (L) Chloride 05/06/2023 100 Bicarbonate 05/06/2023 27 Anion Gap 05/06/2023 14 Urea Nitrogen 05/06/2023 5 (L) Creatinine 05/06/2023 0.82 eGFR 05/06/2023 >90 Calcium 05/06/2023 9.2 Thyroid Stimulating Horm* 05/06/2023 1.17 Shireen Khan APRN-TOOL MACHINE SETUP OPERATOR, RING SORTER-COMPUTER AIDE documented in this encounter [facility] Work Phone: 06-01-2023 Evaluation note Encounter Date Diagnosis Assessment Notes May, Primary hypertension (ICD-10 - I10) [facility] Other 02-06-2024 Evaluation note* Encounter Date Diagnosis Assessment Notes Treatment Notes Treatment Clinical Notes May, Impaired fasting glucose (ICD-10 - R73.01) [facility] Other 02-06-2024 Evaluation note* Encounter Date Diagnosis Assessment Notes Treatment Notes Treatment Clinical Notes May, Primary hypertension (ICD-10 - I10) [facility] Other 02-06-2024 Evaluation note* Encounter Date Diagnosis Assessment Notes Treatment Notes Treatment Clinical Notes May, IFG (impaired fasting glucose) (ICD-10 - R73.01) [facility] Other 01-31-2024 Evaluation note* Encounter Date Diagnosis Assessment Notes Treatment Notes Treatment Clinical Notes Apr, Primary hypertension (ICD-10 - I10) [facility] Other 01-29-2024 Evaluation + Plan note* Assessment [...] dyskinesia is suspected, will discuss treatment options. [facility] Work Phone: [phone] Miscellaneous Notes* Assessment & Plan Note - [...] Assessment & Plan Note - LIZZIE Corona APRN-COMPUTER AIDE - 05/18/2023 4:41 PM ESTAssociated Problem(s): Generalized anxiety disorder Sx relatively well-controlled with current regimen. No indication for changes to treatment plan today. Continuing efforts at mitigating polypharmacy. Goal custodial will be to reduce and ideally discontinue [...] 4:39 PM ESTAssociated Problem(s): Other bipolar disorder ([facility]) r/o Bipolar 2 disorder vs MDD [place] discontinued during recent hospitalization for lithium toxicity. [...] urgent need to adjust mood stabilizing medications. T[place]erton discontinued during recent hospitalization. Will start very [...] engagement in individual therapy. documented in this [facility] Work Phone: [phone] 572-148801-29-2024 Evaluation + Plan note* Assessment & Plan Note - LIZZIE Corona APRN-CNS - 05/18/2023 4:41 PM ESTAssociated Problem(s): Severe episode of recurrent major depressive disorder, without psychotic features (CMS/HCC) Plan as noted above for 'Other bipolar disorder' [facility] Work Phone: [phone] 554-628901-29-2024 Evaluation + Plan note* Assessment & Plan Note - LIZZIE Corona APRN-CNS - 05/18/2023 4:41 PM ESTAssociated Problem(s): Generalized anxiety disorder Sx relatively well-controlled with current regimen. No indication for changes to treatment plan today. Continuing efforts at mitigating polypharmacy. Goal custodial will be to reduce and ideally discontinue [...] sedation in combination with other sedating medicines. [facility] Work Phone: [phone]) 468-978201-29-2024 Evaluation + Plan note* Assessment & Plan Note - LIZZIE Corona APRN-CNS - 05/18/2023 4:39 PM ESTAssociated Problem(s): Other bipolar disorder ([facility]) r/o Bipolar 2 disorder vs MDD [place] discontinued during recent hospitalization for lithium toxicity. [...] urgent need to adjust mood stabilizing medications. T[place] discontinued during recent hospitalization. Will start very [...] needed today. Continue engagement in individual therapy. [facility] Work Phone: [phone] History of Present illness Narrative* LIZZIE Corona, GUIDO - 05/18/2023 3:30 PM EST Outpatient Psychiatry Subjective Daljit Napoles, is a 42 y.o. male, seen in follow-up. Assessment/Plan Problem List Items Addressed This Visit ICD-10-CM Other bipolar disorder ([facility]) F31.89 r/o Bipolar 2 disorder vs MDD [place] discontinued during recent hospitalization for lithium toxicity. [...] urgent need to adjust mood stabilizing medications. T[place] discontinued during recent hospitalization. Will start very [...] today. Continuing efforts at mitigating polypharmacy. Goal custodial will be to reduce and ideally discontinue [...] very upsetting when he recalls them now. Tuckerton was discontinued and not restarted. All other [...] Labs: Lab on 05/06/2023 Component Date Value [place] 05/06/2023 2.03 (HH) Glucose 05/06/2023 98 Sodium 05/06/2023 138 Potassium 05/06/2023 3.3 (L) Chloride 05/06/2023 100 Bicarbonate 05/06/2023 27 Anion Gap 05/06/2023 14 Urea Nitrogen 05/06/2023 5 (L) Creatinine 05/06/2023 0.82 eGFR 05/06/2023 >90 Calcium 05/06/2023 9.2 Thyroid Stimulating Horm* 05/06/2023 1.17 LIZZIE Corona, GUIDO [facility]: [phone] Evaluation note* Encounter Date Diagnosis Assessment Notes [...] index [BMI] 37.0-37.9, adult (ICD-10 - Z68.37) [facility] [employer] Other 11-27-2023 Evaluation + Plan note* Assessment [...] dyskinesia is suspected, will discuss treatment options. [facility] Work Phone: [phone] Miscellaneous Notes* Assessment & Plan Note - [...] of hydroxyzine PRN (<1 tab daily). Goal custodial will be to reduce and ideally discontinue [...] 6:10 PM ESTAssociated Problem(s): Other bipolar disorder ([facility]) r/o Bipolar 2 disorder vs [...] engagement in individual therapy. [facility]: [phone] Evaluation + Plan note* Assessment & Plan Note - LIZZIE Corona APRN-CNS - 03/16/2023 6:12 PM ESTAssociated Problem(s): Severe episode of recurrent major depressive disorder, without psychotic features (CMS/HCC) Plan as noted above for 'Other bipolar disorder' [facility] Work Phone: [phone] Evaluation + Plan note* Assessment & Plan Note - LIZZIE oCrona APRN-CNS - 03/16/2023 6:12 PM ESTAssociated Problem(s): Generalized anxiety disorder Significant benefit from titration of gabapentin dose over the past several months. No indication for changes to treatment plan today. Continuing efforts at mitigating polypharmacy- recently has resumed sporadic use of hydroxyzine PRN (<1 tab daily). Goal industrial gas fitter will be to reduce and ideally discontinue [...] with other sedating medicines. Electronically signed by LAMONTE CoronaTOOL MACHINE SETUP OPERATOR, JANA-COMPUTER AIDE at 03/16/2023 6:12 PM EST [facility] Work Phone: [phone] Evaluation + Plan note* Assessment & Plan Note - LIZZIE Corona, LAMONTECOMPUTER AIDE - 03/16/2023 6:10 PM ESTAssociated Problem(s): Other bipolar disorder ([facility]) r/o Bipolar 2 disorder vs [...] pharmacy today. Continue engagement in individual therapy. [facility] Work Phone: [phone] History of Present illness Narrative* Shireen Khan, JANA-TOOL MACHINE SETUP OPERATOR, JANA-COMPUTER AIDE - 03/16/2023 10:00 AM EST Outpatient Psychiatry [...] of hydroxyzine PRN (<1 tab daily). Goal custodial will be to reduce and ideally discontinue [...] bedtime Mirtazapine 45 mg PO at bedtime [place] ER 1800 mg PO at bedtime Risperidone [...] applicable LIZZIE Corona APRN-CNS documented in this [facility] Work Phone: [phone] Evaluation + Plan note* Assessment & Plan [...] mg PO at bedtime until follow up. [facility] Work Phone: [phone] 650-707410-30-2023 Miscellaneous Notes* Assessment & Plan Note - [...] for sleep, so will decrease frequency. Goal custodial will be to reduce and ideally discontinue [...] 5:46 PM EDTAssociated Problem(s): Other bipolar disorder (CMS/HCC) r/o Bipolar [...] engagement in individual therapy. [facility]: [phone] Evaluation + Plan note* Assessment & Plan Note - LIZZIE Corona APRN-CNS - 02/16/2023 5:52 PM EDTAssociated Problem(s): Severe episode of recurrent major depressive disorder, without psychotic features (CMS/HCC) Plan as noted above for 'Other bipolar disorder' [facility] Work Phone: [phone] 265-814010-30-2023 Evaluation + Plan note* Assessment & Plan Note - LIZZIE Corona, JANA-COMPUTER AIDE - 02/16/2023 5:52 PM EDTAssociated Problem(s): Generalized anxiety disorder Significant benefit from titration of gabapentin dose over the past several months. No indication for changes to treatment plan today. Continuing efforts at mitigating polypharmacy- he has indicated no longer taking hydroxyzine PRN, so will discontinue. Additionally, only taking clonidine PRN at bedtime for sleep, so will decrease frequency. Goal industrial gas fitter will be to reduce and ideally discontinue [...] sedation in combination with other sedating medicines. [facility] Work Phone: [phone] 124-376810-30-2023 Evaluation + Plan note* Assessment & Plan Note - LIZZIE Corona APRN-COMPUTER AIDE - 02/16/2023 5:46 PM EDTAssociated Problem(s): Other bipolar disorder ([facility]) r/o Bipolar 2 disorder vs [...] needed today. Continue engagement in individual therapy. [facility] Work Phone: [phone] History of Present illness Narrative* LIZZIE Corona, GUIDO - 02/16/2023 10:00 AM EDT Outpatient Psychiatry Subjective Daljit Napoles, is a 42 y.o. male, seen in follow-up. Assessment/Plan Problem List Items Addressed This Visit ICD-10-CM Other bipolar disorder (CMS/[facility]) F31.89 r/o Bipolar 2 disorder [...] for sleep, so will decrease frequency. Goal industrial gas fitter will be to reduce and ideally discontinue [...] No new medications or health problems. 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 Has follow-up next month. Current Psychiatric Medications: Clonazepam 1 mg PO BID Clonidine 0.2 mg PO at bedtime Gabapentin 900 mg PO TID Lamotrigine 100 mg PO daily and 150 mg PO at bedtime Mirtazapine 45 mg PO at bedtime [place] ER 1800 mg PO at bedtime Risperidone [...] this visit. Labs: not applicable LIZZIE Corona, GUIDO [facility] Phone: [phone] Evaluation note* Encounter Date Diagnosis Assessment Notes Treatment Notes Treatment Clinical Notes Dec, Festus eye disease of both eyes (ICD-10 - [...] understanding and is agreeable to treatment plan. [facility] Other 09-14-2023 Chief complaint Narrative - Reported* An interactive audio and video telecommunication system which permits real time communications between the patient (at the originating site) and provider (at the distant site) was utilized to providethis telehealth service. * Verbal consent was requested and obtained from DALJIT NAPOLES on this date, 01/01/2023 03:00 PM , for a telehealth visit. * Bipolar disorder, anxiety [facility] [address] [place] DO Work Phone: [phone] Chief complaint Narrative - Reported* An interactive audio and video telecommunication system which permits real time communications between the patient (at the originating site) and provider (at the distant site) was utilized to providethis telehealth service. * Verbal consent was requested and obtained from DALJIT NAPOLES on this date, 11/20/2022 03:00 PM , for a telehealth visit. * Bipolar disorder, anxiety WB-Yspuwssbwc-Zzkltp [address] [place] DO Work Phone: [phone] Chief complaint Narrative - Reported* An interactive audio and video telecommunication system which permits real time communications between the patient (at the originating site) and provider (at the distant site) was utilized to providethis telehealth service. * Verbal consent was requested and obtained from DALJIT NAPOLES on this date, 09/18/2022 11:00 AM , for a telehealth visit. * Bipolar disorder, anxiety FA-Lnkzrqmafo-Jmrdfn [address] [place] DO Work Phone: [phone] Chief complaint Narrative - Reported* An interactive audio and video telecommunication system which permits real time communications between the patient (at the originating site) and provider (at the distant site) was utilized to providethis telehealth service. * Verbal consent was requested and obtained from DALJIT NAPOLES on this date, 09/18/2022 11:00 AM , for a telehealth visit. * Bipolar disorder, anxiety [facility] Work Phone: [phone] History of Present illness Narrative* Mr. Napoles [...] assessment on 08/28/2021: * Current rx: * Tuckerton IR 900 mg PO QHS- taking for [...] LIN * Current psychiatrist Veronica Redmond at [facility]- has been seeing since early 2019. * Hospitalized most recently at [facility] 1.5 years ago for suicidal ideation. Prior [...] Was home-schooled briefly for HS, then took [employer] test and graduated early. * No history [...] risks of abuse, dependence, addiction and diversion. [facility] [address] [place] DO Work Phone: [phone] History of Present illness Narrative* Mr. Napoles [...] assessment on 08/28/2021: * Current rx: * T[place] IR 900 mg PO QHS- taking for [...] LIN * Current psychiatrist Veronica Redmond at [facility]- has been seeing since early 2019. * Hospitalized most recently at [facility] 1.5 years ago for suicidal ideation. Prior [...] risks of abuse, dependence, addiction and diversion. [facility] Work Phone: [phone] Chief complaint Narrative - Reported* An interactive audio and video telecommunication system which permits real time communications between the patient (at the originating site) and provider (at the distant site) was utilized to providethis telehealth service. * Verbal consent was requested and obtained from DALJIT NAPOLES on this date, 08/07/2022 01:30 PM , for a telehealth visit. * Bipolar disorder, anxiety [facility]Kdxuzhwmjx-Khmft[facility] [address] [place] DO Work Phone: [phone] Chief complaint Narrative - Reported* An interactive audio and video telecommunication system which permits real time communications between the patient (at the originating site) and provider (at the distant site) was utilized to providethis telehealth service. * Verbal consent was requested and obtained from DALJIT NAPOLES on this date, 08/07/2022 01:30 PM , for a telehealth visit. * Bipolar disorder, anxiety [facility] Work Phone: [phone] History of Present illness Narrative* Mr. Napoles [...] assessment on 08/28/2021: * Current rx: * T[place] IR 900 mg PO QHS- taking for [...] LIN * Current psychiatrist Veronica Redmond at [facility]- has been seeing since early 2019. * Hospitalized most recently at [facility] 1.5 years ago for suicidal ideation. Prior [...] Was home-schooled briefly for HS, then took [employer] test and graduated early. * No history [...] risks of abuse, dependence, addiction and diversion. [facility]Cqiwulvtjr-E[address]oy[address] [place] DO Work Phone: [phone] History of Present illness Narrative* Mr. Napoles is a 41 y/o M, seen in follow-up for bipolar disorder and LIN. * See chart update from [facility] 08/01/2022. * Since his last appointment, [...] assessment on 08/28/2021: * Current rx: * T[place] IR 900 mg PO QHS- taking for [...] LIN * Current psychiatrist Veronica Redmond at [facility]- has been seeing since early 2019. * Hospitalized most recently at [facility] 1.5 years ago for suicidal ideation. Prior [...] Was home-schooled briefly for HS, then took [employer] test and graduated early. * No history [...] risks of abuse, dependence, addiction and diversion. [facility] Work Phone: [phone] Hospital Discharge instructions Patient Education 07/14/2022 08:27:30 [...] urethra. Follow these instructions at home: Take takn-hrz-nwaasmm and prescription medicines only as told by [...] 04/06/2006 Document Revised: 03/01/2019 Document Reviewed: 05/11/2017 [employer] Patient Education 2020 [employer]. Follow Up Care 04/29/2022 11:46:44 With:AMOL BERTRAND, Coleman Simons, URL Address: [facility] [address], [place] [address]- When: Unknown [facility] 03-14-2023 Chief complaint Narrative - Reported* An interactive audio and video telecommunication system which permits real time communications between the patient (at the originating site) and provider (at the distant site) was utilized to providethis telehealth service. * Verbal consent was requested and obtained from DALJIT NAPOLES on this date, 07/01/2022 10:30 AM , for a telehealth visit. * Bipolar disorder, anxiety CX-Gqhehxpjfr-Qafkkj [address] [place] [address] DO Work Phone: [phone] Chief complaint Narrative - Reported* An interactive audio and video telecommunication system which permits real time communications between the patient (at the originating site) and provider (at the distant site) was utilized to providethis telehealth service. * Verbal consent was requested and obtained from DALJIT NAPOLES on this date, 05/27/2022 10:00 AM , for a telehealth visit. * Bipolar disorder, anxiety [facility]-Uikfolxruw-Cwvhkb [address] [place] [address] [employer] Work Phone: [phone] NoteCONSULTATION PROCEDURE DATE: 05/13/2022 PREOPERATIVE DIAGNOSIS: Cervical [...] will be followed up in the office.[id number] NoteCONSULTATION CONSULTATION DATE: 05/13/2022 CHIEF COMPLAINT: Cervical [...] would like to proceed. CC: Rizwan Powers D.O.[facility]01-11-2023 Note [id number]:127[facility] 04-29-2022 NoteCustom Cystoscopy ? Voiding after the [...] if you have a fever over 100 degrees.[facility] 03-31-2022 NoteChief Complaint Referral- Polyuria HPI Staff [...] normal judgement, euthymic mood. Assessment/Plan Pt taking T[place] Carbonate 1200 QD. 1. BPH with urinary [...] (N28.1: Cyst of k (more content not included)...[facility] HospitalComment on above:Result Comment: Electronically Signed By: Coleman [...] including vitamins, herbs, eye drops, creams, and zdus-vhc-wpbspqr medicines. ?Whether you are or may be [...] 02/01/2008 Document Revised: 07/26/2019 Document Reviewed: 02/08/2018 [employer] Patient Education 2020 [employer] Follow Up Care 03/03/2022 13:20:11 With:AMOL BERTRAND, Coleman R, URL Address: [facility] [address] , [place] [address]- When: Unknown [facility] 11-29-2022 Chief complaint Narrative - Reported* An interactive audio and video telecommunication system which permits real time communications between the patient (at the originating site) and provider (at the distant site) was utilized to providethis telehealth service. * Verbal consent was requested and obtained from DALJIT NAPOLES on this date, 03/18/2022 03:00 PM , for a telehealth visit. * Bipolar disorder, anxiety EP-Ysmotujnpd-Ixkyyp [address] [place] [address] DO Work Phone: [phone] Miscellaneous Notes* Telephone Encounter - Shyanne Meade [...] process accordingly Shyanne Meade documented in this encounterHolmes [facility] Chief complaint Narrative - Reported* An interactive audio and video telecommunication system which permits real time communications between the patient (at the originating site) and provider (at the distant site) was utilized to providethis telehealth service. * Verbal consent was requested and obtained from DALJIT NAPOLES on this date, 02/12/2022 02:30 PM , for a telehealth visit. * Bipolar disorder, anxiety [facility] Work Phone: [phone] History of Present illness Narrative* Mr. Napoles [...] assessment on 08/28/2021: * Current rx: * Tuckerton IR 900 mg PO QHS- taking for [...] LIN * Current psychiatrist Veronica Redmond at [facility]- has been seeing since early 2019. * Hospitalized most recently at [facility] 1.5 years ago for suicidal ideation. Prior [...] Was home-schooled briefly for HS, then took [employer] test and graduated early. * No history [...] risks of abuse, dependence, addiction and diversion. [address] Work Phone: [phone]) 989-759509-20-2022 Chief complaint Narrative - Reported* An interactive audio and video telecommunication system which permits real time communications between the patient (at the originating site) and provider (at the distant site) was utilized to providethis telehealth service. * Verbal consent was requested and obtained from DALJIT NAPOLES on this date, 01/07/2022 02:30 PM , for a telehealth visit. * Bipolar disorder, anxiety [address] [employer] Work Phone: [phone]) 855-885109-20-2022 Chief complaint Narrative - Reported* An interactive audio and video telecommunication system which permits real time communications between the patient (at the originating site) and provider (at the distant site) was utilized to providethis telehealth service. * Verbal consent was requested and obtained from DALJIT NAPOLES on this date, 01/07/2022 02:30 PM , for a telehealth visit. * Bipolar disorder, anxiety [address] Work Phone: [phone]) 662-498108-15-2022 Chief complaint Narrative - Reported* An interactive audio and video telecommunication system which permits real time communications between the patient (at the originating site) and provider (at the distant site) was utilized to providethis telehealth service. * Verbal consent was requested and obtained from DALJIT NAPOLES on this date, 12/02/2021 03:30 PM , for a telehealth visit. * Bipolar disorder, anxiety [address] Work Phone: [phone] 560-105408-12-2022 History of Present illness Narrative* Mr. Napoles [...] assessment on 08/28/2021: * Current rx: * Tuckerton IR 900 mg PO QHS- taking for [...] LIN * Current psychiatrist Veronica Redmond at [facility]- has been seeing since early 2019. * Hospitalized most recently at [facility] 1.5 years ago for suicidal ideation. Prior [...] risks of abuse, dependence, addiction and diversion. [facility] Work Phone: [phone]) [phone] Chief complaint Narrative - Reported* An interactive audio and video telecommunication system which permits real time communications between the patient (at the originating site) and provider (at the distant site) was utilized to providethis telehealth service. * Verbal consent was requested and obtained from DALJIT NAPOLES on this date, 10/29/2021 01:30 PM , for a telehealth visit. * Bipolar disorder, anxiety LX-Sciwoqlgxr-Epwaqs [address] [facility] Work Phone: [phone]) [phone] Chief complaint Narrative - Reported* An interactive audio and video telecommunication system which permits real time communications between the patient (at the originating site) and provider (at the distant site) was utilized to providethis telehealth service. * Verbal consent was requested and obtained from DALJIT NAPOLES on this date, 09/25/2021 01:00 PM , for a telehealth visit. * Bipolar disorder, anxiety [facility] Work Phone: [phone] Chief complaint Narrative - Reported* An interactive audio and video telecommunication system which permits real time communications between the patient (at the originating site) and provider (at the distant site) was utilized to providethis telehealth service. * Verbal consent was requested and obtained from DALJIT NAPOLES on this date, 09/25/2021 01:00 PM , for a telehealth visit. * Bipolar disorder, anxiety W[facility]-Rmtbbdrple-Jwputd [address] DO Work Phone: [phone] 426-832906-08-2022 History of Present illness Narrative* Mr. Napoles [...] list toget one because there have been mononitrotoluene operator recalls. * He also shares that with [...] or homicidal ideation. * Current rx: * Tuckerton IR 900 mg PO QHS- taking for [...] LIN * Current psychiatrist Veronica Redmond at [facility]- has been seeing since early 2019. * Hospitalized most recently at [facility] 1.5 years ago for suicidal ideation. Prior [...] Was home-schooled briefly for HS, then took [employer] test and graduated early. * No history [...] risks of abuse, dependence, addiction and diversion. [facility] Work Phone: [phone] Miscellaneous Notes* Telephone Encounter - Sonia Jones MD - 09/19/2021 2:37 PM EDT The following approved medication requests have been transmitted electronically to [id number] per patient request. Pending Prescriptions Disp Refills [...] process accordingly Charlotte Cee documented in this encounterHolmes County [facility]04-26-2022 Miscellaneous Notes* Telephone Encounter - Lani Reyes [...] the Effexor.Lani Reyes MD documented in this encounterHolmes County [facility]04-20-2022 Miscellaneous Notes* Telephone Encounter - Charlotte Cee [...] process accordingly Charlotte Cee documented in this encounterHolmes County [facility]04-18-2022 NoteHNO ID: [id number] Author: Lani Reyes MD Service: ? Author [...] : Negative for dysuria, frequency and incontinence WHIZZER HAND: N/A MUSCULOSKELETAL: Negative for joint pain or [...] DALJIT Aguirre Therapist: No prior therapist Current Retail Sales Associate: None Last Hospitalization: Denies hospitalization. and about a year ago. ECT: none Previous Discontinued Psychiatric Med Trials: Paxil,Prozaac, Zoloft, Wellbutrin,Celexa, Seroquel, Tuckerton ,Latuda, Depakote, Imipramine etc. SUBSTANCE USE HISTORY: [...] to his parents. Born and raised in [place], [place].. Both parents were there when he was growing up. His father was killed in a car accident when he was 19 . 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 He [...] Disorder Hypertension. Labs Repeat BUN, Creatinine and Tuckerton levels. Continue current medications. 1-Lamictal 100 mg po am an (more content not included)...[facility] 08-05-2021 History of Present illness Narrative* Lani [...] : Negative for dysuria, frequency and incontinence WHIZZER HAND: N/A MUSCULOSKELETAL: Negative for joint pain or [...] DALJIT Aguirre Therapist: No prior therapist Current Retail Sales Associate: None Last Hospitalization: Denies hospitalization. and about a year ago. ECT: none Previous Discontinued Psychiatric Med Trials: Paxil,Prozaac, Zoloft, Wellbutrin,Celexa, Seroquel, Tuckerton ,Latuda, Depakote, Imipramine etc. SUBSTANCE USE HISTORY: [...] to his parents. Born and raised in [place], [place].. Both parents were there when he was growing up. His father was killed in a car accident when he was 19 . 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 He [...] Disorder Hypertension. Labs Repeat BUN, Creatinine and Tuckerton levels. Continue current medications. 1-Lamictal 100 mg po am and 150 mg po hs. . 2-start back Gabapentin 300 mg as bid. 3 increase risperidone 1 mg po am and 2 at hs. 4-Buspar 10 mg po bid. 5-Continue klonopin 1 mg po bid. 6-Continue Effexor 150 mg po bid. 7-Tuckerton 300 mg 2 am and 2 at [...] 2021 TIME: PAGER/CONTACT #: documented in this encounterHolmes County [facility]03-30-2022 Miscellaneous Notes* Telephone Encounter - Charlotte Cee [...] process accordingly Charlotte Cee documented in this encounterHolmes [facility]08-25-2021 NoteHNO ID: [id number] Author: Lani Reyes MD Service: ? Author [...] gabapentin has been helpful for the anxiety. Tuckerton also helped his mood. Patient is not [...] : Negative for dysuria, frequency and incontinence WHIZZER HAND: N/A MUSCULOSKELETAL: Negative for joint pain or [...] DALJIT Aguirre Therapist: No prior therapist Current Retail Sales Associate: None Last Hospitalization: Denies hospitalization. and about a year ago. ECT: none Previous Discontinued Psychiatric Med Trials: Paxil,Prozaac, Zoloft, Wellbutrin,Celexa, Seroquel, Tuckerton ,Latuda, Depakote, Imipramine etc. SUBSTANCE USE HISTORY: Nicotine: None Caffeine: None, he drinks 2 to 3 diet pop Alcohol: No history of use or dependence Marijuana: No history of use or dependence Cocaine: No history of use or dependence Opiods: No history of use or dependence SPIRITUALITY: none to speak off. [facility] Daljit Napoles is one of 3 children to his parents. Born and raised in [place], [place].. Both parents were there when he was growing up. His father was killed in a car accident when he was 19 . 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 He [...] tone, prosody, shala, phonetics, (more content not included)...[facility] No data available for this section [facility] evaluation note* Diagnosis LIN (generalized anxiety disorder) Generalized anxiety disorder documented in this encounter [facility]* Diagnosis LIN (generalized anxiety disorder) Generalized anxiety disorder Bipolar disorder in full remission, most recent episode unspecified type (HCC) documented in this encounter [facility] HospitalEvaluation noteNo [employer] Other Evaluation note* Diagnosis Severe episode of recurrent major depressive disorder, without psychotic features (CMS/HCC) Generalized anxiety disorder Other bipolar disorder (CMS/HCC) Extrapyramidal symptom documented in this encounter [facility] Work Phone: Evaluation note* Diagnosis Severe episode of recurrent major depressive disorder, without psychotic features (CMS/HCC) Generalized anxiety disorder Other bipolar disorder (CMS/HCC) Extrapyramidal symptom documented in this encounter [facility] Work Phone: Evaluation note* Diagnosis Onset Date Resolution Status Bipolar disorder acute Hypokalemia acute Tuckerton toxicity acute [facility] Work Phone: Evaluation note* Diagnosis Other bipolar disorder (CMS/HCC) Severe episode of recurrent major depressive disorder, without psychotic features (CMS/HCC) Generalized anxiety disorder Extrapyramidal symptom documented in this encounter [facility] Work Phone: Evaluation note* Diagnosis Onset Date Resolution Status Bipolar disorder acute Hypokalemia resolved Tuckerton toxicity resolved Impaired fasting glucose acu te Primary hypertension acute [facility] Work Phone: Evaluation note* Diagnosis Other bipolar disorder (CMS/HCC) Severe episode of recurrent major depressive disorder, without psychotic features (CMS/HCC) Generalized anxiety disorder Extrapyramidal symptom documented in this encounter [facility] Work Phone: Evaluation note* Diagnosis Generalized anxiety disorder Other bipolar disorder (CMS/HCC) Severe episode of recurrent major depressive disorder, without psychotic features (CMS/HCC) Extrapyramidal symptom documented in this encounter [facility] Work Phone: Evaluation note* Diagnosis Other bipolar disorder (Multi) Severe episode of recurrent major depressive disorder, without psychotic features (Multi) Generalized anxiety disorder Extrapyramidal symptom documented in this encounter [facility] Work Phone: Evaluation note* Diagnosis Onset Date Resolution Status Gastroesophageal reflux dise ase with esophagitis without hemorrhage acute Impaired fasting glucose acu te Obesity acute Palpitations acute Primary hypertension acute Wellness examination noneact rony [facility] Work Phone: Evaluation note* Diagnosis Severe episode of recurrent major depressive disorder, without psychotic features (Multi) Generalized anxiety disorder Other bipolar disorder Extrapyramidal symptom Severe episode of recurrent major depressive disorder, without psychotic features (Multi) Generalized anxiety disorder Other bipolar disorder Extrapyramidal symptom Other bipolar disorder Severe episode of recurrent major depressive disorder, without psychotic features (Multi) Generalized anxiety disorder Extrapyramidal symptom Other bipolar disorder Severe episode of recurrent major depressive disorder, without psychotic features (Multi) Generalized anxiety disorder Extrapyramidal symptom Generalized anxiety disorder Other bipolar disorder Severe episode of recurrent major depressive disorder, without psychotic features (Multi) Extrapyramidal symptom Generalized anxiety disorder Other bipolar disorder Severe episode of recurrent major depressive disorder, without psychotic features (Multi) Extrapyramidal symptom Generalized anxiety disorder Other bipolar disorder Severe episode of recurrent major depressive disorder, without psychotic features (Multi) Extrapyramidal symptom Severe episode of recurrent major depressive disorder, without psychotic features (Multi) Generalized anxiety disorder Other bipolar disorder Extrapyramidal symptom Medication management Healthcare maintenance Generalized anxiety disorder Mood disorder (CMS-HCC) Unspecified episodic mood disorder Severe episode of recurrent major depressive disorder, without psychotic features (Multi) Extrapyramidal symptom documented in this encounter [facility] Work Phone: Evaluation note* Diagnosis Severe episode of recurrent major depressive disorder, without psychotic features (Multi) Generalized anxiety disorder Other bipolar disorder Extrapyramidal symptom Severe episode of recurrent major depressive disorder, without psychotic features (Multi) Generalized anxiety disorder Other bipolar disorder Extrapyramidal symptom Other bipolar disorder Severe episode of recurrent major depressive disorder, without psychotic features (Multi) Generalized anxiety disorder Extrapyramidal symptom Other bipolar disorder Severe episode of recurrent major depressive disorder, without psychotic features (Multi) Generalized anxiety disorder Extrapyramidal symptom Generalized anxiety disorder Other bipolar disorder Severe episode of recurrent major depressive disorder, without psychotic features (Multi) Extrapyramidal symptom Generalized anxiety disorder Other bipolar disorder Severe episode of recurrent major depressive disorder, without psychotic features (Multi) Extrapyramidal symptom Generalized anxiety disorder Other bipolar disorder Severe episode of recurrent major depressive disorder, without psychotic features (Multi) Extrapyramidal symptom Severe episode of recurrent major depressive disorder, without psychotic features (Multi) Generalized anxiety disorder Other bipolar disorder Extrapyramidal symptom Medication management Healthcare maintenance Generalized anxiety disorder Mood disorder (CMS-HCC) Unspecified episodic mood disorder Severe episode of recurrent major depressive disorder, without psychotic features (Multi) Extrapyramidal symptom Severe episode of recurrent major depressive disorder, without psychotic features (Multi) Generalized anxiety disorder Other bipolar disorder Extrapyramidal symptom documented in this encounter [facility] Work Phone: Evaluation note* Diagnosis Severe episode of recurrent major depressive disorder, without psychotic features (Multi) Generalized anxiety disorder Other bipolar disorder Extrapyramidal symptom Severe episode of recurrent major depressive disorder, without psychotic features (Multi) Generalized anxiety disorder Other bipolar disorder Extrapyramidal symptom Other bipolar disorder Severe episode of recurrent major depressive disorder, without psychotic features (Multi) Generalized anxiety disorder Extrapyramidal symptom Other bipolar disorder Severe episode of recurrent major depressive disorder, without psychotic features (Multi) Generalized anxiety disorder Extrapyramidal symptom Generalized anxiety disorder Other bipolar disorder Severe episode of recurrent major depressive disorder, without psychotic features (Multi) Extrapyramidal symptom Generalized anxiety disorder Other bipolar disorder Severe episode of recurrent major depressive disorder, without psychotic features (Multi) Extrapyramidal symptom Generalized anxiety disorder Other bipolar disorder Severe episode of recurrent major depressive disorder, without psychotic features (Multi) Extrapyramidal symptom Severe episode of recurrent major depressive disorder, without psychotic features (Multi) Generalized anxiety disorder Other bipolar disorder Extrapyramidal symptom Medication management Healthcare maintenance Generalized anxiety disorder Mood disorder (CMS-HCC) Unspecified episodic mood disorder Severe episode of recurrent major depressive disorder, without psychotic features (Multi) Extrapyramidal symptom Severe episode of recurrent major depressive disorder, without psychotic features (Multi) Generalized anxiety disorder Other bipolar disorder Extrapyramidal symptom Severe episode of recurrent major depressive disorder, without psychotic features (Multi) Other bipolar disorder Generalized anxiety disorder Extrapyramidal symptom Medication management Healthcare maintenance documented in this encounter [facility] Work Phone: Evaluation note* Diagnosis Severe episode of recurrent major depressive disorder, without psychotic features (Multi) Generalized anxiety disorder Other bipolar disorder Extrapyramidal symptom Severe episode of recurrent major depressive disorder, without psychotic features (Multi) Generalized anxiety disorder Other bipolar disorder Extrapyramidal symptom Other bipolar disorder Severe episode of recurrent major depressive disorder, without psychotic features (Multi) Generalized anxiety disorder Extrapyramidal symptom Other bipolar disorder Severe episode of recurrent major depressive disorder, without psychotic features (Multi) Generalized anxiety disorder Extrapyramidal symptom Generalized anxiety disorder Other bipolar disorder Severe episode of recurrent major depressive disorder, without psychotic features (Multi) Extrapyramidal symptom Generalized anxiety disorder Other bipolar disorder Severe episode of recurrent major depressive disorder, without psychotic features (Multi) Extrapyramidal symptom Generalized anxiety disorder Other bipolar disorder Severe episode of recurrent major depressive disorder, without psychotic features (Multi) Extrapyramidal symptom Severe episode of recurrent major depressive disorder, without psychotic features (Multi) Generalized anxiety disorder Other bipolar disorder Extrapyramidal symptom Medication management Healthcare maintenance Generalized anxiety disorder Mood disorder (CMS-HCC) Unspecified episodic mood disorder Severe episode of recurrent major depressive disorder, without psychotic features (Multi) Extrapyramidal symptom Severe episode of recurrent major depressive disorder, without psychotic features (Multi) Generalized anxiety disorder Other bipolar disorder Extrapyramidal symptom Severe episode of recurrent major depressive disorder, without psychotic features (Multi) Other bipolar disorder Generalized anxiety disorder Extrapyramidal symptom Medication management Healthcare maintenance Severe episode of recurrent major depressive disorder, without psychotic features (Multi) Other bipolar disorder Generalized anxiety disorder Extrapyramidal symptom Medication management Healthcare maintenance documented in this encounter [facility] Work Phone: History general Narrative - Reported* Type Description Date Surgical History No Surgical history information Hospitalization History [facility] Other History general Narrative - Reported* Type Description Date Surgical History No know Surgical history Hospitalization History [facility] Other History of Present illness Narrative* Mr. [...] list toget one because there have been mononitrotoluene operator recalls. * He also shares that with [...] or homicidal ideation. * Current rx: * Tuckerton IR 900 mg PO QHS- taking for [...] LIN * Current psychiatrist Veronica Redmond at [facility]- has been seeing since early 2019. * Hospitalized most recently at [facility] 1.5 years ago for suicidal ideation. Prior [...] Was home-schooled briefly for HS, then took [employer] test and graduated early. * No history [...] risks of abuse, dependence, addiction and diversion. [facility] Work Phone: History of Present illness [...] like to come off of that medication. Bradyoes not recall any past trial of mirtazapine. [...] assessment on 08/28/2021: * Current rx: * Tuckerton IR 900 mg PO QHS- taking for [...] LIN * Current psychiatrist Veronica Redmond at [facility]- has been seeing since early 2019. * Hospitalized most recently at [facility] 1.5 years ago for suicidal ideation. Prior [...] Was home-schooled briefly for HS, then took [employer] test and graduated early. * No history [...] risks of abuse, dependence, addiction and diversion. LR-Yqhfysenjq-Hhnpch [address] DO Work Phone: History of [...] month. PCP is Dr. Vito Powers in [place], [place]. * From my initial assessment on 08/28/2021: * Current rx: * Tuckerton IR 900 mg PO QHS- taking for [...] LIN * Current psychiatrist Veronica Redmond at [facility]- has been seeing since early 2019. * Hospitalized most recently at [facility] 1.5 years ago for suicidal ideation. Prior [...] Was home-schooled briefly for HS, then took [employer] test and graduated early. * No history [...] risks of abuse, dependence, addiction and diversion. QH-Duwngolrij-Bkbheq [address] DO Work Phone: History of [...] assessment on 08/28/2021: * Current rx: * Tuckerton IR 900 mg PO QHS- taking for [...] LIN * Current psychiatrist Veronica [place] at [facility]- has been seeing since early 2019. * Hospitalized most recently at [facility] 1.5 years ago for suicidal ideation. Prior [...] Was home-schooled briefly for HS, then took [employer] test and graduated early. * No history [...] risks of abuse, dependence, addiction and diversion. [facility]-O[address]htjiazh-[address] [place] DO Work Phone: History of [...] assessment on 08/28/2021: * Current rx: * T[place] IR 900 mg PO QHS- taking for [...] LIN * Current psychiatrist Veronica Redmond at [facility]- has been seeing since early 2019. * Hospitalized most recently at [facility] 1.5 years ago for suicidal ideation. Prior [...] Was home-schooled briefly for HS, then took [employer] test and graduated early. * No history [...] risks of abuse, dependence, addiction and diversion. [facility] Work Phone: History of Present illness [...] assessment on 08/28/2021: * Current rx: * T[place] IR 900 mg PO QHS- taking for [...] LIN * Current psychiatrist Veronica Redmond at [facility]- has been seeing since early 2020. * Hospitalized most recently at [facility] 1.5 years ago for suicidal ideation. Prior [...] Was home-schooled briefly for HS, then took [employer] test and graduated early. * No history [...] risks of abuse, dependence, addiction and diversion. [facility]-[address] Work Phone: History of Present illness [...] assessment on 08/28/2021: * Current rx: * T[place] IR 900 mg PO QHS- taking for [...] LIN * Current psychiatrist Veronica Redmond at [facility]- has been seeing since early 2019. * Hospitalized most recently at [facility] 1.5 years ago for suicidal ideation. Prior [...] Was home-schooled briefly for HS, then took [employer] test and graduated early. * No history [...] risks of abuse, dependence, addiction and diversion. [facility] [address] DO Work Phone: History of Present illness [...] assessment on 08/28/2021: * Current rx: * T[place] IR 900 mg PO QHS- taking for [...] LIN * Current psychiatrist Veronica Redmond at [facility]- has been seeing since early 2019. * Hospitalized most recently at [facility] 1.5 years ago for suicidal ideation. Prior [...] Was home-schooled briefly for HS, then took [employer] test and graduated early. * No history [...] risks of abuse, dependence, addiction and diversion. [facility]Srczmbnnuh-Oke[address]x [address] [place] DO Work Phone: History of [...] assessment on 08/28/2021: * Current rx: * T[place] IR 900 mg PO QHS- taking for [...] LIN * Current psychiatrist Veronica Redmond at [facility]- has been seeing since early 2019. * Hospitalized most recently at [facility] 1.5 years ago for suicidal ideation. Prior [...] Was home-schooled briefly for HS, then took [employer] test and graduated early. * No history [...] risks of abuse, dependence, addiction and diversion. [facility]-Jiixnybrhl-Ynct[address] [place] DO Work Phone: History of [...] assessment on 08/28/2021: * Current rx: * T[place] IR 900 mg PO QHS- taking for [...] LIN * Current psychiatrist Veronica Redmond at [facility]- has been seeing since early 2019. * Hospitalized most recently at [facility] 1.5 years ago for suicidal ideation. Prior [...] risks of abuse, dependence, addiction and diversion. [facility]-Adxixvbphd-Hoxbtq [facility] Work Phone: Progress note No data available for this section [facility] reason for referral (narrative)* Consultation (Routine) - Authorized Specialty Diagnoses / Procedures Referred By Freedom rocha Referred To Contact Psychiatry Diagnoses Severe episode of recurrent major depressive disorder, without psychotic features (CMS/HCC) Generalized anxiety disorder Other bipolar disorder (CMS/HCC) Extrapyramidal symptom Procedures Follow Up In Psychiatry Shireen Khan APRN-CNP, GUIDO [address] [address] Department [place] [address] Referral ID Status Reason Start Date Expiration Date V isits Requested Visits Authorized [id number] Authorized 02/16/2023 02/16/2024 1 1 [facility] Work Phone: Reason for referral (narrative)* Consultation (Routine) - Authorized Specialty Diagnoses / Procedures Referred By Freedom rocha Referred To Contact Psychiatry Diagnoses Severe episode of recurrent major depressive disorder, without psychotic features (CMS/HCC) Generalized anxiety disorder Other bipolar disorder (CMS/HCC) Extrapyramidal symptom Procedures Follow Up In Psychiatry Shireen Khan APRN-CNP, JANA-COMPUTER AIDE [address] [facility] [place] [address] Referral ID Status Reason Start Date Expiration Date V isits Requested Visits Authorized [id number] Authorized 03/16/2023 03/15/2024 1 1 [facility] Work Phone: Reioaz for referral (narrative)* Consultation (Routine) - Authorized Specialty Diagnoses / Procedures Referred By Contac t Referred To Contact Psychiatry Diagnoses Other bipolar disorder (Multi) Severe episode of recurrent major depressive disorder, without psychotic features (Multi) Generalized anxiety disorder Extrapyramidal symptom Procedures Follow Up In Psychiatry Shireen Khan APRN-CNP, APRN-COMPUTER AIDE [address] [facility] [place] [address] Referral ID Status Reason Start Date Expiration Date V isits Requested Visits Authorized [id number] Authorized 07/15/2023 07/14/2024 1 1 [facility] Work Phone: Revvnn for referral (narrative)* Consultation (Routine) - Authorized Specialty Diagnoses / Procedures Referred By Contac t Referred To Contact Psychiatry Diagnoses Generalized anxiety disorder Mood disorder (CMS-HCC) Severe episode of recurrent major depressive disorder, without psychotic features (Multi) Extrapyramidal symptom Procedures Follow Up In Psychiatry Shireen Khan APRN-CNP, APRN-COMPUTER AIDE [address] [facility] [place] [address] Referral ID Status Reason Start Date Expiration Date V isits Requested Visits Authorized [id number] Authorized 01/20/2024 01/19/2025 1 1 [facility] Work Phone: reason for visit Narrative* Consultation (Routine) - Authorized Specialty Diagnoses / Procedures Referred By Contac t Referred To Contact Psychiatry Diagnoses Other bipolar disorder (Multi) Severe episode of recurrent major depressive disorder, without psychotic features (Multi) Generalized anxiety disorder Extrapyramidal symptom Procedures Follow Up In Psychiatry Shireen Khan, LAMONTETOOL MACHINE SETUP OPERATOR, RING SORTER-COMPUTER AIDE [address] [facility] [place] [address] Referral ID Status Reason Start Date Expiration Date V isits Requested Visits Authorized [id number] Authorized 06/11/2023 06/10/2024 1 1 [facility] Work Phone: reason for visit Narrative* Consultation (Routine) - Authorized Specialty Diagnoses / Procedures Referred By Contac t Referred To Contact Psychiatry Diagnoses Generalized anxiety disorder Other bipolar disorder Severe episode of recurrent major depressive disorder, without psychotic features (Multi) Extrapyramidal symptom Procedures Follow Up In Psychiatry Shireen Khan APRN-CNP, RING SORTER-COMPUTER AIDE [address] [facility] [place] [address] Referral ID Status Reason Start Date Expiration Date V isits Requested Visits Authorized [id number] Authorized 12/24/2023 12/23/2024 1 1 [facility] Work Phone: reason for visit Narrative* Consultation (Routine) - Authorized Specialty Diagnoses / Procedures Referred By Contac t Referred To Contact Psychiatry Diagnoses Severe episode of recurrent major depressive disorder, without psychotic features (Multi) Generalized anxiety disorder Other bipolar disorder Extrapyramidal symptom Procedures Follow Up In Psychiatry Shireen Khan APRN-CNP, RING SORTER-COMPUTER AIDE [address] [facility] [place] [address] Phone: tel: fax: Referral ID Status Reason Start Date Expiration Date V isits Requested Visits Authorized [id number] Authorized 01/07/2024 01/06/2025 1 1 [facility] Work Phone: Reason for visit Narrative* Consultation (Routine) - Authorized Specialty Diagnoses / Procedures Referred By Freedom rocha Referred To Contact Psychiatry Diagnoses Severe episode of recurrent major depressive disorder, without psychotic features (Multi) Other bipolar disorder Generalized anxiety disorder Extrapyramidal symptom Procedures Follow Up In Psychiatry Shireen Khan, RING SORTER-[facility] [address] [facility] [place] [address] Phone: tel: fax: Referral ID Status Reason Start Date Expiration Date V isits Requested Visits Authorized [id number] Authorized 02/17/2024 02/16/2025 1 1 [facility] Work Phone: Summary Purpose Family History Relationship Condition Age at Onset Recorded Date/T tay father Unknown Advance Directives Advance Directive Response Recorded Date/ Time Advance Directives No May 07, 2023 3:11am Advance Directive Response Recorded Date/ Time Advance Directives No May 07, 2023 4:11am Chief Complaint * Face - To - Face Visit. * Bipolar disorder, anxiety Chief Complaint and Reason for Visit Chief Complaint lithium toxicity Reason for Visit Bipolar disorder Hypokalemia [place] toxicity Chief Complaint lithium toxicity Amb Documentation Elevated BP Reason for Visit Bipolar disorder Hypokalemia [place] toxicity Impaired fasting glucose Primary hypertension Chief Complaint check up Reason for Visit Gastroesophageal ref lux disease with esophagitis without hemorrhage Impaired fasting glucose Obesity Palpitations Primary hypertension Wellness examination Reason for Referral Specialty Diagnoses / Procedures Referred By Freedom rocha Referred To Contact Diagnoses Other bipolar disorder ([facility]) Shireen Khan, RING SORTER-TOOL MACHINE SETUP OPERATOR, [facility] [address] [facility] [place] [address] Referral ID Status Reason Start Date Expiration Date V isits Requested Visits Authorized [id number] Pending Review 1 1 Additional Source Comments (unrecognized sect ion and content) No Status Records FoundNo Status Records FoundNo Status Records FoundNo Status Records FoundNo Status Records FoundNo Status Records FoundNo Status Records FoundNo Status Records FoundNo Status Records Found INFORMATION SOURCE (unrecogn ized section and content) DATE CREATED AUTHOR 03/10/2020 [facility] DATE CREATED AUTHOR AUTHOR'S ORGANIZ ATION 08/16/2021 [facility] DATE CREATED AUTHOR AUTHOR'S ORGANIZ ATION 07/14/2022 [facility] DATE CREATED AUTHOR AUTHOR'S ORGANIZ ATION 08/28/2022 [facility] DATE CREATED AUTHOR AUTHOR'S ORGANIZ ATION 01/03/2023 [facility] DATE CREATED AUTHOR AUTHOR'S ORGANIZ ATION 05/11/2023 [facility] EPIC DATE CREATED AUTHOR AUTHOR'S ORGANIZ ATION 07/02/2023 [facility] DATE CREATED AUTHOR AUTHOR'S ORGANIZ ATION 02/25/2024 [facility] DATE CREATED AUTHOR AUTHOR'S ORGANIZ ATION 03/19/2024 [facility] Source Comments (unrecognize d section and content) In the event this informatio n is protected by the Federal Confidentiality of Alcohol and Drug Abuse Patient Records regulations: The Federal rules restrict any use of the information to criminally investigate or prosecute any alcohol or drug abuse patient.[place] [facility] the event this information is protected by the Federal Confidentiality of Alcohol and Drug Abuse Patient Records regulations: The Federal rules restrict any use of the information to criminally investigate or prosecute any alcohol or drug abuse patient.[place] [facility] the event this information is protected by the Federal Confidentiality of Alcohol and Drug Abuse Patient Records regulations: The Federal rules restrict any use of the information to criminally investigate or prosecute any alcohol or drug abuse patient.[place] [facility] the event this information is protected by the Federal Confidentiality of Alcohol and Drug Abuse Patient Records regulations: The Federal rules restrict any use of the information to criminally investigate or prosecute any alcohol or drug abuse patient.[facility] [facility] the event this information is protected by the Federal Confidentiality of Alcohol and Drug Abuse Patient Records regulations: The Federal rules restrict any use of the information to criminally investigate or prosecute any alcohol or drug abuse patient.[facility] [facility] Hospital[facility] the event this information is protected by the Federal Confidentiality of Alcohol and Drug Abuse Patient Records regulations: The Federal rules restrict any use of the information to criminally investigate or prosecute any alcohol or drug abuse patient.[facility] [facility] Hospital[facility] the event this information is protected by the Federal Confidentiality of Alcohol and Drug Abuse Patient Records regulations: The Federal rules restrict any use of the information to criminally investigate or prosecute any alcohol or drug abuse patient.[facility] [facility] HospitalIn the event this information is protected by the Federal Confidentiality of Alcohol and Drug Abuse Patient Records regulations: The Federal rules restrict any use of the information to criminally investigate or prosecute any alcohol or drug abuse patient.[facility] [facility] HospitalIn the event this information is protected by the Federal Confidentiality of Alcohol and Drug Abuse Patient Records regulations: The Federal rules restrict any use of the information to criminally investigate or prosecute any alcohol or drug abuse patient.[facility] Reason for Visit (unrecogniz ed section and content) Reason Onset Date Comments Refill Request 07/17/2021 Reason Comments Rx Refills Specialty Diagnoses / Procedures Referred By Freedom t Referred To Contact Psychiatry / ADULT PSYCHIATRY Diagnoses med check ( Dr.Ball [facility]ays [facility]) Procedures VIDEO PSYC/[place] [address] [place] [address] Referral ID Status Reason Start Date Expiration Date Visits Re quested Visits Authorized [id number] Closed 04/20/2020 04/19/2021 20 20 Reason Onset [...] December 02, 2023 End: December 02, 2023 Manager Retail Store Relationship Specialty [place] [id number], [place] [id number] [facility] 07/01/22 Shireen Khan, RING SORTER-TOOL MACHINE SETUP OPERATOR, RING SORTER-COMPUTER AIDE [address] [place] [address] Nurse Practitioner Psychiatry 02/16/23 Manager Retail Store Relationship Specialty [place] [id number], [place] [id number] [facility] 07/01/22 Shireen Khan, RING SORTER-TOOL MACHINE SETUP OPERATOR, RING SORTER-COMPUTER AIDE [address] [place] [address] Nurse Practitioner Psychiatry 02/16/23 Team Status: Active Member Role Status Dates Jeremías Ocampo MD Admit Provider Active S tart: May 07, 2023 Rizwan Powers DO Primary Care Provider Active Start: May 07, 2023 Zoya Castro DO Other Provider Active Start: Nahid brown 2023 Srinivas Botello MD Attending Pro videgene, Other Provider Active Start: May 07, 2023 Manager Retail Store Relationship Specialty [place] [id number], [place] [id number] [facility] 07/01/22 Shireen Khan, RING SORTER-TOOL MACHINE SETUP OPERATOR, RING SORTER-COMPUTER AIDE [address] [place] [id number] Nurse Practitioner Psychiatry 02/16/23 Team Status: Active Member Role Status Dates Rizwan Powers DO Primary Care Provider Active Start: June 02, 2023 JENELLE Gambino Attending Provider Active St art: June 02, 2023 Team Status: Inactive Member Role Status Dates Rizwan Powers DO Primary Care Provide r, Attending Provider Active Start: June 05, 2023 End: June 05, 2023 Manager Retail Store Relationship Specialty [place] [id number], [place] [id number] PCP - General 07/01/22 Shireen Khan, RING SORTER-TOOL MACHINE SETUP OPERATOR, RING SORTER-COMPUTER AIDE [address] [facility] [place] [address] Nurse Practitioner Psychiatry 02/16/23 Manager Retail Store Relationship Specialty [place] [id number], [place] [id number] PCP - General 07/01/22 Shireen Khan, RING SORTER-TOOL MACHINE SETUP OPERATOR, RING SORTER-COMPUTER AIDE [address] [facility] [place] [address] Nurse Practitioner Psychiatry 02/16/23 Manager Retail Store Relationship Specialty [place] [id number], [place] [id number] PCP - General 07/01/22 Shireen Khan, RING SORTER-TOOL MACHINE SETUP OPERATOR, RING SORTER-COMPUTER AIDE [address] [facility] [place] [address] Nurse Practitioner Psychiatry 02/16/23 Manager Retail Store Relationship Specialty [place] [address] [id number] PCP - General Psychology 11/04/23 Shireen Khan, RING SORTER-TOOL MACHINE SETUP OPERATOR, RING SORTER-COMPUTER AIDE [address] [facility] [place] [address] Nurse Practitioner Psychiatry 02/16/23 Manager Retail Store Relationship Specialty Start Date End Date Chance Thomas, PhD [id number] [place], [place] [phone] PCP - General Psychology 11/04/23 Shireen Khan, RING SORTER-TOOL MACHINE SETUP OPERATOR, RING SORTER-COMPUTER AIDE [address] [facility] [id number] Nurse Practitioner Psychiatry 02/16/23 Manager Retail Store Relationship Specialty Start Date End Date Chance Thomas, PhD [address] [place], [place] [phone] PCP - General Psychology 11/04/23 hSireen Khan, JANA-TOOL MACHINE SETUP OPERATOR, RING SORTER-COMPUTER AIDE [address] [facility] [place] [id number] Nurse Practitioner Psychiatry 02/16/23 Manager Retail Store Relationship Specialty Start Date End Date Chance Thomas, PhD [address] [place], [place] [phone] PCP - General Psychology 11/04/23 Shireen Khan, RING SORTER-TOOL MACHINE SETUP OPERATOR, RING SORTER-COMPUTER AIDE [address] [place] [address] Nurse Practitioner Psychiatry 02/16/23 Goals (unrecognized section [...] BE BASED ON THE PRIMARY CLINICAL RECORDS. [facility] [employer], [facility]. provides no warranty or guarantee of the accuracy or completeness of information in this document.
--- NOTE | 2024-03-30 08:01 | CA_ITS ---
Patient Name: DALJIT NAPOLES MR#: [id number] : 1980 Exam Date: 03/30/2024 Ordering Doctor: DR Rizwan Bautista D.O. ECHOCARDIOGRAM REPORT PROCEDURE: CA ECHO DOPPLER COMPLETE INDICATIONS: Palpitations, heart murmur COMPARISON: None. DESCRIPTION: COMPLETE ECHOCARDIOGRAM Real-time transthoracic echocardiography with 2D, M-mode, spectral and color flow Doppler performed. QUALITY: Technical quality was good. LEFT VENTRICLE: Normal chamber size. Borderline left ventricular hypertrophy. Global left ventricular systolic function is normal. LV EF: Estimated left ventricular ejection fraction is 60-65% DIASTOLIC: Normal diastolic function. ATRIAL SEPTUM: LEFT ATRIUM: Normal chamber size. RIGHT ATRIUM: Mild dilatation. RIGHT VENTRICLE: Normal chamber size. Normal right ventricular systolic function. TRICUSPID VALVE: Normal mobility and thickness. No stenosis with trivial regurgitation. No evidence of pulmonary hypertension. RVSP 22 mmHg MITRAL VALVE: Normal mobility and thickness. No evidence of mitral valve stenosis. There is no mitral annular calcification. Trivial mitral regurgitation. AORTIC VALVE: Normal trileaflet appearance. No visible sclerosis. Normal leaflet mobility. No evidence of aortic valve stenosis. No aortic regurgitation. AORTIC ROOT: Normal diameter and appearance. PULMONIC VALVE: Normal thickness and mobility. No stenosis. Trivial regurgitation. PERICARDIUM: No evidence of pericardial effusion. IVC: Collapses with inspirations. Normal size PLEURA: CONCLUSION: 1. Borderline left ventricular hypertrophy with normal systolic function. LVEF is estimated at 60 to 65%. 2. Normal right ventricular size and systolic function. 3. Normal diastolic function. 4. Mild right atrial dilatation. 5. No significant valvular dysfunction. 6. Normal right-sided pressures. Adult Echocardiography Procedure Report Left Ventricle LVEDD (3.7 - 5.6 cm): 5.37 cm LVESD (2.2 - 4.0 cm): 3.28 cm LVIVS thickness (0.6 - 1.2 cm): 1.25 cm LVPW thickness (0.5 - 1.0 cm): 1.04 cm e': 0.10 m/s E - e': 5.30 LVOT Max Gradient: 2.55 mm[Hg], 2.55 mm[Hg] LVOT Area (cm2): 0.80 m/s Peak Velocity (LVOT): 0.80 m/s, 0.80 m/s Mean Velocity (LVOT): 0.55 m/s LVOT Diameter 2.24 cm Left Ventricular Ejection Fraction: 60-65 % Left Atrium LA Volume Index (2D A2C): 31.00 ml/m2 Left Atrium Systolic Dimension: 4.19 cm Mitral Valve MV E to A Ratio: 1.17, 1.30 Mitral Valve A-Wave Peak Velocity: 0.44 m/s Mitral Valve E-Wave Peak Velocity: 0.54 m/s Right Ventricle RV Internal Diastolic Dimension: 3.58 cm Aorta AO Root Diam: 3.06 cm Ascending Ao Diam: 2.84 cm Aortic Valve AoV Area (Peak Rony): 2.74 cm2, 2.74 cm2 AoV Area (VTI): 2.78 cm2, 2.87 cm2 Peak Velocity(Antegrade Flow): 1.15 m/s Peak Gradient(Antegrade Flow): 5.31 mm[Hg] Mean Velocity(Antegrade Flow): 0.83 m/s Mean Gradient(Antegrade Flow): 3.12 mm[Hg] Velocity Time Integral: 22.99 cm Tricuspid Valve Peak Velocity (Regurgitant Flow): 1.76 m/s, 2.09 m/s, 2.16 m/s Pulmonic Valve Mean Gradient: 4.42 mm[Hg], 4.24 mm[Hg] Mean Velocity: 1.00 m/s, 0.98 m/s Peak Velocity: 1.43 m/s Peak Gradient: 8.20 mm[Hg], 8.23 mm[Hg] Right Atrium Right Atrium Systolic Pressure: 59.49 ml, 59.49 ml Dictated by: Morgan Victor M.D. on 03/30/2024 at 16:29 Approved by: Morgan Victor M.D. on 03/30/2024 at 16:31
== END 2024-03-30 07:43 | disposition home or self-care (01) ==
LOC: CARD 07:43
PROVIDERS: PCP Internal Medicine; Visit Provider Internal Medicine
DX: R00.2 Palpitations (principal); R01.1 Cardiac murmur, unspecified
CPT/HCPCS: 93246; 93306